=== PATIENT | female | born 1955 | race African-American/Black ===

== ENCOUNTER 2016-07-29 12:03 | Inpatient (IN) | payer MEDICAID, MEDICARE ==
[~2016-07-29] VITALS: Ht 167.6 cm; Wt 83.0 kg
[2016-07-29] VITALS (12 sets, daily range): BP systolic 147–191; BP diastolic 84–113; BMI 28.5
--- NOTE | 2016-07-29 11:40 | NUR ---
PT ARRIVED TO ROOM 2315 VIA STRETCHER ACCOMPANIED BY EMS. PT IS ALERT AND CONVERSANT, BUT CONVERSATION TENDS TO TRAIL OFF WHEN REQUIRES PT TO ANSWER LONG ANSWERS. C/O BEING COLD. HAS HAD NAUSEA UPON ARRIVAL. PT HAS ALSO HAD A BM. C/O PAIN IN [place]-AREA UPON CLEANING. HAS OPEN WOUNDS TO BUTTOCKS AND SCARRING. BRUISING AT RIGHT LOWER ARM IN AREA OF FISTULA. BRUIT AND THRILL NOTED. O2 SATS 97% ON ROOM AIR, NO DISTRESS NOTED. HAS PIV TO LEFT AC. MONITORING EQUIPMENT PLACED ON PATIENT.
[~2016-07-29 12:03] MED LIST: ACETAMINOPHEN500 M1 PO; ALEVE220 MG PO; BAYER CHEWABLE81 MG PO; BENADRYL25 MG PO; CLEOCIN HCL300 MG PO; DIFLUCAN100 MG PO; FLAGYL250 MG PO; GAS-X80 MG PO; IMODIUM2 MG PO; LANTUS SOL100 UNIT/1; LANTUS SOL100 UNIT/1 SC; LEVAQUIN250 MG PO; LOPERAMIDE PO; NYSTATIN15 GM TP; PEPCID20 MG PO; PHOSLO667 MG PO; RENA-VITE TABL0.8 MG PO; RENVELA800 MG PO; SENSIPAR30 MG; SENSIPAR30 MG PO; SENSIPAR60 MG PO; SYNTHROID75 MCG PO; TUMS500 MG PO; TYLENOL 325 MG325 MG PO; ULTRAM50 MG PO; ZOFRAN4 MG PO
--- NOTE | 2016-07-29 15:34 | NUR ---
PT PLACED IN RIGHT WRIST RESTRAINT WHILE ON DIALYSIS. SHE WILL NOT KEEP HER ARM STILL FOR ACCESS AND TREATMENT.
--- NOTE | 2016-07-29 16:46 | NUR ---
PT RESTING QUIETLY. DIALYSIS IN PROGRESS. NO DISTRESS NOTED.
--- NOTE | 2016-07-29 17:38 | NUR ---
PT HAVING SEIZURE. STILL ON DILAYSIS.
[2016-07-29 18:13] LABS: BASOPHILS 0.2 % (0.0-2.0); EOSINOPHILS 0.1 % (0-7); HEMATOCRIT 34.1 % (36.0-48.0); IMMATURE GRANULOCYTES 0.8 % (0-5); LYMPHOCYTES 27.2 % (15-50); MCH 30.4 pg (26.0-34.0); MCHC 32.3 g/dL (31.0-37.0); MCV 94.2 fL (80.0-100.0); MEAN PLATELET VOLUME 10.2 fL (7.4-10.4); NEUTROPHILS 63.7 % (40-80); PLATELET COUNT 138 10x3/uL (130-400); RBC 3.62 10x6/uL (4.00-5.40); RDW 16.1 % (11.5-14.5); WBC 11.1 10x3/uL (4.8-10.8)
[2016-07-29 18:18] LABS: ANION GAP 23.2 mmol/L (8-16); CARBON DIOXIDE 28.3 mmol/L (21.0-32.0); CREATININE - SERUM 9.5 mg/dL (0.6-1.3); POTASSIUM - SERUM 4.5 mmol/L (3.5-5.1)
--- NOTE | 2016-07-29 18:26 | NUR ---
PT HAD SEIZURE WHILE ON DIALYSIS. ATIVAN GIVEN AT 1738. PT RESPIRATIONS IRREGULAR. CODE CALLED AT 1742. SEE CODE SHEET FOR TIMELINE OF EVENTS. PT NOW VENTILATED AND SEDATED ON DIPRIVAN. DR PAN WAS NOTIFIED BY NAYELI GERMAIN THAT PT HAS CODED.
--- NOTE | 2016-07-29 18:49 | NUR ---
RECIEVED A PHONE CALL FROM JACKIE ELAINE WHO ASSISTS WITH THE CARE OF MRS CRANE AND HER . SHE WAS WITH MR CRANE AND I WAS ABLE TO SPEAK WITH HIM WELL. BOTH NUMBERS LISTED IN EMERGENCY CONTACT ARE NOT WORKING NUMBERS. THEY WERE INFORMED THAT THE PATIENT HAD A SEIZURE WHILE ON DIALYSIS AND THEN STOPPED BREATHING AND HER HEART STOPPED AND THAT CPR WAS PERFORMED AND SHE WAS PLACED ON THE VENTILATOR. I WAS GIVEN UPDATED NUMBER FOR SEEMA AND JACKIE'S PHONE NUMBER IF SEEMA CANNOT BE REACHED ON HIS. SEEMA CRANE [phone] JACKIE ELAINE [phone] SEEMA DOES WANT PT TO BE FULL CODE HAD BEEN EXPRESSED BY THE PATIENT. PASSWORD IS: SCHULER
--- NOTE | 2016-07-29 19:30 | NUR ---
Assessment complete. See flowsheet. Pt sedated to james 3 with Propofol sedation infusing @ 20mcg/kg/min (9.8cc/hr). Pt withdraws extremities to stimulation. Pupils size 3 bilaterally ERRL. 8.0FR OET tube secure 24cm @ lip secure to ventilator set AC Rate 16 TV 500 FiO2 @ 50% PEEP 5.0. Lung sounds present coarse crackles to all coffman. Pt OET inline suctioned with thin, red sputum retrieved and strong, productive cough triggered. HR SR with S1S2 auscultated. All peripheral pulses +2 with capillary refill <3 seconds. Left forearm 22g PIV site CDI saline locked. Pt left A/C 20g PIV site CDI no ss infection or infiltration with Propofol sedation infusing. Generalized edema noted to all extremities, non-pitting, non-weeping. BS + to all quadrants. Pt incontinent of small amt yellow pungent urine and liquid, brown stool. Incontinence care completed. SCDs secured to lower extremities bilaterally. Temp 99.0F orally. Pt pulled up in bed and positioned to left side with HOB @ 30 degrees. Arms and heels bridged. Bilat soft wrist restraints secure. CPOC.
--- NOTE | 2016-07-29 21:30 | NUR ---
Pt to CT for ordered CT head. Air overlay mattress placed on bed per order. Incontinence care completed. Bath with linen changes completed. CPOC.
--- NOTE | 2016-07-29 23:30 | NUR ---
Reassessment complete. See flowsheet. Propofol sedation increased to 30mcg/kg/min to obtain james 2-3 and keep patient from biting OET tube. Vent secure to OET tube with no setting changes to note. Lung sounds continue to present coarse crackles to all coffman with auscultation. HR SR with S1S2 auscultated. All peripheral pulses remain +2 with capillary refill <3 seconds. OGT placed and secured to LIWS retrieving light brown gastric content. BS +. Linens clean/dry. Pt pulled up in bed and positioned to back with HOB @ 30 degrees. Oral care completed with mouth moisturizer applied. Arms and heels bridged. Bilat soft wrist restraints secured after ROM completed to all extremities. NO other changes to note. Temp 99.3F
[2016-07-30] VITALS (24 sets, daily range): BP systolic 122–180; BP diastolic 67–109; Ht 167.6 cm; Wt 83.0 kg
--- NOTE | 2016-07-30 01:30 | NUR ---
Pt repositioned to left side with HOB @ 30 degrees. Arms and heels bridged. VSS. Oral care completed with mouth moisturizer applied.
--- NOTE | 2016-07-30 03:30 | NUR ---
Reassessment complete. See flowsheet. Pt remains sedated to james 2-3 with Propofol sedation infusing @ 30mcg/kg/min. No neuro changes to note from previous assessment. OET tube remains secure to vent. ABG resulted. Rate decreased to 12/min and FiO2 decreased to 40% per Christal RT. Lung sounds continue to present coarse crackles to all coffman. Pt OET inline suctioned with thin, bloody sputum retrieved and cough triggered. HR SR with S1S2 auscultated. All peripheral pulses +2 with capillary refill <3 seconds. PIV sites remain CDI; unchanged with no IVF changes to note. BS remains present to all quadrants. OGT secure to LIWS. Pt repositioned to back with HOB @ 30 degrees. Oral care completed with mouth moisturizer applied. Arms and heels rebridged. BIlat soft wrist restraints secure. CPOC.
--- NOTE | 2016-07-30 05:30 | NUR ---
Pt repositioned to right side with HOB @ 30 degrees. Oral care completed with mouth moisturizer applied. Bilat soft wrist restraints secure. No s/s pain or distress. VSS> CPOC.
[2016-07-30 07:35] LABS: BASOPHILS 0.1 % (0.0-2.0); EOSINOPHILS 0.1 % (0-7); HEMATOCRIT 31.8 % (36.0-48.0); HEMOGLOBIN 10.4 g/dL (12-16); IMMATURE GRANULOCYTES 0.1 % (0-5); LYMPHOCYTES 8.5 % (15-50); MCH 30.3 pg (26.0-34.0); MCHC 32.7 g/dL (31.0-37.0); MCV 92.7 fL (80.0-100.0); MEAN PLATELET VOLUME 10.3 fL (7.4-10.4); MONOCYTES 7.5 % (2-11); NEUTROPHILS 83.7 % (40-80); PLATELET COUNT 144 10x3/uL (130-400); RBC 3.43 10x6/uL (4.00-5.40); RDW 16.1 % (11.5-14.5); WBC 10.7 10x3/uL (4.8-10.8)
[2016-07-30 07:53] LABS: ANION GAP 18.3 mmol/L (8-16); BILIRUBIN - TOTAL 1.05 mg/dL (0.2-1.3); CALCIUM 8.8 mg/dL (8.5-10.1); CARBON DIOXIDE 27.6 mmol/L (21.0-32.0); MAGNESIUM - SERUM 2.3 mg/dL (1.8-2.4); PHOSPHOROUS 7.5 mg/dL (2.5-4.9); POTASSIUM - SERUM 4.9 mmol/L (3.5-5.1); PROTEIN - SERUM 7.1 g/dL (6.4-8.2)
[2016-07-30 07:59] LABS: CREATININE - SERUM 12.4 mg/dL (0.6-1.3)
--- NOTE | 2016-07-30 11:58 | NUR ---
Nutrition Note: Chart reviewed. wants TF to begin. Diprivan currently @ 14.4 ml/hr providing 380 kcal/d. Will put order in to start TF of Nepro @ 20 ml/hr. Advance 10 ml every 6-8 hours as tolerated to goal rate of 35 ml/hr (other kcal source - Diprivan). Water flushes 20 ml/hr. RD will continue to monitor pt progress.
--- NOTE | 2016-07-30 14:33 | NUR ---
RESPONSE TO PAINFUL STIMULI WITH FACIAL GRIMACING AND MOVEMENT IN ALL EXTREMITIES. DOES STIR AROUND BUT DOES NOT OBEY COMMANDS OR OPEN EYES ON REQUEST. DIPRIVAN AT 30 MCG/KG/MIN IN LEFT AC. ETT SECURE TO VENT SETTINGS DOCUMENTED. SUCTION BLOODY SPUTUM FROM ETT SMALL AMOUNT. NG TO LOW INTERMITTEN SUCTION DARK GREEN DRAINAGE. BILATRAL LUNG SOUNDS EQUAL WITH FEW CRACKLES LUNGS CLEARER AFTER SUCTIONING. ABD SOFT WITH BOWEL SOUNDS PRESENT. SCD ON LOWER LEGS. SKIN VERY DRY. MONITOR sr. DIALYSIS IN PROGRESS. FISTULA RIGHT UPPER ARM. IV LEFT FOREARM INFUSING WITH NS AT 5 ML HOUR FOR IVPB. HEAD OF BED ELEVATED. TO START TUBE FEEDING NEPRO AT 20 ML HOUR WHEN DIALYSIS COMPLETED.
--- NOTE | 2016-07-30 17:46 | NUR ---
TX COMPLETE. 1L OFF. B/P ELEVATED THROUGH OUT TX. PT HAD MOVEMENT DURING TX BUT REMAINED SEDATED.
--- NOTE | 2016-07-30 18:00 | NUR ---
DIALYSIS COMPLETED TUBE FEEDING STARTED PER ORAL NG TUBE, CHECK PLACE BY INJECTION AIR INTO TUBE AUDIBLE IN ABD. RECTAL OR VAGINAL DRAINAGE SMALL AMOUNT BROWN NOTED WITH FOUL ODOR SMALL SKIN TEAR IN COCCYX AREA. NO CHANGE IN VENT. BLOOD PRESSURE ELEVATED DURING DIALYSIS.
--- NOTE | 2016-07-30 19:30 | NUR ---
Assessment complete. See flowsheet. Pt sedated to james 2-3 upon entrance into room with Propofol sedation infusing @ 40mcg/kg/min (19.2cc/hr). Pt withdraws to painful stimulation. Pupils size 3 bilaterally ERRL. 8.0FR OET tube secure 24cm @ lip to ventilator set A/C Rate 12 TV 600 FiO2 @ 40% PEEP 5.0. Lung sounds present coarse crackles to all coffman. Pt OET inline lavaged and suctioned with thick, brown sputum retrieved and strong, productive cough triggered. Oral care completed with mouth moisturizer applied. HR SR with S1S2 auscultated. All peripheral pulses +2 with capillary refill <3 seconds. Right UA Fistula site thrill palpated/bruit auscultated. Left A/C PIV site CDI no s/s infection or infiltration with Propofol sedation infusing. Pt left forearm PIV site CDI no s/s with NS infusing @ 5cc/hr KVO Rate. Generalized edema noted to all extremities. ABdomen distended with BS present to all quadrants. OGT secure to Nepro TF infusing @ 20cc/hr. Gastric residual check yields 0cc content aspirated. SCDs secure. Pt pulled up in bed and positioned to left side with HOB @ 30 degrees. Arms and heels bridged. Linens clean/dry. Temp 97.7F temporally. Bilat soft wrist restraints resecured after ROM completed to all extremities. CPOC.
--- NOTE | 2016-07-30 19:32 | NUR ---
Daughter spoken to with update given and questions addressed.
--- NOTE | 2016-07-30 21:30 | NUR ---
Pt repositioned to right side. HOB @ 30 degrees. Oral care completed with mouth moisturizer applied. No s/s pain or distress. VSS. No other changes to note. CPOC.
--- NOTE | 2016-07-30 23:30 | NUR ---
Reassessment complete. See flowsheet. Pt remains sedated to james 2 with Propofol sedation infusing @ 40mcg/kg/min. NO neuro changes to note. OET tube remains secure to vent with NO Setting changes to note from previous assessment. Lung sounds continue to present coarse crackles to all coffman. Pt OET inline suctioned with thick, brown sputum retrieved and strong, productive cough triggered. Oral care completed with mouth moisturizer applied. HR SR. BS +. OGT remains secure to Nepro TF infusing @ 20cc/hr. Gastric residual check yields -cc content. TF rate increased to 30cc/hr. Pt repositioned to back with HOB @ 30 degrees. Arms and heels bridged. Bilat soft wrist restraints secured. CPOC.
[2016-07-31] VITALS (23 sets, daily range): BP systolic 141–167; BP diastolic 76–111
--- NOTE | 2016-07-31 01:30 | NUR ---
Chlorhexidine bed bath with gown and linen changes completed. Pt repositioned to left side with HOB @ 30 degrees. VSS. Arms and heels bridged. Baby powder to underlinens, skin folds and under BP cuff and SCDs. Bilat soft wrist restraints secured. Hair cleansed. Oral care completed.
--- NOTE | 2016-07-31 03:00 | NUR ---
FiO2 decreased to 30% per Christal RT after AM ABG results.
--- NOTE | 2016-07-31 03:30 | NUR ---
Reassessment complete. See flowsheet. Pt remains sedated to james 2 with Propofol sedation @ 40mcg/kg/min. OET tube secure to ventilator. Lung sounds continue to present coarse crackles to all coffman. HR SR. BS +. OGT secure to Nepro TF. Gastric resid check yields 0cc content aspirated. TF rate increased to goal rate of 35cc/hr. Pt repositioned to back with HOB @ 30 degrees with arms and heels bridged for AM CXR. Bilat soft wrist restraints secure. CPOC.
[2016-07-31 05:27] LABS: BASOPHILS 0.2 % (0.0-2.0); EOSINOPHILS 0.5 % (0-7); HEMATOCRIT 33.2 % (36.0-48.0); HEMOGLOBIN 10.9 g/dL (12-16); IMMATURE GRANULOCYTES 0.6 % (0-5); LYMPHOCYTES 7.3 % (15-50); MCHC 32.8 g/dL (31.0-37.0); MCV 91.5 fL (80.0-100.0); MEAN PLATELET VOLUME 10.3 fL (7.4-10.4); MONOCYTES 10.6 % (2-11); NEUTROPHILS 80.8 % (40-80); PLATELET COUNT 128 10x3/uL (130-400); RBC 3.63 10x6/uL (4.00-5.40); RDW 16.2 % (11.5-14.5)
--- NOTE | 2016-07-31 05:30 | NUR ---
Pt repositioned to right side. HOB @ 30 degrees. Oral care completed.
[2016-07-31 05:58] LABS: ALBUMIN 2.9 g/dL (3.4-5.0); ANION GAP 17.6 mmol/L (8-16); BILIRUBIN - TOTAL 1.5 mg/dL (0.2-1.3); CALCIUM 8.3 mg/dL (8.5-10.1); CARBON DIOXIDE 27.4 mmol/L (21.0-32.0); MAGNESIUM - SERUM 2.2 mg/dL (1.8-2.4); PROTEIN - SERUM 6.9 g/dL (6.4-8.2)
[2016-07-31 05:59] LABS: CREATININE - SERUM 8.6 mg/dL (0.6-1.3)
--- NOTE | 2016-07-31 19:00 | NUR ---
REPORT RECEIVED AND ASSESSMENT COMPLETED. SEE FLOWSHEET FOR DETAILS. PT IS ON SEDATION VACATION AND CPAP TRIAL. RR 24 PEEP 5.3. O2 SAT 97%. WILL CONTINUE TO MONITOR.
--- NOTE | 2016-07-31 21:00 | NUR ---
2100 MEDS GIVEN. NO OTHER CHANGES IN STATUS AT THIS TIME. WILL MONITOR.
--- NOTE | 2016-07-31 23:00 | NUR ---
REASSESSMENT COMPLETED. PT PLACED BACK ON ASSIST CONTROL BY REPIRATORY DURING THE 2200 HOUR. PROPOFOL RESTARTED. B/P STILL 140'S SYSTOLIC. VSS. WILL MONITOR
[2016-08-01] VITALS (23 sets, daily range): BP systolic 102–157; BP diastolic 47–91
--- NOTE | 2016-08-01 01:00 | NUR ---
PT SEDATED. 40 MCG PROPOFOL. VSS WILL MONITOR.
--- NOTE | 2016-08-01 03:00 | NUR ---
REASSESSMENT COMPLETED. SEE ASSESSMENT FOR FULL DETAILS. NO OTHER CHANGES TO REPORT AT THIS TIME. VSS. WILL MONITOR
[2016-08-01 04:49] LABS: HEMATOCRIT 28.4 % (36.0-48.0); HEMOGLOBIN 9.7 g/dL (12-16); LYMPHOCYTES 8.2 % (15-50); MCHC 34.2 g/dL (31.0-37.0); MCV 90.7 fL (80.0-100.0); MEAN PLATELET VOLUME 10.1 fL (7.4-10.4); NEUTROPHILS 86.5 % (40-80); PLATELET COUNT 105 10x3/uL (130-400); RBC 3.13 10x6/uL (4.00-5.40); RDW 15.9 % (11.5-14.5); WBC 8.9 10x3/uL (4.8-10.8)
--- NOTE | 2016-08-01 05:00 | NUR ---
RADIOLOGY AND LAB HAVE BEEN TO BEDSIDE. NO OTHER CHANGES IN STATUS TO REPORT. VSS.
[2016-08-01 05:22] LABS: ALBUMIN 2.6 g/dL (3.4-5.0); BILIRUBIN - TOTAL 1.39 mg/dL (0.2-1.3); CALCIUM 8.4 mg/dL (8.5-10.1); CREATININE - SERUM 10.4 mg/dL (0.6-1.3); MAGNESIUM - SERUM 2.2 mg/dL (1.8-2.4); PROTEIN - SERUM 6.5 g/dL (6.4-8.2)
--- NOTE | 2016-08-01 07:00 | NUR ---
REPORT RECEIVED, PATIENT IN SEMIFOWLERS POSITION, SEDATED, VENT IN USE. ASSESSMENT COMPLETED AT THIS TIME. NO VISUAL CUES OF DISTRESS NOTED.
--- NOTE | 2016-08-01 07:52 | NUR ---
DR FARLEY HERE. QUESTIONS ANSWERED ASKED. WILL AWAIT ORDERS.
--- NOTE | 2016-08-01 10:23 | NUR ---
COMPLETE BED BATH GIVEN WITH THE ASSISTANCE OF [facility]. PATIENT TOLERATED WELL.
--- NOTE | 2016-08-01 10:25 | NUR ---
PATIENT PATHWAYS - Patient of [facility] on //Sat @ 11:15am. Medical records forwarded to the home unit. FA from patient's unit states that this behavior (skipping HD x 10 days) is normal for this patient. On previous d/c patient went the [place], however the paperwork for [employer]-TERM C[employer] MEDICAID was never completed and returned. Per FA patient cannot care for self or make rational decisions for self. FA states patient lives home w/ (confined to a W/C, unable to care for self either.) Daughter lives 'in town' but not with the patient. FA feels Patient needs some type of intervention regarding placement @ [facility]. [facility]
--- NOTE | 2016-08-01 10:44 | NUR ---
Nutrition follow-up: Pt intubated, sedated Nepro infusing via OGT @ 35 ml/hr; 20 ml H2O flush every hour Sedated with propofol Labs reviewed Wt: 175# RDN will continue to monitor patients progress and adjust tube feeding rate as needed to meet est nutritional needs. RDN following.
--- NOTE | 2016-08-01 17:07 | NUR ---
GRANDSON IN FROM [facility]. UPDATE GIVEN. ALLOWED IN TO SEE HER FOR 10 MINUTES BEFORE HE HEADED TO [facility]. ALL QUESTIONS ANSWERED.
--- NOTE | 2016-08-01 19:30 | NUR ---
ASSESSMENT COMPLETE. S1S2. RR SHALLOW; CRACKLES BILATERALLY IN UPPER LOBES; DIMINISHED BILATERALLY IN LOWER LOBES. PT SEDATED ON VENT; RESPONDS TO PAIN; OPENS EYES. PT COUGHS WITH MOVEMENT. STAGE TWO PRESSURE ULCERS ON BUTTOCKS; BLEEDING. PERRLA. SEE FLOW SHEET FOR DETAILS.
--- NOTE | 2016-08-01 20:10 | NUR ---
PT HAD SMALL BM; CLEANED. PARTIAL LINEN CHANGE.
--- NOTE | 2016-08-01 21:29 | NUR ---
Please to reference Kacie Gomez's Patient Pathway note. Per [facility] it is the patient's pattern to miss HD. It appears the patient and her spouse are both unable to assist themselves or one another. She states patient cannot make rational decision no documentation provided at this time to support capacity. Make consider psych consult. Patient on a previous admission was discharged to [facility] per case management notes. Paperwork for Residential Medicaid was apparently given to the patient but was not completed or returned per HD Note. Question patient's reading ability & comprehension. May possibly require assistance. The family support is not known. Reportedly a daughter lives in the same town. Question of a grandson or friend of grandson visiting today at 1730. CM was not available at that time. CM will attempt to speak w/ family and/ or social media director at [facility].
--- NOTE | 2016-08-01 23:00 | NUR ---
REASSESSMENT COMPLETE. NO CHANGES FROM PREVIOUS ASSESSMENT.
[2016-08-02] VITALS (24 sets, daily range): BP systolic 113–158; BP diastolic 66–88
--- NOTE | 2016-08-02 01:15 | NUR ---
PT HAD MODERATE BM; CLEANED, LINENS CHANGED.
--- NOTE | 2016-08-02 03:30 | NUR ---
REASSESSMENT COMPLETE. NO CHANGES FROM PREVIOUS ASSESSMENT. WILL CONTINUE TO MONITOR.
--- NOTE | 2016-08-02 03:45 | NUR ---
PT HAD MODERATE BM. COMPLETE BED BATH. COMPLETE LINEN CHANGE. NEW GOWN PROVIDED. WILL CONTINUE TO MONITOR.
[2016-08-02 03:57] LABS: BASOPHILS 0.1 % (0.0-2.0); EOSINOPHILS 2.4 % (0-7); HEMATOCRIT 29.3 % (36.0-48.0); HEMOGLOBIN 9.6 g/dL (12-16); IMMATURE GRANULOCYTES 0.3 % (0-5); LYMPHOCYTES 13.7 % (15-50); MCH 29.9 pg (26.0-34.0); MCHC 32.8 g/dL (31.0-37.0); MCV 91.3 fL (80.0-100.0); MEAN PLATELET VOLUME 10.2 fL (7.4-10.4); MONOCYTES 7.7 % (2-11); NEUTROPHILS 75.8 % (40-80); RBC 3.21 10x6/uL (4.00-5.40); RDW 16.3 % (11.5-14.5); WBC 7.4 10x3/uL (4.8-10.8)
[2016-08-02 04:04] LABS: PLATELET COUNT 153 10x3/uL (130-400)
[2016-08-02 04:17] LABS: ALBUMIN 2.5 g/dL (3.4-5.0); ANION GAP 16.9 mmol/L (8-16); BILIRUBIN - TOTAL 1.2 mg/dL (0.2-1.3); CALCIUM 7.9 mg/dL (8.5-10.1); CARBON DIOXIDE 26.9 mmol/L (21.0-32.0); CREATININE - SERUM 11.6 mg/dL (0.6-1.3); MAGNESIUM - SERUM 2.2 mg/dL (1.8-2.4); PROTEIN - SERUM 7.1 g/dL (6.4-8.2)
[2016-08-02 04:20] LABS: POTASSIUM - SERUM 4.8 mmol/L (3.5-5.1)
--- NOTE | 2016-08-02 06:55 | NUR ---
REPORT RECEIVED. PATIENT IN SEMIFOWLERS POSITION WITH VENT IN PLACE. ASSESSMENT COMPLETED. SEDATION CUT IN HALF. NOW AT 20MCG. WORKING ON WEANING. SIGRID WITH RESPIRATORY AT BEDSIDE.
--- NOTE | 2016-08-02 07:35 | NUR ---
SEDATION DECREASED TO 10 MCG. PATIENT TOLERATING. B/P 122/67 (84), HR 85, RR 15, SATS 96% ON 30%.
--- NOTE | 2016-08-02 09:02 | NUR ---
CUT PATIENT BACK TO 5MCG.
--- NOTE | 2016-08-02 09:30 | NUR ---
SEDATION TURNED OFF.
--- NOTE | 2016-08-02 09:47 | NUR ---
PATIENT AWAKE. SHE IS FLOPPING IN BED AND STAMPERING HER FEET LIKE A 2 YEAR OLD. SPOKE WITH SIGRID IN RESPIRATORY AND DR GARSIA. PATIENT WILL BE LIGHTLY SEDATED UNTIL AFTER DIALYSIS IS OVER AND THEN WE WILL TRY AGAIN.
--- NOTE | 2016-08-02 13:05 | NUR ---
HAVE STARTED WEENING PATIENT OFF SEDATION AGAIN. SHE WAS DROPPED TO 15 THEN AT THE END OF CLEANING HER AND REPOSITIONING HER, SHE WAS DECREASED TO 7.5. WILL WAIT JUST A BIT LONGER AND TURN SEDATION OFF.
--- NOTE | 2016-08-02 13:21 | NUR ---
PATIENTS SEDATION TURNED TO 5MCG AND SHE IS ON CPAP THROUGH THE VENT. WILL CONTINUE TO MONITOR.
--- NOTE | 2016-08-02 13:35 | NUR ---
PATIENT POUNDING LEGS ON THE BED. NOT OPENING EYES OR FOLLOWING COMMANDS. THIS NURSE HAS TRIED TO EXPLAIN TO HER WHAT IS GOING ON AGAIN. NO ACKNOWLEDGEMENT THAT SHE UNDERSTANDS. B/P 146/82 (104), HR 86, RR 30, SATS 96% ON 30% OXYGEN.
--- NOTE | 2016-08-02 13:48 | NUR ---
SEDATION COMPLETELY TURNED OFF. WILL MONITOR.
--- NOTE | 2016-08-02 14:37 | NUR ---
PATIENT CONTINUES TO LIFT LEGS AND SLAM THEM ON THE BED. SHE IS NOT OPENING EYES, BUT WILL STOP DOING THAT WITH HER LEGS FOR A FEW MOMENTS WHEN SHE IS TOLD TO. STILL NOT OPENING HER EYES.
--- NOTE | 2016-08-02 14:43 | NUR ---
SPOKE WITH DR GARSIA AND SGIRID, UNLESS PATINET FAILS LEAK TEST, WE WILL PROCEEDE WITH EXTUBATION. WHEN SIGRID WITH RESPIRATORY IS FINISHED WITH THE PATIENT HE HAS, WE WILL PROCEDE.
--- NOTE | 2016-08-02 15:09 | NUR ---
EVEN THOUGH PATIENT IS LIFTING AND SLAMMING LEGS, AND LIFTING AND LOWERING ARMS, SHE IS NOT ABLE TO FOLLOW COMMANDS. WILL CONTINUE TO MONITOR.
--- NOTE | 2016-08-02 15:20 | NUR ---
PATIENT FAILED HER LEAK TEST. SIGRID WILL GO AND SPEAK WITH DR STALLWORTH.
--- NOTE | 2016-08-02 15:35 | NUR ---
PATIENT WAS RESEDATED AND PLACED BACK ON THE VENT SIMV SETTINGS. FEEDING WAS RESTARTED PER ORDERS. WILL MONITOR.
--- NOTE | 2016-08-02 16:47 | NUR ---
PATIENTS OG TUBE CLOGGED. UNABLE TO UNCLOG. PULLED WHAT LOOKED LIKE A 14FR SALEM SUMP AND REDROPPED 16FR SALEM SUMP. PLACEMENT VERIFIED BY AIR BOLUS AND BACK FLOW OF GASTRIC CONTENT. TUBE FEEDINGS STARTED BACK.
--- NOTE | 2016-08-02 17:57 | NUR ---
PATIENT CLEANED UP AND REPOSITIONED TO HER BACK. VITAL SIGNS ARE STABLE. PATIENT SUCTIONED. FEEDINGS RUNNING WITHOUT PROBLEM. NO VISUAL CUES OF DISTRESS NOTED.
--- NOTE | 2016-08-02 19:30 | NUR ---
ASSESSMENT COMPLETE. S1S2. PT SEDATED ON VENT. RR CRACKLES BILATERALLY IN UPPER LOBES; DIMINISHED BILATERALLY IN LOWER LOBES. 2 STAGE II PU ON BUTTOCKS/COCCYX. VSS. NSR SHOWING ON MONITOR. PERRLA 4MM; BRISK.
--- NOTE | 2016-08-02 21:30 | NUR ---
PT SEDATED ON VENT. VSS. NO DISTRESS NOTED. WILL CONTINUE TO MONITOR.
--- NOTE | 2016-08-02 22:40 | NUR ---
CALLED TO CHECK ON PT. UPDATE GIVEN.
--- NOTE | 2016-08-02 23:00 | NUR ---
REASSESSMENT COMPLETE. NO CHANGES FROM PREVIOUS ASSESSMENT. WILL CONTINUE TO MONITOR.
[2016-08-03] VITALS (21 sets, daily range): BP systolic 119–160; BP diastolic 73–99
--- NOTE | 2016-08-03 03:30 | NUR ---
REASSESSMENT COMPLETE. NO CHANGES FROM PREVIOUS ASSESSMENT.
[2016-08-03 05:04] LABS: BASOPHILS 0 % (0.0-2.0); EOSINOPHILS 0.1 % (0-7); HEMATOCRIT 31.5 % (36.0-48.0); HEMOGLOBIN 10.8 g/dL (12-16); IMMATURE GRANULOCYTES 0.1 % (0-5); LYMPHOCYTES 6.2 % (15-50); MCH 31.5 pg (26.0-34.0); MCHC 34.3 g/dL (31.0-37.0); MCV 91.8 fL (80.0-100.0); MEAN PLATELET VOLUME 10.3 fL (7.4-10.4); MONOCYTES 7.4 % (2-11); NEUTROPHILS 86.2 % (40-80); PLATELET COUNT 173 10x3/uL (130-400); RBC 3.43 10x6/uL (4.00-5.40); RDW 16.6 % (11.5-14.5); WBC 8.6 10x3/uL (4.8-10.8)
[2016-08-03 05:27] LABS: ALBUMIN 2.7 g/dL (3.4-5.0); ANION GAP 18.5 mmol/L (8-16); BILIRUBIN - TOTAL 1.4 mg/dL (0.2-1.3); CALCIUM 7.5 mg/dL (8.5-10.1); CARBON DIOXIDE 27.3 mmol/L (21.0-32.0); MAGNESIUM - SERUM 2.3 mg/dL (1.8-2.4); PHOSPHOROUS 7.1 mg/dL (2.5-4.9); POTASSIUM - SERUM 4.8 mmol/L (3.5-5.1)
[2016-08-03 05:36] LABS: CREATININE - SERUM 7.8 mg/dL (0.6-1.3); PROTEIN - SERUM 7.4 g/dL (6.4-8.2)
--- NOTE | 2016-08-03 06:29 | NUR ---
PT HAD SMALL BM. PT CLEANED AND PARTIAL LINEN CHANGE.
--- NOTE | 2016-08-03 07:30 | NUR ---
REPORT RECD PT CARE ASSUMED. PT IS SEDATED ON VENTILATOR. PT OPENS EYES TO STIMULI. S1S2 NOTED. SR PER CM. SEE SHIFT ASSESSMENT FOR FURTHER DETAILS. VSS.
[2016-08-03 08:21] LABS: HEP B CORE AB TOTAL Negative (Negative)
--- NOTE | 2016-08-03 11:45 | NUR ---
PIV SITE UNACCEPTABLE. PIV RESITED TO LEFT AC. INFUSING WELL, WITH POSITIVE BLOOD RETURN.
--- NOTE | 2016-08-03 14:50 | NUR ---
PT EXTUBATED AT THIS TIME, DOING WELL.
--- NOTE | 2016-08-03 19:30 | NUR ---
ASSESSMENT COMPLETE. S1S2. PT EXTUBATED EARLIER TODAY; RR SHALLOW; SOB. RR CRACKLES BILATERALLY IN UPPER LOBES; DIMINISHED BILATERALLY IN LOWER LOBES. PT AWAKE OPENS EYES SPONTANEOUSLY. PT DOES NOT FOLLOW COMMANDS. PT MUMBLES; INCOMPREHENSIBLE SOUNDS. PUPILS UNEQUAL IN SIZE; 2MM RIGHT/SLUGGISH; 4MM LEFT/BRISK. 2 STAGE 2 PU ON BUTTOCKS/COCCYX. ORAL CARE PROVIDED. PT HAVING DIFFICULTY SWALLOWING SECRETIONS. ON 4L VIA NC. RIGHT ARM RESERVE. LEFT FOREARM UPPER ARM PIV; PATENT.
--- NOTE | 2016-08-03 21:57 | NUR ---
PT LOOKED TOWARD NURSE WHEN ASKED. WAS ABLE TO MUMBLE ANSWERS WHEN ASKING QUESTION. DENIES PAIN. PAGED DR. VASQUEZ FOR PT HTN. SYSTOLIC ABOVE 160.
--- NOTE | 2016-08-03 23:59 | NUR ---
REASSESSMENT COMPLETE. PT ALERTNESS HAS INCREASED. LOOKS TOWARD THIS NURSE WHEN SPEAKING TO PT; ANSWERS QUESTIONS. SPEECH MUMBLED/GARBLED. DENIES PAIN.
[2016-08-04] VITALS (24 sets, daily range): BP systolic 122–175; BP diastolic 66–97
--- NOTE | 2016-08-04 03:10 | NUR ---
REASSESSMENT COMPLETE. NO CHANGES FROM PREVIOUS ASSESSMENT. WILL CONTINUE TO MONITOR.
--- NOTE | 2016-08-04 04:15 | NUR ---
BATH; LINEN CHANGE.
[2016-08-04 05:00] LABS: BASOPHILS 0.1 % (0.0-2.0); EOSINOPHILS 0 % (0-7); HEMOGLOBIN 10.4 g/dL (12-16); IMMATURE GRANULOCYTES 0.4 % (0-5); LYMPHOCYTES 8.9 % (15-50); MCH 29.9 pg (26.0-34.0); MCHC 32.5 g/dL (31.0-37.0); MEAN PLATELET VOLUME 10.5 fL (7.4-10.4); MONOCYTES 8.8 % (2-11); NEUTROPHILS 81.8 % (40-80); PLATELET COUNT 190 10x3/uL (130-400); RBC 3.48 10x6/uL (4.00-5.40); RDW 16.5 % (11.5-14.5); WBC 9.4 10x3/uL (4.8-10.8)
[2016-08-04 05:13] LABS: ALBUMIN 2.9 g/dL (3.4-5.0); BILIRUBIN - TOTAL 0.92 mg/dL (0.2-1.3); CALCIUM 9.2 mg/dL (8.5-10.1); CARBON DIOXIDE 30.3 mmol/L (21.0-32.0); CREATININE - SERUM 9.5 mg/dL (0.6-1.3); MAGNESIUM - SERUM 2.7 mg/dL (1.8-2.4); PROTEIN - SERUM 8.5 g/dL (6.4-8.2)
[2016-08-04 05:14] LABS: ANION GAP 18.7 mmol/L (8-16)
--- NOTE | 2016-08-04 05:15 | NUR ---
PT HAD SMALL BM. CLEANED; LINENS CHANGED.
--- NOTE | 2016-08-04 06:15 | NUR ---
PT SPITTING ON SELF INSTEAD OF SWALLOWING SALIVA; PT SCREAMING OUT FOR "SEEMA".
--- NOTE | 2016-08-04 06:17 | NUR ---
SPOKE WITH . UPDATE ON CURRENT PT CONDITION.
--- NOTE | 2016-08-04 07:00 | NUR ---
REPORT RECEIVED. ASSESSMENT COMPLETED. PATIENT MOVING LEGS AND ARMS, BUT NOT ANSWERING QUESTIONS.
--- NOTE | 2016-08-04 10:20 | NUR ---
QUEENIE WITH SPEECH THERAPY AT BEDSIDE DOING SWALLOW EVAL. AT THIS TIME PATIENT WILL REMAIN NPO.
--- NOTE | 2016-08-04 10:50 | NUR ---
DIALYSIS STARTED. PATIENT STILL FLAYING ARMS, DIALYSIS NURSE SITTING NEXT TO THE PATIENT AT BEDSIDE TO REMIND HER TO HOLD IT STILL.
--- NOTE | 2016-08-04 13:35 | NUR ---
SPOKE WITH DR GALVAN ABOUT PATIENTS BLOOD PRESSURES. HE STATED THAT THOSE WERE PROBABLY GOOD PRESSURES FOR THE PATIENT AND NO NEW ORDERS RECEIVED.
--- NOTE | 2016-08-04 14:01 | NUR ---
SPOKE WITH DR GALVAN ALSO ABOUT PATIENT STARTING TO C/O DISCOMFORT TO LOWER RIB CAGE BILATERALLY. IT WAS ALSO EXPLAINED THAT SHE HAS FAILED HER SWALLOW EVAL AND CANNOT TAKE ANYTHING BY MOUTH AT THIS TIME. HE STATED HE WOULD ORDER HER SOMETHING.
--- NOTE | 2016-08-04 14:09 | NUR ---
BUPRENEX GIVEN PER PRN ORDERS FOR C/O CHEST DISCOMFORT. SPOKE WITH NEETU WHO IS DO DIALYSIS AND SHE SAID THAT THE PATIENT WOULD GET SOME RELIEF FROM THE PAIN MEDICATIONS AND SHE WAS GOING TO HAVE TO DO MORE TIME ON THE DIALYSIS TO PULL OFF THE AMOUNT OF FLUID DR GALVAN JUST TOLD HER HE WANTED PULLED.
--- NOTE | 2016-08-04 15:47 | NUR ---
DIALYSIS STILL IN PROCESS. PATIENT IS RESTING COMFORTABLE AFTER PAIN MEDICATIONS. PER NEETU WITH DIALYSIS, SHE HAS BEEN SLEEPING FOR A BIT NOW. WILL CONTINUE TO MONITOR.
--- NOTE | 2016-08-04 16:27 | NUR ---
DIALYSIS COMPLETED, PULLED OFF 3,000 ML OF FLUID.
--- NOTE | 2016-08-04 23:30 | NUR ---
1929- REPORT RECVD. CARE ASSUMED. INITIAL ASSMNT COMPLETED. SEE FLOWSHEET FOR ALL FINDINGS. LETHARGIC. AROUSES TO VOICE. ORIENTED TO SELF. DENIES DISCOMFORT. FOLLOWS COMMANDS BUT SLOW TO RESPOND. RESP UNLABORED. LUNGS COARSE THRU OUT. SPO2 97% ON O2 AT 2 LPM NC. SR ON THE MONITOR. PULSES PALP X4. SCDS ON. GENERALIZED EDEMA PRESENT. ABD SOFT, BSA X4. ANURIC. BLADDER NON PALP. AIR OVERLAY IN FOR SKIN INTEGRITY. REPOSITIONED. HEELS BRIDGED. HOB UP. C/L IN REACH. CONT CURRENT POC. 2129- SPOKE WITH DAUGHTER VIA PHONE. PASSWORD VERIFIED. VSS. TURNED AND REPOSITIONED. DENIES NEEDS. HOB UP. C/L IN REACH. CONT CURRENT POC. 2329- REASSESSMENT COMPLETED. SEE FLOWSHEET FOR ALL FINDINGS. LETHARGIC. AROUSES TO VOICE. ORIENTED TO SELF. DENIES DISCOMFORT. FOLLOWS COMMANDS BUT SLOW TO RESPOND. RESP UNLABORED. LUNGS COARSE THRU OUT. SPO2 97% ON O2 AT 2 LPM NC. SR ON THE MONITOR. PULSES PALP X4. SCDS ON. GENERALIZED EDEMA PRESENT. ABD SOFT, BSA X4. ANURIC. BLADDER NON PALP. AIR OVERLAY IN FOR SKIN INTEGRITY. REPOSITIONED. HEELS BRIDGED. HOB UP. C/L IN REACH. CONT CURRENT POC.
[2016-08-05] VITALS (20 sets, daily range): BP systolic 122–168; BP diastolic 69–92
--- NOTE | 2016-08-05 01:30 | NUR ---
TURNED AND REPOSITIONED. REMAINS CONFUSED. VSS. SPO2 96% ON O2 AT 2LPM NC. HOB UP. NO DISTRESS. C/L IN REACH. CONT CURRENT POC.
--- NOTE | 2016-08-05 03:30 | NUR ---
REASSESSMENT COMPLETED. SEE FLOWSHEET FOR ALL FINDINGS. LETHARGIC. AROUSES TO VOICE. ORIENTED TO SELF. DENIES DISCOMFORT. FOLLOWS COMMANDS BUT SLOW TO RESPOND. RESP UNLABORED. LUNGS COARSE THRU OUT. SPO2 97% ON O2 AT 2 LPM NC. SR ON THE MONITOR. PULSES PALP X4. SCDS ON. GENERALIZED EDEMA PRESENT. ABD SOFT, BSA X4. ANURIC. BLADDER NON PALP. AIR OVERLAY IN FOR SKIN INTEGRITY. REPOSITIONED. HEELS BRIDGED. HOB UP. C/L IN REACH. CONT CURRENT POC.
[2016-08-05 04:54] LABS: BASOPHILS 0.4 % (0.0-2.0); EOSINOPHILS 0.9 % (0-7); HEMATOCRIT 30.8 % (36.0-48.0); HEMOGLOBIN 9.8 g/dL (12-16); IMMATURE GRANULOCYTES 0.3 % (0-5); LYMPHOCYTES 7.4 % (15-50); MCH 29.6 pg (26.0-34.0); MCHC 31.8 g/dL (31.0-37.0); MCV 93.1 fL (80.0-100.0); MEAN PLATELET VOLUME 9.8 fL (7.4-10.4); MONOCYTES 14.7 % (2-11); NEUTROPHILS 76.3 % (40-80); PLATELET COUNT 196 10x3/uL (130-400); RBC 3.31 10x6/uL (4.00-5.40); RDW 16.3 % (11.5-14.5); WBC 7.5 10x3/uL (4.8-10.8)
[2016-08-05 05:00] LABS: ANION GAP 18.6 mmol/L (8-16); CALCIUM 8.3 mg/dL (8.5-10.1); CARBON DIOXIDE 29.2 mmol/L (21.0-32.0); CREATININE - SERUM 7.8 mg/dL (0.6-1.3)
[2016-08-05 05:04] LABS: POTASSIUM - SERUM 4.8 mmol/L (3.5-5.1)
--- NOTE | 2016-08-05 05:30 | NUR ---
TURNED AND REPOSITIONED. RESTLESS..PULLING OFF O2 AND LEADS AT TIMES. REPORIENTED. VSS. HOB UP. C/L IN REACH. CONT CURRENT POC.
--- NOTE | 2016-08-05 08:11 | NUR ---
SITTING UP IN BED AWAKE WATCHING TV AT THIS TIME. NOTED PT TO BE A LITTLE LETHARGIC. PT HAS A HARD TIME HOLDING A CONVERSATION, BECOMES INCREASINGLY TIRED WHEN TRYING TO SPEAK AND CLOSES EYES. SPEECH GARBLED AND QUIET, PT ABLE TO NOD AND SHAKE HEAD FOR YES AND NO. SLOW TO RESPOND BUT DOES FOLLOW SIMPLE COMMANDS. NO ACUTE DISTRESS NOTED. WILL CONTINUE PLAN OF CARE.
--- NOTE | 2016-08-05 10:00 | NUR ---
NUTRITION MONITORING & EVAL CHART REVIEWED. SPOKE WITH SPEECH THERAPY. PT UNABLE TO TAKE PO AT THIS TIME. SPEECH THERAPY RECOMMENDING RESUME TUBE FEEDS VIA PEG OR NG TUBE. PT ON NEPRO AT 35 CC/HR PRIOR TO EXTUBATION. RD FOLLOWING
--- NOTE | 2016-08-05 10:26 | NUR ---
UP IN BED IN HIGH FOWLERS POSITION. NO ACUTE DISTRESS NOTED. PT STILL SLOW TO RESPOND. FOLLOWS SIMPLE COMMANDS. WILL CONTINUE PLAN OF CARE.
--- NOTE | 2016-08-05 12:35 | NUR ---
PT CALLED AT THIS TIME. UPDATE GIVEN. NO CHANGE AT THIS TIME. PT NOTED TO TAKE OXYGEN TUBING OFF AT TIMES AND THEN DESAT TO 89%. REORIENTATION FREQIENTLY GIVEN FOR PT TO KEEP NC IN PLACE. DR GARSIA AWARE. WILL CONTINUE TO OBSERVE.
--- NOTE | 2016-08-05 15:01 | NUR ---
FAMILY AT BEDSIDE. UPDATE GIVEN. NO ACUTE DISTRESS NOTED. WILL CONTINUE PLAN OF CARE.
--- NOTE | 2016-08-05 15:59 | NUR ---
PT ABLE TO COUGH UP SPUTUM AND USE YAUNKER TO SUCTION. SPUTUM NOTED THICK WHITE IN COLOR. WILL CONTINUE TO OBSERVE.
--- NOTE | 2016-08-05 16:46 | NUR ---
LYING IN BED RESTING AT THIS TIME. NO ACUTE DISTRESS NOTED. AWAKENS WHEN SPOKEN TO. STILL SLOW TO RESPOND AND LETHARGIC. WILL CONTINUE PLAN OF CARE.
--- NOTE | 2016-08-05 17:36 | NUR ---
NOTED ORDERS FOR PT TO HAVE NGT FOR FEEDINGS SINCE PT HAS FAILED MULTIPLE SWALLOW EVALS. 16F PLACED TO RIGHT NARE. PLACEMENT VERIFICATION VIA AUSCULATION AND RESIDUAL. NO ACUTE DISTRESS NOTED. WILL CONTINUE PLAN OF CARE.
--- NOTE | 2016-08-05 17:38 | NUR ---
NOTED ORDER FOR PT TO TRANSFER TO FLOOR. WAITING TO RECIEVE TRANSFER ROOM NUMBER. WILL CONTINUE PLAN OF CARE.
--- NOTE | 2016-08-05 18:27 | NUR ---
NOTED ORDERS FOR PT TO BE TRANSFERED. PT TO GO TO ROOM 2105. REPORT GIVEN TO GRANT. WILL TRANSFER PT VIA BED SHORTLY.
--- NOTE | 2016-08-05 18:37 | NUR ---
SPOKE WITH PT SON TD AT [phone] TO GIVE UPDATE AND THAT PT TO GO TO ROOM 7481. NO QUESTIONS NOTED.
--- NOTE | 2016-08-05 19:03 | NUR ---
PT TRANSFERRED TO 2105. NGT IN PLACE, PLACEMENT VERIFICATION VIA AUSCULATION AND RESIDUAL. NO ACUTE DISTRESS NOTED. NO FURTHER ACTIONS.
--- NOTE | 2016-08-05 21:21 | NUR ---
PT AWAKE. REACHING TOWARDS O2 CANNULA AND NGT. HANDS MOVED AWAY FROM FACE. PT BECAME AGITATED MOMENTARILY, THEN STOPPED. ATTEMPTED TO CHECK NGT RESIDUAL. NO RESIDUAL OBTAINED. XRAY FOR CONFIRMATION.
--- NOTE | 2016-08-05 21:45 | NUR ---
ASSISTED WITH PT POSITIONING FOR XRAY. PT PICKING AT NGT ADHESIVE, NGT RESECURED WITH TRANSPORE
[2016-08-06 00:54] VITALS: BP 132/71
--- NOTE | 2016-08-06 01:02 | NUR ---
ENTERED PT ROOM DURING ROUNDS. PT NGT LYING IN BED WITH PT. PROCURED NEW NGT SET AND ENTERED PT ROOM TO ATTEMPT PLACEMENT. NGT MEASURED FROM NOSE TO EAR TO XIPHOID BONE AND MARKED. ATTEMPTED TO PLACE NGT AND PT PULLED AWAY AND SAID NO. TRIED AGAIN AND PT SAID NO. REQUESTED CHARGE NURSE PRESENCE TO ASSIST WITH NGT PLACEMENT. PT SAID NO AGAIN. HAD PT VERIFY ORIENTATION. PT GAVE NAME, DATE OF , AND CURRENT LOCATION. NGT NOT PLACE DUE TO PT REFUSAL.
[2016-08-06 04:03] VITALS: BP 138/71
--- NOTE | 2016-08-06 06:13 | NUR ---
PT REFUSING TO ALLOW STAFF TO PROVIDE CARE. PT WANTS WATER. PT HAS BEEN INFORMED REPEATEDLY THAT SHE HAS FAILED SUNIL SWALLOW EVALUATION AND WILL NOT BE PROVIDED WATER. PT STATES THAT IF WE DONT BRING HER WATER THAT WE DONT NEED TO BRING HER ANYTHING.
--- NOTE | 2016-08-06 07:00 | NUR ---
RECEIVED REPORT. ASSUMED CARE OF PATIENT. CALL LIGHT WITHIN REACH. 1ST STEP OVERLAY PATENT. PATIENT ORIENTED TO NAME, PLACE AND YEAR. PATIENT REFUSING CARES / ASSESSMENT THIS AM. INFORMED PATIENT THAT WE ARE HERE TO CARE FOR HER. PATIENT VERBALIZES UNDERSTANDING AND APOLOGIZES. CONTINUES TO REFUSE NGT. PULLS OXYGEN OFF. NO DISTRESS.
[2016-08-06 07:35] VITALS: BP 129/72
--- NOTE | 2016-08-06 08:05 | NUR ---
UNABLE TO CHECK RESIDUAL PATIENT PULLED NGT OUT AND REFUSES FOR NGT TO BE REPLACED.
--- NOTE | 2016-08-06 09:25 | NUR ---
Nutrition consult: Recommend increasing Nepro to goal rate of 45 ml/hr to meet est nutritional needs at this tiem. However, pt has now pulled NGT out and is refusing to have it replaced. RDN following.
--- NOTE | 2016-08-06 11:00 | NUR ---
ORAL PROVIDED AT THIS TIME. NO DISTRESS. CALL LIGHT WITHIN REACH. PRACTITIONER AT BEDSIDE FOR ROUNDS AT THIS TIME.
[2016-08-06 11:19] VITALS: BP 143/73
--- NOTE | 2016-08-06 14:44 | NUR ---
TURNED AND REPOSITIONED. PATIENT WITH LOW GRADE TEMP. NEW ORDERS RECEIVED FOR TYLENOL SUPPOSITORY. IF TEMP REACHES 100.5 ORAL OR GREATER, DRAW BLOOD CULTURES. ORDERS NOTED.
--- NOTE | 2016-08-06 14:55 | NUR ---
TYLENOL SUPP ADMINISTERED AT THIS TIME FOR 99.4 ORAL TEMP. FAMILY AT BEDSIDE. NO DISTRESS. CALL LIGHT WITHIN REACH.
[2016-08-06 15:09] VITALS: BP 141/79
--- NOTE | 2016-08-06 16:27 | NUR ---
RECHECK ORAL TEMP, DOWN TO 98.6 AT THIS TIME. PATIENT ALSO PASSED SWALLOW EVAL AND ABLE TO HAVE MECHANICAL SOFT REGULAR DIET WITH THIN LIQUIDS. PATIENT EATING ICE CHIPS AT THIS TIME. NO DISTRESS. ORAL TEMP CHECKED PRIOR TO ICE CHIPS!
--- NOTE | 2016-08-06 17:07 | NUR ---
PATIENT CONSUMED 75% OF PM MEAL WITHOUT DIFFICULTY. FAMILY RETURNED TO BEDSIDE AT THIS TIME. NO DISTRESS.
[2016-08-06 21:17] VITALS: BP 143/84
--- NOTE | 2016-08-06 21:28 | NUR ---
PT CURRENTLY DIALYSING AT BEDSIDE
--- NOTE | 2016-08-07 02:00 | NUR ---
AWAKE, ALERT DOES HAVE PERIODS OF CONFUSION. RESP UNLAB, O2 @ 2L NC IN PLACE AT TIMES, ON FIRST STEP MATTRESS FOR C & C. HOB UP SR UP X2, C/L IN REACH. BILAT SCDS IN PLACE. MEPILEX DRSG CDI TO BUTTOCK. CONTINUE TO MONITOR.
[2016-08-07 02:01] VITALS: BP 146/85
[2016-08-07 04:25] VITALS: BP 155/77
--- NOTE | 2016-08-07 04:30 | NUR ---
INFORMED BY TOOL ANALYST THAT PT APEARED TO BE BLEADING HEAVILY FROM CHEST TUBE ON LEFT SIDE. INFORMED TOOL ANALYST THAT PT DID NOT HAVE CHEST TUBE. UPON INSPECTION PT HAD PICKED AN OPEN SORE ON HER LEFT ELBOW THAT HAD BLED AND COVERED HER 02 TUBING IN BLOOD. EXCESS BLOOD WIPED AWAY AND 2X2 SECURED OVER WOUND WITH TAPE
[2016-08-07 07:28] VITALS: BP 148/75
--- NOTE | 2016-08-07 08:00 | NUR ---
LETHARGIC. AROUSES EASILY TO VOICE. CONFUSED TO TIME, PLACE, AND SITUATION. UNSUCCESSFUL TO REORIENT. STUDENT NURSE IN ROOM. T-100.9, CBC AND BMP ORDERED PER DRTieshaREQUEST. WBC 6.9. ALL COVERS EXCEPT SHEET REMOVED. REASSESS TEMP IN 30MIN. BED LOCKED AND LOW. THREE SIDERAILS UP. BED ALARM ON. RECIEVES LOVENOX INJ. NO SCDs.
[2016-08-07 08:22] LABS: BASOPHILS 0.3 % (0.0-2.0); EOSINOPHILS 0.7 % (0-7); HEMATOCRIT 32.1 % (36.0-48.0); HEMOGLOBIN 10.6 g/dL (12-16); LYMPHOCYTES 10.7 % (15-50); MCH 30.3 pg (26.0-34.0); MCV 91.7 fL (80.0-100.0); MEAN PLATELET VOLUME 9.5 fL (7.4-10.4); MONOCYTES 15.6 % (2-11); NEUTROPHILS 71.7 % (40-80); PLATELET COUNT 242 10x3/uL (130-400); RDW 16.5 % (11.5-14.5); WBC 6.7 10x3/uL (4.8-10.8)
[2016-08-07 08:24] LABS: ANION GAP 22.9 mmol/L (8-16); CALCIUM 9.1 mg/dL (8.5-10.1); CARBON DIOXIDE 23.5 mmol/L (21.0-32.0); CREATININE - SERUM 7.4 mg/dL (0.6-1.3); POTASSIUM - SERUM 4.4 mmol/L (3.5-5.1)
--- NOTE | 2016-08-07 09:00 | NUR ---
REASSESS TEMP-98.9. POOR INTAKE FOR BREAKFAST. PULLED OUT IV LAST NIGHT. REFUSE IV RESITE. STUDENT NURSE AT BEDSIDE. DENIES PAIN OR SOB. CONTINUE PLAN OF CARE AND SAFETY PRECAUTIONS. REPOSITION IN BED ASSISTED BY STUDENT NURSE.
[2016-08-07 11:57] VITALS: BP 124/68
[2016-08-07 15:10] VITALS: BP 147/82
[2016-08-07 20:00] VITALS: BP 126/60
--- NOTE | 2016-08-07 23:17 | NUR ---
NURSE ROUNDS 19:30 - PT SITTING UP IN CHAIR, DAUGHTER AT BEDSIDE. PT DENIES ANY NEEDS. CONTINUE TO MONITOR CLOSELY.
[2016-08-08] VITALS: BP 129/64
--- NOTE | 2016-08-08 03:29 | NUR ---
NURSE ROUNDS 19:30 - PT LYING IN BED, FLAT AFFECT, SLOW TO SPEAK, SLOW TO ANSWER MY QUESTIONS, AND DEMONSTRATES MILD CONFUSION. PT KEEPS REQUESTING TO GO GET OUT OF BED TO GO TO BATHROOM, BUT PT IS UNABLE TO AMBULATE. I HAVE ENCOURAGED PT TO USE A BED STONER AND TO CALL OFTEN SHE NEEDS WITH ANY ASSISTANCE. SCD'S ON, NO SKID SOCKS ON, CONTINUE TO MONITOR CLOSELY.
[2016-08-08 04:00] VITALS: BP 130/68
[2016-08-08 05:10] LABS: BASOPHILS 0.3 % (0.0-2.0); EOSINOPHILS 1.6 % (0-7); HEMATOCRIT 33.4 % (36.0-48.0); HEMOGLOBIN 10.9 g/dL (12-16); IMMATURE GRANULOCYTES 0.7 % (0-5); LYMPHOCYTES 12.6 % (15-50); MCH 29.7 pg (26.0-34.0); MCHC 32.6 g/dL (31.0-37.0); MEAN PLATELET VOLUME 9.3 fL (7.4-10.4); MONOCYTES 15.3 % (2-11); NEUTROPHILS 69.5 % (40-80); PLATELET COUNT 238 10x3/uL (130-400); RBC 3.67 10x6/uL (4.00-5.40); RDW 16.1 % (11.5-14.5); WBC 6.7 10x3/uL (4.8-10.8)
[2016-08-08 05:56] LABS: ALBUMIN 2.4 g/dL (3.4-5.0); BILIRUBIN - TOTAL 0.9 mg/dL (0.2-1.3); CALCIUM 9.2 mg/dL (8.5-10.1); PROTEIN - SERUM 8.1 g/dL (6.4-8.2)
[2016-08-08 05:59] LABS: CREATININE - SERUM 9.7 mg/dL (0.6-1.3)
[2016-08-08 08:00] VITALS: BP 130/72
[2016-08-08 12:00] VITALS: BP 135/70
--- NOTE | 2016-08-08 12:43 | NUR ---
WHILE THIS CM WAS SPEAKING WITH PATIENT REGARDING DC PLANNING, SHE INITIALLY WAS NOT WEARING OXYGEN AND NC TUBING WAS LAYING IN BED BESIDE HER. PT WAS SPEAKING IN CHOPPY SENTENCES. SPO2 WAS ASSESSED WHILE NC WAS OFF AND RESTING RA SPO2 WAS 87%. CM ENCOURAGED AND ASSISTED PT IN GETTING NC BACK IN PLACE AND MONITORED SPO2 AND ON 2L NC SPO2 WAS 95%.
[2016-08-08 16:00] VITALS: BP 131/70
--- NOTE | 2016-08-08 18:47 | NUR ---
NO CHANGE. PHYSICAL THERAPY PLAN TO ASSIST AMBULATING TOMORROW. PREPARE SHIFT CHANGE REPORT. CONTINUE PLAN OF CARE AND SAFETY PRECAUTIONS.
--- NOTE | 2016-08-08 19:15 | NUR ---
RESTING QUIETLY NAD NOTED
--- NOTE | 2016-08-08 19:25 | NUR ---
RECEIVED REPORT, 02-3L PRN, RESERVED R.UMU, [id number], BED ALARM ON, DRESSING TO BOTTOM, CALL LIGHT IN REACH, BED IS LOW, SRX3, WILL CONTINUE TO MONITOR
[2016-08-08 22:18] VITALS: BP 133/69
[2016-08-08 23:39] LABS: CKMB 0.3 U/L (0.0-3.6); CREATINE KINASE 186 UL (21-215)
[2016-08-08 23:43] LABS: TROPONIN-I 0.109 ng/mL (0.000-0.060)
[2016-08-09 01:42] VITALS: BP 128/63
--- NOTE | 2016-08-09 03:50 | NUR ---
SLEEPING ON R. SIDE, BED ALARM IS ON, CALL LIGHT IN REACH, WILL CONTINUE TO MONITOR
[2016-08-09 04:33] LABS: BASOPHILS 0.3 % (0.0-2.0); EOSINOPHILS 2.6 % (0-7); HEMATOCRIT 32.8 % (36.0-48.0); HEMOGLOBIN 11.1 g/dL (12-16); IMMATURE GRANULOCYTES 0.8 % (0-5); MCH 30.2 pg (26.0-34.0); MCHC 33.8 g/dL (31.0-37.0); MCV 89.1 fL (80.0-100.0); MEAN PLATELET VOLUME 9.3 fL (7.4-10.4); MONOCYTES 11.6 % (2-11); NEUTROPHILS 65.7 % (40-80); PLATELET COUNT 246 10x3/uL (130-400); RBC 3.68 10x6/uL (4.00-5.40); RDW 15.8 % (11.5-14.5); WBC 7.9 10x3/uL (4.8-10.8)
[2016-08-09 05:09] LABS: ALBUMIN 2.6 g/dL (3.4-5.0); ALKALINE PHOSPHATASE 92 U/L (46-116); ALT (SGPT) 35 U/L (10-68); CALC OSMOLALITY 281 mosm/kg (275-300); CALCIUM 9.1 mg/dL (8.5-10.1); CARBON DIOXIDE 26.4 mmol/L (21.0-32.0); CHLORIDE - SERUM 91 mmol/L (98-107); CKMB 0.4 U/L (0.0-3.6); CREATINE KINASE 175 UL (21-215); CREATININE - SERUM 11.5 mg/dL (0.6-1.3); GLUCOSE 87 mg/dL (74-106); POTASSIUM - SERUM 4.7 mmol/L (3.5-5.1); PROTEIN - SERUM 7.5 g/dL (6.4-8.2); SODIUM 131 mmol/L (136-145); TROPONIN-I 0.103 ng/mL (0.000-0.060); UREA NITROGEN 69 mg/dL (7-18); eGFR NON AFRICAN AMERICAN 4 mL/min (90-120)
[2016-08-09 05:48] VITALS: BP 136/76
--- NOTE | 2016-08-09 07:24 | NUR ---
AM ROUNDING- PT LAYING IN BED ON RIGHT SIDE WITH EYES CLOSED RESTING. ON MONITOR SHOWING SR, HR 80. ON LOVENOX AND SCDS FOR DVT PREVENTION. PER REPORT PT IS CONFUSED. PER REPORT FROM ROAD GRADER NURSE KEANU PT REFUSED IV AND DOCTOR IS AWARE. ON 02 AT 3L VIA NC. RESERVE RIGHT ARM FOR AVF, PT DIALYZES ON T, TH, AND SAT. BED ALARM IS ON. PT HAS MEPILEX TO BOTTOM AREA, ROAD GRADER NURSE KEANU STATED PT HAS STAGE II PRESSURE UCLER. NO NEED AT CURRENT TIME. WILL CONTINUE TO MONITOR.
[2016-08-09 07:45] VITALS: BP 111/69
--- NOTE | 2016-08-09 08:45 | EEG ---
PATIENT:MAXINE CRANE DATE OF SERVICE: 07/29/16 MEDICAL RECORD: [id number] DATE OF : 55 LOCATION:D.210 D.M2 ADMISSION DATE: 07/29/16 REFERRING PHYSICIAN: INTERPRETING PHYSICIAN: MANOJ FARLEY MD DATE OF SERVICE: 07/31/2016 Referred by myself as an inpatient in room 2315. ELECTROENCEPHALOGRAM NUMBER: [id number] TIME OF EXAMINATION: 3:30 p.m. TECHNICAL DATA: This electroencephalographic recording consisted of approximately 20 minutes of data collection utilizing the international 10/20 system of electrode placement and both referential and non-referential montages. Sixteen channels of electrocerebral recording are accompanied by a 17th channel dedicated to the electrocardiographic rhythm and 2 channels of electromyographic recording. Recording is performed entirely in the comatose state utilizing activation by photic stimulation as well as verbal and tactile stimulation. ELECTROENCEPHALOGRAPHIC DATA: The entirety of the recorded electrocerebral activity is performed in the comatose state. Electromyographic artifact is diminished and rapid eye movements are not seen. The posterior dominant background has not developed. The study is fairly monotonous and consists of a variety of slow wave activities that are irregular in morphology, generalized and diffuse in distribution symmetrically, ranging from 1-2 Hz in the delta range, 4-5 Hz in the theta range. There is also some 15 Hz sleep spindles observed at intervals during the recording. No focal slowing is identified. No epileptiform discharges are seen. Photic stimulation induces no abnormal change in the recorded electrocerebral activity. There is no electrocerebral re-activity to verbal and tactile stimulation. INTERPRETATION: Continuous slow, generalized (coma). This electroencephalographic recording is indicative of a moderately severe diffuse encephalopathy. TRANSINT:[id number] Voice Confirmation ID: [id number] DOCUMENT ID: [id number] MANOJ FARLEY MD at 0845 CC: [id number] DICTATION DATE: 08/01/16726 FLOWER SHOP MANAGER: 08/01/16 0925 ADM IN [place] [id number] [place] [id number]
--- NOTE | 2016-08-09 09:35 | NUR ---
ON LOVENOX INJECTION FOR DVT PREVENTION.
[2016-08-09 10:24] LABS: CKMB 0.6 U/L (0.0-3.6); CREATINE KINASE 163 UL (21-215)
[2016-08-09 10:28] LABS: TROPONIN-I 0.098 ng/mL (0.000-0.060)
[2016-08-09 12:20] VITALS: BP 147/79
--- NOTE | 2016-08-09 12:54 | NUR ---
PT WAS INCONTINENT OF STOOL. CLEAN PT AND CHANGED PTS LINEN. CHANGED MEPILEX TO BUTTOCK AREA. EXCORIATION SEEN WITH SKIN TEARS. MEASUREMENTS OF TOTAL AREA ARE 12CM X 9CM. ONE SKIN TEAR HAD A DEPTH OF 0.5CM WITH BLOODY DRAINAGE. ANOTHER SKIN TEAR HAD NO DRAINAGE WITH PINK TISSUE SEEN. MEPILIX APPLIED AND PT TURNED ON LEFT SIDE. INFORMED JAYMIE WITH WOUND CARE, JAYMIE SAID PT IS ON HER LIST AND WILL ASSESS. WILL CONTINUE TO MONITOR.
--- NOTE | 2016-08-09 13:26 | NUR ---
1230- PT LAYING IN BED ON BACK WITH EYES CLOSED RESTING. DO NEED AT CURRENT TIME, DOING EKG. WILL CONTINUE TO MONITOR.
--- NOTE | 2016-08-09 13:46 | NUR ---
1310- PT WALKED 8FT WITH PHYSICAL THERAPY.
--- NOTE | 2016-08-09 14:39 | NUR ---
Nutrition follow-up: Diet: Regular PO intake ~25% of meals; Ensure ordered Labs reviewed Wt: 193# +BM Pt lethargic today; has not eaten breakfast or lunch today. Ensure ordered. Pt is not meeting est nutritional needs with current po intake. Recommend PEG tube placement and nutrition support started due to pt not meeting est nutritional needs with po intake alone. RDN following.
[2016-08-09 15:43] VITALS: BP 136/71
--- NOTE | 2016-08-09 18:09 | NUR ---
PT SITTING UP IN BED ON BACK WITH EYES OPEN RESTING. CURRENTLY RECEIVING DIALYSIS. NO NEED AT CURRENT TIME. WILL CONTINUE TO MONITOR.
--- NOTE | 2016-08-09 19:42 | NUR ---
RESUMED CARE OF PT, RECEIVING DIALYSIS IN ROOM, RESERVED R. ARM, DENIES ANY NEEDS, CALL LIGHT IN REACH, BED ALARM ON, WILL CONTINUE TO MONITOR
[2016-08-09 20:03] VITALS: BP 98/55
--- NOTE | 2016-08-09 20:06 | NUR ---
Rehab Note- Rehab Prescreen Order received. Have spoken with SRINATH Cowan concening the patient's IRF benefits. The patient is supposed to have changed over to Medicare, will verify and follow up wih the business office in the morning. Thank you for this referral! Nahomy Orr RN Clinical Liaison, [facility]
[2016-08-10 01:14] VITALS: BP 98/55
[2016-08-10 04:00] VITALS: BP 125/67
[2016-08-10 05:50] LABS: BASOPHILS 0.3 % (0.0-2.0); EOSINOPHILS 2.7 % (0-7); HEMATOCRIT 36.4 % (36.0-48.0); HEMOGLOBIN 12.2 g/dL (12-16); IMMATURE GRANULOCYTES 1.1 % (0-5); LYMPHOCYTES 15.3 % (15-50); MCH 30.1 pg (26.0-34.0); MCHC 33.5 g/dL (31.0-37.0); MCV 89.9 fL (80.0-100.0); MEAN PLATELET VOLUME 9.4 fL (7.4-10.4); MONOCYTES 10.6 % (2-11); PLATELET COUNT 261 10x3/uL (130-400); RBC 4.05 10x6/uL (4.00-5.40); RDW 15.7 % (11.5-14.5)
[2016-08-10 06:31] LABS: ALBUMIN 2.8 g/dL (3.4-5.0); ANION GAP 18.5 mmol/L (8-16); BILIRUBIN - TOTAL 0.94 mg/dL (0.2-1.3); CALCIUM 9.5 mg/dL (8.5-10.1); CARBON DIOXIDE 28.6 mmol/L (21.0-32.0); POTASSIUM - SERUM 4.1 mmol/L (3.5-5.1); PROTEIN - SERUM 8.2 g/dL (6.4-8.2)
[2016-08-10 06:36] LABS: CREATININE - SERUM 7.6 mg/dL (0.6-1.3)
--- NOTE | 2016-08-10 07:42 | NUR ---
AM ROUNDING- PT LAYING IN BED ON BACK WITH EYES OPEN RESTING. ON LOVENOX INJECTION FOR DVT PREVENTION. PER REPORT PT REFUSES IV CATHETER. DOCTORS ARE AWARE OF THIS. PT HAS A RESERVE RIGHT ARM FOR AVF, PT DIALYZES ON T, TH, AND SAT. ON ROOM AIR. PT HAS HEART MONITOR IN ROOM BUT WILL NOT KEEP IT ON. SCDS AT BEDSIDE. BED ALARM IS ON. MEPILEX ON BUTTOCK AREA THAT IS DATED 08/09/16 BY KEANU AQUATICS DIRECTOR NURSE. PT IS AWAITING POSSIBLE REHAB PLACEMENT. WILL CONTINUE TO MONITOR.
[2016-08-10 07:50] VITALS: BP 128/72
--- NOTE | 2016-08-10 10:46 | NUR ---
PHYSICAL THERAPY GOT PT OOB AND UP TO CHAIR.
[2016-08-10 11:59] VITALS: BP 132/75
--- NOTE | 2016-08-10 13:18 | NUR ---
Patient Name: MAXINE CRANE Admission Status: Elective Accout number: [id number] Admission Date: 07-29-2016 : 1955 Admission Diagnosis:HYPERKALEMIA Attending: LUZ MARIA Current LOS: 12 Anticipated DC Date: 08-10-2016 Planned Disposition: [facility] Primary Insurance: MEDICARE LATE ENTRY FOR 08/08/16 Is the patient Alert and Oriented? Yes * How many steps to enter\exit or inside your home? THREE * PCP DR LÓPEZ * Pharmacy [facility] * Preadmission Environment Home with Family * ADLs Partial Dependent * Partial ADLs (Assistance needed) Ambulation * Equipment Walker * List name and contact numbers for known caregivers / representatives who currently or will assist patient after discharge: ERIKA LEE, DAUGHTER, * Community resources currently utilized Other * Please name any agencies selected above. MEDICAID VAN TRANSPORTATION TO/FROM DIALYSIS * Additional services required to return to the preadmission environment? Yes * Can the patient safely return to the preadmission environment? No * Has this patient been hospitalized within the prior 30 days at any hospital? No Discharge Planning Comments: CM MET WITH PATIENT TO ASSESS DC PLAN/NEEDS. NO FAMILY IN ROOM AND PT ANSWERS QUESTIONS AND PARTICIPATED IN DC PLANNING. PT STATED THAT SHE HAS BEEN LIVING WITH HER DAUGHTER, ERIKA, AND THAT PRIOR TO THE HOSPITALIZATION SHE WAS MOSTLY INDEPENDENT IN HER CARE/ADL'S. STATED SHE WOULD SOMETIMES USE A WALKER AND THAT SHE DOES NOT DRIVE. SHE GETS DIALYSIS AT [facility] ON T/T/S SCHEDULE. SHE STATED THAT HER DAUGHTER'S HOME IS A SAFE PLACE AND HAS ALL UTILITIES AND EQUIPMENT NEEDED AVAILABLE TO HER. SHE INITIALLY STATED HER PLAN WAS TO DC HOME WITH HER DAUGHTER, BUT WE BEGAN DISCUSSING HER AMBULATION STATUS SHE WAS OPEN TO DISCUSS REHAB SERVICES. SHE DISCHARGED TO [facility] [place] AND STATED SHE WOULD POSSIBLE CONSIDER CONTINUED REHAB SERVICES, BUT WHEN CM PLACED CALL TO [facility] AND SPOKE TO SUMMER SHE INFORMED THAT PT HAS NOT HAD 60 WELL DAYS AND CURRENTLY HAS NO MEDICARE SNF REHAB DAYS AVAILABLE AND IF SHE ADMITTED TO THEIR FACILITY SHE WOULD HAVE AN OUT OF POCKET COST. SHE IS OPEN TO HH IF APPROPRIATE, BUT IS CONCERNED ABOUT HER ABILITY TO GET AROUND AT HOME AND TO GET BACK AND FORTH TO DIALYSIS. SRINATH SPOKE WITH DR MARIN TO DISCUSS DC PLANNING. [facility] WAS CONSULTED FOR REHAB EVALUATION. WILL AWAIT ADMISSION DETERMINATION FROM IP REHAB. PT SIGNED HH AND SNF [facility] FORMS IN THE EVENT SHE WOULD REQUIRE SNF OR HH SERVICES. CM WILL FOLLOW AND ASSIST NEEDED. Animal Anatomist: Camryn Ricks RN, CM
--- NOTE | 2016-08-10 13:27 | NUR ---
Patient Name: MAXINE CRANE Encounter No: [id number] : 1955 Primary Insurance: [place] [employer] [place] Anticipated DC Date: 08-10-2016 Planned Disposition: [facility] IP REHAB External Planned Provider: [facility] DCP follow-up note: CM RECEIVED NOTIFICATION FROM LEESA AT [facility] IP REHAB THAT PATIENT CAN BE ACCEPTED FOR REHAB SERVICES TODAY IF DISCHARGED. CM SPOKE WITH PATIENT AND SHE IS AGREEABLE TO DISCHARGE TO IP REHAB. NO FURTHER DC NEEDS WERE VOICED. Camryn Ricks, RN
[2016-08-10 16:44] VITALS: BP 113/59
[2016-08-10] MEDS ORDERED: Levaquin PO (17:00)
[2016-08-10] MEDS ORDERED: LOVENOX30 MG/0.3 SC (17:05)
[2016-08-10] MEDS ORDERED: PROCRIT/EP4000 UNITS SQ (17:05)
[2016-08-10] MEDS ORDERED: IPRAT-ALBUT 0.5-3 ML UPD (17:05)
[2016-08-10] MEDS ORDERED: NITROSTAT0.4 MG SL (17:06)
[2016-08-10] MEDS ORDERED: RENVELA2.4 GM PO (17:08)
[2016-08-10] MEDS ORDERED: FLORAJEN3 CAPS460 MG PO (17:08)
[2016-08-10] MEDS ORDERED: LEVAQUIN500 MG PO (17:09)
[2016-08-10] MEDS ORDERED: MUCINEX D1 TAB.SR . PO (17:10)
[2016-08-10] MEDS ORDERED: HEPARIN SO1000 UNIT/ IV (17:11)
[2016-08-10] MEDS ORDERED: TESSALON PERLE100 MG PO (17:12)
--- NOTE | 2016-08-10 18:04 | NUR ---
DISCHARGE PAPERS SIGNED. REPORT CALLED TO [facility]. PT WILL BE TRANSFERRED TO ROOM 1117B INPATIENT REHAB. NO FURTHER NEEDS.
--- NOTE | 2016-08-12 12:39 | CN ---
PATIENT NAME:MAXINE CRANE MEDICAL RECORD: [id number] : 55 LOCATION:D. D.2106 ADMIT DATE: 07/29/16 ACCOUNT: [id number] CONSULTING PHYSICIAN: DEEDEE KAUFMAN MD REFERRING PHYSICIAN: AMANDEEP PAN MD DATE OF CONSULTATION: 07/29/2016 CONSULT REQUESTING PHYSICIAN: Amandeep Pan MD REASON FOR CONSULTATION: Vent management status post CODE BLUE. HISTORY OF PRESENT ILLNESS: Ms. Crane is a 60-year-old -[place] female who was transferred from [facility] with a potassium of 7. She missed her dialysis for almost 10 days. While she was in dialysis today, the patient had a seizure and then coded. She was intubated. The history is mainly taken by talking to the nursing staff and reviewing the patient's note. REVIEW OF SYSTEMS: Mainly in the history of present illness. PAST MEDICAL HISTORY: 1. Diabetes mellitus. 2. Hypothyroidism. 3. Hypertension. 4. Congestive heart failure. 5. Coronary artery disease. 6. History of pneumonia. PAST SURGICAL HISTORY: 1. Hysterectomy. 2. AV fistula placement. 3. History of repair of pseudoaneurysm. 4. Tunnel exchange, April 2012. ALLERGIES: SHE IS ALLERGIC TO PENICILLIN, VANCOMYCIN AND ADHESIVE TAPES. PRESENT MEDICATIONS: On Vizury was reviewed. PERSONAL AND SOCIAL HISTORY: Not obtainable. FAMILY HISTORY: Significant for cardiovascular disease and diabetes in her parents. PHYSICAL EXAMINATION: GENERAL: Now, the patient is orally intubated and sedated. VITAL SIGNS: The blood pressure is 147/84 and pulse is 102. She is on assist control mechanical ventilation, tidal volume of 600 and oxygen 50%. HEENT: Conjunctivae pink. Sclerae is not icteric. Pupils equal, round and reactive to light. NECK: Supple. There is no JVD. CHEST: There are bilateral crackles. No wheezing. HEART: Rate and rhythm regular, normal sound, no murmur. ABDOMEN: Soft, bowel sounds present. No hepatosplenomegaly. RECTAL: Deferred. EXTREMITIES: No cyanosis, no clubbing. There is 1+ pedal edema. SKIN: Warm, normal turgor. CONSULT REPORT [id number] MAXINE CRANE CENTRAL NERVOUS SYSTEM: The patient is orally intubated, sedated and unresponsive. LABORATORY DATA: CBC: WBC 11.1, hemoglobin 11, hematocrit 34 and the platelet count is 138. Chemistry: Sodium is 141, potassium 4.5, BUN is 50 and creatinine 9.5. The potassium now is 4.4. ABG: The pH is 7.28, pCO2 is 48, pO2 is 652, bicarbonate is 22.8 and the lactic acid level is 17. CHEST RADIOGRAPH: The ET tube is in good position. There is increased interstitial marking bilaterally. IMPRESSION: 1. Acute respiratory failure secondary to #2. 2. Status post CODE BLUE. 3. Metabolic and respiratory acidosis. 4. Seizure disorder. 5. End-stage renal disease. 6. Lactic acidosis. 7. Hyperkalemia that has been corrected. 8. Hypertension. 9. Leukocytosis. RECOMMENDATIONS: 1. Continue mechanical ventilation. 2. DVT and GI stress ulcer prevention. 3. We will start her on empiric clindamycin. 4. Follow up labs and chest radiograph. Dr. Pan, once again thanks for involving me in the care of Ms. Crane. TRANSINT:[id number] Voice Confirmation ID: [id number] DOCUMENT ID: [id number] DEEDEE KAUFMAN MD at 1239 CC: AMANDEEP PAN MD [id number] DICTATION DATE: 07/29/162006 BOG WORKER: 07/30/16 0308 DIS IN 08/10/[address] [address]
--- NOTE | 2016-09-05 16:04 | DS ---
PATIENT:MAXINE CRANE :55 MEDICAL RECORD: [id number] DISCHARGE SUMMARY ADMISSION DATE: 07/29/16 DISCHARGE DATE: 08/10/16 Discharging Maxine Crane to rehabilitation. HOSPITAL COURSE: This is a nice 60-year-old female with ESRD and is going to rehabilitation for continued therapy. She is alert, has a better mental status today. No JVD or thyromegaly. Dialysis access is clean. Chest is regular rate and rhythm. S1, S2. Lungs are grossly clear to auscultation. Abdomen is nontender in all 4 quadrants. No appreciable hepatosplenomegaly. We will continue all of her current medications per the hospitalist and not continue the medications that were listed as her preadmission. Stable on discharge, 31 minutes spent on discharge, going over with case management and attempting to resolve her medications in the computer system here at [facility]. She remains critically ill. She has had off and on dementia, very concerned that she has a limited family support with her daughter and her daughter's condition in regards to her Medicare supplement. She is out of days according to the clinical case manager. We were very fortunate to have her transferred down to rehab. We will work her disposition to home or [place] [facility] after rehabilitation. Hopefully, her mental status will continue to improve, but it does wax and wane, stable on discharge. TRANSINT:[id number] Voice Confirmation ID: [id number] DOCUMENT ID: [id number] GIO MARIN MD at 1604 CC: [id number] DICTATION DATE: 08/10/16 170 FILTERING MACHINE TENDER: 08/11/16 0233 DIS IN 08/10/16 [id number] [place] [id number]
== END 2016-08-10 18:05 | DRG 640 ==
LOC: D.ICU 12:03 → D.M2 12:28
PROVIDERS: Emergency Medicine; Internal Medicine Nephrology; Internal Medicine Pulmonary Disease; ADMIT Internal Medicine Nephrology
PROC: 5A12012 Performance of Cardiac Output, Single, Manual (ICD-10-PCS; principal; 2016-07-29)
PROC: 0BH17EZ Insertion of Endotracheal Airway into Trachea, Via Natural or Artificial Opening (ICD-10-PCS; 2016-07-29)
PROC: 5A1955Z Respiratory Ventilation, Greater than 96 Consecutive Hours (ICD-10-PCS; 2016-07-29)
DX: E87.5 Hyperkalemia (principal); J96.01 Acute respiratory failure with hypoxia; N18.6 End stage renal disease; J69.0 Pneumonitis due to inhalation of food and vomit; G93.41 Metabolic encephalopathy; I46.9 Cardiac arrest, cause unspecified; I13.2 Hypertensive heart and chronic kidney disease with heart failure and with stage 5 chronic kidney disease, or end stage renal disease; I47.2 Ventricular tachycardia; G93.1 Anoxic brain damage, not elsewhere classified; J98.11 Atelectasis; J44.9 Chronic obstructive pulmonary disease, unspecified; E03.9 Hypothyroidism, unspecified; E11.22 Type 2 diabetes mellitus with diabetic chronic kidney disease; I25.10 Atherosclerotic heart disease of native coronary artery without angina pectoris; R56.9 Unspecified convulsions; Z91.15 Patient's noncompliance with renal dialysis; D64.9 Anemia, unspecified; R74.8 Abnormal levels of other serum enzymes; H50.10 Unspecified exotropia; E83.51 Hypocalcemia; R13.10 Dysphagia, unspecified; Z91.81 History of falling; I50.9 Heart failure, unspecified

== ENCOUNTER 2016-08-10 18:53 | Inpatient (IN) | payer MEDICARE ==
[~2016-08-10] VITALS: Ht 167.6 cm; Wt 74.8 kg
[~2016-08-10 18:53] MED LIST changes: +FLORAJEN3 CAPS460 MG PO; +HEPARIN SO1000 UNIT/ IV; +IPRAT-ALBUT 0.5-3 ML UPD; +LEVAQUIN500 MG PO; +LOVENOX30 MG/0.3 SC; +Levaquin PO; +MUCINEX D1 TAB.SR . PO; +NITROSTAT0.4 MG SL; +PROCRIT/EP4000 UNITS SQ; +RENVELA2.4 GM PO; +TESSALON PERLE100 MG PO
--- NOTE | 2016-08-10 19:30 | NUR ---
PT NOTED SITTING ON THE SIDE OF HER BED IN HER ROOM. ALERT AND ORIENTED X 3. ORIENTED TO ROOM AND UNIT RULES, WITH VERBAL UNDERSTANDING VOICED. VSS. DRESSING IS INTACT TO RIGHT HIP. NO DRAINAGE NOTED. PT STATES SHE HAD A GREAT SHOWER TODAY, BUT THAT THE THERAPY JUST WORE HER OUT. SR'S ARE UP X 2 IN BED. CALL LIGHT AND BEDSIDE TABLE ARE WITHIN EASY REACH.
[2016-08-10 20:00] VITALS: BP 124/66
--- NOTE | 2016-08-10 22:55 | NUR ---
PT IS RESTING QUIETLY IN BED WITH EYES CLOSED. RESPS ARE EVEN AND UNLABORED. NO ACUTE DISTRESS NOTED.
[2016-08-10 23:37] VITALS: BP 124/66; BMI 26.7
--- NOTE | 2016-08-11 00:59 | NUR ---
RESTING IN BED WITH EYES CLOSED.
--- NOTE | 2016-08-11 03:00 | NUR ---
PT ASSISTED TO USE BSC WITH MOD ASSIST FOR TRANSFERS. SBA FOR TOILETING. VOIDED WITHOUT DIFFICULTY.
--- NOTE | 2016-08-11 05:01 | NUR ---
PT IS RESTING QUIETLY IN BED WITH EYES CLOSED. NO ACUTE DISTRESS NOTED.
[2016-08-11 05:58] LABS: BASOPHILS 0.9 % (0.0-2.0); EOSINOPHILS 1.7 % (0-7); HEMATOCRIT 37.2 % (36.0-48.0); HEMOGLOBIN 12.3 g/dL (12-16); IMMATURE GRANULOCYTES 0.7 % (0-5); LYMPHOCYTES 19.2 % (15-50); MCHC 33.1 g/dL (31.0-37.0); MCV 90.7 fL (80.0-100.0); MONOCYTES 17.2 % (2-11); NEUTROPHILS 60.3 % (40-80); PLATELET COUNT 247 10x3/uL (130-400); RDW 15.6 % (11.5-14.5)
[2016-08-11 06:10] LABS: ANION GAP 17.6 mmol/L (8-16); CALCIUM 9.4 mg/dL (8.5-10.1); CARBON DIOXIDE 28.6 mmol/L (21.0-32.0); POTASSIUM - SERUM 4.2 mmol/L (3.5-5.1)
[2016-08-11 06:29] LABS: WBC 9.2 10x3/uL (4.8-10.8)
--- NOTE | 2016-08-11 07:30 | NUR ---
resting quietly in bed. call light in reach
[2016-08-11 08:11] VITALS: BP 127/74
--- NOTE | 2016-08-11 10:10 | NUR ---
UP IN CHAIR IN TREATMENT ROOM.ASSESSMENT COMPLETED.DENIES PAIN AT PRESENT TIME.WILL CONTINUE WITH PLAN OF CARE.
[2016-08-11 13:52] VITALS: Ht 167.6 cm; Wt 74.8 kg
--- NOTE | 2016-08-11 17:10 | NUR ---
SPOKE WITH TRI LANDERS. SHE WILL GET WITH DIALYSIS NURSES TO MAKE SURE THEY KNOW ABOUT PT BEING ON REHAB AND PT'S DIALYSIS SCHEDULE. SO FAR, PT HAS NOT BEEN TO DIALYSIS TODAY
--- NOTE | 2016-08-11 18:48 | NUR ---
SITTING ON SIDE OF BED. REFUSES TO LAY DOWN STATING IT MAKES HER COUGH AND COUGHING MAKES HER CHEST HURT.
[2016-08-11 19:51] VITALS: BP 135/79
--- NOTE | 2016-08-11 22:18 | NUR ---
PT. IN BED WITH HOB UP FOR COMFORT WATCHING TV. PT. DENIES ANY NEEDS AT THIS TIME AND HAS HER CALL LIGHT WITHIN REACH.
--- NOTE | 2016-08-11 22:21 | NUR ---
PT IS RESTING IN BED WITH EYES OPEN. ALERT TO SELF AND PLACE. CONFUSED TO SITUATION. MEPILEX DRESSING IS INTACT TO RIGHT BUTTOCK. RIGHT ARM FISTULA HAS GOOD BRUITT AND THRILL. SR'S ARE UP X 3 IN BED. CALL LIGHT AND BEDSIDE TABLE ARE WITHIN EASY REACH.
--- NOTE | 2016-08-12 01:00 | NUR ---
PT RESTING IN BED WITH EYES CLOSED.
--- NOTE | 2016-08-12 04:28 | NUR ---
PT RESTING IN BED WITH EYES CLOSED.
--- NOTE | 2016-08-12 06:05 | NUR ---
PT RESTING IN BED WITH EYES OPEN. FAMILY MEMBER IS AT BEDSIDE.
[2016-08-12 06:45] LABS: BASOPHILS 0.5 % (0.0-2.0); EOSINOPHILS 1.8 % (0-7); HEMOGLOBIN 12.1 g/dL (12-16); IMMATURE GRANULOCYTES 0.8 % (0-5); LYMPHOCYTES 19.6 % (15-50); MCHC 33.6 g/dL (31.0-37.0); MCV 89.3 fL (80.0-100.0); MEAN PLATELET VOLUME 9.1 fL (7.4-10.4); MONOCYTES 7.8 % (2-11); NEUTROPHILS 69.5 % (40-80); PLATELET COUNT 282 10x3/uL (130-400); RBC 4.03 10x6/uL (4.00-5.40); RDW 15.5 % (11.5-14.5); WBC 8.6 10x3/uL (4.8-10.8)
[2016-08-12 06:50] LABS: ANION GAP 19.6 mmol/L (8-16); CALCIUM 9.7 mg/dL (8.5-10.1); CARBON DIOXIDE 27.4 mmol/L (21.0-32.0); PHOSPHOROUS 7.7 mg/dL (2.5-4.9)
[2016-08-12 06:51] LABS: CREATININE - SERUM 12.8 mg/dL (0.6-1.3)
--- NOTE | 2016-08-12 07:30 | NUR ---
PATIENT RESTING QUIETLY IN BED. CALL LIGHT IN REACH.
--- NOTE | 2016-08-12 10:00 | NUR ---
PATIENT OBSERVED IN PHYSICAL THERAPY.
--- NOTE | 2016-08-12 13:52 | NUR ---
PATIENT OBSERVED IN WHEELCHAIR. CALL LIGHT WITHIN REACH.
[2016-08-12 13:55] VITALS: BP 113/50
--- NOTE | 2016-08-12 19:45 | NUR ---
PT IN BED WITH EYES OPEN WATCHING TV. COMPLAINS OF CHEST DISCOMFORT WITH PRN GIVE AT 1800. WILL CONTINUE TO OBSERVE FOR CHANGES. CALL LIGHT IN REACH.
--- NOTE | 2016-08-12 22:55 | NUR ---
PT IN BED AT THIS TIME. FREQUENTLY SITTING UP SOUNDING BED ALARM. COMPLAINS OF INTERMITTENT CHEST PAIN. PT STATES SHE HAD CPR RESENTLY. PRN MEDICATION GIVEN PER AUG. CALL LIGHT AND WATER IN REACH. WILL CONTINUE TO OBSERVE.
--- NOTE | 2016-08-13 01:05 | NUR ---
PT IN BED WITH EYES CLOSED AND CHEST RISING. RESPIRATIONS EVEN AND UNLABORED. EASILY AROUSED UPON ENTRY. NO CONCERN MADE KNOWN AT THIS TIME. WATER AND CALL LIGHT IN REACH. WILL CONTINUE TO OBSERVE.
--- NOTE | 2016-08-13 03:44 | NUR ---
PT IN BED WITH EYES CLOSED AND CHEST RISING. RESPIRATIONS EVEN AND UNLABORED. NO SIGN/SYMPTOMS OF DISTRESS NOTED. WATER AND CALL LIGHT IN REACH. WILL CONTINUE TO OBSERVE.
--- NOTE | 2016-08-13 06:44 | NUR ---
PT IN BED WITH EYES CLOSED AND CHEST RISING. RESPIRATIONS EVEN AND UNLABORED. NO CONCERNS NOTED AT THIS TIME. CALL LIGHT IN REACH.
[2016-08-13 06:51] VITALS: BP 141/72
--- NOTE | 2016-08-13 07:00 | NUR ---
Pt. was received in bed at the beginning of this shift. Pt. is alert but confused. She will be having dialysis done this morning. Vital signs: Temp. 97.4, pulse 85, resp. 20, b/p 124/92, 02Sat. 96%. Stable condition observed. Call light is in reach.
[2016-08-13 10:18] VITALS: BP 124/92
--- NOTE | 2016-08-13 12:41 | NUR ---
Mrs. Pineda had bedside hemodialysis today via her right lower arm av graft. Average blood flow was 350 mls/minute. Pt. started having a hypotensive crisis when she started reaching around 2000 mls off. She became very restless and confused and I was unable to obtain a b/p reading at this time. UF turned off and 200 mls normal saline bolus given. Pt. stabilized after the bolus. Net fluid removed was 1800 mls. Post vital signs were: B/P: 134/51, HR: 76, Temp:97.9, Resps: 18.
--- NOTE | 2016-08-13 17:51 | NUR ---
Pt. had dialysis this morning and had a hypotensive episode and had to be given 200cc's fluid back after pulling off 2000ml's of fluid. B/p came back up and pt. has been to therapy this afternoon. Pt. refused getting a shower today. Tylenol 650mg and Tesselon Pearls 100mg given at 2:40pm due to coughing and complaining of being in pain. Pt. got herself out of bed a little while ago with the bed alarm going off. Pt. remains alert but confused. No signs of discomfort or distress. Call light is in reach. Continuing to monitor.
[2016-08-13 19:35] VITALS: BP 117/62
--- NOTE | 2016-08-13 19:35 | NUR ---
PT FOUND UP IN WHEELCHAIR. PT PLACED BACK IN BED AND BED ALARM SET. PT MEPILEX TO BUTTOCK CHANGED. BUTT PASTE APPLIED. PT DENIES NEEDS AT THIS TIME. BED LOW. CL IN REACH.
--- NOTE | 2016-08-13 21:10 | NUR ---
PT HS MEDS GIVEN. PT DENIES NEEDS AT THIS TIME. BED LOW. CL IN REACH.
--- NOTE | 2016-08-14 01:18 | NUR ---
PT RESTING, EYES CLOSED. BED LOW. CLIN REACH. WCTM.
--- NOTE | 2016-08-14 03:20 | NUR ---
PT RESTING, EYES CLOSE.D BED LOW. CLIN REACH.
[2016-08-14 05:23] LABS: BASOPHILS 0.3 % (0.0-2.0); HEMATOCRIT 35.5 % (36.0-48.0); HEMOGLOBIN 11.7 g/dL (12-16); IMMATURE GRANULOCYTES 0.9 % (0-5); LYMPHOCYTES 17.9 % (15-50); MCH 29.6 pg (26.0-34.0); MCV 89.9 fL (80.0-100.0); MEAN PLATELET VOLUME 8.4 fL (7.4-10.4); MONOCYTES 8.5 % (2-11); NEUTROPHILS 71.4 % (40-80); PLATELET COUNT 235 10x3/uL (130-400); RBC 3.95 10x6/uL (4.00-5.40); RDW 15.4 % (11.5-14.5); WBC 7.7 10x3/uL (4.8-10.8)
[2016-08-14 05:41] LABS: ANION GAP 17.3 mmol/L (8-16); CALCIUM 9.1 mg/dL (8.5-10.1); CARBON DIOXIDE 27.5 mmol/L (21.0-32.0); CREATININE - SERUM 9.8 mg/dL (0.6-1.3); POTASSIUM - SERUM 3.8 mmol/L (3.5-5.1)
--- NOTE | 2016-08-14 05:50 | NUR ---
PT STATED SHE WAS HAVING CHEST PAIN AND POINTED TO UPPER ANTERIOR RIBCAGE. PT PLACED ON TELEMETRY. AM MEDS GIVEN WITHOUT DIFFICULTY. WCTM. BED LOW. CL IN REACH.
--- NOTE | 2016-08-14 08:06 | NUR ---
PATIENT AWAKE, BOOSTED UP IN BED TO EAT BREAKFAST. ALERT/ORIENT TO SELF ONLY. BED ALARM ON. CALL LIGHT WITHIN REACH. VOICES NO NEEDS AT THIS TIME.
--- NOTE | 2016-08-14 09:26 | NUR ---
PATIENT HAD SET UP HELP WITH SHOWER. ABLE TO WASH SELF. HAS LONG EXTENDED SPONGE TO WASH BACK.
--- NOTE | 2016-08-14 09:31 | NUR ---
PATIENT RESTING IN BED AFTER GETTING PRN ULTRUM. EYES CLOSED. BED ALARM REMAINS ON. CALL LIGHT WITHIN REACH
--- NOTE | 2016-08-14 10:57 | NUR ---
PATIENT HELPED UP TO TOILET. MOD ASST OF ONE FROM BED ONTO WHEELCHAIR. NEEDS HELP PULLING DOWN PANTS. NEEDS HELP WITH [facility]. NEEDS HELP PULLING PANTS BACK UP.
--- NOTE | 2016-08-14 11:38 | NUR ---
PATIENTS DAUGHTER CALLED. HAD PATIENTS PASSWORD. UPDATED ON PATIENTS CONDITICON.
--- NOTE | 2016-08-14 13:19 | NUR ---
PATIENT SITTING UP IN CHAIR. THIS NURSE IN ROOM TO HELP PATIENT BACK TO BED. PATIENT STATED SHE WAS FEELING DIZZY. PATIENT HAD AROUND 400CC OF UNDIGESTED EMISIS. THIS NURSE HELPED PATIENT CHANGE INTO CLEAN GOWN. ONCE PATIENT HELPED BACK INTO BED OUTSIDE PRODUCTION INSPECTOR CALLED. PATIENT IS RUNNING SINUS RYTHUM. V/S TAKEN T 97.7. P78, R 14, B/P 122/68. PO 97% ON RA. WILL CONTINUE TO MONITOR .
--- NOTE | 2016-08-14 13:57 | NUR ---
PATIENT RESTING IN BED. STATES SHE IS FEELING BETTER. NO C/O OF VERTIGO OR NAUSEA.
--- NOTE | 2016-08-14 15:58 | NUR ---
PATIENT CONTINUES TO REST IN BED. DENIES ANY NAUSEA/VERTIGO AT THIS TIME
--- NOTE | 2016-08-14 17:00 | NUR ---
HOB UP,NAPPING.RESPS EASY.CL OIN REACH.
[2016-08-14 19:20] VITALS: BP 116/48
--- NOTE | 2016-08-14 19:30 | NUR ---
PT IS RESTING IN BED WITH EYES OPEN. ALERT TO SELF AND PLACE. DISORIENTED X TIME AND SITUATION. PT DENIES ACUTE DISCOMFORT AT THIS TIME. VSS. RIGHT ARM FISTULA NOTED WITH GOOD BRUITT AND THRILL. OLD LEFT ARM FISTULA ALSO NOTED. PT DENIES ANY NAUSEA OR EMESIS THIS EVENING. MEPILEX DRESSING IS INTACT TO RIGHT BUTTOCK. SR'S ARE UP X 3 IN BED. CALL LIGHT AND BEDSIDE TABLE ARE WITHIN EASY REACH.
--- NOTE | 2016-08-14 21:57 | NUR ---
PT. IN BED WITH HOB UP FOR COMFORT WITH EYES CLOSED AND RESP. EVEN. CALL LIGHT WITHIN REACH.
--- NOTE | 2016-08-15 00:09 | NUR ---
PT RESTING IN BED DOING A UPDRAFT TX. NO ACUTE DISTRESS NOTED.
--- NOTE | 2016-08-15 03:02 | NUR ---
PT RESTING IN BED SPEAKING WITH FREDDY GERMAIN. NO DISTRESS NOTED.
--- NOTE | 2016-08-15 03:02 | NUR ---
PT RESTING IN BED WITH EYES CLOSED. NO DISTRES NOTED.
[2016-08-15 06:21] LABS: BASOPHILS 0.4 % (0.0-2.0); EOSINOPHILS 0.9 % (0-7); HEMATOCRIT 36.7 % (36.0-48.0); IMMATURE GRANULOCYTES 0.6 % (0-5); LYMPHOCYTES 18.4 % (15-50); MCH 29.6 pg (26.0-34.0); MCHC 32.7 g/dL (31.0-37.0); MCV 90.4 fL (80.0-100.0); MEAN PLATELET VOLUME 9.1 fL (7.4-10.4); MONOCYTES 9.8 % (2-11); NEUTROPHILS 69.9 % (40-80); RBC 4.06 10x6/uL (4.00-5.40); RDW 15.5 % (11.5-14.5); WBC 7.9 10x3/uL (4.8-10.8)
[2016-08-15 06:27] LABS: PLATELET COUNT 287 10x3/uL (130-400)
[2016-08-15 06:45] LABS: ANION GAP 19.4 mmol/L (8-16); CALCIUM 9.3 mg/dL (8.5-10.1); CARBON DIOXIDE 26.2 mmol/L (21.0-32.0); CREATININE - SERUM 11.8 mg/dL (0.6-1.3)
[2016-08-15 06:46] LABS: POTASSIUM - SERUM 4.6 mmol/L (3.5-5.1)
[2016-08-15 12:18] VITALS: BP 126/67
--- NOTE | 2016-08-15 13:38 | NUR ---
RESTING QUIETLY IN BED. HAS NOT HAD ADDITIONAL EMESIS SINCE ZOFRAN GIVEN.
--- NOTE | 2016-08-15 15:36 | NUR ---
RESTING QUIETLY IN BED. NO VOMITING AT PRESENT
--- NOTE | 2016-08-15 17:45 | NUR ---
SITTING ON SIDE OF BED EATING SUPPER. PAIN MEDS REQUESTED AND GIVEN ORDERED. SHE STILL HAS PAIN IN CHEST WHEN SHE COUGHS
[2016-08-15 19:41] VITALS: BP 141/77
--- NOTE | 2016-08-15 19:46 | NUR ---
PT. IN BED WITH HOB UP FOR COMFORT WITH EYES CLOSED AND RESP. EVEN. CALL LIGHT WITHIN REACH.
--- NOTE | 2016-08-15 20:07 | NUR ---
RESUMED CARE OF PT, PT LYING IN BED WATCHING TV, ON [id number], VITALS ARE STABLE, CALL LIGHT IN REACH, BED IS LOW, SRX2, DENIES ANY NEEDS, WILL CONTINUE TO MONTOR
--- NOTE | 2016-08-15 23:04 | NUR ---
SLEEEPING, CALL LIGHT IN REACH, BED IS LOW, SRX2, WILL CONTINUE TO MONITOR
--- NOTE | 2016-08-16 01:00 | NUR ---
RECEIVED REPORT FROM KEANU JUNIOR LPN
--- NOTE | 2016-08-16 01:14 | NUR ---
RESP TO ROOM FOR TREATMENT
--- NOTE | 2016-08-16 01:25 | NUR ---
RESP FINISHED WITH TREATMENT
--- NOTE | 2016-08-16 02:14 | NUR ---
PT AWAKE, WATCHING TV, REQUESTED OVERHEAD LIGHT OFF, SINK LIGHT ON, PT DENIES FURTHER NEEDS OR PAIN AT THIS TIME
--- NOTE | 2016-08-16 03:37 | NUR ---
BEATRIZ FROM TELEMETRY CALLED TO REPORT UNABLE TO PICK PT UP ON MONITOR, THIS RN TO ROOM, LEADS OFF, LEAD REPLACED AND MONITOR PLACED BACK ON, CALLED BEATRIZ HENDERSON REPORTS THAT SHE IS ABLE TO PICK PT UP ON MONITOR NOW
--- NOTE | 2016-08-16 04:22 | NUR ---
PT RESTING WITH EYES CLOSED, RESP QUIET, NO DISTRESS NOTED, LEFT UNDISTURBED AT THIS TIME
--- NOTE | 2016-08-16 06:21 | NUR ---
PT AWAKE, ADM 0600 MEDS, SEE EMAR, RESP TO ROOM FOR TREATMENT
--- NOTE | 2016-08-16 06:35 | NUR ---
PT UP TO BR WITH ASSISTANCE VIA WC, PT REFUSED HELP WITH [facility], MEPLILEX CHANGED, CHANGED ADULT BRIEFS, PT TO SINK TO WASH HANDS, PT UP BEDSIDE SCALE, WEIGHED 163.8, PT BACK TO BED, PT DENIES FURTHER NEEDS AT THIS TIME
--- NOTE | 2016-08-16 07:00 | NUR ---
SHIFT REPORT TO DAY SHIFT
--- NOTE | 2016-08-16 09:40 | NUR ---
SITTING IN THERAPY ROOM. REFUSED BREAKFAST BUT DRANK SOME ENSURE. HAD C/O NAUSEA THIS MORNING.
[2016-08-16 11:59] VITALS: BP 117/65
--- NOTE | 2016-08-16 12:19 | NUR ---
Nutrition Follow Up: Pt reported that her appetite has been okay. She said that she does not like some of the food on the renal diet. Pt said that she liked Nepro and would drink if ordered. RD encouraged po intake with pt. Pt is eating 40% meal avg on a Renal diet. +BM 08/14/16. Wt stable. Labs noted - BUN, Cr elevated. Meds noted including Zofran, Medrol, Methylprednisone. Pt with poor po intake. Rec continue current diet. Will continue to provide selective menus and honor food preferences within diet ordered. Will send Nepro with meals. RD following.
[2016-08-16 19:30] VITALS: BP 130/75
--- NOTE | 2016-08-16 20:00 | NUR ---
PT RESTING IN BED WITH EYES OPEN. ALERT TO SELF AND PLACE. PT IS VERY QUIET AND NOT VERY TALKATIVE, SO IT IS DIFFICULT TO DETERMINE ORIENTATION. PT VOICED COMPLAINT OF A HEADACHE WITH A PAIN LEVEL OF 6. MEDICATED PER MAR. SR'S ARE UP X 2 IN BED. CALL LIGHT AND BEDSIDE TABLE ARE WITHIN EASY REACH.
--- NOTE | 2016-08-16 20:58 | NUR ---
DIALYSIS NURSE IN ROOM TO DO TX AT THIS TIME.
--- NOTE | 2016-08-16 21:52 | NUR ---
PT IS RESTING IN BED DOING DIALYSIS. NO ACUTE DISTRESS NOTED.
--- NOTE | 2016-08-16 22:00 | NUR ---
PT. IN BED WITH HOB UP FOR COMFORT AND TALKING ON HER CELL PHONE. CALENDER MACHINE OPERATOR PRESENT AND DOING PT'S DIALYSIS. TECH. REPORTS THAT SHE WAS THE ONLY TIME SLOT THEY HAD TO DO PT'S DIALYSIS DUE TO ILLNESS AND BUSY WITH OTHER PATIENTS. PT. HAS HER CALL LIGHT WITHIN REACH.
--- NOTE | 2016-08-17 01:46 | NUR ---
PT SITTING IN A WC IN HER ROOM. STATES: " I CANT SLEEP, I JUST NEED TO SIT UP A WHILE."
--- NOTE | 2016-08-17 04:33 | NUR ---
RESTING IN BED WITH EYES CLOSED.
[2016-08-17 05:53] LABS: BASOPHILS 0.3 % (0.0-2.0); EOSINOPHILS 1.3 % (0-7); HEMATOCRIT 38.1 % (36.0-48.0); HEMOGLOBIN 12.7 g/dL (12-16); IMMATURE GRANULOCYTES 0.7 % (0-5); LYMPHOCYTES 12.4 % (15-50); MCH 30.2 pg (26.0-34.0); MCHC 33.3 g/dL (31.0-37.0); MCV 90.7 fL (80.0-100.0); MEAN PLATELET VOLUME 9.5 fL (7.4-10.4); MONOCYTES 10.1 % (2-11); NEUTROPHILS 75.2 % (40-80); PLATELET COUNT 274 10x3/uL (130-400); RDW 16.1 % (11.5-14.5)
[2016-08-17 06:04] LABS: CALCIUM 9.5 mg/dL (8.5-10.1); CARBON DIOXIDE 25.5 mmol/L (21.0-32.0); CREATININE - SERUM 11.5 mg/dL (0.6-1.3); POTASSIUM - SERUM 4.5 mmol/L (3.5-5.1)
--- NOTE | 2016-08-17 07:35 | NUR ---
RESTING QUIETLY IN BED. CALL LIGHT IN REACH
--- NOTE | 2016-08-17 10:44 | NUR ---
ATTEMPTED TO CALL PATIENT SPOUSE SEEMA AT [phone] NUMBER HAS BEEN DISCONNECTED OR HAS CHANGED NUMBER. LEFT MESSAGE ON DAUGHTER JUQAUIN LEE PHONE AT [phone] TO CALL CM BACK REGARDING DISCHARGE PLANS. WILL CONTNUE TO FOLLOW WITH PATIENT
--- NOTE | 2016-08-17 11:13 | NUR ---
SPOKE WITH PATIENT MOTHER MAREK KENNEDY AND SHE WILL GIVE DAUGHTER AND SEEMA MESSAGE TO CALL ME. MRS. KENNEDY NUMBER [phone]
--- NOTE | 2016-08-17 12:02 | NUR ---
LAYING IN BED IN ROOM. DENIES N/V AT PRESENT. APPETITE POOR.
[2016-08-17 12:05] VITALS: BP 117/65
--- NOTE | 2016-08-17 16:13 | NUR ---
RESTING QUIETLY IN BED. MEPILEX CHANGED TO BUTTOCKS. APPETITE IMPROVED FOR LUNCH.
--- NOTE | 2016-08-17 16:56 | NUR ---
CARE TEAM MEETING: TENATIVE DISCHARGE DATE IS 08/26/16. NO RESPONSE FROM SPOUSE OR DAUGHTER AT THIS TIME. WILL CONTINUE TO FOLLOW WITH PATIENT UNTIL DISCHARGED. PATIENT HAS WALKER, PCP IS DR. LÓPEZ. SHASHA GOMEZ ON MONDAY, MONDAY , MONDAY @ 11;15. PATIENT HAS BEEN AT [facility] BEFORE.
--- NOTE | 2016-08-17 18:36 | NUR ---
RESTING QUIETLY IN BED WATCHING TV. NO S/S DISTRESS. CALL LIGHT IN REACH
--- NOTE | 2016-08-17 19:30 | NUR ---
PT IS RESTING IN BED WITH EYES OPEN. PT STATED: "IM READY TO GO HOME NOW, PLEASE CALL MY ." I INFORMED HER THAT HER DC DATE IS THE , AND THAT I SPOKE WITH HER DAUGHTER, WHO SPOKE FOR HER WHOLE FAMILY, THAT THEY WERE NOT YET READY FOR HER TO COME HOME YET. PT VOICED UNDERSTANDING TO THIS, AND AGREED TO STAY. DRESSING IS INTACT TO RIGHT BUTTOCK. RIGHT ARM FISTULA HAS GOOD BRUITT AND THRILL. LEFT ARM FISTULA DOES NOT WORK. SR'S ARE UP X 3 IN BED. CALL LIGHT AND BEDSIDE TABLE ARE WITHIN EASY REACH.
--- NOTE | 2016-08-17 21:34 | NUR ---
PT IS RESTING QUIETLY IN BED WITH EYES CLOSED. RESPS AR EVEN AND UNLABORED. NO ACUTE DISTRESS NOTED.
[2016-08-17 21:41] VITALS: BP 109/58
--- NOTE | 2016-08-18 01:04 | NUR ---
RESTING QUIETLY IN BED WITH EYES CLOSED. RESPS ARE EVEN AND UNLABORED. NO ACUTE DISTRESS NOTED.
--- NOTE | 2016-08-18 02:17 | NUR ---
PT RESTING,EYES CLOSED. BED LOW. CL IN REACH.
--- NOTE | 2016-08-18 05:05 | NUR ---
RESTING IN BED WITH EYES CLOSED. NO DISTRESS NOTED.
[2016-08-18 08:03] VITALS: BP 136/78
--- NOTE | 2016-08-18 13:41 | NUR ---
RECIEVING BED SIDE DIALYSIS
--- NOTE | 2016-08-18 17:14 | NUR ---
Mrs. Pineda had bedside hemodialysis today via her right lower arm av graft from 1416 until 1639. Average blood flow was 350 mls/minute. Net fluid removed was 2122 mls. At 1639 pt. started c/o malaise and headache. She said she wanted to come off the machine and needed to have a bowel movement. Pt. was very restless and anxious. Her glucose was checked and was within normal limits. Treament was terminated per her request. Post vital signs were: B/P: 174/95, HR: 82, Temp: 97.5, Resps:20.
--- NOTE | 2016-08-18 17:50 | NUR ---
REFUSED SUPPER. RESTING QUIETLY IN BED.
--- NOTE | 2016-08-18 19:30 | NUR ---
PT IN WHEELCHAIR AT BED SIDE. ASSISTED X1 TO BED PER REQUEST. NO CONCERNS NOTED AT THIS TIME. WATER AND CALL LIGHT IN REACH.
[2016-08-18 20:45] VITALS: BP 109/51
--- NOTE | 2016-08-18 21:45 | NUR ---
PT IN BED WITH EYES OPEN TALKING ON PHONE. NO NEEDS NOTED AT THIS TIME. WATER AND CALL LIGHT IN REACH.
--- NOTE | 2016-08-18 23:52 | NUR ---
PT IN BED WITH EYES CLOSED AND CHEST RISING. RESPIRATIONS EVEN AND UNLABORED. NO SIGN/SYMPTOMS OF DISTRESS NOTED. WATER AND CALL LIGHT IN REACH.
--- NOTE | 2016-08-19 04:08 | NUR ---
PT IN BED WITH EYES CLOSED AND CHEST RISING. RESPIRATIONS EVEN AND UNLABORED. NO SIGN/SYMPTOMS OF DISTRESS NOTED. CALL LIGHT IN REACH.
--- NOTE | 2016-08-19 07:38 | NUR ---
PT RESTING IN BED WITH EYES OPEN CALL LIGHT IN REACH WILL MONITER
[2016-08-19 07:55] VITALS: BP 117/71
--- NOTE | 2016-08-19 10:44 | RHP ---
PATIENT: MAXINE CRANE MEDICAL RECORD: [id number] ACCOUNT: [id number] LOCATION:[facility]1117 : 55 ADMISSION DATE: 08/10/16 REHABILITATION HISTORY AND PHYSICAL EXAMINATION POST ADMISSION PHYSICIAN EXAMINATION Post-Admission Physical Exam and History and Physical DATE OF ADMISSION TO THE REHAB: 08/10/2016 ADMITTING DIAGNOSIS TO THE REHAB: Global encephalopathy status post cardiopulmonary arrest with successful resuscitation and renal failure. HISTORY OF PRESENT ILLNESS: The patient is admitted to inpatient rehab for global encephalopathy status post cardiopulmonary arrest with successful resuscitation and acute renal failure. She is a 60-year-old female patient with medical noncompliance in the past. She has had no hemodialysis for 10 days prior to admit to the hospital. She went to the ER in [place] because she felt better. Lab work showed her to be hyperkalemic and in acute renal failure. She was transferred to [facility] during her first hemodialysis on July 29. She suffered reported seizure and suffered cardiopulmonary arrest. Code record indicated pulses and apnea with V-tach. She was placed on mechanical ventilation. She was extubated on August 03. She was in the ICU from July 29 to August 05. She is currently on medical floor, continue to have hemodialysis and continue management of her medical care. She is receiving speech therapy for dysphagia and also PT for debility. She lives at home with her that is wheelchair bound and would like to return home after hospitalization and get back to her prior level of functioning. COMORBIDITIES: In this patient include hypothyroidism, hypertensive heart disease, chronic kidney disease, pneumonia, pleural effusion, respiratory failure with hypoxia, pulmonary edema, left lobe effusion, hypoxic encephalopathy, hypertension, diabetes, frequent falls, electrolyte abnormalities, hypocalcemia, debility, and anemia. PAST MEDICAL HISTORY: Significant for end-stage renal disease, diabetes, thyroid disease, hypertension, congestive heart failure, and pneumonia. PAST SURGICAL HISTORY: Includes hysterectomy, fistula, Hemosplit. She has had a stent placement secondary to coronary artery disease. ALLERGIES: PENICILLIN, ADHESIVE TAPE, AND VANCOMYCIN. CURRENT MEDICATIONS: She is on Levaquin for 3 more doses. She is on DuoNeb updrafts, enoxaparin 30 mg subQ daily. She is on Procrit 4000 units on Monday, and Monday. She is on Nitrostat p.r.n. chest pain. She is on Renvela 2.4 grams p.o. t.i.d. with meals, Tessalon Perles 100 mg t.i.d. p.r.n. She is on Mucinex DM 1 tab b.i.d. She is on Florajen capsule 460 mg daily, and Synthroid 75 mcg daily. HABITS: No alcohol or tobacco use. FAMILY HISTORY: Noncontributory. SOCIAL HISTORY: The patient hopes to return back home with her . HISTORY AND PHYSICAL [id number] MAXINE CRANE REVIEW OF SYSTEMS: GENERAL: Does complain of weakness and fatigue. HEENT: She denies cold, cough, or congestion. CARDIOVASCULAR: Denies chest pain. PHYSICAL EXAMINATION: VITAL SIGNS: Stable, afebrile. GENERAL: A well-developed female, in no acute distress, alert upon exam. HEENT: Normocephalic, atraumatic. Mucosa moist. NECK: Supple. No lymphadenopathy. LUNGS: Clear at this time. HEART: Regular rate and rhythm. ABDOMEN: Benign. EXTREMITIES: Does have noted fistula for hemodialysis. NEUROLOGIC: Intact. LABORATORY DATA: Her white count is 9.2, H&H of 12 and 37, and platelet count is 247. Sodium 135, potassium 4.2, BUN and creatinine of 59 and 10.0 and blood sugar is noted to be 93. ASSESSMENT: This is a 60-year-old female patient admitted to rehab with a working diagnosis of global encephalopathy status post cardiopulmonary arrest. The patient has potential to make improvement. We instituted the following multidisciplinary therapies including to, but not limited to physical, occupational, respiratory, speech, nutritional services, prosthetics and orthotics. Given her complex condition and risk for more complications, rehabilitation services cannot be provided at a low level of care such as a nursing home facility. PLAN: 1. Admit to [facility] rehab for intensive inpatient therapy to include the following disciplines: A. Physical therapy to improve gait, all transfer skills and bed mobility to a modified independent level. B. Occupational therapy to improve activities of daily living to a modified independent level. C. Case management to assist with discharge planning and placement options. D. Nutrition to assist with nutritional needs. E. Rehabilitation nursing to assist in monitoring the patient's underlying medical conditions and to assist with any type of bowel or bladder management. 2. The patient's current medication and medical care will be continued. 3. The patient will be placed on a standard fall precautions. 4. The patient's estimated length of stay is approximately 7-10 days. 5. We will closely follow her renal functions and follow with nephrology during her stay. 6. We will hopefully get her back up to her prior level of functioning, so she can go home and take care of her wheelchair bound . 7. We will go ahead and discuss this patient with care team staff meeting this week. TRANSINT:[id number] Voice Confirmation ID: [id number] DOCUMENT ID: [id number] HISTORY AND PHYSICAL [id number] MAXINE CRANE SCOTT MD at 1044 CC: [id number] DICTATION DATE: 08/11/16 0857 DENTAL PRACTICE MANAGER: 08/11/16 1045 ADM IN [place] [id number] [place] [address]
--- NOTE | 2016-08-19 12:15 | NUR ---
PT UP IN WHEELCHAIR EEATING LUNCH TOLERATING WELL WILL MONITER
--- NOTE | 2016-08-19 17:45 | NUR ---
PT RESTING IN BED WITH EYES OPEN CALL LIGHT IN REACH WILL MONITER
--- NOTE | 2016-08-19 17:52 | NUR ---
RESTING IN BED WITH CALLIGHT IN REACH.
--- NOTE | 2016-08-19 19:15 | NUR ---
PT REQUEST ASSIST TO RESTROOM. MINIMAL ASSISTANCE PROVIDED WITH TRANSFERS. PT ASKED TO PULL CALL LIGHT WHEN FINISHED USING RESTROOM AND WENT TO CHECK PT, PT WAS IN WHEELCHAIR IN ROOM. PT REMINDED THAT SHE NEEDS TO NOTIFY STAFF DURING TRANSFERS FOR SAFETY. PT ACKNOWLEDGES UNDERSTANDING. SHE STATES SHE HAD A SMALL BOWEL MOVEMENT. REMAINS IN WHEELCHAIR PER REQUEST. CALL LIGHT IN REACH.
--- NOTE | 2016-08-19 21:30 | NUR ---
PT IN WHEELCHAIR WITH NO COMPLAINTS OR NEEDS MADE KNOWN. CALL LIGHT IN REACH.
--- NOTE | 2016-08-20 00:58 | NUR ---
PT IN BED WITH EYES CLOSED AND CHEST RISING. RESPIRATIONS EVEN AND UNLABORED. NO CONCERNS NOTED AT THIS TIME. CALL LIGHT IN REACH.
[2016-08-20 01:25] VITALS: BP 125/75
--- NOTE | 2016-08-20 04:03 | NUR ---
PT IN BED WITH EYES CLOSED AND CHEST RISING. RESPIRATIONS EVEN AND UNLABORED. NO CONCERNS NOTED AT THIS TIME. CALL LIGHT IN REACH
--- NOTE | 2016-08-20 06:45 | NUR ---
PT IN BED WITH EYES CLOSED AND CHEST RISING. RESPIRATIONS EVEN AND UNLABORE. NO CONCERNS NOTED AT THIS TIME. CALL LIGHT IN REACH.
--- NOTE | 2016-08-20 09:33 | NUR ---
RESTING QUIETLY IN BED. REFUSED BREAKFAST, TOOK MEDS THIS AM. CALL LIGHT IN REACH
[2016-08-20 11:56] VITALS: BP 151/77
--- NOTE | 2016-08-20 12:13 | NUR ---
SITTING UP IN W/C EATING LUNCH IN ROOM. CALL LIGHT IN REACH
--- NOTE | 2016-08-20 15:57 | NUR ---
RESTING QUIETLY IN BED WHILE ON DIALYSIS IN HER ROOM.
--- NOTE | 2016-08-20 17:51 | NUR ---
STILL HAVING DIALYSIS AT BEDSIDE
--- NOTE | 2016-08-20 19:55 | NUR ---
PT IS RESTING IN BED WITH EYES OPEN. HOLDING THE PHONE. STATES SHE IS HOPING HER WILL CALL. VSS. PT DENIES ACUTE PAIN OR DISCOMFORT. RIGHT ARM FISTULA NOTED WITH GOOD BRUITT AND THRILL. OLD LEFT ARM FISTULA NOTED. SR'S ARE UP X 3 IN BED. CALL LIGHT AND BEDSIDE TABLE ARE WITHIN EASY REACH.
--- NOTE | 2016-08-20 21:49 | NUR ---
I HAVE RECIEVED PHONE CALLS FROM PTS DAUGHTER AND STATING SOMEONE CALLED THEM AND TOLD THEM THAT MRS QUINONEZ WAS VERY ILL AND WOULD NOT MAKE IT UNTIL MORNING. I ASSURED THEM THAT WE HAD NOT MADE THOSE CALLS, AND THAT SHE WAS DOING WELL. PT IS PROGRESSING SLOWLY, BUT IS PROGRESSING. PT IS ANXIOUS TO GO HOME. FAMILY VOICED UNDERSTANDING, AND STATE THEY WILL COME IN TO SEE HER TEOFILO.
[2016-08-20 23:31] VITALS: BP 136/54
--- NOTE | 2016-08-21 00:36 | NUR ---
MOD ASSIST WITH BED MOBILITY, PT HOLDS CHEST, ELEVATED HOB TO ASSIST TO SEMI FOLWER POSITION, PT RESPIRATIONS REGULAR AND UNLABORED, NO S/S OF ACUTE DISTRESS.
--- NOTE | 2016-08-21 03:09 | NUR ---
PT RESTING IN BED WITH EYES CLOSED.
--- NOTE | 2016-08-21 06:28 | NUR ---
PT RESTING IN BED WITH EYES OPEN. TOLERATED AM MEDS WITHOUT DIFFICULTY. NO NEEDS VOICED.
--- NOTE | 2016-08-21 07:08 | NUR ---
RESTING QUIETLY IN BED CALL LIGHT IN REACH
[2016-08-21 11:57] VITALS: BP 139/76
--- NOTE | 2016-08-21 11:57 | NUR ---
RESTING QUIETLY IN BED. NO S/S DISTRESS. CALL LIGHT IN REACH. EYES CLOSED
--- NOTE | 2016-08-21 17:37 | NUR ---
SITTING UP IN BED EATING SUPPER. HAD SHOWER TODAY AND PARTICIPATED QUITE A BIT.
--- NOTE | 2016-08-21 19:25 | NUR ---
PT. IN BED WITH HOB UP FOR COMFORT. NO VOICED COMPLAINTS AT THIS TIME. ASSESSMENT COMPLETED. MEPILEX TO COCCYX AREA C/D/I AND DATED 08/21/16. CALL LIGHT WITHIN REACH.
[2016-08-21 22:00] VITALS: BP 136/72
--- NOTE | 2016-08-22 00:15 | NUR ---
PT. IN BED WITH HOB UP FOR COMFORT WITH EYES CLOSED AND RESP. EVEN. CALL LIGHT WITHIN REACH.
--- NOTE | 2016-08-22 02:06 | NUR ---
PT. IN BED WITH HOB UP FOR COMFORT LYING ON HER BACK. EYES CLOSED AND RESP. EVEN. CALL LIGHT WITHIN REACH.
--- NOTE | 2016-08-22 04:06 | NUR ---
PT. LYING IN BED WITH HOB UP FOR COMFORT WITH EYES CLOSED AND RESP. EVEN. CALL LIGHT WITHIN REACH.
[2016-08-22 05:57] LABS: BASOPHILS 0.5 % (0.0-2.0); EOSINOPHILS 2.6 % (0-7); HEMATOCRIT 39.8 % (36.0-48.0); HEMOGLOBIN 12.9 g/dL (12-16); IMMATURE GRANULOCYTES 0.1 % (0-5); LYMPHOCYTES 18.8 % (15-50); MCH 29.7 pg (26.0-34.0); MCHC 32.4 g/dL (31.0-37.0); MCV 91.7 fL (80.0-100.0); MEAN PLATELET VOLUME 10.1 fL (7.4-10.4); MONOCYTES 8.4 % (2-11); NEUTROPHILS 69.6 % (40-80); PLATELET COUNT 221 10x3/uL (130-400); RBC 4.34 10x6/uL (4.00-5.40); RDW 16.4 % (11.5-14.5); WBC 7.7 10x3/uL (4.8-10.8)
--- NOTE | 2016-08-22 06:05 | NUR ---
PT. IN BED WITH HOB UP FOR COMFORT WITH EYES CLOSED AND RESP. EVEN. CALL LIGHT WITHIN REACH.
[2016-08-22 06:30] LABS: ANION GAP 18.8 mmol/L (8-16); CALCIUM 9.5 mg/dL (8.5-10.1); CARBON DIOXIDE 26.9 mmol/L (21.0-32.0); CREATININE - SERUM 12.1 mg/dL (0.6-1.3); POTASSIUM - SERUM 4.7 mmol/L (3.5-5.1)
--- NOTE | 2016-08-22 09:27 | NUR ---
RESTING QUIETLY IN BED
[2016-08-22 10:51] VITALS: BP 136/80
--- NOTE | 2016-08-22 13:35 | NUR ---
SITTING IN ROOM IN W/C. DENIES PAIN OR NEEDS.
--- NOTE | 2016-08-22 15:41 | NUR ---
SITTING IN ROOM WORKING WITH SPEECH THERAPY
--- NOTE | 2016-08-22 19:30 | NUR ---
PT IS SITTING IN HER WC IN HER ROOM AT THIS TIME. ALERT TO SELF AND PLACE. CONFUSED TO TIME AND SITUATION. SHE DENIES ANY PAIN OR DISCOMFORT AT THIS TIME. VSS. RIGHT ARM IS RESERVED FOR HER FISTULA. GOOD BRUITT AND THRILL NOTED. NO NEEDS VOICED. CALL LIGHT AND BEDSIDE TABLE ARE WITHIN EASY REACH.
--- NOTE | 2016-08-22 21:49 | NUR ---
PT IS RESTING IN BED TALKING ON THE TELEPHONE. NO ACUTE DISTRESS NOTED.
[2016-08-22 22:01] VITALS: BP 135/83
--- NOTE | 2016-08-23 00:07 | NUR ---
RESTING IN BED WITH EYES CLOSED.
--- NOTE | 2016-08-23 01:58 | NUR ---
PT RESTING, EYES CLOSED. BED LOW. CL IN REACH.
--- NOTE | 2016-08-23 05:17 | NUR ---
PT IS RESTING QUIETLY IN BED WITH EYES CLOSED. RESPS ARE EVEN AND UNLABORED. NO ACUTE DISTRESS NOTED.
[2016-08-23 08:05] VITALS: BP 127/91
--- NOTE | 2016-08-23 09:35 | NUR ---
SITTING IN WHEELCHAIR AND AMBULATING IN HALLWAY WITH WALKER.
--- NOTE | 2016-08-23 11:32 | NUR ---
ASSISTED BACK TO BED AND TOOK PILLS WITHOUT DIFFICULTY. C/O LT CHEST PAIN AFTER TRANSFER. NO REQUEST FOR PAIN MED.
--- NOTE | 2016-08-23 13:30 | NUR ---
RESTING IN BED WHILE RECEIVING DIALYSIS IN THE ROOM.
--- NOTE | 2016-08-23 14:09 | NUR ---
Nutrition Follow Up: Pt was asleep and receiving HD. Spoke with nursing who reported that pt's appetite has been poor. Per nursing pt started on Megace today. Pt is eating 38% meal avg on a renal diet. +BM 08/22/16. Labs and meds noted. Pt continues with poor po intake. Rec continue current diet, supplement regimen. Will continue to provide selective menus and honor food preferences. RD following.
--- NOTE | 2016-08-23 15:39 | NUR ---
MARY ALARM APPLIED TO BED. ASSISTED OFF BEDPAN PER NA AND DIALYSIS NURSE.
[2016-08-23 15:55] VITALS: BP 112/54
--- NOTE | 2016-08-23 17:14 | NUR ---
RESTING IN BED WITHOUT ANY NEEDS VOICED. CALLIGHT IN REACH.
--- NOTE | 2016-08-23 19:23 | NUR ---
PT IN BED WITH EYES OPEN. NO SIGNS OF DISTRESS NOTED. NO COMPLAINTS OF PAIN. CALL LIGHT IN REACH.
--- NOTE | 2016-08-23 22:40 | NUR ---
PT IN BED WITH EYES CLOSED. NO SIGN/SYMPTOMS OF DISTRESS NOTED. CALL LIGHT IN REACH.
--- NOTE | 2016-08-24 06:24 | NUR ---
PT IN BED WITH EYES CLOSED AND CHEST RISING. NO SIGN/SYMPTOMS OF DISTRESS NOTED. CALL LIGHT IN REACH.
--- NOTE | 2016-08-24 08:00 | NUR ---
SHIFT ASSMT COMPLETED.DENIES NEEDS.UP OOB FOR BREAKFAST.
[2016-08-24 08:43] VITALS: BP 124/68
--- NOTE | 2016-08-24 10:01 | NUR ---
[facility] - [facility] Mon/Mon/Mon @ 10:30. BMM
--- NOTE | 2016-08-24 10:07 | NUR ---
[facility] - [facility] Jeffrey/Hiram/Sat @ 10:00. BMM
--- NOTE | 2016-08-24 12:00 | NUR ---
SITTING UP EATING LUNCH.DENIES NEEDS.
--- NOTE | 2016-08-24 14:02 | NUR ---
CARE TEAM MEETING: TENATIVE DISCHARGE DATE IS 08/26/16 , PATIENT STATES SHE IS GOING HOME WITH HER DAUGHTER. WILL CONTINUE SAME HD DAYS , WILL HAVE HOME HEALTH . WILL CONTIUNE TO FOLLOW WITH PATIENT UNTIL DISCHARGED.
--- NOTE | 2016-08-24 16:00 | NUR ---
APPETITE STILL POOR,ALTHOUGH SLIGHTLY BETTER THAN YESTERDAY.RESTING QUIETLY.CL IN REACH.
[2016-08-24 19:00] VITALS: BP 140/87
--- NOTE | 2016-08-24 20:00 | NUR ---
PT IS RESTING IN BED TALKING ON THE TELEPHONE. ALERT TO SELF AND PLACE. CONFUSED TO TIME AND SITUATION. PLEASANT AND COOPERATIVE WITH STAFF. RIGHT ARM FISTULA NOTED WITH GOOD BRUITT AND THRILL. SR'S ARE UP X 3 IN BED. CALL LIGHT AND BEDSIDE TABLE ARE WITHIN EASY REACH.
--- NOTE | 2016-08-24 23:07 | NUR ---
RESTING QUIETLY IN BED WITH EYES CLOSED. RESPS ARE EVEN AND UNLABORED. NO ACUTE DISTRESS NOTED.
--- NOTE | 2016-08-25 01:19 | NUR ---
PT RESTING IN BED WITH EYES CLOSED.
--- NOTE | 2016-08-25 02:45 | NUR ---
PT RESTING QUIETLY WITH EYES CLOSED, RESPIRATIONS REGULAR AND UNLABORED, NO S/S OF ACUTE DISTRESS.
--- NOTE | 2016-08-25 05:35 | NUR ---
RESTING IN BED WITH EYES CLOSED.
--- NOTE | 2016-08-25 07:26 | NUR ---
RESTING QUIETLY IN BED CALL LIGHT IN REACH
[2016-08-25 08:23] VITALS: BP 136/76
[2016-08-25] MEDS ORDERED: MIRALAX17 GM PO (08:44)
[2016-08-25] MEDS ORDERED: PROTONIX40 MG PO (08:45)
[2016-08-25] MEDS ORDERED: ZOFRAN ODT4 MG/UDTAB PO (08:45)
--- NOTE | 2016-08-25 13:30 | NUR ---
HAVING BEDSIDE DIALYSIS
--- NOTE | 2016-08-25 15:57 | NUR ---
STILL RECEIVING BEDSIDE DIALYSIS
[2016-08-25 19:00] VITALS: BP 147/74
--- NOTE | 2016-08-25 20:30 | NUR ---
PT NOTED LAYING IN BED WITH EYES CLOSED. AWOKE EASILY TO VERBAL STIMULI. DENIES ACUTE PAIN OR DISCOMFORT. STATES: " I USUALLY ONLY HURT REAL BAD WHEN I MOVE, OR WHEN I HAVE A HEADACHE." RIGHT ARM FISTULA NOTED WITH GOOD BRUITT AND THRILL. OLD LEFT ARM FISTULA ALSO NOTED. DRESSING TO RIGHT BUTTOCK IS INTACT. SR'S ARE UP X 3 IN BED. CALL LIGHT AND BEDSIDE TABLE ARE WITHIN EASY REACH.
--- NOTE | 2016-08-25 23:26 | NUR ---
PT NOTED SITTING UP IN A CHAIR IN HER ROOM. HER PANTS ARE OFF, AND THERE IS EMESIS COVERING THE BED AND A LARGE AREA OF FLOOR BESIDE THE BED. PT STATES SHE FEELS MUCH BETTER AND DENIES HAVING ANY FURTHER NAUSEA OR NEED FOR MEDICATION. FLOOR CLEANED, AND BED LINENS CHANGED. PT ASSISTED BACK TO BED WITH MOD ASSIST DUE TO THE PAIN IN HER CHEST AREA.
--- NOTE | 2016-08-26 03:07 | NUR ---
PT RESTING IN BED WITH EYES OPEN. 2 FAMILY MEMBERS AT BEDSIDE. NO NEEDS VOICED.
--- NOTE | 2016-08-26 03:45 | NUR ---
PT RESTING IN BED WATCHING TV, DENIES NEEDS AT THIS TIME. BED LOW. CL IN REACH.
--- NOTE | 2016-08-26 05:43 | NUR ---
PT RESTING IN BED WITH EYES OPEN. NO NEEDS VOICED. 2 FAMILY MEMBERS SLEEPING IN EXTRA BED AT THIS TIME. PT DENIES ANY NAUSEA THIS AM.
[2016-08-26 07:25] LABS: BASOPHILS 0.3 % (0.0-2.0); EOSINOPHILS 2.3 % (0-7); HEMATOCRIT 35.4 % (36.0-48.0); HEMOGLOBIN 11.8 g/dL (12-16); IMMATURE GRANULOCYTES 0.1 % (0-5); LYMPHOCYTES 17.2 % (15-50); MCH 29.9 pg (26.0-34.0); MCHC 33.3 g/dL (31.0-37.0); MCV 89.8 fL (80.0-100.0); MEAN PLATELET VOLUME 10.5 fL (7.4-10.4); MONOCYTES 13.1 % (2-11); PLATELET COUNT 209 10x3/uL (130-400); RBC 3.94 10x6/uL (4.00-5.40); RDW 16.1 % (11.5-14.5)
[2016-08-26 07:48] LABS: ANION GAP 15.7 mmol/L (8-16); CALCIUM 9.8 mg/dL (8.5-10.1); CARBON DIOXIDE 28.9 mmol/L (21.0-32.0); CREATININE - SERUM 9.9 mg/dL (0.6-1.3); POTASSIUM - SERUM 4.6 mmol/L (3.5-5.1)
[2016-08-26 08:26] VITALS: BP 131/72
--- NOTE | 2016-08-26 08:43 | NUR ---
PATIENT DISCHARGING HOME WITH DAUGHTER.STRESS THE IMPORTANCE OF HD APPOINTMENTS WITH DAUGHTER AND PATIENT. [facility] WILL PROVIDE NURSING, PT, OT. INSTRUCTED DAUGHTER TO MAKE AN APPOINTMENT WITH PATIENT PCP DUE TO ALL NAMES THAT HAVE BEEN GIVEN TO ME IS NOT PATIENT PHYSICIAN. [facility] AND CHOICE OF HOME HEALTH FORM SIGNED AND FILED IN CHART. ORDERS HAVE BEEN FAXED TO HOME HEALTH
--- NOTE | 2016-08-26 11:30 | NUR ---
D/C HOME WITH ALL PERSONAL BELONGINGS. DTR TOOK PT HOME. D/C INSTRUCTIONS WENT OVER WITH PT AND DTR.
== END 2016-08-26 10:30 | disposition home health service (06) | DRG 70 ==
LOC: D.REHAB 18:53
PROVIDERS: Internal Medicine Nephrology; ADMIT Emergency Medicine
PROC: 5A1D60Z (ICD-10-PCS; principal; 2016-08-12)
DX: G93.49 Other encephalopathy (principal); J18.9 Pneumonia, unspecified organism; J96.01 Acute respiratory failure with hypoxia; I13.0 Hypertensive heart and chronic kidney disease with heart failure and stage 1 through stage 4 chronic kidney disease, or unspecified chronic kidney disease; J90 Pleural effusion, not elsewhere classified; J81.1 Chronic pulmonary edema; N17.9 Acute kidney failure, unspecified; E11.22 Type 2 diabetes mellitus with diabetic chronic kidney disease; N18.9 Chronic kidney disease, unspecified; E03.9 Hypothyroidism, unspecified; D64.9 Anemia, unspecified; E83.51 Hypocalcemia; E87.8 Other disorders of electrolyte and fluid balance, not elsewhere classified; Z86.74 Personal history of sudden cardiac arrest

== ENCOUNTER 2017-01-02 13:32 | Inpatient (IN) | payer MEDICARE ==
[~2017-01-02] VITALS: Ht 167.6 cm; Wt 80.1 kg
--- NOTE | 2017-01-02 12:50 | NUR ---
PT RECEIVED TO ROOM 2102, VIA STRETCHER. PT SOB, RESP AT 24, O2 STAYING AT 85 ON 4L ON OXIMIZER. PAGED RESPERATORY. PT ORIENTED TO ROOM AND CALL LIGHT, NAD NOTED, CALL LIGHT IN REACH, WILL ASSESS PT AND START PLAN OF CARE.
[~2017-01-02 13:32] MED LIST changes: +MIRALAX17 GM PO; +PROTONIX40 MG PO; +ZOFRAN ODT4 MG/UDTAB PO
[2017-01-02 13:54] VITALS: BP 152/86; Ht 167.6 cm; Wt 80.1 kg
[2017-01-02] MEDS ORDERED: ACETAMINOPHEN500 M1 PO (14:11)
[2017-01-02] MEDS ORDERED: PEPCID20 MG PO (14:13)
[2017-01-02] MEDS ORDERED: RENAGEL800 MG PO (14:13)
[2017-01-02] MEDS ORDERED: SENSIPAR30 MG PO (14:14)
[2017-01-02] MEDS ORDERED: GAS-X80 MG PO (14:15)
[2017-01-02] MEDS ORDERED: ULTRAM50 MG PO (14:16)
[2017-01-02] MEDS ORDERED: TUMS500 MG PO (14:18)
[2017-01-02] MEDS ORDERED: ZOFRAN4 MG PO (14:19)
--- NOTE | 2017-01-02 15:17 | NUR ---
PT TRANSFERED TO DIALYSIS AT THIS TIME, NAD NOTED.
--- NOTE | 2017-01-02 16:10 | NUR ---
PROVIDED PT WITH PRN BENADRYL R/T EXCESSIVE ITCHING DOWN IN DIALYSIS. ALSO APPLIED TELEMETRY TO PT ORDERED. PT DENIES ANY FURTHER NEEDS AT THIS TIME. WILL CTM.
--- NOTE | 2017-01-02 21:00 | NUR ---
PT AWAKE, ALERT, ASKING FOR A SANDWICH, DENIES ANY OTHER NEEDS. PT C/O PAIN IN RIB/CHEST AREA, PRN TRAMADOL WITH TYLENOL GIVEN. CONTINUE TO MONITOR CLOSELY. BED LOW, CALL LIGHT IN REACH, SIDE RAILS X 2, HOB 35 DEGREES.
[2017-01-02 21:28] VITALS: BP 131/77
[2017-01-03 00:44] VITALS: BP 123/73
--- NOTE | 2017-01-03 04:04 | NUR ---
PT AWAKE, ALERT, ORIENTED, REQUESTING BENADRYL FOR ITCHING. I DID OVERRIDE 50MG OF BENADRYL PER PT REQUEST. SHE STATES SHE TAKES THAT BEFORE DIALYSIS AND PRN. WILL TRY AND GET A PRN ORDER FOR ITCHING. CONTINUE TO MONITOR CLOSELY.
[2017-01-03 05:25] VITALS: BP 118/73
[2017-01-03 06:40] LABS: BASOPHILS 0.4 % (0-2); EOSINOPHILS 3.5 % (0-7); HEMATOCRIT 35.3 % (36.0-48.0); HEMOGLOBIN 11.4 g/dL (12-16); IMMATURE GRANULOCYTES 0.2 % (0-5); LYMPHOCYTES 21.1 % (15-50); MCH 30.1 pg (26.0-34.0); MCHC 32.3 g/dL (31.0-37.0); MCV 93.1 fL (80.0-100.0); MEAN PLATELET VOLUME 10.6 fL (7.4-10.4); MONOCYTES 9.9 % (2-11); NEUTROPHILS 64.9 % (40-80); PLATELET COUNT 188 10x3/uL (130-400); RBC 3.79 10x6/uL (4.00-5.40); WBC 5.4 10x3/uL (4.8-10.8)
[2017-01-03 06:58] LABS: ALBUMIN 2.9 g/dL (3.4-5.0); ANION GAP 17.2 mmol/L (8-16); BILIRUBIN - TOTAL 0.47 mg/dL (0.2-1.3); CARBON DIOXIDE 26.7 mmol/L (21.0-32.0); CREATININE - SERUM 11.9 mg/dL (0.6-1.3); PHOSPHOROUS 8.4 mg/dL (2.5-4.9); POTASSIUM - SERUM 4.9 mmol/L (3.5-5.1); PROTEIN - SERUM 7.8 g/dL (6.4-8.2)
[2017-01-03 08:00] VITALS: BP 147/92
--- NOTE | 2017-01-03 08:20 | NUR ---
AM ROUNDS - PT IS AWAKE AND SITTING ON THE SIDE OF BED EATTING BREAKFAST. PT TOOK HER O2 OFF. PLACED OS BACK ON AT 6L VIA OXIMIZER. BED AT LOWEST POSITION. SIDE RAILS UP X2. CALL WEBB IN USE/REACH. MONITOR SHOWING SR, HR 87. IV TO LEFT AC, SL. PT IS A RIGHT ARM RESERVE. NO NEEDS AT THIS TIME. WILL CONTINUE TO MONITOR
--- NOTE | 2017-01-03 10:19 | NUR ---
PT WENT TO DIALYSIS VIA BED.
--- NOTE | 2017-01-03 11:18 | NUR ---
MORNING MEDICATION GIVEN. PT TOLERATED WELL. WILL CONTINUE TO MONITOR
--- NOTE | 2017-01-03 15:10 | NUR ---
Patient Name: MAXINE CRANE Admission Status: Elective Accout number: [id number] Admission Date: 01-02-2017 : 1955 Admission Diagnosis: Attending: KATI Current LOS: 1 Anticipated DC Date: Planned Disposition: Long Term Facility Primary Insurance: MEDICARE A & B PLANNED EXTERNAL PROVIDER: [facility], [facility] MEDICAID BED Discharge Planning Comments: * Is the patient Alert and Oriented? Yes 0 * How many steps to enter\exit or inside your home? NONE 0 * [facility] * [facility] * Preadmission Environment [facility] 0 * Facility Name [facility] 0 * ADLs Partial Dependent 0 * Partial ADLs (Assistance needed) Ambulation Bathing Medication Management 0 * Equipment Walker 0 * Other Equipment ALL MEDICAL EQUIPMENT PROVIDED BY NURSING FACILITY 0 * List name and contact numbers for known caregivers / representatives who currently or will assist patient after discharge: SEEMA CRANE, SPOUSE, 0 * Community resources currently utilized Other 0 * Please name any agencies selected above. OUTPATIENT DIALYSIS, [facility], [place], T/T/S, 1030, [facility] 0 * Additional services required to return to the preadmission environment? No 0 * Can the patient safely return to the preadmission environment? Yes 0 * Has this patient been hospitalized within the prior 30 days at any hospital? No 0 CM MET WITH PT IN ROOM TO DISCUSS DISCHARGE PLANNING AND NEEDS. PT REPORTS LIVING AT [facility]. PT HAS WALKER THAT SHE USES AT [facility]. PT DENIES DISCHARGE NEEDS, REPORTS SHE IS RETURNING TO [facility] IN [place] AT DISCHARGE WHO WILL PICK HER UP FOR DISCHARGE HOME. CM CALLED [facility], , SPOKE TO LEFTY WHO VERIFIED PT TO BE IN [facility] AT [facility] AND THEY WILL ACCEPT PT BACK AT DISCHARGE. FOR DISCHARGE, NURSE REPORT TO BE CALLED TO [facility] IN [place], , FAX DISCHARGE INFORMATION TO [facility] AT [phone]. [facility] TO [facility]ANGE [facility] TRANSPORT. Nurses' Association Counselor: Bony Manuel
[2017-01-03 16:00] VITALS: BP 127/75
--- NOTE | 2017-01-03 18:31 | NUR ---
PT PULLED OUT HER IV. PT PULLED HER HEART MONITOR OFF AND STATES SHE DOES NOT WANT TO HAVE IT ON ANYMORE. PT HAS BEEN TAKING HER OXIMIZER OFF ALL DAY. WILL CONTINUE TO MONITOR
[2017-01-03 21:41] VITALS: BP 125/65
[2017-01-04 01:03] VITALS: BP 123/64
--- NOTE | 2017-01-04 03:09 | NUR ---
NURSE ROUNDS 01/03/17 21:00 - PT LYING IN BED ASKING FOR A TURKEY SANDWICH, DENIES ANY NEEDS. CONTINUE TO MONITOR CLOSELY. BED LOW, CALL LIGHT IN REACH, SIDE RAILS X 2, HOB FLAT.
--- NOTE | 2017-01-04 03:58 | NUR ---
PT REFUSES TO KEEP HER TELEMETRY ON AND HER OXYMIZER, STATING THAT THE EQUIPMENT BOTHERS HER. I HAVE ASKED RT TO RE-EVALUATE THE NEED FOR THE OXYMIZER SINCE PT IS RESTING COMFORTABLY, NO LABORED BREATHING, NO ACUTE DISTRESS. INITIALLY THE OXYMIZER WAS ON 9LPM BUT PTS O2 SAT ON ROOM AIR IS 96-98%. RT WILL HOLD THE OXYMIZER AND CONTINUE TO EVALUATE. CONTINUE TO MONITOR CLOSELY.
[2017-01-04 05:36] VITALS: BP 142/76
--- NOTE | 2017-01-04 05:49 | NUR ---
PT AWAKE, ALERT, MORE ORIENTED THIS MORNING. PT DENIES ANY INCREASED SOB OR DIFFICULTY BREATHING AND STATES THAT SHE IS FEELING BETTER SINCE DIALYZING. PT DENIES ANY NEEDS. CONTINUE TO MONITOR CLOSELY.
[2017-01-04 06:26] LABS: BASOPHILS 0.3 % (0-2); EOSINOPHILS 3.8 % (0-7); HEMATOCRIT 40.3 % (36.0-48.0); IMMATURE GRANULOCYTES 0.2 % (0-5); LYMPHOCYTES 24.5 % (15-50); MCH 30.4 pg (26.0-34.0); MCHC 32.3 g/dL (31.0-37.0); MCV 94.4 fL (80.0-100.0); MEAN PLATELET VOLUME 10.2 fL (7.4-10.4); MONOCYTES 12.4 % (2-11); NEUTROPHILS 58.8 % (40-80); PLATELET COUNT 185 10x3/uL (130-400); RBC 4.27 10x6/uL (4.00-5.40); RDW 14.7 % (11.5-14.5); WBC 6.1 10x3/uL (4.8-10.8)
[2017-01-04 06:52] LABS: ANION GAP 15.8 mmol/L (8-16); CALCIUM 9.4 mg/dL (8.5-10.1); CARBON DIOXIDE 31.3 mmol/L (21.0-32.0); CREATININE - SERUM 8.9 mg/dL (0.6-1.3); PHOSPHOROUS 7.9 mg/dL (2.5-4.9); POTASSIUM - SERUM 5.1 mmol/L (3.5-5.1)
[2017-01-04 08:00] VITALS: BP 146/78
--- NOTE | 2017-01-04 08:14 | NUR ---
AM ROUNDS - PT AWAKE IN BED. PT REFUSES TO HAVE HER O2 OXIMIZER ON. NO IV. YELLOW BAND ON. BED AT LOWEST POSITION. SIDE RAILS UP X2. CALL WEBB IN USE/REACH. SCDS ARE ON. NO NEEDS AT THIS TIME. WILL CONTINUE TO MONITOR
--- NOTE | 2017-01-04 09:11 | NUR ---
Patient Name: MAXINE CRANE Encounter No: [id number] : 1955 Primary Insurance: MEDICARE A & B Anticipated DC Date: 01-04-2017 Planned Disposition: Nursing Facility [facility] Cert External Planned Provider: FERNANDO HILTON, INDUCTION HEATING EQUIPMENT SETTER MEDICAID BED DCP follow-up note: CM RECEIVED DISCHARGE ORDER, SPOKE TO PT IN ROOM WHO IS IN AGREEMENT WITH DISCHARGE BACK TO [facility] TODAY. IMPORTANT MESSAGE FROM MEDICARE PROVIDED AND EXPLAINED. CM FAXED DISCHARGE INFORMATION TO [facility]IA [facility] AT [phone]. NURSE REPORT TO BE CALLED TO [facility] IN [place], , [facility] TO [facility] TRANSPORT AFTER 1330 HOURS TODAY. Senior Technologist: Bony Manuel
--- NOTE | 2017-01-04 10:03 | NUR ---
PT LEFT FLOOR VIA BED TO DIALYSIS
--- NOTE | 2017-01-04 13:55 | NUR ---
PT RETURNED FROM DIALYSIS. CALLED REPORT TO LOREE EDMONDS, AT [phone]. PT HAS NO IV TO REMOVE. NO HEART MONITOR TO REMOVE. PT IS AWAITING TRANSPORTATION TO [facility]. WILL CONTINUE TO MONITOR
--- NOTE | 2017-01-04 15:27 | NUR ---
1500 - PT LEFT FLOOR VIA WHEELCHAIR WITH SCARF AND ANNEAL OPERATOR AND STAFF FROM LONG TERM. WILL D/C
== END 2017-01-04 15:30 | DRG 640 ==
LOC: D.M2 13:32
PROVIDERS: ADMIT Internal Medicine Nephrology
PROC: 5A1D60Z (ICD-10-PCS; principal; 2017-01-02)
DX: E87.5 Hyperkalemia (principal); N18.6 End stage renal disease; I13.2 Hypertensive heart and chronic kidney disease with heart failure and with stage 5 chronic kidney disease, or end stage renal disease; E11.22 Type 2 diabetes mellitus with diabetic chronic kidney disease; I50.9 Heart failure, unspecified; Z99.2 Dependence on renal dialysis; Z91.15 Patient's noncompliance with renal dialysis; Z87.891 Personal history of nicotine dependence; D64.9 Anemia, unspecified; E03.9 Hypothyroidism, unspecified; F03.90 Unspecified dementia, unspecified severity, without behavioral disturbance, psychotic disturbance, mood disturbance, and anxiety; Z91.81 History of falling

== ENCOUNTER 2017-02-22 19:12 | Inpatient (IN) | payer MEDICARE ==
[~2017-02-22 19:12] MED LIST changes: +RENAGEL800 MG PO
--- NOTE | 2017-02-22 19:55 | NUR ---
PT REFUSED ABGS HAS FISTULAS IN BOTH ARMS AND DID NOT WANT TO BE STUCK ARTERIALLY IN EITHER SIDE. BENTON KO NOTIFIED
[2017-02-22 20:08] LABS: BASOPHILS 0.1 % (0-2); EOSINOPHILS 0.3 % (0-7); HEMATOCRIT 39.8 % (36.0-48.0); HEMOGLOBIN 13.2 g/dL (12-16); IMMATURE GRANULOCYTES 0.3 % (0-5); LYMPHOCYTES 6.9 % (15-50); MCH 30.8 pg (26.0-34.0); MCHC 33.2 g/dL (31.0-37.0); MEAN PLATELET VOLUME 9.5 fL (7.4-10.4); MONOCYTES 7.4 % (2-11); PLATELET COUNT 198 10x3/uL (130-400); RBC 4.28 10x6/uL (4.00-5.40); RDW 14.8 % (11.5-14.5)
[2017-02-22 20:25] LABS: ALBUMIN 3.2 g/dL (3.4-5.0); ANION GAP 20.9 mmol/L (8-16); BILIRUBIN - TOTAL 0.98 mg/dL (0.2-1.3); CALCIUM 8.9 mg/dL (8.5-10.1); CARBON DIOXIDE 24.4 mmol/L (21.0-32.0); CREATININE - SERUM 15.9 mg/dL (0.6-1.3); PROTEIN - SERUM 9.1 g/dL (6.4-8.2)
[2017-02-22 20:28] LABS: POTASSIUM - SERUM 7.3 mmol/L (3.5-5.1)
--- NOTE | 2017-02-22 22:14 | NUR ---
RECEIVED REPORT FROM NATHAN GERMAIN FROM ER, PT ARRIVED VIA STRECHER, IV-LFA, VITALS ARE STABLE, DIALYSIS IN ROOM UPON ARRIVAL, BED IS LOW, SRX2, CALL LIGHT IN REACH, WILL CONTINUE TO MONITOR
[2017-02-22] MEDS ORDERED: CETIRIZINE HCL5 M1 (23:47)
[2017-02-22] MEDS ORDERED: COLACE100 MG PO (23:48)
[2017-02-22] MEDS ORDERED: BENZONATATE200 MG PO (23:49)
[2017-02-22] MEDS ORDERED: TYLENOL W/CODEI1 TAB PO (23:50)
[2017-02-23 01:15] VITALS: BP 124/58
--- NOTE | 2017-02-23 01:31 | NUR ---
CALL LIGHT IN REACH, WILL CONTINUE WITH PLAN OF CARE.
[2017-02-23 05:11] VITALS: BP 129/63
[2017-02-23 07:25] LABS: BASOPHILS 0.2 % (0-2); EOSINOPHILS 2.6 % (0-7); HEMATOCRIT 33.4 % (36.0-48.0); IMMATURE GRANULOCYTES 0.2 % (0-5); MCH 30.2 pg (26.0-34.0); MCHC 32.9 g/dL (31.0-37.0); MCV 91.8 fL (80.0-100.0); MEAN PLATELET VOLUME 9.2 fL (7.4-10.4); MONOCYTES 13.6 % (2-11); NEUTROPHILS 73.4 % (40-80); PLATELET COUNT 165 10x3/uL (130-400); RBC 3.64 10x6/uL (4.00-5.40); RDW 14.8 % (11.5-14.5)
[2017-02-23 07:37] LABS: WBC 9.1 10x3/uL (4.8-10.8)
[2017-02-23 07:38] LABS: ANION GAP 16.8 mmol/L (8-16); CALCIUM 8.7 mg/dL (8.5-10.1); CARBON DIOXIDE 26.8 mmol/L (21.0-32.0); CREATININE - SERUM 16.4 mg/dL (0.6-1.3)
[2017-02-23 07:39] LABS: POTASSIUM - SERUM 6.6 mmol/L (3.5-5.1)
[2017-02-23 08:33] VITALS: BP 145/66
--- NOTE | 2017-02-23 09:30 | NUR ---
DIALYSIS CALLED. INSTRUCT PT NEEDS TO BE DONE FIRST.
--- NOTE | 2017-02-23 12:00 | NUR ---
BACK FROM HD. COULD NOT CANNULATE ACCESS. BACK TO ROOM. DR RUSSELL CONSULTED FOR ACCESS. WILL DO TRIALYSIS CATH AT BEDSIDE AT SOME POINT TODAY. CONSENTS SIGNED PER PT.
[2017-02-23 12:01] VITALS: BP 156/77
[2017-02-23 12:34] VITALS: Ht 167.6 cm
--- NOTE | 2017-02-23 15:00 | NUR ---
DR RUSSELL HERE. SEVERAL ATTEMPTS TO PLACE TRIALYSIS CATH. NO SUCCESS. PT REFUSING TO LET HIM TRY AGAIN.
--- NOTE | 2017-02-23 15:52 | NUR ---
DR MARIN NOTIFIED PT REFUSING ANY ACCESS PLACEMENT TO DIALYZE.
--- NOTE | 2017-02-23 16:00 | NUR ---
DR THACKER HERE ACCESS GRAFT. PT TO HD.
--- NOTE | 2017-02-23 19:15 | NUR ---
Received report on patient. Patient is currently off unit having dialysis.
--- NOTE | 2017-02-23 20:50 | NUR ---
Received patient back to her room on her bed, Dialysis procedure has been completed. BP 141/73. Dressing over lower right arm fistula site. Patient drowsy, slurred speech, trying to crawl over rails of bed. Called for assistance and repositioned in bed. Reoriented to place, time and situation, calmer at this time.
[2017-02-23 21:00] VITALS: BP 141/73
--- NOTE | 2017-02-23 21:43 | NUR ---
Given Ultram 50mg po PRN for complaints of back pain rated as 7/10 in severity. Visiting with her at this time.
--- NOTE | 2017-02-23 23:30 | NUR ---
Deemed to be sleeping, analgesic deemed effective. Respirations easy and regular. No signs of distress.
[2017-02-24] VITALS: BP 119/57
[2017-02-24 06:22] LABS: HEMATOCRIT 30.6 % (36.0-48.0); HEMOGLOBIN 10.3 g/dL (12-16); INR 1.07 (0.85-1.17); LYMPHOCYTES 10.2 % (15-50); MCH 30.7 pg (26.0-34.0); MCHC 33.7 g/dL (31.0-37.0); MCV 91.1 fL (80.0-100.0); NEUTROPHILS 70.6 % (40-80); PLATELET COUNT 190 10x3/uL (130-400); PROTIME 13.8 SECONDS (11.6-15.0); RBC 3.36 10x6/uL (4.00-5.40); RDW 14.5 % (11.5-14.5); WBC 6.4 10x3/uL (4.8-10.8)
--- NOTE | 2017-02-24 06:34 | NUR ---
Slept for long period, no voiced complaints, respirations unlabored. More alert this morning, awake sitting up in bed.
--- NOTE | 2017-02-24 06:34 | NUR ---
Telemetry on, rhythm SR with BBB, HR currently = 88/min.
[2017-02-24 06:40] LABS: CALCIUM 8.6 mg/dL (8.5-10.1); CARBON DIOXIDE 28.8 mmol/L (21.0-32.0); PHOSPHOROUS 6.1 mg/dL (2.5-4.9)
[2017-02-24 06:41] LABS: CREATININE - SERUM 11.3 mg/dL (0.6-1.3)
[2017-02-24 06:48] LABS: ANION GAP 15.3 mmol/L (8-16)
[2017-02-24 06:50] LABS: POTASSIUM - SERUM 4.1 mmol/L (3.5-5.1)
--- NOTE | 2017-02-24 07:58 | NUR ---
AM ROUNDS - PT IN BED AND APPEARS TO BE SLEEPING WITH EQUALA ND NON LABORED BREATHING. MONITOR SHOWING SR, HR 84. RESERVE RIGHT ARM. DIALYSIS TUES, THURS AND SAT. IV TO LEFT FA, SL. BED AT LOWEST POSITION. CALL WEBB IN REACH. SIDE RAILS UP X2. WILL CONTIUE TO MONITOR
[2017-02-24 08:00] VITALS: BP 122/79
--- NOTE | 2017-02-24 09:32 | NUR ---
Patient Name: MAXINE CRAEN Admission Status: ER Accout number: [id number] Admission Date: 02-22-2017 : 1955 Admission Diagnosis: Attending: NASREEN THACKER Current LOS: 2 Anticipated DC Date: Planned Disposition: Nursing Facility [facility] Primary Insurance: MEDICARE A & B PLANNED EXTERNAL PROVIDER: [facility], N[facility]SING HOME CARE MEDICAID BED Discharge Planning Comments: * Is the patient Alert and Oriented? Yes 0 * How many steps to enter\exit or inside your home? NONE 0 * PCP [facility] 0 * Pharmacy [facility] 0 * Preadmission Environment Debt Counselor Acute Care Facility 0 * Facility Name [facility] 0 * ADLs Partial Dependent 0 * Partial ADLs (Assistance needed) Medication Management 0 * Equipment Walker 0 * Other Equipment ALL MEDICAL EUIPMENT PROVIDED BY FACILITY 0 * List name and contact numbers for known caregivers / representatives who currently or will assist patient after discharge: STEVE ALONZOR, PHONE UNKNOWN SEEMA CRANE, SPOUSE, 0 * Community resources currently utilized Other 0 * Please name any agencies selected above. [facility] T/T/S, 1030, [facility] MEDICAID TRANSPORTATION 0 * Additional services required to return to the preadmission environment? No 0 * Can the patient safely return to the preadmission environment? Yes 0 * Has this patient been hospitalized within the prior 30 days at any hospital? No 0 CM MET WITH PT IN ROOM TO DISCUSS DISCHARGE PLANNING AND NEEDS. PT REPORTS LIVING AT [facility] IN [place], WHERE HER ALSO RESIDES. PT USES A WALKER. PT DENIES DISCHARGE NEEDS, REPORTS [facility] OR [facility] PICK HER UP AT DISCHARGE. PT STATES SHE CAME TO THE HOSPITAL TO SEE HER HE WAS SENT TO [facility] LAST WEEK AND SHE WANTED TO SEE HIM. PT EXPECTS TO GO HOME TO [facility] ANY DAY NOW. IMPORTANT MESSAGE FROM MEDICARE PROVIDED AND EXPLAINED. CM CALLED MARIS[facility], CLINICAL LIAISON FOR [facility], , WHO VERIFIED PT'S SENIOR CARE PROVIDER CARE STATUS AND ASKED FOR HOSPITAL UPDATE. CM FAXED REFERRAL TO [facility]IA [facility] AT [phone]. FOR DISCHARGE, FAX DISCHARGE INFORMATION TO [facility] AT [phone]; NURSE REPORT TO BE CALLED TO [facility] AT [phone]. [facility] TO ARRANGE VAN TRANSPORTATION. Inclusion Special Educator: Bony Manuel
--- NOTE | 2017-02-24 12:24 | OP ---
PATIENT NAME: MAXINE CRANE MEDICAL RECORD: [id number] :55 LOCATION:D. D.2109 ADMISSION DATE:02/22/17 SURGEON: CEDRIC RUSSELL MD DATE OF OPERATION: 02/23/2017 PREOPERATIVE DIAGNOSES: End-stage renal disease without access for hemodialysis. POSTOPERATIVE DIAGNOSES: End-stage renal disease without access for hemodialysis. PROCEDURE: Attempted Trialysis catheter placement. This is a patient of Dr. Condon. I am currently high school physical education teacher for him. Her upper extremity access, which has recently been revised, could not be accessed today. My plan was to place a Trialysis catheter. The risks, possible complications and alternatives to the procedure were explained to the patient. She elects to proceed. I specifically discussed to her the risk of bleeding requiring an emergency reoperation, infection, great vessel injury and pneumothorax. DESCRIPTION OF PROCEDURE: She was seen at the bedside. The entire procedure was performed in the presence of a female nurse. She was positioned in the Trendelenburg position. The right neck and right chest were sterilely prepped and draped. A local anesthetic was used to infiltrate the skin and subcutaneous tissues at the base of the right neck. Under ultrasonographic guidance, I attempted to access the right internal jugular vein, which was compressible. The patient was somewhat combative during the procedure. At one time, she coughed and moved while I was trying to access the vessel. She told me to stop the procedure, so she terminated the procedure. I offered to convey her to the operating room and perform HemoSplit under general anesthesia. She declined. She stated that she did not want to be cut on anymore and I asked her if she meant that even if it was going to cause her to and she said that she did not want to be cut on anymore. TRANSINT:[id number] Voice Confirmation ID: [id number] DOCUMENT ID: [id number] CEDRIC RUSSELL MD at 1224 CC: [id number] DICTATION DATE: 02/23/17 1524 FOOD MOBILE DRIVER: 02/23/172205 ADM IN [facility] [address] [place] [address]
--- NOTE | 2017-02-24 12:48 | NUR ---
Patient Name: MAXINE CRANE Encounter No: [id number] : 1955 Primary Insurance: MEDICARE A & B Anticipated DC Date: 02-24-2017 Planned Disposition: Nursing Facility [facility] Cert External Planned Provider: [facility], [facility] HOME CARE MEDICAID BED DCP follow-up note: CM RECEIVES DISCHARGE ORDER, SPOKE PERSONALLY AT NURSES STATION TO [facility], CLINICAL LIAISON FOR [facility],WHO VERIFIED [facility] WILL ACCEPT PT TODAY AND WILL DISHING MACHINE OPERATOR WITHIN HOUR. CM FAXED DISCHARGE INFORMATION TO [facility]IA [facility] AT [phone]. NURSE REPORT TO BE CALLED TO ANASTACIO OR KENDAL OF [facility] AT [phone]. [facility] TO ARRANGE VAN TRANSPORTATION AFTER 1PM TODAY. Aesthetician: Bony Manuel
[2017-02-24 13:33] VITALS: BP 143/82
--- NOTE | 2017-02-24 14:09 | NUR ---
D/C - REPORT AND D/C INSTRUCTIONS GIVEN TO KENDAL AT [facility]. WAITING ON TRANSPORT FROM [facility]. IV TO LEFT FA D/C, CATH TIP INTACT. 2X2 DRESSING APPLIED AND SECURED WITH TAPE. PT TOLERATED WELL. WILL CONTINUE TO MONITOR.
--- NOTE | 2017-02-24 14:31 | NUR ---
PT LEFT FLOOR WITH STAFF FROM [facility]. PT REFUSED A WHEELCHAIR. WILL D/C
== END 2017-02-24 14:35 | DRG 314 ==
LOC: D.ER 19:12 → D.M2 21:50
PROVIDERS: Emergency Medicine; Internal Medicine Nephrology; ADMIT Internal Medicine
PROC: 5A1D00Z (ICD-10-PCS; principal; 2017-02-23)
PROC: B543ZZA Ultrasonography of Right Jugular Veins, Guidance (ICD-10-PCS; 2017-02-23)
DX: T82.898A Other specified complication of vascular prosthetic devices, implants and grafts, initial encounter (principal); N18.6 End stage renal disease; I13.2 Hypertensive heart and chronic kidney disease with heart failure and with stage 5 chronic kidney disease, or end stage renal disease; Y83.8 Other surgical procedures as the cause of abnormal reaction of the patient, or of later complication, without mention of misadventure at the time of the procedure; E87.5 Hyperkalemia; E11.22 Type 2 diabetes mellitus with diabetic chronic kidney disease; I50.9 Heart failure, unspecified; Z99.2 Dependence on renal dialysis; R06.00 Dyspnea, unspecified

== ENCOUNTER 2017-04-17 00:29 | Inpatient (IN) | payer MEDICARE ==
--- NOTE | ~2017-04-17 | HEMODYNAMI ---
PATIENT:MAXINE CRANE MEDICAL RECORD: [id number] : 55 LOCATION:[facility].213 ADMISSION DATE: 04/17/17 Generatedon:04/20/201712:57 Patient name: MAXINE CRANE Patient #: [id number] SSN: : 1955 Date of study: 04/20/2017 Page: Of Hemodynamic Procedure Report Patient Data Patient Demographics Procedure consent was obtained First Name: MAXINE Gender: Female Last Name: ROYCE : 1955 [facility] Initial: Shameka Age: 61 year(s) Patient #: [id number] Race: Black Additional ID: [id number] Contact details [address]: [address] [place] [address] State: [place] City: [place] Zip code: [address] Past Medical History Allergies Allergen Reaction Date Comments Reported Other allergy 04/20/2017 Vancomycin Adhesive tape 04/20/2017 Penicillins 04/20/2017 Admission Admission Data Admission Date: 04/17/2017 Admission Time: 2:28 Room #: D.2131 Procedure Procedure Types Cath Procedure Diagnostic Procedure ASHOK Procedure Description Procedure Date Procedure Date: 04/20/2017 Procedure Start Time: 12:06 Procedure Staff Name Function Wander Bella MD Performing Physician Verona Anguiano RT Monitor Raghav Celis RN Nurse Procedure Medications Medication Administration Route Dosage 0.9% NaCl I.V. 100 ml/hr Fentanyl I.V. 25 mcg Versed I.V. 2 mg Hemodynamics Rest Heart Rate: 82 (bpm) Snapshots Pre Cath Intra NCS Post Cath Vital Signs Time Heart Resp SPO2 etCO2 NIBP (mmHg) Rhythm Pain Sedation Rate (ipm) (%) (mmHg) Status Level (bpm) 12:37:55 79 15 95 27.9 Measuring NSR 0 (11) 10(A) , No pain 12:39:17 81 19 91 35.5 Time NSR 0 (11) 10(A) Exceeded , No pain 12:41:05 84 16 97 22.6 Aborted NSR 0 (11) 10(A) , No pain 12:45:19 82 5 35.5 186/94(142) NSR 0 (11) 10(A) , No pain 12:49:43 81 20 34 178/88(130) NSR 0 (11) 10(A) , No pain 12:56:23 0 155/82(124) NSR 0 (11) 10(A) , No pain Medications Time Medication Route Dose Verified Delivered Reason Notes Effecti veness by by 12:40:55 0.9% NaCl I.V. 100ml/hr Wander Avilez Per Jena Celis RN physician MD 12:42:08 Fentanyl I.V. 25 mcg Wander Avilez for Jena Celis RN sedation MD 12:43:43 Versed I.V. 2 mg Wander Avilez for Jena Celis RN sedation MD Procedure Log Time Note 12:07:04 Verona Anguiano RT(R) sent for patient. Start room use. 12:25:05 Time tracking: Regular hours 12:25:09 Plan of Care:Hemodynamics will remain stable., Cardiac rhythm will remain stable., Comfort level will be maintained., Respiratory function will remain adequate., Patient/ family verbilizes understanding of procedure., Procedure tolerated without complication., Recovers from procedure without complications.. 12:25:16 Patient received from PCU to CCL 3 Alert and oriented. Tansferred to table in Supine position. 12:25:18 Correct patient and procedure confirmed by team. 12:25:19 Warm blankets applied, and kiara hugger turned on for patient comfort. 12:25:20 Signed procedure consent form obtained from patient. 12:25:21 ECG and BP/O2 sat monitors applied to patient. 12:25:22 Full Disclosure recording started 12:36:04 Vital chart was started 12:36:12 Rhythm: sinus rhythm 12:37:01 H&P Date Dictated: 04/17/2017 Within 30 days and on chart.. 12:37:04 Pre-procedure instructions explained to patient. 12:37:04 Pre-op teaching completed and patient verbalized understanding. 12:37:06 Family unavailable. 12:37:08 Patient NPO since Midnight. 12:37:23 Patient allergic to Other allergyVancomycin 12:37:26 Patient allergic to Adhesive tape 12:37:32 Patient allergic to Penicillins 12:37:34 Is the patient allergic to Iodine/contrast media? No. 12:37:36 Is patient on blood thinner?No 12:37:43 Patient diabetic? No. 12:38:29 Previous problem with sedation/anesthesia? No ? 12:38:30 Snore? Yes 12:38:31 Sleep apnea? No 12:38:31 Deviated septum? No 12:38:32 Opens mouth fully? Yes 12:38:33 Sticks out tongue? Yes 12:38:35 Airway obstruction? No ? 12:38:37 Dentures? No ? 12:38:42 Patient pain scale 0/10 ?. 12:39:00 IV patent on arrival in left forearm with 0.9% NaCl at [facility]. 12:39:04 Lab results completed and on chart. 12:39:06 Alarms reviewed by Mimi Leon. 12:39:07 Final Timeout: patient, procedure, and site verified with staff and physician. All members of the team are in agreement. 12:39:14 Physical assessment completed. ASA score P 2 - A patient with mild systemic disease as per Wander Bella MD. 12:39:17 Sedation plan: IV Moderate Sedation Versed, Fentanyl 12:39:29 Baseline sample Acquired. 12:39:54 Deonte Candelaria Convict Guard present for ASHOK. 12:40:55 0.9% NaCl 100ml/hr I.V. was administered by Raghav Celis RN; Per physician; 12:40:56 ASHOK started. 12:42:08 Fentanyl 25 mcg I.V. was administered by Raghav Celis RN; for sedation; 12:43:43 Versed 2 mg I.V. was administered by Raghav Celis RN; for sedation; 12:50:43 ASHOK aborted, unable to advance probe due to patient gag reflex. 12:50:50 Procedure ended.(Physican Out) 12:51:33 Post procedure rhythm: unchanged. 12:51:36 Post-procedure physical assessment completed. ASA score P 2 - A patient with mild systemic disease as per Wander Bella MD. 12:51:38 Post procedure instruction explained to patient.Patient verbalizes understanding. 12:51:39 Patient needs reinforcement of post procedure teaching. 12:51:44 Vital chart was stopped 12:51:46 See physician's report for complete and final results. 12:51:47 Report given to PCU. 12:51:51 Patient transfered to PCU with Bed. 12:51:55 End room use (Document Last) Signature Audit [place] Stage Time Signature Unsigned Intra-Procedure 04/20/2017 Verona 12:57:11 PM Counts RT(R) Signatures Monitor : Verona Signature : Counts RT Date : Time : [place] [id number] [facility] [place] [address]
[~2017-04-17 00:29] MED LIST changes: +BENZONATATE200 MG PO; +CETIRIZINE HCL5 M1; +COLACE100 MG PO; +TYLENOL W/CODEI1 TAB PO
--- NOTE | 2017-04-17 02:44 | NUR ---
RECEIVED FROM [facility], ADMITTING KED[facility] SIL[facility]RE, PT HAS IV TO Veronica MCGRATH, 02-3L, PT NOT SURE ABOUT MEDS, WILL HAVE TO FOLLOW UP IN AM, BED IS LOW, SR2, CALL LIGHT IN REACH, WILL CONTINUE PLAN OF CARE
[2017-04-17 03:08] VITALS: BP 149/72; BMI 28.3
[2017-04-17 05:21] LABS: BASOPHILS 0.4 % (0-2); EOSINOPHILS 1.2 % (0-7); HEMATOCRIT 36.8 % (36.0-48.0); HEMOGLOBIN 11.8 g/dL (12-16); IMMATURE GRANULOCYTES 0.2 % (0-5); LYMPHOCYTES 20.4 % (15-50); MCH 30.8 pg (26.0-34.0); MCHC 32.1 g/dL (31.0-37.0); MCV 96.1 fL (80.0-100.0); MONOCYTES 7.9 % (2-11); NEUTROPHILS 69.9 % (40-80); PLATELET COUNT 202 10x3/uL (130-400); RBC 3.83 10x6/uL (4.00-5.40); RDW 16.2 % (11.5-14.5); WBC 8.2 10x3/uL (4.8-10.8)
[2017-04-17 05:43] VITALS: BP 149/72
[2017-04-17 05:43] LABS: ALBUMIN 3.2 g/dL (3.4-5.0); ANION GAP 21.4 mmol/L (8-16); BILIRUBIN - TOTAL 0.31 mg/dL (0.2-1.3); CALCIUM 9.5 mg/dL (8.5-10.1); CARBON DIOXIDE 24.9 mmol/L (21.0-32.0); CREATININE - SERUM 11.7 mg/dL (0.6-1.3); POTASSIUM - SERUM 4.3 mmol/L (3.5-5.1); PROTEIN - SERUM 8.8 g/dL (6.4-8.2)
--- NOTE | 2017-04-17 07:30 | NUR ---
REPORT RECEIVED. PT RESTING QUIETLY, LUNG SOUNDS SHOWED CRACKLES/RALES BILAT LUNG CISNEROS. RR EVEN AND UNLABORED. PT DENIES NEEDS AT THIS TIME. WILL CTM.
[2017-04-17 08:00] VITALS: BP 161/86
[2017-04-17 12:00] VITALS: BP 150/71
--- NOTE | 2017-04-17 14:30 | NUR ---
SCDS PLACED ON PT. RATIONALE EXPLAINED. PT VERBALIZED UNDERSTANDING. WILL CTM.
--- NOTE | 2017-04-17 14:45 | NUR ---
PT TRANSFERRED TO DIALYSIS.
[2017-04-17 15:14] VITALS: BMI 28.2
--- NOTE | 2017-04-17 16:04 | NUR ---
DIALYSIS CALLED REGARDING PT CONDTION. PT IS NOT TOLERATING DIALYSIS WELL. CALLED KWAKU CHANG RENAL COMPREHENSIVE ADVISOR REGARDING PT CONDTION. PT ALSO REPORTED THAT SHE TAKES BENEDYRL AT TIMES PRIOR TO DIALYSIS. KWAKU GAVE TELEPHONE ORDER FOR BENEDRYL. WILL TAKE TO DIAYLSIS.
--- NOTE | 2017-04-17 18:30 | NUR ---
DIALYSIS CALLED TO BRING PAIN PILL TO PT. WILL BRING PRN HYDROCODONE TO PT.
--- NOTE | 2017-04-17 18:42 | NUR ---
WENT TO DIALYSIS TO GIVE PT PAIN PILL. DIALYSIS NURSE SAID "NO, SHE IS ABOUT TO COME BACK UP THERE." PT IS FIGHTING WITH DIAYLSIS NURSE, WILL RETURN TO FLOOR SHORTLY.
--- NOTE | 2017-04-17 20:02 | NUR ---
PT BACK FROM DIALYSIS. 3L OF O2 NC. BED LOW AND CALL LIGHT IN REACH. DIALYSIS SAID 1746ML OFF ONLY BECAUSE PT KEPT DISRUPTING ARTERIAL PRESSURE. PT DENIES ANY NEEDS AT THIS TIME. NO S/S OF DISTRESS. WILL CPOC
[2017-04-17 20:55] VITALS: BP 118/72
--- NOTE | 2017-04-17 21:30 | NUR ---
PT NEEDS A 20G FOR A CTA. PT HAS A 22G AT THE MOMENT. PT C/O 6/10 PAIN. STATES SHE JUST WANTS TO DO IT IN THE MORNING SO WE HAVE TIME TO DO THE IV ACCESS. PT DENIES ANY OTHER NEEDS. NO S/S OF DISTRESS. WILL CPOC
[2017-04-17 23:58] VITALS: BP 116/59
--- NOTE | 2017-04-18 02:57 | NUR ---
PT ASLEEP ON RIGHT SIDE. SCD'S ON BILATERALY LOWER EXTREM. PT DENIES ANY NEEDS AT THIS TIME. NO S/S OF DISTRESS. WILL CPOC
--- NOTE | 2017-04-18 05:00 | NUR ---
NEW IV IN LEFT ARM, BACK OF FOREARM. ONE ATTEMPT. S/L PT DENIES ANY NEEDS. NO S/S OF DISTRESS. WILL PCOC
[2017-04-18 05:07] VITALS: BP 101/56
[2017-04-18 08:13] VITALS: BP 131/70
[2017-04-18 11:21] LABS: INR 1.02 (0.85-1.17); PROTIME 13.3 SECONDS (11.6-15.0)
[2017-04-18 12:14] VITALS: BP 140/73
--- NOTE | 2017-04-18 16:32 | NUR ---
TAKEN TO DIALYSIS VIA BED. CONTINUE PLAN OF CARE AND SAFETY PRECAUTIONS.
--- NOTE | 2017-04-18 19:05 | NUR ---
MIRELA NOTE: PT IS ALERT, AWAKE AND ORIENTED X 3. PT IS SITTING UP IN BED AND EATING HER DINNER TRAY. PT WAS STARTED ON A HEPARIN DRIP TODAY D/T POSITIVE PULMONARY EMBOLISM FOUND ON CHEST CTA. HEP DRIP RUNNING AT 1300U/HR. ONLY PT ORDER IN THE COMPUTER, ADDED PTT ORDER TO BLOOD DRAW. PT REMAINS ON 3L OF OXYGEN VIA N/C. PT HAS HEPARIN GTT RUNNING VIA 20G LEFT FOREARM IV SITE. PT ALSO HAS A 22G LEFT HAND SALINE LOC. PT IS CHRONIC HD. HAS RIGHT AVF AND IS RIGHT ARM RESERVE. REPORT RECEIVED FROM DIALYSIS NURSE THAT PT IS HAVING LEFT ARM AND STOMACH PAIN, SO SHE IS REQUESTING PAIN MEDS. PT ALSO WITH LEFT ARM ITCHINESS. HD WAS STOPPED 24 MIN EARLY D/T PT COMPLAINTS. WILL CONT TO MONITOR.
[2017-04-18 20:47] VITALS: BP 100/73
[2017-04-19 00:52] VITALS: BP 106/61
[2017-04-19 03:55] LABS: BASOPHILS 0.3 % (0-2); EOSINOPHILS 2.8 % (0-7); HEMATOCRIT 37.1 % (36.0-48.0); HEMOGLOBIN 11.8 g/dL (12-16); IMMATURE GRANULOCYTES 0.3 % (0-5); LYMPHOCYTES 24.1 % (15-50); MCH 30.8 pg (26.0-34.0); MCHC 31.8 g/dL (31.0-37.0); MCV 96.9 fL (80.0-100.0); MEAN PLATELET VOLUME 9.8 fL (7.4-10.4); MONOCYTES 11.2 % (2-11); NEUTROPHILS 61.3 % (40-80); PLATELET COUNT 201 10x3/uL (130-400); RBC 3.83 10x6/uL (4.00-5.40); RDW 16.2 % (11.5-14.5); WBC 6.2 10x3/uL (4.8-10.8)
[2017-04-19 04:15] LABS: ANION GAP 16.5 mmol/L (8-16); CALCIUM 8.9 mg/dL (8.5-10.1); CARBON DIOXIDE 28.1 mmol/L (21.0-32.0); CREATININE - SERUM 8.3 mg/dL (0.6-1.3); POTASSIUM - SERUM 4.6 mmol/L (3.5-5.1)
[2017-04-19 04:37] VITALS: BP 99/52
[2017-04-19 08:14] VITALS: BP 112/59
[2017-04-19 12:10] VITALS: BP 129/68
--- NOTE | 2017-04-19 15:30 | NUR ---
ALERT AND ORIENTED X4. RESTING IN BED. HEPARIN DRIP INFUSING PER PROTOCOL. DENIES ANY NEEDS. O2 @ 3L. CONTINUE PLAN OF CARE AND SAFETY PRECAUTIONS.
--- NOTE | 2017-04-19 15:38 | NUR ---
Patient Name: MAXINE CRANE Encounter No: [id number] : 1955 Primary Insurance: MEDICARE A & B Anticipated DC Date: Planned Disposition: Home DISCHARGE PLANNING: * Is the patient Alert and Oriented? Yes 0 * How many steps to enter\exit or inside your home? NONE 0 * PCP DR. CABRERA IN [place] 0 * Pharmacy [facility] [place] 0 * Preadmission Environment Home Alone 0 * ADLs Partial Dependent 0 * Partial ADLs (Assistance needed) Bathing 0 * Equipment Cane 0 * Other Equipment NO PROVIDER PREFERENCE, WOULD USE ONE IN [place] 0 * List name and contact numbers for known caregivers / representatives who currently or will assist patient after discharge: AMISH BRISENO, FRIEND, SEEMA CRANE, SPOUSE, 0 * Community resources currently utilized OUTPATIENT DIALYSIS 0 * Please name any agencies selected above. OUTPATIENT DIALYSIS T/T/S, 1030AM, [facility] IN [place], AMISH TAKES HER * Additional services required to return to the preadmission environment? No 0 * Can the patient safely return to the preadmission environment? Yes 0 * Has this patient been hospitalized within the prior 30 days at any hospital? No 0 CM MET WITH PT IN ROOM TO DISCUSS DISCHARGE PLANNING AND NEEDS. PT REPORTS LIVING AT HOME ALONE IN AN APARTMENT FOR THE PAST TWO WEEKS. PT REPORTS SHE WAS LIVING AT [facility] IN RESIDENTIAL CARE UNTIL TWO WEEKS AGO AND SIGNED HERSELF OUT. PT HAS A FRIEND NAMED AMISH THAT COMES OVER AND ASSISTS PT WITH BATHING, COOKING, CLEANING AND TRANSPORTATION. PT HAS A CANE WITH NO MEDICAL EQUIPMENT PROVIDER PREFERENCE LONG THEY ARE IN [place] WHERE SHE LIVES. PT HAS NO OUTSIDE SERVICES ASSISTING IN THE HOME. CM DISCUSSED AVAILABILITY OF HOME HEALTH, REHAB SERVICES AND MEDICAL EQUIPMENT. PT GOES TO OUTPATIENT DIALYSIS T/T/S SCHEDULE AT [facility], AMISH TAKES HER. PT DENIES DISCHARGE NEEDS, REPORTS HER FRIEND AMISH WILL PICK HER UP FOR DISCHARGE HOME PT IS NO LONGER ON MEDICAID AND CANNOT GET SCAT TRANSPORTATION. PT STATES SHE IS NOT GOING TO BE LOCKED UP IN A JAIL AGAIN. PT REPORTS FILING FOR MEDICAID AND THEY ARE WAITING ON HER PRESCRIPTION CARD TO COME IN THE MAIL AND REPORTS IT IS SUPPOSED TO COVER HER PRESCRIPTION MEDICATIONS. PT REPORTS SHE WAS TAKING MOST OF HER MEDICATIONS EXCEPT TWO, THAT WERE THOUSANDS OF DOLLARS. PT ASKED CM TO CALL AMISH; CM CALLED AMISH, , WHO REPORTS BEING PT'S FRIEND FOR 35 YEARS; AMISH HAS HELPED PT FILE FOR MEDICARE AT THE SOCIAL SECURITY OFFICE WHICH INCLUDED DRUG PLAN COVERAGE AND THEY SHOULD BE GETTING THE PRESCRIPTION CARDS ANY DAY. AMISH REPORTS ASSISTING PT WITH WHATEVER SHE NEEDS AND WILL THERE TO SNOWMAKER PT WHEN DISCHARGED, JUST TO CALL HER WHEN PT IS READY TO DISCHARGE HOME. IMPORTANT MESSAGE FROM MEDICARE PROVIDED AND DISCUSSED. FOR DISCHARGE, PT PLANS TO DISCHARGE HOME ALONE WITH ASSISTANCE OF FRIEND, AMISH. CALL AMISH AT [phone], TO ARRANGE TRANSPORT HOME. Bony Manuel, CASE MANAGEMENT
[2017-04-19 15:43] VITALS: BP 122/61
[2017-04-19 19:00] VITALS: BP 139/74
--- NOTE | 2017-04-19 19:20 | NUR ---
ROUNDING NOTE: PT SLEEPING AT CHANGE OF SHIFT. AWAKENS TO SOUND OF VOICE. PT IS ALERT AND ORIENTED X3. REMAINS ON 3L OF OXYGEN VIA NASAL CANNULA. HEPARIN GTT RUNNING AT 1100U/HR. LAST PTT WAS THERAPEUTIC. NEXT BLOOD DRAW DUE AT 0400 04/20. PLAN IS FOR PT TO HAVE A ASHOK TOMORROW TO RULE OUT ENDOCARDITIS. PT IS RESERVE RIGHT ARM D/T RIGHT AVF FOR HD, WHICH IS TUES, THURS, SAT. PT WILL BE NPO AFTER MN FOR PROCEDURE. WILL CONT TO MONITOR.
[2017-04-20] VITALS: BP 122/47
[2017-04-20 04:00] VITALS: BP 117/63
[2017-04-20 05:09] LABS: BASOPHILS 0.6 % (0-2); EOSINOPHILS 3.6 % (0-7); HEMATOCRIT 36.6 % (36.0-48.0); HEMOGLOBIN 11.8 g/dL (12-16); IMMATURE GRANULOCYTES 0.2 % (0-5); LYMPHOCYTES 28.6 % (15-50); MCH 30.8 pg (26.0-34.0); MCHC 32.2 g/dL (31.0-37.0); MCV 95.6 fL (80.0-100.0); MEAN PLATELET VOLUME 10.3 fL (7.4-10.4); MONOCYTES 10.5 % (2-11); NEUTROPHILS 56.5 % (40-80); PLATELET COUNT 209 10x3/uL (130-400); RBC 3.83 10x6/uL (4.00-5.40); RDW 16.1 % (11.5-14.5); WBC 6.4 10x3/uL (4.8-10.8)
[2017-04-20 05:18] LABS: CALCIUM 8.6 mg/dL (8.5-10.1)
[2017-04-20 05:31] LABS: CARBON DIOXIDE 14.5 mmol/L (21.0-32.0); CREATININE - SERUM 10.5 mg/dL (0.6-1.3); POTASSIUM - SERUM 5.5 mmol/L (3.5-5.1)
[2017-04-20 08:00] VITALS: BP 157/83
[2017-04-20 12:00] VITALS: BP 161/85
--- NOTE | 2017-04-20 13:36 | NUR ---
Nutrition Follow Up: Pt was out of the room at the time of RD visit. Interview deferred. Pt is eating 50% meal avg on a renal ADA diet. No BM since admit. Wt gain noted - likely r/t fluid. Meds and labs reviewed. Rec continue current diet. RD following.
--- NOTE | 2017-04-20 13:43 | NUR ---
BACK FROM CATH FOR ASHOK. UNABLE TO JORGE PROCEDURE. PT SLEEPING.
--- NOTE | 2017-04-20 19:43 | NUR ---
GONE TO DIALYSIS
--- NOTE | 2017-04-20 20:01 | NUR ---
BACK FROM [facility]
[2017-04-20 21:38] VITALS: BP 97/52
[2017-04-21 01:53] VITALS: BP 104/40
--- NOTE | 2017-04-21 02:30 | NUR ---
LYING IN BED, CALL LIGHT IN REACH. WILL CONTINUE WITH PLAN OF CARE.
[2017-04-21 04:16] VITALS: BP 128/69
[2017-04-21 06:09] LABS: BASOPHILS 0.5 % (0-2); EOSINOPHILS 3.1 % (0-7); HEMATOCRIT 38.1 % (36.0-48.0); HEMOGLOBIN 11.9 g/dL (12-16); IMMATURE GRANULOCYTES 0.3 % (0-5); MCH 30.5 pg (26.0-34.0); MCHC 31.2 g/dL (31.0-37.0); MEAN PLATELET VOLUME 9.9 fL (7.4-10.4); MONOCYTES 11.6 % (2-11); NEUTROPHILS 61.5 % (40-80); PLATELET COUNT 176 10x3/uL (130-400); RDW 16.1 % (11.5-14.5); WBC 6.1 10x3/uL (4.8-10.8)
[2017-04-21 06:17] LABS: MCV 97.7 fL (80.0-100.0)
[2017-04-21 06:30] LABS: ANION GAP 17.2 mmol/L (8-16); CALCIUM 9.5 mg/dL (8.5-10.1); POTASSIUM - SERUM 5.2 mmol/L (3.5-5.1)
[2017-04-21 06:31] LABS: CREATININE - SERUM 7.1 mg/dL (0.6-1.3)
--- NOTE | 2017-04-21 07:15 | NUR ---
REPORT RECEIVED. RR EVEN AND UNLABORED, PT DENIES NEEDS AT THIS TIME. ASSESSMENT PERFORMED. PT REPORTS THAT DIALYSIS "WENT BETTER" YESTERDAY. WILL CTM.
--- NOTE | 2017-04-21 08:14 | NUR ---
HELD HEPARIN DRIP PER PROTOCOL DUE TO APTT BEING ELEVATED. WILL HOLD FOR 30 MINUTES AND DECREASE APTT BY 200 UN/HR. WILL ORDER RECHECK IN 6 HRS. WILL CTM.
[2017-04-21 08:46] VITALS: BP 139/73
[2017-04-21 09:16] LABS: HEXAGONAL PHASE PHOS 24 sec (0-11); LUPUS - INTERPRETATION Comment: (()); LUPUS - THROMBIN TIME 28.6 sec (0.0-23.0); LUPUS - dRVVT 52.1 sec (0.0-47.0); PTT-LA 84.8 sec (0.0-51.9)
--- NOTE | 2017-04-21 10:48 | NUR ---
SPOKE TO DR. MAIN REGARDING PT CONDITION. GAVE ORDER TO START COUMADIN 5MG AT 1700. TOLD ME TO NOT STOP HEPARIN. ALSO GAVE ORDER FOR 4MG ZOFRAN Q6 HRS.
[2017-04-21 11:59] VITALS: BP 139/45
--- NOTE | 2017-04-21 14:37 | NUR ---
@8540 AMISH BRISENO WAS HERE. SHE STATED THAT SHE HAD PREVIOUSLY SPOKE WITH [employer] ABOUT THE PATIENTS INSURANCE. SHE STATED THAT THEY HAVE HER NEW CARD THAT HAS A, B, AND D COVERAGE. SHE HAS REQUESTED THAT WE SEE IF SOMEONE WILL COME AND TALK WITH THE PATIENT ABOUT ALSO GETTING MEDICAID IF SHE QUALIFIES. SHE SAID THAT SHE HAS BILLS STACKING UP FROM DIALYSIS AND NEEDS SOMETHING THAT WILL HELP. SHE STATED SHE IS AVAILABLE IF THEY NEED ANY ASSISTANCE ANSWERING QUESTIONS FOR THE PATIENT AND SHE CAN BE CONTACTED AT [phone] ([employer]). THE PATIENT IS WANTING HER TO TAKE CARE OF EVERYTHING "I DON'T THINK I CAN", BUT MRS BRISENO EXPLAINED THAT SHE HAD TO GET BACK TO [place] BECAUSE SHE HAD TO WORK [employer]. I HAVE GIVEN HER MY NUMBER IF SHE WERE TO HAVE ANY QUESTIONS EXPLAINING THAT I AM USUALLY GONE BY 4 PM, BUT STATED SHE IS MORE THAN WELCOME TO LEAVE A MESSAGE AND I WOULD GET BACK WITH HER SOON POSSIBLE. @5459 BEA BALL RN CM CALLED AND SPOKE WITH ENMANUEL ABOUT COMING UP TO TALK WITH THE PATIENT ABOUT MEDICAID.
[2017-04-21 16:20] VITALS: BP 142/67
--- NOTE | 2017-04-21 18:15 | NUR ---
PT RESTING QUIELTY, RR EVEN AND UNLABORED. PT DENIES NEEDS AT THIS TIME. WILL GIVE REPORT ON PT CONDITION FOR THE DAY.
[2017-04-21 19:00] VITALS: BP 106/62
--- NOTE | 2017-04-21 19:32 | NUR ---
PT IN BED SITTING STRAIGHT UP WATCHING TV, PT ON 2L OF O2 NC. PT LEFT HAND IV IS S/L. PT DENIES ANY NEEDS AT THIS TIME. NO S/S OF DISTRESS. WILL CPOC
--- NOTE | 2017-04-21 21:32 | NUR ---
PT DENIES ANY PAIN AT THIS TIME. PT DENIES ANY NEEDS. WILL CPOC
--- NOTE | 2017-04-21 21:45 | NUR ---
PT IV IS OUT. CATH INTACT. UNKNOWN WHAT TIME IT CAME OUT. WILL START NEW IV SOON POSSIBLE AND START HEP WHEN LAB RESULTS COME BACK. PT HAS NO S/S OF DISTRESS. WILL CPOC
--- NOTE | 2017-04-21 22:40 | NUR ---
INCREASED THE HEPARIN BY 100 UNITS/HOUR. ORDERED. NOW INFUSING AT 8ML/HOUR. PT DENIES ANY NEEDS NO S/S OF DISTRESS. WILL CPOC
--- NOTE | 2017-04-21 23:18 | NUR ---
PT HAS NEW 22G IV TO LEFT FOREARM. ONE ATTEMPT. DRSG CDI. PT TOLERATED WELL.
[2017-04-22] VITALS: BP 119/74
[2017-04-22 04:00] VITALS: BP 171/57
--- NOTE | 2017-04-22 05:02 | NUR ---
PT RESTING IN BED. LAB IN ROOM TO CHECK APTT. PT DENIES ANY NEEDS. NO S/S OF DISTRESS. WILL CPOC
[2017-04-22 05:54] LABS: BASOPHILS 0.5 % (0-2); EOSINOPHILS 2.9 % (0-7); HEMATOCRIT 35.2 % (36.0-48.0); HEMOGLOBIN 11.4 g/dL (12-16); IMMATURE GRANULOCYTES 0.2 % (0-5); LYMPHOCYTES 25.9 % (15-50); MCH 30.6 pg (26.0-34.0); MCHC 32.4 g/dL (31.0-37.0); MEAN PLATELET VOLUME 10.4 fL (7.4-10.4); MONOCYTES 14.9 % (2-11); NEUTROPHILS 55.6 % (40-80); PLATELET COUNT 164 10x3/uL (130-400); RBC 3.73 10x6/uL (4.00-5.40); RDW 15.7 % (11.5-14.5); WBC 5.9 10x3/uL (4.8-10.8)
[2017-04-22 05:55] LABS: MCV 94.4 fL (80.0-100.0)
[2017-04-22 06:07] LABS: ANION GAP 16.6 mmol/L (8-16); CALCIUM 9.1 mg/dL (8.5-10.1); CARBON DIOXIDE 26.9 mmol/L (21.0-32.0); POTASSIUM - SERUM 5.5 mmol/L (3.5-5.1)
--- NOTE | 2017-04-22 06:11 | NUR ---
INCREASED HEPARIN BY 100 UNITS /HOUR ORDERED. PT NOW AT 9ML/HOUR. INFUSING TO LEFT FOREARM. PT DENIES ANY NEEDS. NO S/S OF DISTRESS. WILL CPOC
[2017-04-22 06:16] LABS: CREATININE - SERUM 9.5 mg/dL (0.6-1.3)
--- NOTE | 2017-04-22 07:50 | NUR ---
PT LAYING TO LEFT SIDE SLEEPING NO S/S DISTRESS NOTED RR EVEN AND UNLABORED. WILL CONT TO MONITOR
[2017-04-22 08:00] VITALS: BP 135/65
--- NOTE | 2017-04-22 12:08 | NUR ---
PT BACK FROM DIALYSIS. C/O STOMACH HURTING/NAUSEA. ZOFRAN GIVEN. CHANGED IV TUBING FOR HEPARIN DRIP, DATED TUBING. PT LAYING TO LEFT SIDE TRYING TO REST. REFUSES TO TAKE NOON MEDICATIONS OR EAT LUNCH AT THIS TIME. WILL CONT TO MONITOR
[2017-04-22 12:59] LABS: INR 0.96 (0.85-1.17); PROTIME 12.6 SECONDS (11.6-15.0)
[2017-04-22 13:27] LABS: APTT 181.6 SECONDS (22.8-39.4)
--- NOTE | 2017-04-22 17:35 | NUR ---
PT SITTING UP IN BED EATING DINNER. HEPARIN DRIP INFUSING TO LEFT FA @ 600 UNITS/HR NO PROBLEMS. DENIES ANY NEEDS AT THIS TIME WILL CONT TO MONITOR
--- NOTE | 2017-04-22 19:49 | NUR ---
RESUMED CARE OF PT, LYING IN BED RESPIRATIONS EVEN AND UNLABORED ON ROOM AIR. LEFT FOREARM INFUSING HEPARIN @ 6. CALL LIGHT IN REACH. WILL CONTINUE TO MONITOR. SEE NURSE ASSESSMENT.
--- NOTE | 2017-04-22 20:55 | NUR ---
PTT 46.0, ADJUSTED HEPARIN GTT FROM 600UNITS TO 700 UNITS/HR. NEW PTT ORDERED FOR 0300. WILL CONTINUE TO MONITOR.
[2017-04-22 22:24] VITALS: BP 121/100
[2017-04-22 22:31] VITALS: BP 121/100
--- NOTE | 2017-04-23 01:23 | NUR ---
LYING IN BED WITH EYES CLOSED, CALL LIGHT IN REACH. WILL CONTINUE TO MONTIOR.
[2017-04-23 01:37] VITALS: BP 127/80
[2017-04-23 04:08] LABS: BASOPHILS 0.8 % (0-2); EOSINOPHILS 3.8 % (0-7); HEMOGLOBIN 12.1 g/dL (12-16); IMMATURE GRANULOCYTES 0.1 % (0-5); LYMPHOCYTES 21.5 % (15-50); MCH 30.5 pg (26.0-34.0); MCHC 31.8 g/dL (31.0-37.0); MCV 95.7 fL (80.0-100.0); MEAN PLATELET VOLUME 10.7 fL (7.4-10.4); MONOCYTES 12.2 % (2-11); NEUTROPHILS 61.6 % (40-80); PLATELET COUNT 196 10x3/uL (130-400); RBC 3.97 10x6/uL (4.00-5.40); RDW 15.5 % (11.5-14.5); WBC 7.3 10x3/uL (4.8-10.8)
[2017-04-23 04:14] LABS: CALCIUM 9.2 mg/dL (8.5-10.1); CARBON DIOXIDE 29.2 mmol/L (21.0-32.0); CREATININE - SERUM 7.8 mg/dL (0.6-1.3)
[2017-04-23 04:16] LABS: POTASSIUM - SERUM 6.2 mmol/L (3.5-5.1)
[2017-04-23 05:50] VITALS: BP 117/64
[2017-04-23 07:11] LABS: POTASSIUM - SERUM 5.3 mmol/L (3.5-5.1)
--- NOTE | 2017-04-23 07:30 | NUR ---
ASSESSMENT COMPLETED. PT SLEEPING BUT AWAKES TO VOICE. RIGHT ARM AVF. LEFT FOREARM IV WITH HEPARIN AT 8. UP AB EDMOND. ON ROOM AIR. SR UP WITH CALL LIGHT IN REACH
--- NOTE | 2017-04-23 07:30 | NUR ---
RESTING QUIETLY EYES CLOSED RESP UNLABORED NAD NOTED
[2017-04-23 08:00] VITALS: BP 162/78
[2017-04-23 10:50] LABS: ALBUMIN 3.2 g/dL (3.4-5.0); ANION GAP 17.8 mmol/L (8-16); CALCIUM 9.1 mg/dL (8.5-10.1); CARBON DIOXIDE 28.6 mmol/L (21.0-32.0); CREATININE - SERUM 8.3 mg/dL (0.6-1.3); PHOSPHOROUS 6.8 mg/dL (2.5-4.9)
[2017-04-23 12:00] VITALS: BP 141/78
[2017-04-23 16:00] VITALS: BP 135/61
--- NOTE | 2017-04-23 19:15 | NUR ---
ROUNDING NOTE: PT IS LAYING DOWN IN BED WATCHING TV AT THE CHANGE OF SHIFT. PT IS ALERT AND ORIENTED X3. PT HAS HEPARIN GTT RUNNING AT 7 UNITS/HR WITH NEXT BLOOD DRAW DUE AT 1999. PT IS RESTING COMFORTABLY ON RA W/ NO RESP DISTRESS OR COMPLAINTS. PLAN IS TO TRANSITION TO COUMADIN AND WORK ON D/C PLANNING. PT CONTINUES ON HD T,TH,SAT W/ RIGHT ARM RESERVE FOR RIGHT ARM AVF. PT DENIES ANY NEEDS. WILL CONT TO MONITOR.
[2017-04-23 20:02] LABS: INR 1.09 (0.85-1.17)
[2017-04-23 20:04] LABS: APTT 72.6 SECONDS (22.8-39.4)
[2017-04-23 20:25] VITALS: BP 130/70
[2017-04-24 00:51] VITALS: BP 121/53
[2017-04-24 05:19] VITALS: BP 127/65
--- NOTE | 2017-04-24 05:49 | NUR ---
PT SPILLED HER COFFEE ALL OVER. ASSISTED CLEANING UP, EVS CAME TO MOP UP THE FLOOR, AND I GOT THE PT A NEW CUP OF COFFEE. PT HAS BEEN UP TO THE BEDSIDE COMMODE SEVERAL TIMES DURING SHIFT. NO COMPLIANTS. WILL CONT TO MONITOR.
[2017-04-24 07:09] LABS: APTT 72.2 SECONDS (22.8-39.4); INR 1.12 (0.85-1.17); PROTIME 14.3 SECONDS (11.6-15.0)
--- NOTE | 2017-04-24 07:53 | NUR ---
ASSESSMENT DONE. RESIDENT RESTING IN BED WITH EYES CLOSED. STATES NO NEEDS AT THIS TIME.
[2017-04-24 08:09] LABS: SPE - A/G RATIO 0.8 (0.7-1.7); SPE - ALBUMIN 3.6 g/dL (2.9-4.4); SPE - ALPHA-1 GLOBULIN 0.2 g/dL (0.0-0.4); SPE - ALPHA-2 GLOBULIN 0.9 g/dL (0.4-1.0); SPE - BETA GLOBULIN 1.2 g/dL (0.7-1.3); SPE - GAMMA GLOBULIN 2.1 g/dL (0.4-1.8); SPE - M-SPIKE Not Observed g/dL (Not Observed)
[2017-04-24 08:21] VITALS: BP 132/62
--- NOTE | 2017-04-24 10:35 | NUR ---
RESTS IN BED. IV PATENT. CALL LIGHT IN REACH. FARIDA NEEDS AT THIS TIME. WILL MONITOR.
[2017-04-24 12:26] VITALS: BP 134/55
[2017-04-24 15:58] VITALS: BP 139/71
[2017-04-24 18:09] LABS: FACTOR II DNA ANALYSIS Negative (())
--- NOTE | 2017-04-24 19:00 | NUR ---
ROUNDING NOTE: AT CHANGE OF SHIFT, PT WAS VISITING HER SPOUSE IN ROOM 2109. PT IS ALERT AND ORIENTED, UP AD EDMOND. SHE IS REQUESTING PAIN MEDS WITH THE BEDTIME MED PASS. NO OTHER NEEDS. WILL CONT TO MONITOR.
--- NOTE | 2017-04-24 19:06 | NUR ---
RESTING IN BED. NO CHANGES. NO C/O PAIN OR DISCOMFORT.
[2017-04-24 19:32] VITALS: BP 132/64
[2017-04-25] VITALS: BP 137/68
[2017-04-25 04:04] VITALS: BP 127/67
[2017-04-25 04:37] LABS: INR 1.45 (0.85-1.17); PROTIME 17.6 SECONDS (11.6-15.0)
--- NOTE | 2017-04-25 05:07 | NUR ---
PT WITH COMPLAINTS OF GENERALIZED ITCHINESS. PT DOES NOT HAVE ANY HIVES OR RASH NOTED. WILL MEDICATE WITH PRN BENADRYL PER MD ORDER. WILL CONT TO MONITOR.
--- NOTE | 2017-04-25 07:17 | NUR ---
AM ROUNDS- PT IN BED, WITH EYES CLOSED, AROUSES EASILY, BATTER MIXER AT BEDSIDE TO DO VITAL SIGNS. RESP EVEN AND UNLABORED, KYLIE IV ACCESS. BED LOW AND WHEELS LOCKED, BEDSIDE RAILS X2, CALL LIGHT IN REACH, PT DENIES ANY NEEDS AT THIS TIME. CALL LIGHT IN REACH, NAD NOTED, WILL CONTINUE TO MONITOR.
--- NOTE | 2017-04-25 08:10 | NUR ---
AM MEDS GIVEN AT THIS TIME. PT STATES " I AM TIRED, DID NOT GET ANY SLEEP LAST NIGHT." PT DENIES ANY NEEDS AT THIS TIME. CALL LIGHT IN REACH, NAD NOTED, WILL CONTINUE TO MONITOR.
[2017-04-25 08:11] VITALS: BP 139/85
--- NOTE | 2017-04-25 10:40 | NUR ---
PT TRANSFERED TO DIALYSIS VIA BED, NAD NOTED.
--- NOTE | 2017-04-25 13:44 | NUR ---
PT STILL IN DIALYSIS.
--- NOTE | 2017-04-25 13:55 | NUR ---
Nutrition Follow Up: Pt was out of the room at the time of RD visit. Interview deferred. Pt is eating 69% meal avg on a renal diet. +BM 04/23/17. Wt stable. Meds and labs reviewed. Rec continue current diet. RD following.
--- NOTE | 2017-04-25 14:36 | NUR ---
PT TRANSFERED BACK TO ROOM 2131 VIA BED, JASPREET NOTED, PT A & O X4, DENIES ANY NEEDS AT THIS TIME. CALL LIGHT IN REACH, JASPREET NOTED, WILL CONTINUE TO MONITOR.
--- NOTE | 2017-04-25 14:49 | NUR ---
ADMINISTERED COUMADIN ORDRED. PT UP TO SIDE OF BED, EATING LUNCH, DENIES ANY NEEDS AT THIS TIME. CALL LIGHT IN REACH, NAD NOTED, WILL CONTINUE TO MONITOR.
--- NOTE | 2017-04-25 17:51 | NUR ---
PT UP TO SIDE OF BED, EATING DINNER, DENIE ANY NEEDS, CALL LIGHT IN REACH, NAD NOTED, WILL CONTINUE TO MONITOR.
[2017-04-25 19:00] VITALS: BP 132/57
--- NOTE | 2017-04-25 19:20 | NUR ---
ROUNDING NOTE: PT IS LAYING DOWN AND SLEEPING AT THE CHANGE OF SHIFT. PT IS A,A,OX3. SHE IS ON RA, AND SHE NO LONGER HAS IV ACCESS. PT IS OFF HEPARIN GTT AND IS ONLY ON COUMADIN. PT WILL BE D/C'D LIKELY ONCE INR IS THERAPEUTIC >2.0. LAST INR 1.45. PT RECEIVES HD ON , , AND SAT, AND SHE DID RECEIVE HD TODAY. SHE IS RIGHT ARM RESERVE FOR RIGHT ARM AVF. HER SPOUSE IS A PATIENT IN ROOM 210. PT IS REQUESTING HER PAIN PILL, WILL GIVE PER MD ORDER. NO OTHER NEEDS, WILL CONT TO MONITOR.
[2017-04-26] VITALS: BP 103/43
[2017-04-26 04:00] VITALS: BP 112/62; BP 112/625
[2017-04-26 05:43] LABS: BASOPHILS 0.7 % (0-2); EOSINOPHILS 2.3 % (0-7); HEMATOCRIT 36.6 % (36.0-48.0); HEMOGLOBIN 11.5 g/dL (12-16); IMMATURE GRANULOCYTES 0.2 % (0-5); LYMPHOCYTES 27.3 % (15-50); MCH 30.4 pg (26.0-34.0); MCHC 31.4 g/dL (31.0-37.0); MCV 96.8 fL (80.0-100.0); MEAN PLATELET VOLUME 9.8 fL (7.4-10.4); MONOCYTES 11.8 % (2-11); NEUTROPHILS 57.7 % (40-80); PLATELET COUNT 211 10x3/uL (130-400); RBC 3.78 10x6/uL (4.00-5.40); RDW 15.5 % (11.5-14.5)
[2017-04-26 06:13] LABS: ANION GAP 15.5 mmol/L (8-16); CALCIUM 8.7 mg/dL (8.5-10.1); CARBON DIOXIDE 29.7 mmol/L (21.0-32.0); CREATININE - SERUM 9.7 mg/dL (0.6-1.3); PHOSPHOROUS 6.6 mg/dL (2.5-4.9); POTASSIUM - SERUM 5.2 mmol/L (3.5-5.1)
--- NOTE | 2017-04-26 06:19 | NUR ---
PT HAS BEEN UP AD EDMOND. SHE IS INDEPENDENT WITH HER MOBILITY WITH A STEADY GAIT. SHE IS WALKING ALL AROUND THE UNIT. SHE HAS VISITED HER SPOUSE IN ROOM 2108 TOWARDS THE BEGINING OF THE SHIFT, AND SHE SLEPT THE REST OF THE SHIFT AFTER RECEIVING HER PAIN MEDICINE.
[2017-04-26 06:23] LABS: INR 2.48 (0.85-1.17); PROTIME 26.9 SECONDS (11.6-15.0)
--- NOTE | 2017-04-26 07:26 | NUR ---
AM ROUNDS- PT IN BED, WITH EYES CLOSED, AROUSES EASILY TO VOICE. RESP EVEN, NONLABORED. NO IV ACCESS NOTED. PT DENIES ANY NEEDS AT THIS TIME. BED LOW AND WHEELS LOCKED, BEDSIDE RAILS X2, CALL LIGHT IN REACH, NAD NOTED, WILL CONTINUET O MONITOR.
[2017-04-26 07:45] VITALS: BP 119/65
--- NOTE | 2017-04-26 08:30 | NUR ---
ADMINISTERED MORNING MEDS. PT REQUESTED A PULL UP, WILL PROVIDE HER WITH ONE. PT IN BED, DENIES ANY OTHER NEEDS AT THIS TIME. CALL LIGHT IN REACH, NAD NOTED, WILL CONTINUE TO MONITOR.
--- NOTE | 2017-04-26 09:45 | NUR ---
PT STATES DYSPNEA UPON EXERTION. CURRENT SP02 90% ON RA. PLACED PT ON 2L NC. WILL ASSESS AGAIN
--- NOTE | 2017-04-26 10:36 | NUR ---
LATTER INFORMATION INCORRECT. WRONG DOCUMENTATION. CURRENT PT ON RA.
--- NOTE | 2017-04-26 12:15 | NUR ---
PT NOT IN ROOM AT THIS TIME. WILL CHECK TO SEE IF SHE IS VISITING WITH HER IN ROOM 8972.
[2017-04-26] MEDS ORDERED: BENADRYL25 MG PO (12:46)
[2017-04-26] MEDS ORDERED: COUMADIN5 MG PO (12:47)
[2017-04-26] MEDS ORDERED: IPRAT-ALBUT 0.5-3 ML UPD (12:47)
[2017-04-26] MEDS ORDERED: VELTASSA8.4 GM PO (12:47)
--- NOTE | 2017-04-26 13:03 | NUR ---
Patient Name: MAXINE CRANE Encounter No: [id number] : 1955 Primary Insurance: MEDICARE A & B Anticipated DC Date: 04-26-2017 Planned Disposition: Home DCP follow-up note: CM MET WITH PT IN HER [facility]PITAL ROOM, WHERE PT WAS SITTING ALONE WHILE HER SPOUSE WAS IN A TREATMENT. CM DISCUSSED DISCHARGE NEEDS AND PLANNING. CM DISCUSSED AVAILABILITY OF HOME HEALTH, REHAB SERVICES AND MEDICAL EQUIPMENT. PT DENIES DISCHARGE NEEDS, REPORTS AMISH, HER FRIEND, HAS HER INSURANCE CARDS AND PT NOW HAS PRESCRIPTION DRUG COVERAGE. PT WILL CALL AMISH TO ARRANGE TRANSPORT HOME AT DISCHARGE FOR TODAY. IMPORTANT MESSAGE FROM MEDICARE PROVIDED AND EXPLAINED. Bony Manuel, CASE MANAGEMENT
--- NOTE | 2017-04-26 14:22 | NUR ---
Patient Name: MAXINE CRANE Encounter No: [id number] : 1955 Primary Insurance: MEDICARE A & B Anticipated DC Date: 04-26-2017 Planned Disposition: Home DCP follow-up note: CM SPOKE TO FOOD PRODUCTION WORKER WHO REPORTS THAT ACCORDING TO RECORD, PT WILL NEED NEBULIZED MEDICATIONS WITH NO INDICATION OF HAVING NEBULIZER AT HOME. CM MET WITH PT IN ROOM, PT HAS NO DIAGNOSIS FOR INSURANCE TO PAY FOR NEBULIZER, PT REPORTS SHE WILL BY IT IF IT IS NECESSARY AND WOULD LIKE TO USE [employer]. CM SPOKE TO KEANU AT [employer], LESLIE HERNANDEZ FOR NEBULIZER IS $62. CM SPOKE TO DR. GARSIA WHO INDICATED THAT PT WILL NOT NEED NEBULIZER FOR HOME USE PT WILL NOT BE DISCHARGED ON NEBULIZED MEDICATION. CM CALLED AMISH AT [phone], TO ARRANGE TRANSPORT HOME AT PT'S REQUEST. AMISH REPORTS HAVING TO BE AT WORK AT 2PM AND CANNOT GRINDER DRESSER PT. CM NOTIFIED PT THAT SHE WILL NOT NEED THE NEBULIZER AND THAT AMISH CANNOT PICK HER UP. PT REPORTS SHE WILL CALL HER SON IN [place] TO COME AND PICK HER UP FOR DISCHARGE HOME TODAY. PT DENIES NEED OF ASSISTANCE TO CALL HER FAMILY. Bony Manuel, CASE MANAGEMENT
[2017-04-26 16:07] VITALS: BP 126/60
--- NOTE | 2017-04-26 19:45 | NUR ---
DISCHARGE PAPERWORK DONE, WAITING ON RIDE.
--- NOTE | 2017-04-26 20:38 | NUR ---
FAMILY AT BEDSIDE, WHEELED OUT TO CAR.
--- NOTE | 2017-04-27 12:12 | DS ---
PATIENT:MAXINE CRANE :55 MEDICAL RECORD: [id number] DISCHARGE SUMMARY ADMISSION DATE: 04/17/17 DISCHARGE DATE: 04/26/17 DATE OF SERVICE: 04/26/2017 REASON FOR ADMISSION: Pulmonary emboli, now on Coumadin with INR 2-3. HOSPITAL COURSE: This is a 61-year-old chronically ill end-stage renal disease patient. Presented on April 17 with too much weight gains between her treatments. We were concerned about her shortness of breath and decreased pulse ox as well and had consultation by pulmonary critical care, was diagnosed with bilateral pulmonary emboli. She was evaluated by infectious disease, did not feel that her echocardiogram was consistent with endocarditis and discontinued her antibiotics. Her INR is now 2.48. We will send her home on 5 mg Coumadin a day. PHYSICAL EXAMINATION: GENERAL: She is resting. Mental status is at baseline. VITAL SIGNS: Stable. HEENT: Clear. Clear nares. Clear throat. NECK: No JVD or thyromegaly. CARDIOVASCULAR: Chest is regular rhythm without a rub. LUNGS: Grossly clear. GASTROINTESTINAL: Abdomen is nontender. NEUROLOGIC: No change in neurological exam or mental status from baseline. LABORATORY DATA: Lab is consistent with ESRD, except her INR of 2.45. DISCHARGE INSTRUCTIONS: We will discharge her on the following medications, which are: Coumadin 5 mg a day, Veltassa 8.4 g daily, levothyroxine 75 mcg a day, cinacalcet 60 a day, simethicone 80 mg p.r.n., Pepcid 20 b.i.d., Colace 100 mg a day, Renvela 2400 with meals, albuterol updrafts p.r.n. bronchospasm and she was on hydrocodone previously 5/325 daily. She will follow up at dialysis. Activity is with her family. I believe she has been taken out of the residential again who was in good spirits today on discharge. Vital signs are stable. Greater than 30 minutes was spent with the dictation and her orders. TRANSINT:[id number] Voice Confirmation ID: [id number] DOCUMENT ID: [id number] GIO MARIN MD at 1212 CC: [id number] DICTATION DATE: 04/26/17 1256 FINGER LIFT OPERATOR: 04/26/17 7024 DIS IN 04/26/17 [facility] [address] [place] [address]
--- NOTE | 2017-04-28 16:56 | EC ---
PATIENT:MAXINE CRANE DATE OF SERVICE: 04/17/17 SEX: F MEDICAL RECORD: [id number] DATE OF : 55 LOCATION:D.M2 D.213 AGE OF PATIENT: 61 ADMISSION DATE: 04/17/17 REFERRING PHYSICIAN: INTERPRETING PHYSICIAN: YOHAN WILLINGHAM MD ECHOCARDIOGRAM REPORT ECHO CHARGES 4 ECHO COMPLETE CLINICAL DIAGNOSIS: CHF/ESRD ECHOCARDIOGRAPHIC MEASUREMENTS (adult normal given) AC root (d.<3.7cm) 2.1 cm LV Septum d (<1.2 cm> 0.90 cm Valve Excursion 0.7 cm LV Septum (systole) 1.0 cm Left Atria (s.<4.0cm> 3.8 cm LVPW d(<1.2cm) 1.1 cm RV (d.<2.3cm) 3.7 cm LVPW (sytole) 1.7 cm LV diastole(<5.6CM) 6.5 cm MV E-F(>70mm/sec) cm LV systole 4.5 cm LVOT Diameter 1.9 cm MV exc.(>10mm) 1.2 cm Est.ejection fraction (50-75%) % Pericardial Effusion N DOPPLER: LVIT cm/sec A 99.0 cm/sec E 88.0 cm/sec LA cm/sec RVSP 33 mmHg LVOT 81 cm/sec AOP1/2T m/s Asc. Ao 141 cm/sec RVOT 102 cm/sec RA cm/sec PA 117 cm/sec AV Gradient Peak 7.91 mmHg AV Mean 3.25 mmHg AV Area 1.4 cm MV Gradient Peak 6.02 mmHg MV Mean 2.40 mmHg MV Area cm COMMENTS: Steel Erector: Wilder KEATING Blade Bender Furnace Tender: 2 Dr. Kenny TAPE# PACS DATE OF SERVICE: 04/18/2017 PROCEDURE: Echocardiogram. FINDINGS: 1. Left ventricle chamber size is upper limits of normal, left ventricular systolic function is moderately reduced, overall ejection fraction 30% to 35%. 2. Left atrium is within normal limits at 3.8 cm. Right atrium and right ventricular chamber sizes are mildly dilated. 3. Valvular structures: Mitral valve has what appears to be vegetation. ECHOCARDIOGRAM REPORT [id number] MAXINE CRANE Aortic valve as well appears stated have vegetation. Both are heavily calcified, but there is a definite vegetation on the mitral valve, most likely vegetation as well on the aortic valve. 4. Doppler interrogation reveals mild aortic insufficiency, hylp-vd-[id number] mitral regurgitation, mild tricuspid regurgitation, no other valvular insufficiency or stenosis. Pulmonary systolic pressure estimated at 33 mmHg. 5. No evidence of pericardial effusion or left ventricular thrombus. OVERALL IMPRESSION: 1. Echogenic structure is noted on the mitral and aortic valve compatible with endocarditis. 2. Cardiomyopathy, ejection fraction 30% to 35%. 3. Mkde-rc-nzzztxbu mitral regurgitation, mild tricuspid regurgitation. TRANSINT:[id number] Voice Confirmation ID: [id number] DOCUMENT ID: [id number] YOHAN WILLINGHAM MD at 1656 CC: [id number] DICTATION DATE: 04/18/17 1219 SENIOR CHEMIST: 04/18/17 1234 DIS IN 04/26/17 [facility] [address] [place] [address]
--- NOTE | 2017-05-05 10:35 | CN ---
PATIENT NAME:MAXINE CRANE MEDICAL RECORD: [id number] : 55 LOCATION:. D.2131 ADMIT DATE: 04/17/17 ACCOUNT: [id number] CONSULTING PHYSICIAN: DEEDEE KAUFMAN MD REFERRING PHYSICIAN: COY WILSON MD DATE OF CONSULTATION: 04/17/2017 Pulmonary Consultation CONSULT REQUESTING PHYSICIAN: Coy Wilson MD REASON FOR CONSULTATION: Acute hypoxic respiratory failure, dyspnea. HISTORY OF PRESENT ILLNESS: Ms. Crane is a 61-year-old -Turkmen female, who has a history of end-stage renal disease and congestive heart failure. The patient is having dialysis on Monday, but she presented yesterday to [facility] for worsening shortness of breath. She was also hypoxic. The patient does having history of cardiopulmonary arrest in the past and she has mechanical ventilation. REVIEW OF SYSTEMS: Mainly in the history of present illness. PAST MEDICAL HISTORY: 1. History of a cardiopulmonary arrest and mechanical ventilation, respiratory failure in the past. 2. Diabetes mellitus. 3. Congestive heart failure. 4. Hypothyroidism. 5. Hypertension. 6. History of coronary artery disease. 7. History of pneumonia. PAST SURGICAL HISTORY: 1. Hysterectomy. 2. Status post AV fistula placement. 3. Repair of pseudoaneurysm. 4. Tunnel exchanged in April 2012. ALLERGIES: SHE IS ALLERGIC TO PENICILLIN, VANCOMYCIN, AND ADHESIVE TAPES. PRESENT MEDICATIONS: [employer] was reviewed. PERSONAL AND SOCIAL HISTORY: The patient is a nonsmoker, nondrinker. The patient says she never smoked. FAMILY HISTORY: Noncontributory. PHYSICAL EXAMINATION: GENERAL: Now, the patient is lying comfortably. She is not in acute distress. VITAL SIGNS: The blood pressure is 150/71, pulse is 81, respirations 20, temperature 98.1, and SPO2 is 100% on 3.5 liters nasal cannula. HEENT: Conjunctivae pink, sclerae nonicteric. NECK: Supple. No JVD. CHEST: There are bilateral crackles. No wheezing. HEART: Rhythm regular, normal sound, no murmur. CONSULT REPORT [id number] MAXINE CRANE ABDOMEN: Soft, bowel sounds present. No hepatosplenomegaly. RECTAL: Deferred. EXTREMITIES: No cyanosis, no clubbing. There is 1+ pedal edema. SKIN: Warm, normal turgor. CENTRAL NERVOUS SYSTEM: The patient is awake and alert. There is no obvious cranial nerve abnormality. The gait was not tested. DIAGNOSTIC DATA: There were no chest x-ray available for comparison. OTHER LABORATORY DATA: CBC: WBC 8.2, hemoglobin 11.8, hematocrit 36.8, platelet count 202. Chemistry: Sodium 138, potassium 4.3, BUN is 69, creatinine 11.7, glucose 106. IMPRESSION: 1. Dyspnea, most likely secondary to possible pulmonary edema, fluid overload secondary to congestive heart failure, end-stage renal disease. 2. Acute hypoxic respiratory failure, rule out pulmonary embolism. 3. History of congestive heart failure, most likely diastolic dysfunction. 4. End-stage renal disease. 5. Acute hypoxic respiratory failure. RECOMMENDATION: I will check the CTA of the chest. Check ABG on room air. Albuterol, ipratropium nebulizer p.r.n. Dr. Wilson thank you for involving me in the care of Ms. Crane TRANSINT:[id number] Voice Confirmation ID: [id number] DOCUMENT ID: [id number] DEEDEE KAUFMAN MD at 1035 CC: COY WILSON MD [id number] DICTATION DATE: 04/17/17 1500 BETTING CLERK: 04/17/17 1600 DIS IN 04/26/17 [place] [address]
== END 2017-04-26 20:38 | disposition home or self-care (01) | DRG 175 ==
LOC: D.M2 00:29
PROVIDERS: Family Medicine; Internal Medicine; Internal Medicine Hematology & Oncology; Internal Medicine Nephrology; Internal Medicine Pulmonary Disease; ADMIT Internal Medicine
PROC: 5A1D70Z Performance of Urinary Filtration, Intermittent, Less than 6 Hours Per Day (ICD-10-PCS; principal; 2017-04-17)
DX: I26.99 Other pulmonary embolism without acute cor pulmonale (principal); J96.01 Acute respiratory failure with hypoxia; N18.6 End stage renal disease; I50.23 Acute on chronic systolic (congestive) heart failure; I13.2 Hypertensive heart and chronic kidney disease with heart failure and with stage 5 chronic kidney disease, or end stage renal disease; I42.9 Cardiomyopathy, unspecified; E11.22 Type 2 diabetes mellitus with diabetic chronic kidney disease; Z99.2 Dependence on renal dialysis; E03.9 Hypothyroidism, unspecified; I25.10 Atherosclerotic heart disease of native coronary artery without angina pectoris; I08.1 Rheumatic disorders of both mitral and tricuspid valves; R91.1 Solitary pulmonary nodule; E87.5 Hyperkalemia; D64.9 Anemia, unspecified

== ENCOUNTER 2017-05-23 14:48 | Inpatient (IN) | payer MEDICARE ==
[~2017-05-23] VITALS: Ht 167.6 cm; Wt 78.5 kg
[~2017-05-23 14:48] MED LIST changes: +COUMADIN5 MG PO; +VELTASSA8.4 GM PO
--- NOTE | 2017-05-23 18:36 | NUR ---
1824 PATIENT ARRIVED TO UNIT VIA EMS. PATIENT ABLE TO AMBULATE FROM GERNEY TO BED. PATIENT HAS PERSONAL CANE FOR BALANCE. NO IV ACCESS. RESP EVEN AND UNLABORED. FISTULA TO RIGHT ARM ENLARGED, PAINFUL AND PATIENT STATES IT WAS BURNING. NO DISTRESS. PATIENT SITTING TO SIDE OF BED. 1829 SANDWICH PROVIED UPON REQUEST. PATIENT SITTING TO SIDE OF BED CONSUMING SANDWICH AT THIS TIME.
--- NOTE | 2017-05-23 18:46 | NUR ---
PATIENT DOES NOT HAVE CURRENT COPY OF MEDICATIONS WITH HER. MEDS REVIEWED FROM PREVIOUS MED REQ AND UPDATED TO THE BEST OF PATIENTS ABILITY. PHARMACY UPDATED.
--- NOTE | 2017-05-23 19:04 | NUR ---
RECIEVED LAYING IN BED WITH EYES OPEN. PLEASANT AND TALKATIVE. DENIES ANY NEEDS AT THIS TIME. CALL LIGHT IN REACH.
[2017-05-23 20:06] VITALS: BP 147/71
--- NOTE | 2017-05-23 22:00 | NUR ---
UNABLE TO START IV WITH 2 NURSES ATTEMPTS X2. VANCOMYCIN ORDERED AND IT IS LISTED ALLERGY. NOTIFIED SRIKANTH HAMMOND WITH NEW ORDER TO D/C VANCOMYCIN AND START ROCEPHIN 1 GRAM IJ. PT HAS ALLERGY TO PCN AND ROCEPHIN HAS A CROSS SENSITIVITY TO PCN. ALSO, ORDERS TO HOLD IV TIL TODAY AND THEY WOULD LOOK AT IT. ROCEPHIN HELD AT THIS TIME AND WILL REPORT TO ONCOMMING NURSE.
[2017-05-23 22:32] VITALS: BP 147/71; BMI 29.2
--- NOTE | 2017-05-23 23:12 | NUR ---
WRITTEN ORDERS PUT IN COMPUTER, VANCOMYCIN NOT ORDERED R/T PT HAVING AN ALLERGY LISTED.
[2017-05-24 00:13] LABS: HEMATOCRIT 39.5 % (36.0-48.0); HEMOGLOBIN 13.2 g/dL (12-16); LYMPHOCYTES 19.7 % (15-50); MCH 30.6 pg (26.0-34.0); MCHC 33.4 g/dL (31.0-37.0); MCV 91.6 fL (80.0-100.0); MEAN PLATELET VOLUME 9.4 fL (7.4-10.4); NEUTROPHILS 65.5 % (40-80); PLATELET COUNT 223 10x3/uL (130-400); RBC 4.31 10x6/uL (4.00-5.40); RDW 15.1 % (11.5-14.5); WBC 5.6 10x3/uL (4.8-10.8)
[2017-05-24 00:31] LABS: INR 2.51 (0.85-1.17); PROTIME 27.3 SECONDS (11.6-15.0)
[2017-05-24 00:32] LABS: ALBUMIN 3.4 g/dL (3.4-5.0); APTT 64.7 SECONDS (22.8-39.4); BILIRUBIN - DIRECT 0.12 mg/dL (0.00-0.30); BILIRUBIN - INDIRECT 0.28 mg/dL (0.00-1.00); BILIRUBIN - TOTAL 0.4 mg/dL (0.2-1.3)
[2017-05-24 00:45] VITALS: BP 129/77
[2017-05-24 01:28] LABS: ANION GAP 16.6 mmol/L (8-16); CARBON DIOXIDE 29.3 mmol/L (21.0-32.0); CREATININE - SERUM 8.5 mg/dL (0.6-1.3); POTASSIUM - SERUM 3.9 mmol/L (3.5-5.1)
[2017-05-24 05:11] VITALS: BP 109/55
[2017-05-24 05:24] LABS: ANION GAP 19.8 mmol/L (8-16); CALCIUM 8.2 mg/dL (8.5-10.1); CARBON DIOXIDE 27.1 mmol/L (21.0-32.0); CREATININE - SERUM 8.9 mg/dL (0.6-1.3); VANCOMYCIN - RANDOM 0.8 ug/mL (10.0-20.0)
[2017-05-24 05:26] LABS: POTASSIUM - SERUM 4.9 mmol/L (3.5-5.1)
--- NOTE | 2017-05-24 06:29 | NUR ---
RESTING IN BED WITH EYES CLSOED. WAKES EASILY WITH VERBAL STIMULI. CALL LIGHT AND OVERBED TABLE IN REACH.
--- NOTE | 2017-05-24 07:40 | NUR ---
ASSESSMENT COMPLETED. TELEMERTY SHOWS SR 72. RESERVE RIGHT ARM WITH FISTULA. FISTULA ENLARGED. 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 CALL LIGHT IN REACH WITH SR UP.
[2017-05-24 08:15] VITALS: BP 135/75
[2017-05-24 11:29] VITALS: Ht 167.6 cm; Wt 78.5 kg
[2017-05-24 12:14] VITALS: BP 134/64
--- NOTE | 2017-05-24 13:51 | NUR ---
PT UP ON SIDE OF BED. DENIES ANY NEEDS. WILL MONITOR
[2017-05-24 16:02] VITALS: BP 125/59
--- NOTE | 2017-05-24 18:23 | NUR ---
UP ON SIDE F BED. NO NEEDS VOICED. WILL MONITOR
--- NOTE | 2017-05-24 19:36 | NUR ---
PT IN BED RESTING QUEITLY WITH EYES CLOSED. BED IN LOW POSITION, CALL LIGHT WITHIN REACH. WILL CTM.
--- NOTE | 2017-05-24 21:04 | NUR ---
FSBS 145. NO INSULIN GIVEN PER SLIDING SCALE.
[2017-05-24 21:09] VITALS: BP 127/73
[2017-05-25 01:59] VITALS: BP 137/79
[2017-05-25 05:54] VITALS: BP 145/69
--- NOTE | 2017-05-25 06:08 | NUR ---
PT FSBS 91. NO INSULIN GIVEN PER SLIDING SCALE. PT RESTING QUIETLY IN BED. BREATHING EVEN AND UNLABORED. DENIES ANY PAIN OR NEEDS AT THIS TIME. BED IN LOW POSITION, CALL LIGHT WITHIN REACH.
[2017-05-25 06:17] LABS: BASOPHILS 0.3 % (0-2); EOSINOPHILS 3.2 % (0-7); HEMATOCRIT 40.3 % (36.0-48.0); HEMOGLOBIN 13.1 g/dL (12-16); IMMATURE GRANULOCYTES 0.2 % (0-5); LYMPHOCYTES 33.4 % (15-50); MCH 30.7 pg (26.0-34.0); MCHC 32.5 g/dL (31.0-37.0); MONOCYTES 12.4 % (2-11); NEUTROPHILS 50.5 % (40-80); PLATELET COUNT 231 10x3/uL (130-400); RBC 4.27 10x6/uL (4.00-5.40); RDW 15.1 % (11.5-14.5)
[2017-05-25 06:18] LABS: MCV 94.4 fL (80.0-100.0)
[2017-05-25 06:27] LABS: INR 2.28 (0.85-1.17); PROTIME 25.2 SECONDS (11.6-15.0)
[2017-05-25 06:30] LABS: ANION GAP 17.9 mmol/L (8-16); CALCIUM 8.6 mg/dL (8.5-10.1); CARBON DIOXIDE 27.9 mmol/L (21.0-32.0); PHOSPHOROUS 6.8 mg/dL (2.5-4.9); POTASSIUM - SERUM 4.8 mmol/L (3.5-5.1)
[2017-05-25 06:34] LABS: CREATININE - SERUM 11.9 mg/dL (0.6-1.3)
--- NOTE | 2017-05-25 07:30 | NUR ---
RESTING QUIETLY NAD NOTED
[2017-05-25 07:55] VITALS: BP 148/79
--- NOTE | 2017-05-25 08:12 | NUR ---
ASSESSMENT DONE. DENIES NEEDS.
[2017-05-25 12:21] VITALS: BP 121/64
[2017-05-25 15:25] VITALS: BP 117/63
--- NOTE | 2017-05-25 16:53 | NUR ---
WITHOUT CHANGES OR DISTRESS NOTED AT THIS TIME. DENIES NEEDS.
--- NOTE | 2017-05-25 20:04 | NUR ---
RESUMED CARE OF PT, LYING IN BED RESPIRATIONS EVEN AND UNLABORED ON ROOM AIR. PLAN OF CARE DISCUSSED, NPO AT MIDNIGHT. NO NEEDS AT THIS TIME, CALL LIGHT IN REACH. WILL CONTINUE TO MONITOR. SEE NURSE ASSESSMENT.
[2017-05-25 21:43] VITALS: BP 116/68
[2017-05-26 01:21] VITALS: BP 141/72
[2017-05-26 05:18] VITALS: BP 162/83
[2017-05-26 05:50] LABS: BASOPHILS 0.5 % (0-2); EOSINOPHILS 2.7 % (0-7); HEMATOCRIT 39.2 % (36.0-48.0); HEMOGLOBIN 12.7 g/dL (12-16); IMMATURE GRANULOCYTES 0.2 % (0-5); MCH 30.6 pg (26.0-34.0); MCHC 32.4 g/dL (31.0-37.0); MCV 94.5 fL (80.0-100.0); NEUTROPHILS 54.6 % (40-80); PLATELET COUNT 203 10x3/uL (130-400); RBC 4.15 10x6/uL (4.00-5.40); WBC 6.2 10x3/uL (4.8-10.8)
[2017-05-26 06:08] LABS: INR 1.85 (0.85-1.17); PROTIME 21.3 SECONDS (11.6-15.0)
[2017-05-26 06:51] LABS: ANION GAP 21.3 mmol/L (8-16); CALCIUM 8.5 mg/dL (8.5-10.1); CARBON DIOXIDE 23.4 mmol/L (21.0-32.0); CREATININE - SERUM 12.2 mg/dL (0.6-1.3); POTASSIUM - SERUM 4.7 mmol/L (3.5-5.1)
[2017-05-26 08:00] VITALS: BP 149/86
--- NOTE | 2017-05-26 10:55 | NUR ---
CALLED SURGERY AND SPOKE WITH KATHY, INFOMRED HIM THAT THERE WAS NO SIGN UP ON DOOR STATING PT WAS NPO, SO DIRECTOR OF SALES AND MARKETING WENT AHEAD AND GAVE PT HER BREAKFAST. KATHY STATED THAT HE WILL CALL AND LET ME KNOW IF SHE WILL STILL HAVE THE SURGERY TODAY.
--- NOTE | 2017-05-26 11:07 | NUR ---
RECEIVED CALL BACK FROM DR. THORNTON, EXPLAINED TO HIM THAT I WAS TOLD IN REPORT THAT PT HAD BEEN NPO SINCE MIDNIGHT, BUT APPARENTLY THERE WAS NO SIGN ON THE DOOR, SO LOCK CORNER MACHINE OPERATOR WENT AHEAD AND GAVE PT HER BREAKFAST. DR. THORNTON STATED THAT WILL NOT BE ABLE TO DO PT TODAY OR TOMORROW, SO PT CAN BE D/C IF OK WITH NEPHROLOGY AND HE WILL DO SURGERY ON PT NEXT WEEK.
[2017-05-26 12:00] VITALS: BP 153/79
--- NOTE | 2017-05-26 12:28 | NUR ---
Patient Name: MAXINE CRANE Admission Status: Elective Accout number: [id number] Admission Date: 05-23-2017 : 1955 Admission Diagnosis: Attending: FELICITY SLOAN Current LOS: 3 Anticipated DC Date: 05-26-2017 Planned Disposition: Home Primary Insurance: MEDICARE A & B Discharge Planning Comments: * Is the patient Alert and Oriented? Yes 0 * How many steps to enter\exit or inside your home? NONE 0 * PCP DR. CABRERA IN [place] 0 * Pharmacy [facility] IN [place] 0 * Preadmission Environment Home Alone 0 * ADLs Independent 0 * Equipment Cane 0 * Other Equipment EQUIPMENT COMPANY IN [place] - NO PREFERNCE 0 * List name and contact numbers for known caregivers / representatives who currently or will assist patient after discharge: AMISH BRISENO, FRIEND, SEEMA CRANE, SPOUSE, 0 * Community resources currently utilized Other 0 * Please name any agencies selected above. OUTPATIENT DIAYSIS, [facility] IN [place], T/T/S, 1030AM, [facility] TRANSPORTS PT ALSO HAS ACCESS TO MEDICAID TRANSPORTATION, $3 PER ROUND TRIP 0 * Additional services required to return to the preadmission environment? No 0 * Can the patient safely return to the preadmission environment? Yes 0 * Has this patient been hospitalized within the prior 30 days at any hospital? No 0 CM MET WITH PT IN ROOM TO DISCUSS DISCHARGE PLANNING AND NEEDS. PT REPORTS LIVING AT HOME INDEPENDENTLY AND ALONE. PT HAS CANE WITH NO MEDICAL EQUIPMENT PROVIDER PREFERENCE. PT HAS NO OUTSIDE SERVICES ASSISTING IN THE HOME OTHER THAN AMISH, WHO PT PRIVATE PAYS FOR SERVICES NEEDED. PT REPORTS MAKING TOO MUCH MONEY FOR MEDICAID HOME SERVICES. PT HAS NO IMMEDIATE PLAN TO RETURN TO SENIOR LIVING [facility]. PT REPORTS HAVING ACCESS TO MEDICAID TRANSPORTATION SERVICES IF NEEDED. CM DISCUSSED AVAILABILITY OF HOME HEALTH, REHAB SERVICES AND MEDICAL EQUIPMENT. PT DENIES DISCHARGE NEEDS, REPORTS SHE WILL CALL A FRIEND TO PICK HER UP FOR DISCHARGE HOME. IMPORTANT MESSAGE FROM MEDICARE PROVIDED AND EXPLAINED. CM LET PT BORROW A PHONE GALVANIZING POT RUNNER HER CELL PHONE BATTERY WAS LOW. BEDSIDE NURSE NOTIFIED. Molder Feeder: Bony Manuel
--- NOTE | 2017-05-26 12:50 | NUR ---
PROVIDED DISCHARGE TEACHING TO PT, PT VERBALIZED UNDERSTANDING REGARDING TEACHING. D/C LT FA IV TIP INTACT. ALSO RECHECKED BLOOD SUGAR AND NOW IT IS 101. PT WILL NOTIFY NURSE OR CISCO ADMINISTRATOR WHEN READY FOR WHEELCHAIR. PT DENIES ANY NEEDS AT THIS TIME. CALL LIGHT IN REACH, NAD NOTED, WILL CONTINUE PLAN OF CARE.
--- NOTE | 2017-05-26 12:58 | NUR ---
BLOOD SUGAR OF 40, PT FIXING TO EAT LUNCH, WILL RECHECK BLOOD SUGAR IN 30MIN. PT INFORMED PT ABOUT DISCHARGE ORDERS. PT DENIES ANY NEEDS AT THIS TIME. CALL LIGHT IN REACH, NAD NOTED, WILL CONTINUE PLAN OF CARE.
[2017-05-26 13:57] LABS: APPEARANCE CLOUDY (CLEAR); BILIRUBIN NEGATIVE (NEGATIVE); COLOR YELLOW (YELLOW); GLUCOSE 100 mg/dL (NEGATIVE); KETONE NEGATIVE (NEGATIVE); NITRITE NEGATIVE (NEGATIVE); PROTEIN 2+ mg/dL (NEGATIVE); SPECIFIC GRAVITY 1.005 (1.005-1.020); UROBILINOGEN NORMAL (NORMAL)
[2017-05-26 13:58] LABS: BACTERIA MANY /hpf (NONE SEEN); MUCUS <1+ /lpf (NONE SEEN); RED CELLS - URINE 0-5 /hpf (0-5); WHITE CELLS - URINE RARE /hpf (0-5)
--- NOTE | 2017-05-26 14:00 | NUR ---
PT INFORMED THAT HER RIDE WILL NOT BE HERE UNTIL THIS EVENING. DENIES ANY NEEDS AT THIS TIME. CALL LIGHT IN REACH, NAD NOTED, WILL CONTINUE PLAN OF CARE.
[2017-05-26 16:00] VITALS: BP 161/96
--- NOTE | 2017-05-26 16:22 | NUR ---
BLOOD SUGAR OF 92, NO COVERAGE NEEDED PER S/S. PT STATED THAT RIDE WILL BED HERE AROUND 6. PT DENIES ANY NEEDS AT THIS TIME. CALL LIGHT IN REACH, NAD NOTED.
--- NOTE | 2017-05-26 19:08 | NUR ---
RECEIVED REPORT, WILL ASSUME CARE OF PT, PT WAITING FOR RIDE TO BE DISCHARGE, CALL LIGHT IN REACH, WILL CONTINUE PLAN OF CARE
--- NOTE | 2017-05-26 21:37 | NUR ---
PT DAUGHTER ARRIVED TO PICK HER UP, PT DISCHARGED HOME, TAKEN DOWNSTAIRS VIA WHEELCHAIR
[2017-05-26 21:40] VITALS: BP 133/67
== END 2017-05-26 21:38 | disposition home or self-care (01) | DRG 314 ==
LOC: D.M2 14:48
PROVIDERS: Internal Medicine Nephrology; ADMIT Internal Medicine Nephrology
PROC: 5A1D70Z Performance of Urinary Filtration, Intermittent, Less than 6 Hours Per Day (ICD-10-PCS; principal; 2017-05-25)
DX: T82.7XXA Infection and inflammatory reaction due to other cardiac and vascular devices, implants and grafts, initial encounter (principal); N18.6 End stage renal disease; I13.2 Hypertensive heart and chronic kidney disease with heart failure and with stage 5 chronic kidney disease, or end stage renal disease; Y83.8 Other surgical procedures as the cause of abnormal reaction of the patient, or of later complication, without mention of misadventure at the time of the procedure; T82.898A Other specified complication of vascular prosthetic devices, implants and grafts, initial encounter; E11.22 Type 2 diabetes mellitus with diabetic chronic kidney disease; I50.9 Heart failure, unspecified; Z99.2 Dependence on renal dialysis; Z91.15 Patient's noncompliance with renal dialysis; E03.9 Hypothyroidism, unspecified; Z86.711 Personal history of pulmonary embolism; Z79.01 Long term (current) use of anticoagulants

== ENCOUNTER 2017-05-31 13:10 | Inpatient (IN) | payer MEDICARE ==
[~2017-05-31] VITALS: Ht 167.6 cm; Wt 78.5 kg
[2017-05-31 16:05] LABS: BASOPHILS 0.2 % (0-2); EOSINOPHILS 1.3 % (0-7); HEMOGLOBIN 12.5 g/dL (12-16); IMMATURE GRANULOCYTES 0.1 % (0-5); LYMPHOCYTES 9.9 % (15-50); MCH 30.8 pg (26.0-34.0); MCHC 32.9 g/dL (31.0-37.0); MCV 93.6 fL (80.0-100.0); MEAN PLATELET VOLUME 10.5 fL (7.4-10.4); MONOCYTES 8.6 % (2-11); NEUTROPHILS 79.9 % (40-80); PLATELET COUNT 181 10x3/uL (130-400); RBC 4.06 10x6/uL (4.00-5.40); WBC 9.2 10x3/uL (4.8-10.8)
[2017-05-31 16:34] LABS: INR 1.14 (0.85-1.17); PROTIME 14.2 SECONDS (11.6-15.0)
[2017-05-31 16:54] LABS: ALBUMIN 3.9 g/dL (3.4-5.0); ANION GAP 25.7 mmol/L (8-16); BILIRUBIN - TOTAL 0.56 mg/dL (0.2-1.3); CALCIUM 8.6 mg/dL (8.5-10.1); CARBON DIOXIDE 22.6 mmol/L (21.0-32.0); CREATININE - SERUM 19.3 mg/dL (0.6-1.3); PHOSPHOROUS 8.4 mg/dL (2.5-4.9); PROTEIN - SERUM 9.5 g/dL (6.4-8.2)
[2017-05-31 16:59] LABS: POTASSIUM - SERUM 6.3 mmol/L (3.5-5.1)
--- NOTE | 2017-05-31 17:09 | NUR ---
SPOKE WITH ARIANA IN RECOVERY INFORMED HER THAT PT HAS NO IV ACCESS, ARIANA STATED THAT ANESTHESIA WOULD START IV IN OR.
--- NOTE | 2017-05-31 17:30 | NUR ---
CALLED PHARMACY AND SPOKE WITH J CARLOS, INFORMED HIM THAT I NEED THE GENTAMICIN.
--- NOTE | 2017-05-31 19:54 | NUR ---
RESUMED CARE OF PT, LYING IN BED RESPIRATIONS EVEN AND UNLABORED ON ROOM AIR. 94 SR ON TELEMETRY. PLAN OF CARE DISCUSSED. NPO AT THIS TIME, CALL LIGHT IN REACH. SEE NURSE ASSESSMENT. WILL CONTINUE TO MONITOR.
--- NOTE | 2017-05-31 21:29 | NUR ---
SPOKE TO LEESA BARTLETT, GIVE KAEXALATE ORDERED. PRE OP MEDS GIVEN AND CHECKLIST COMPLETED.
[2017-05-31 21:32] VITALS: BP 160/80
--- NOTE | 2017-05-31 22:16 | NUR ---
GONE FOR SURGERY
--- NOTE | 2017-05-31 23:24 | NUR ---
Dialysis Coordiator: C[facility]Y [facility]. KRISTOPHER ESCOBAR.
[2017-05-31 23:44] VITALS: BP 159/85
--- NOTE | 2017-05-31 23:47 | NUR ---
BACK FROM SURGERY, VSS. DIALYSIS NURSE CALLED.
--- NOTE | 2017-06-01 02:06 | NUR ---
LEESA DENNEY BLOOD BANK BUSINESS MANAGER PAGED FOR PAIN MEDICATION, AWAITING CALL BACK.
[2017-06-01 02:21] VITALS: BP 153/86
--- NOTE | 2017-06-01 02:27 | NUR ---
BUPRENEX 0.15MG GIVEN WHILE DIALYZING. RIGHT ARM IS GROWING IN SIZE, BLACK AREA OF ANEURYSM IS GROWING IN CIRCUMFERENCE WELL. MANUAL CUFF AT BEDSIDE TO BE USED A TOURNIQUET NEEDED. WILL CONTINUE TO MONITOR.
--- NOTE | 2017-06-01 04:09 | NUR ---
DIALYSIS COMPLETED. 22 GAUGE TO LEFT AC X 6 STICKS. LEVAQUIN IVPB INFUSING. VSS AT THIS TIME, DID EXPERIENCE A DROP IN BP TOWARDS THE END OF DIALYSIS. MANUAL CUFF APPLIED TO RIGHT UPPER ARM. CALL LIGHT IN REACH. WILL CONTINUE TO MONITOR.
[2017-06-01 05:52] LABS: BASOPHILS 0.3 % (0-2); EOSINOPHILS 1.3 % (0-7); HEMATOCRIT 36.9 % (36.0-48.0); HEMOGLOBIN 12.1 g/dL (12-16); IMMATURE GRANULOCYTES 0.3 % (0-5); MCH 30.4 pg (26.0-34.0); MCHC 32.8 g/dL (31.0-37.0); MCV 92.7 fL (80.0-100.0); MONOCYTES 9.9 % (2-11); NEUTROPHILS 78.2 % (40-80); PLATELET COUNT 184 10x3/uL (130-400); RBC 3.98 10x6/uL (4.00-5.40); RDW 14.9 % (11.5-14.5); WBC 7.6 10x3/uL (4.8-10.8)
[2017-06-01 06:19] VITALS: BP 115/64
[2017-06-01 06:26] LABS: ALBUMIN 3.5 g/dL (3.4-5.0); ANION GAP 21.4 mmol/L (8-16); BILIRUBIN - TOTAL 0.7 mg/dL (0.2-1.3); CARBON DIOXIDE 22.8 mmol/L (21.0-32.0); PROTEIN - SERUM 9.3 g/dL (6.4-8.2)
--- NOTE | 2017-06-01 06:33 | NUR ---
TRANSFERRED TO 2133 FOR CLOSER MONITORING, AM MEDS PASSED. RIGHT ARM IS SLOWLY SWELLING, WITH BLACK CENTER INCREASING IN SIZE WELL. MANUAL CUFF REMAINS ON PT. CALL LIGHT IN REACH.
[2017-06-01 06:38] LABS: CREATININE - SERUM 12.5 mg/dL (0.6-1.3); POTASSIUM - SERUM 4.2 mmol/L (3.5-5.1)
--- NOTE | 2017-06-01 07:30 | NUR ---
AM ROUNDS COMPLETED. INTRODUCED MYSELF TO PT PRIMARY RN FOR TODAYS SHIFT. PT IS VERY ILL AND NOT FEELING WELL. IMMEDIATELY REQUESTED A THROW UP BAG AND VOMITTED 200ML GREENISH YELLOW EMESIS. PT CANT RECALL LAST TIME SHE ATE OR DRANK. WILL CALL PRIMARY AND REQUEST PRN ANTI-ENEMIC. PT SITTING UP IN BED WITH R.ARM STABLIZED AND TRYING TO KEEP IT STILL. PT HAS A BP CUFF IN PLACE IN CASE OF EMERGENT NEED R/T R.FA ANEURSYM AT FISTULA SITE. UNABLE TO MEASURE R/T NOT WANTING TO DISTURB SITE. WHEN SHINING LIGHT UPON IT CAN NOTE EXUDATE BENEATH BRUISED RAISED AREA. WILL CTM CLOSELY.
--- NOTE | 2017-06-01 07:51 | NUR ---
PT TOSSING AND TURNING AND VERY DIAPHORETIC AND WARM. FSBS 112. PROVIDED PT WITH PRN ZOFRAN FOR NAUSEA HOWEVER PT STILL THROWING UP. WILL CTM.
[2017-06-01 07:52] VITALS: BP 148/79
--- NOTE | 2017-06-01 08:57 | NUR ---
CHECKED PTS R.ARM AND NOTED ONE DROP OF BLOOD OOZED OUT OF SITE. CALLED AND ORDERS OBTAINED TO PLACE GUAZE OVER IT AND WRAP WITH KERLIX FAIRLY TIGHT. WRAPPED SITE AND PT STATES "IM NOT FEELING GOOD, I DONT FEEL RIGHT" BUT PT UNABLE TO COMMUNICATE EXACTLY WHAT IS WRONG. CHECKED VITALS AND BP 157/90 HR 86 PULSE OX 98% AND RR 15 NONLABORED. WILL CTM CLOSELY.
--- NOTE | 2017-06-01 10:21 | NUR ---
PT GAGGING BUT NOT THROWING UP. C/O PAIN IN THAT R.ARM PROVIDED PT WITH PRN PAIN MEDICATION. R.ARM DRSG STILL CLEAN DRY INTACT. WILL CTM.
[2017-06-01 12:30] VITALS: BP 164/92
[2017-06-01 12:34] VITALS: BMI 29.7
--- NOTE | 2017-06-01 13:46 | NUR ---
AT BEDSIDE TO ASSESS PT. UNWRAPPED R.FA SO SHE COULD SEE, SITE STILL HAS SCANT BLOOD BUT NOT ACTIVELY DRAINING. REWRAPPED SITE AND UX DESIGNER AT BEDSIDE FOR BLOOD CULTURES. WILL CPOC.
--- NOTE | 2017-06-01 14:45 | NUR ---
PT RESTING QUIETLY IN BED WITH EYES CLOSED. RR NONLABORED. R.ARM DRSG CDI. NO S/S OF DISTRESS OR ANY CURRENT NEEDS. WILL CTM.
--- NOTE | 2017-06-01 15:00 | NUR ---
WAITING ON ANBX FROM PHARMACY CALLED THEM AND THEY STATE THEY WILL BRING IT UP.
--- NOTE | 2017-06-01 15:45 | NUR ---
STILL WAITING ON ANBX FROM PHARMACY. CALLED THEM AGAIN.
[2017-06-01 16:01] VITALS: BP 173/94
--- NOTE | 2017-06-01 16:48 | NUR ---
PTS R.ARM REMAINS CLEAN AND DRY NO CHANGES. PT C/O NAUSEA AGAIN AND DENIES WANTING TO EAT OR DRINK ANYTHING. PROVIDED PT WITH PRN ZOFRAN AND INITIATED IVPB INFUSING VIA L.AC PIV. PT RESTING QUIETLY AND DENIES ANY NEEDS. WILL CTM.
--- NOTE | 2017-06-01 18:25 | NUR ---
PT RESTING QUIETLY IN BED WITH EYES CLOSED. RR NONLABORED. R.ARM REMAINS CLEAN AND DRY. ANBX FINISHED INFUSING AND NS RUNNING AT KVO. NO S/S OF DISTRESS OR ANY CURRENT NEEDS AT THIS TIME. WILL PASS ON TO NIGHTSHIFT NURSE.
--- NOTE | 2017-06-01 20:08 | NUR ---
RESUMED CARE OF PT, LYING IN BED RESPIRAITONS EVEN AND UNLABORED. LAB AT BEDSIDE TO OBTAIN BLOOD SAMPLE, PT IS HESITANT STATES WE ARE TRYING TO KILL HER. AFTER EXPLANATION OF WHY IT IS NEEDED, SHE AGREES TO HAVE BLOOD DRAWN. RIGHT FOREARM WRAPPED IN KERLEX, SLIGHTLY SOILED. WILL MONITOR. CLOSELY. CALL LIGHT IN REACH. SEE NURSE ASESSSMENT.
[2017-06-01 20:27] VITALS: BP 169/96
--- NOTE | 2017-06-01 22:13 | NUR ---
BED BATH AND LINENS CHANGED. HEMOSPLIT DRESSING CHANGED AND KERLEX DRESSING CHANGED TO RIGHT FOREARM. NO NEEDS AT THIS TIME, CALL LIGHT IN REACH. WILL CONTINUE TO MONITOR.
[2017-06-02 00:33] VITALS: BP 149/90
--- NOTE | 2017-06-02 02:05 | NUR ---
LYING IN BED WITH EYES CLOSED, CALL LIGHT IN REACH. RIGHT ARM DRESSING C/D/I, MANUAL CUFF ON. WILL CONTINUE TO MONITOR.
[2017-06-02 04:33] VITALS: BP 154/69
[2017-06-02 05:19] LABS: INR 1.26 (0.85-1.17); PROTIME 15.3 SECONDS (11.6-15.0)
[2017-06-02 05:25] LABS: BASOPHILS 0.1 % (0-2); EOSINOPHILS 2.6 % (0-7); HEMATOCRIT 37.1 % (36.0-48.0); HEMOGLOBIN 12.2 g/dL (12-16); IMMATURE GRANULOCYTES 0.1 % (0-5); LYMPHOCYTES 12.4 % (15-50); MCH 30.4 pg (26.0-34.0); MCHC 32.9 g/dL (31.0-37.0); MCV 92.5 fL (80.0-100.0); MEAN PLATELET VOLUME 10.2 fL (7.4-10.4); MONOCYTES 14.3 % (2-11); NEUTROPHILS 70.5 % (40-80); PLATELET COUNT 178 10x3/uL (130-400); RBC 4.01 10x6/uL (4.00-5.40); RDW 14.4 % (11.5-14.5); WBC 6.9 10x3/uL (4.8-10.8)
[2017-06-02 05:27] LABS: ALBUMIN 3.3 g/dL (3.4-5.0); ANION GAP 21.4 mmol/L (8-16); BILIRUBIN - TOTAL 0.54 mg/dL (0.2-1.3); CALCIUM 8.9 mg/dL (8.5-10.1); CARBON DIOXIDE 24.4 mmol/L (21.0-32.0); CREATININE - SERUM 15.4 mg/dL (0.6-1.3); POTASSIUM - SERUM 4.8 mmol/L (3.5-5.1); PROTEIN - SERUM 9.2 g/dL (6.4-8.2)
--- NOTE | 2017-06-02 06:32 | NUR ---
PRE OP MEDS GIVEN, CONSENTS SIGNED, AND CHECKLIST COMPLETED.
--- NOTE | 2017-06-02 07:36 | NUR ---
AM ROUNDS COMPLETED. PT FAMILIAR WITH ME FROM YESTERDAY. PT READY FOR SX. SURGERY TEAM HERE NOW. PT LEAVING NO FURTHER NEEDS.
--- NOTE | 2017-06-02 09:40 | NUR ---
WOUNVAC TO RIGHT ARM SET AT HIGH CONT 125
[2017-06-02 10:00] VITALS: BP 137/70
--- NOTE | 2017-06-02 10:00 | NUR ---
PT BACK FROM PROCEDURE AWAKE AND RESTING QUIETLY IN BED. VS 137/70, HR 89, PULSE OX 93% ON RA, TEMP 97.0 RR 15. PT HAS R.FA WOUND VAC IN PLACE AT 125 ORDERED BY . PT UNABLE TO MOVE THAT ARM R/T BLOCK. PT STILL C/O NAUSEA AND WILL BE PROVIDED WITH PRN ZOFRAN. PT DENIES ANY FURTHER NEEDS AT THIS TIME. WILL CTM.
--- NOTE | 2017-06-02 10:24 | NUR ---
DIALYSIS CALLED FOR PT. WILL TRANSPORT PT DOWN AND THEY WILL FINISH THE FREQUENT VITALS. JUSTICE RENAL LOCK EXPERT IN ROOM NO FURTHER NEEDS AT THIS TIME.
--- NOTE | 2017-06-02 13:24 | NUR ---
PT CALLED FROM DIALYSIS C/O HEADACHE AND REQUESTING PRN TYLENOL. PROVIDED PT WITH IT AND SHE VOICED THANKS AND IS STABLE IN DIALYSIS RECIEVING TX. NO FURTHER NEEDS AT THIS TIME. WILL CPOC.
--- NOTE | 2017-06-02 13:24 | NUR ---
Patient Name: MAXINE CRANE Admission Status: Urgent Accout number: [id number] Admission Date: 05-31-2017 : 1955 Admission Diagnosis:INFECT/INFLM REACT D/T OTH CARDI/VASC DEV/IMPLNT/GRFT, Attending: Randal Campbell Current LOS: 2 Anticipated DC Date: Planned Disposition: Nursing Home Facility Primary Insurance: MEDICARE A & B PLANNED EXTERNAL PROVIDER: TO BE DETERMINED Discharge Planning Comments: CM RECEIVED ORDER FOR PLACEMENT IN [facility] WELL WORKING ON WOUND VAC CHANGE ARRANGEMENTS AT THE [facility]. CM ATTEMPTED TO MEET WITH PT FOR INITIAL ASSESSMENT OF DISCHARGE NEEDS. PT WAS NOT IN ROOM AT APPROXIMATELY 1315 HOURS. CM TO ATTEMPT ASSESSMENT OF PT AT A LATER TIME. Sub Acute Care Nurse: Bony Manuel
--- NOTE | 2017-06-02 15:03 | NUR ---
PT BACK FROM DIALYSIS A&O SITTING UP IN BED READY TO EAT. PROVIDED PT WITH PRN ZOFRAN FOR NAUSEA. VSS AND PT DENIES ANY CURRENT PAIN OR NEEDS. CL IN REACH. WILL CPOC.
[2017-06-02 16:22] VITALS: BP 119/68
--- NOTE | 2017-06-02 19:00 | NUR ---
ROUNDING NOTE: PT UNDERWENT REPAIR OF RIGHT ARM AVF ANEURYSM TODAY AND NOW HAS A WOUND VAC PLACEMENT TO RIGHT ARM WELL. PT IS ALERT AND ORIENTED X3. PT HAS A LEFT CHEST HEMOSPLIT AND A LEFT AC SALINE LOC. ON MONITOR PT IS SR. WILL CONT TO MONITOR.
--- NOTE | 2017-06-02 19:38 | NUR ---
PT DENIES ANY CURRENT NEEDS AND IS SITTING UP IN BED TALKING ON PHONE. BEDSIDE SHIFT REPORT GIVEN AND PT DENIES ANY FURTHER NEEDS FROM ME AT THIS TIME.
[2017-06-02 20:59] VITALS: BP 99/52
[2017-06-03 01:13] VITALS: BP 127/73
[2017-06-03 04:14] LABS: BASOPHILS 0.2 % (0-2); EOSINOPHILS 2.6 % (0-7); HEMATOCRIT 35.8 % (36.0-48.0); HEMOGLOBIN 11.8 g/dL (12-16); IMMATURE GRANULOCYTES 0.2 % (0-5); LYMPHOCYTES 20.4 % (15-50); MCH 30.2 pg (26.0-34.0); MCV 91.6 fL (80.0-100.0); MONOCYTES 12.4 % (2-11); NEUTROPHILS 64.2 % (40-80); PLATELET COUNT 179 10x3/uL (130-400); RBC 3.91 10x6/uL (4.00-5.40); RDW 14.5 % (11.5-14.5); WBC 6.5 10x3/uL (4.8-10.8)
[2017-06-03 04:46] LABS: ALBUMIN 3.2 g/dL (3.4-5.0); ANION GAP 18.4 mmol/L (8-16); BILIRUBIN - TOTAL 0.4 mg/dL (0.2-1.3); CALCIUM 8.9 mg/dL (8.5-10.1); CARBON DIOXIDE 25.1 mmol/L (21.0-32.0); CREATININE - SERUM 11.6 mg/dL (0.6-1.3); POTASSIUM - SERUM 4.5 mmol/L (3.5-5.1); PROTEIN - SERUM 8.2 g/dL (6.4-8.2)
[2017-06-03 04:51] VITALS: BP 124/55
--- NOTE | 2017-06-03 07:30 | NUR ---
RECIEVED PT IN BED EYES CLOSED RESP UNLABORED WOUND VAC PATENT TO RT ARM NAD NOTED
--- NOTE | 2017-06-03 07:44 | NUR ---
PT HAS EXPERIENCED EPISODES OF HALLUCINATIONS AND CONFUSION THROUGHOUT THE NIGHT. PT HAS BEEN SEEING PEOPLE AND CHILDREN IN THE ROOM WHO ARE NOT PRESENT. PT IS TALKING ABOUT FOOD IN A REFRIDGERATOR AND TALKING ABOUT THINGS THAT DO NOT MAKE SENSE. PT ALSO TRYING TO PULL AT HER WOUND VAC AND HER HEMOSPLIT, WHICH NEEDED TO BE REDRESSED AND COVERED. PT NEEDED TO BE REORIENTED AND REDIRECTED NUMEROUS TIMES. PT IS SOMEWHAT BETTER THIS MORNING. PERHAPS AMS IS DUE TO ANESTHESIA. WILL CONT TO MONITOR.
[2017-06-03 08:46] VITALS: BP 127/77
--- NOTE | 2017-06-03 11:46 | NUR ---
REPORT CALLED FROM DIALYSIS UNABLE TO DIALIZE PT ACTIVASE INDWELLING IN HEMESPLIT PT BACK TO ROOM VSS NAD NOTED
[2017-06-03 11:50] VITALS: BP 127/69
[2017-06-03 15:46] VITALS: BP 120/70
[2017-06-03 21:24] VITALS: BP 104/72
[2017-06-04 04:00] VITALS: BP 113/65
--- NOTE | 2017-06-04 04:10 | NUR ---
PT SITTING ON SIDE OF BED AND HAS VOMITTED X 1 INTO WASTE BASKET. CARE PROVIDED. STARTED IV ABT TO PIV IN LEFT FOREARM. ADMINISTERED ZOFRAN 4MG SIVP FOR N/V. WILL MONITOR RESPONSE.
--- NOTE | 2017-06-04 05:45 | NUR ---
PT REFUSED TO ALLOW AM LAB TO BE DRAWN. SON AT BEDSIDE. STILL FEELING NAUSEATED. NO FURTHER VOMITTING.
--- NOTE | 2017-06-04 07:20 | NUR ---
RECEIVED REPORT. ASSUMED CARE OF PATIENT. PATIENT RESTING WITH EYES CLOSED, RESP EVEN AND UNLABORED. WOUND VAC PATENT TO RIGHT ARM. DENIES NEEDS. NO DISTRESS. CALL LIGHT WITHIN REACH.
--- NOTE | 2017-06-04 08:41 | NUR ---
PATIENT RESTING IN BED WITH EYES CLOSED. PATIENT EASILY AROUSED BUT REFUSING TO SIT UP AND TAKE MEDICATION AT THIS TIME. CALL LIGHT WITHIN REACH. NO DISTRESS.
[2017-06-04 09:34] VITALS: BP 133/72
--- NOTE | 2017-06-04 10:03 | NUR ---
ATTEMPTED TO ADMINISTER MEDICATION TO PATIENT AGAIN AND PATIENT REFUSED. NO DISTRESS. REPOSITIONED PATIENT IN BED. CALL LIGHT WITHIN REACH.
[2017-06-04 12:16] VITALS: BP 144/72
--- NOTE | 2017-06-04 13:57 | NUR ---
BLUE PORT ACCESSED PER . 5ML WITHDRAW TO MAKE SURE ACTIVASE WAS WITHDRAWN FROM PORT. 5MORE ML WITHDRAWN TO COMPLETE WASTE. BLOOD FOR LAB DRAWN. BLUE PORT FLUSHED WITH 10ML NORMAL SALINE. BLUE PORT HEP LOCKED WITH 2.4ML HEPARIN. STERILE CAPS APPLIED. BLOOD SENT TO LAB.
[2017-06-04 13:58] LABS: BASOPHILS 0.1 % (0-2); EOSINOPHILS 1.5 % (0-7); HEMATOCRIT 34.1 % (36.0-48.0); HEMOGLOBIN 11.3 g/dL (12-16); IMMATURE GRANULOCYTES 0.1 % (0-5); LYMPHOCYTES 11.2 % (15-50); MCH 30.1 pg (26.0-34.0); MCHC 33.1 g/dL (31.0-37.0); MCV 90.9 fL (80.0-100.0); MEAN PLATELET VOLUME 9.8 fL (7.4-10.4); MONOCYTES 6.6 % (2-11); NEUTROPHILS 80.5 % (40-80); PLATELET COUNT 170 10x3/uL (130-400); RBC 3.75 10x6/uL (4.00-5.40); RDW 14.3 % (11.5-14.5)
[2017-06-04 13:59] LABS: WBC 9.3 10x3/uL (4.8-10.8)
[2017-06-04 14:04] LABS: INR 1.14 (0.85-1.17); PROTIME 14.2 SECONDS (11.6-15.0)
[2017-06-04 14:19] LABS: ALBUMIN 3.1 g/dL (3.4-5.0); ANION GAP 19.1 mmol/L (8-16); BILIRUBIN - TOTAL 0.35 mg/dL (0.2-1.3); CALCIUM 8.2 mg/dL (8.5-10.1); CARBON DIOXIDE 25.3 mmol/L (21.0-32.0); POTASSIUM - SERUM 4.4 mmol/L (3.5-5.1); PROTEIN - SERUM 8.1 g/dL (6.4-8.2)
--- NOTE | 2017-06-04 15:20 | NUR ---
SPOKE TO JEFFREY AND RECEIVED NEW ORDERS - MAY ACCESS BLUE PORT FOR LAB DRAWS AND IV MEDICATION ADMINISTRATION. MUST WITHDRAW HEPARIN PRIOR TO USE. MUST HEP LOCK AFTER EACH USE. DO KEEP CONNECTED AT KVO RATE!
[2017-06-04 16:12] VITALS: BP 163/88
--- NOTE | 2017-06-04 17:06 | NUR ---
MEDICATED FOR PAIN AT THIS TIME. NO DISTRESS.
--- NOTE | 2017-06-04 18:39 | NUR ---
RED PORT ON HEMESPLIT IS WRAPPED AND MARKED TO INDICATE THAT ACTIVASE IS INSTILLED. PATIENT SITTING TO SIDE OF BED. CALL LIGHT WITHIN REACH. NO DISTRESS.
[2017-06-04 21:46] VITALS: BP 158/80
[2017-06-05] VITALS: BP 153/87
[2017-06-05 05:03] LABS: BASOPHILS 0.1 % (0-2); EOSINOPHILS 4.4 % (0-7); HEMATOCRIT 32.8 % (36.0-48.0); IMMATURE GRANULOCYTES 0.1 % (0-5); LYMPHOCYTES 16.9 % (15-50); MCH 30.1 pg (26.0-34.0); MCHC 33.5 g/dL (31.0-37.0); MCV 89.9 fL (80.0-100.0); MONOCYTES 12.8 % (2-11); NEUTROPHILS 65.7 % (40-80); PLATELET COUNT 186 10x3/uL (130-400); RBC 3.65 10x6/uL (4.00-5.40); RDW 14.1 % (11.5-14.5)
[2017-06-05 05:12] LABS: WBC 6.9 10x3/uL (4.8-10.8)
[2017-06-05 05:33] VITALS: BP 146/73
[2017-06-05 05:41] LABS: ANION GAP 18.7 mmol/L (8-16); BILIRUBIN - TOTAL 0.39 mg/dL (0.2-1.3); CALCIUM 8.6 mg/dL (8.5-10.1); CARBON DIOXIDE 24.6 mmol/L (21.0-32.0); CREATININE - SERUM 14.1 mg/dL (0.6-1.3); INR 1.17 (0.85-1.17); POTASSIUM - SERUM 4.3 mmol/L (3.5-5.1); PROTEIN - SERUM 8.1 g/dL (6.4-8.2); PROTIME 14.5 SECONDS (11.6-15.0)
--- NOTE | 2017-06-05 05:44 | NUR ---
PT HAD REFUSED HER HS MEDS LAST NIGHT D/T NAUSEA. MEDS WERE LEFT IN A CUP AT BEDSIDE WITH ENCOURAGEMENT TO TAKE WHEN HER STOMACH FELT BETTER AND SHE WAS GIVEN IV ZOFRAN VIA HEMOSPLIT. THE MEDS REMAINED IN THE CUP AT BEDSIDE AND PT TOLD NURSE SHE WAS GOING TO TAKE THEM SOON. THIS WENT ON ALL NIGHT. IV ZYVOX STARTED TO LEFT HEMOSPLIT AND NOTED THAT ALL MEDS WERE NOW GONE. THANKED PT FOR TAKING HER MEDS. GEOTECHNICAL FIELD TECHNICIAN FOUND ON NEXT ROUND THAT PT HAD WADDED UP ALL THE MEDS IN A [place] AND TOLD GEOTECHNICAL FIELD TECHNICIAN SHE WOULD TAKE THEM LATER. ALL MEDS THROWN AWAY AT THIS TIME. ALSO, ORDER TO HEPARINIZE THE HEMOSPLIT WRITTEN TO INSTILL 240UNITS OF HEPARIN. STANDARD INSTILLATION IS 2.400 UNITS AND THIS HAS BEEN INSTILLED NOW.
--- NOTE | 2017-06-05 07:52 | NUR ---
PT SITTING UP IN BED DENIES ANY NEEDS WILL CONT TO MONITOR
[2017-06-05 08:52] VITALS: BP 157/77
--- NOTE | 2017-06-05 09:50 | NUR ---
PT TO DIALYSIS
--- NOTE | 2017-06-05 12:36 | NUR ---
PT STILL IN DIALYSIS
--- NOTE | 2017-06-05 13:28 | NUR ---
Nutrition follow-up: Diet: REnal PO intake ~60% average of meals Pt is s/p surgery; in dialysis at this time. Wt: 178# PO intake fair at this time. RDN following.
--- NOTE | 2017-06-05 13:56 | NUR ---
PT COMPLETE, 1L OFF. PT HYPOTENSIVE DURING TX. NO OTHER COMPLAINTS.
--- NOTE | 2017-06-05 14:59 | NUR ---
Wound care/Wound vac dressing change: Right forearm wound measures 3cm x 3cm x 2cm x 1.5cm from 12-12 oclock. Wound bed is red and bleeds well. No odor. No sign of infection. Dressing change involved 1 piece of black foam. Settings: -125mmgh high continuous. Pt tolerated well.
[2017-06-05 16:27] VITALS: BP 109/53
--- NOTE | 2017-06-05 17:24 | NUR ---
Patient Name: MAXINE CRANE Encounter No: [id number] : 1955 Primary Insurance: MEDICARE A & B Anticipated DC Date: 06-07-2017 Planned Disposition: Group Home Facility External Planned Provider: [facility]; MEDICARE REHAB BED DCP follow-up note: CM RECEIVED CALL FROM [facility], [facility] [place], , WHO REPORTS THEY PLAN TO ACCEPT PT FOR SKILLED BED AT DISCHARGE. INTERMEDIATE WILL MANAGE THE WOUND VAC. CM SPOKE TO PT IN ROOM WHO IS IN AGREEMENT WITH DISCHARGE TO [facility] FOR [facility]ED C[facility], SHE DOES NOT PLAN TO BE THERE FOR GROUP HOME CARE. IMPORTANT MESSAGE FROM MEDICARE PROVIDED AND EXPLAINED, CHOICE LETTER SIGNED FOR [facility]. FOR DISCHARGE, CALL NURSE REPORT TO [facility] AT [phone]; FAX DISCHARGE INFORMATION TO [facility] AT [phone]. [facility] TO [facility]. Bony Manuel, CASE MANAGEMENT
--- NOTE | 2017-06-05 20:29 | NUR ---
HS MEDS GIVEN WITH FRESH ICE WATER. ULTRAM 1 TAB GIVEN FOR C/O PAIN.
[2017-06-05 21:22] VITALS: BP 142/70
[2017-06-06 02:14] VITALS: BP 142/68
--- NOTE | 2017-06-06 05:44 | NUR ---
HYDRO OPERATOR AT BED SIDE, BATH AND LINEN CHANGE COMPLETE.
[2017-06-06 05:45] LABS: BASOPHILS 0.1 % (0-2); EOSINOPHILS 4.5 % (0-7); HEMATOCRIT 32.6 % (36.0-48.0); HEMOGLOBIN 10.9 g/dL (12-16); IMMATURE GRANULOCYTES 0.1 % (0-5); LYMPHOCYTES 12.2 % (15-50); MCH 30.4 pg (26.0-34.0); MCHC 33.4 g/dL (31.0-37.0); MCV 90.8 fL (80.0-100.0); MEAN PLATELET VOLUME 9.3 fL (7.4-10.4); MONOCYTES 9.5 % (2-11); NEUTROPHILS 73.6 % (40-80); PLATELET COUNT 193 10x3/uL (130-400); RBC 3.59 10x6/uL (4.00-5.40); RDW 14.1 % (11.5-14.5); WBC 6.8 10x3/uL (4.8-10.8)
[2017-06-06 05:55] VITALS: BP 181/97
[2017-06-06 05:57] LABS: INR 1.18 (0.85-1.17); PROTIME 14.6 SECONDS (11.6-15.0)
[2017-06-06 06:01] LABS: ANION GAP 16.5 mmol/L (8-16); BILIRUBIN - TOTAL 0.3 mg/dL (0.2-1.3); CALCIUM 8.5 mg/dL (8.5-10.1); CARBON DIOXIDE 26.2 mmol/L (21.0-32.0); PHOSPHOROUS 5.7 mg/dL (2.5-4.9); POTASSIUM - SERUM 3.7 mmol/L (3.5-5.1); PROTEIN - SERUM 8.2 g/dL (6.4-8.2)
[2017-06-06 06:03] LABS: CREATININE - SERUM 9.4 mg/dL (0.6-1.3)
--- NOTE | 2017-06-06 07:15 | NUR ---
REPORT RECEIVED. RR EVEN AND UNLABORED. PT DENIES NEEDS AT THIS TIME. WILL CTM.
--- NOTE | 2017-06-06 08:00 | NUR ---
PT VOMITED SMALL AMT CLEAR EMISIS. GAVE ZOFRAN. HEPARIN DRAWN OUT PRIOR TO ADMINISTRATION. REHEPARINIZED AFTER ADMINISTRATION.
--- NOTE | 2017-06-06 08:50 | NUR ---
PT TRANSFERRED TO DIALYSIS X2 ASSIST.
[2017-06-06 09:48] VITALS: BP 142/72
--- NOTE | 2017-06-06 11:25 | NUR ---
PT BACK FROM DIALYSIS. RR EVEN AND UNLABORED. PT REPORTS FEELING "WORN OUT". ASSISTED PT TO BATHROOM. WILL CTM.
[2017-06-06 12:26] VITALS: BP 116/67
[2017-06-06 15:16] VITALS: BP 130/62
--- NOTE | 2017-06-06 18:22 | NUR ---
PT RESTING QUIETLY, RR EVEN AND UNLABORED. PT DENIES NEEDS AT THIS TIME. WILL GIVE SHIFT REPORT ON PT CONDTION FOR THE DAY.
--- NOTE | 2017-06-06 19:35 | NUR ---
ASSESSMENT COMPLETE, SITTING UP ON SIDE OF BED, RESPERATIONS EVEN ON RA. LEFT CHEST HEMOSPLIT DRSG C/D/I. WOUND VAC TO RIGHT FOREARM DRSG INTACT. PT DENIES PAIN OR NEEDS, BED LOW, CL IN REACH.
--- NOTE | 2017-06-06 21:46 | NUR ---
HS MED GIVEN, ULTRAM 1 TAB GIVEN FOR C/O PAIN TO RIGHT ARM, NO OTHER NEEDS VOICED AT THIS TIME, BED LOW, CL IN REACH.
[2017-06-06 21:50] VITALS: BP 176/81
[2017-06-07] VITALS (18 sets, daily range): BP systolic 127–235; BP diastolic 65–128
--- NOTE | 2017-06-07 02:45 | NUR ---
PT LYING IN BED, PULLED HER WOUND VAC TO RIGHT FOREARM OFF, DRY HEAVING, WEAK. I RAISED PTS HOB TO 35 DEGREES AND ASSISTED PT TO UPRIGHT, SITTING POSITION. PT IS MILDLY CONFUSED AT TIMES, PRN ZOFRAN GIVEN FOR DRY HEAVING. PT IS AWARE THAT SHE PULLED HER WOUND VAC OFF, HOWEVER, DOES NOT UNDERSTAND THE NEED FOR IT AT THIS TIME. TRACY RALPH REPLACED WOUND VAC WITHOUT DIFFICULTY, AND ALSO CHANGED PTS HEMOSPLIT DRESSING, IT WAS ROLLING UP AND COMING OFF. PT DEMONSTRATES LETHARGY AT THIS TIME. PT WAS ASSISTED BACK TO A RESTING POSITION, DENIES ANY NEEDS. WILL CONTINUE TO MONITOR CLOSELY. BED LOW, CALL LIGHT IN REACH, SIDE RAILS X 2, HOB 30 DEGREES.
[2017-06-07 05:38] LABS: BASOPHILS 0.2 % (0-2); EOSINOPHILS 3.8 % (0-7); HEMATOCRIT 33.7 % (36.0-48.0); HEMOGLOBIN 11.1 g/dL (12-16); IMMATURE GRANULOCYTES 0.2 % (0-5); LYMPHOCYTES 16.2 % (15-50); MCH 30.1 pg (26.0-34.0); MCHC 32.9 g/dL (31.0-37.0); MCV 91.3 fL (80.0-100.0); MEAN PLATELET VOLUME 9.2 fL (7.4-10.4); MONOCYTES 11.9 % (2-11); NEUTROPHILS 67.7 % (40-80); PLATELET COUNT 225 10x3/uL (130-400); RBC 3.69 10x6/uL (4.00-5.40); RDW 14.2 % (11.5-14.5); WBC 6.7 10x3/uL (4.8-10.8)
[2017-06-07 05:51] LABS: INR 1.19 (0.85-1.17); PROTIME 14.7 SECONDS (11.6-15.0)
[2017-06-07 06:04] LABS: ANION GAP 15.5 mmol/L (8-16); BILIRUBIN - TOTAL 0.3 mg/dL (0.2-1.3); CALCIUM 8.5 mg/dL (8.5-10.1); CARBON DIOXIDE 25.4 mmol/L (21.0-32.0); POTASSIUM - SERUM 3.9 mmol/L (3.5-5.1); PROTEIN - SERUM 8.1 g/dL (6.4-8.2)
--- NOTE | 2017-06-07 09:50 | NUR ---
RESTS IN BED WITHOUT NEEDS OR COMPLAINTS. CALL LIGHT IN REACH. WILL CONT. PLAN OF CARE.
--- NOTE | 2017-06-07 12:11 | NUR ---
Wound vac dressing change Right forearm 2cm x 3cm x 0.7cm (improved) granulation noted. No muscle/tendon/bone exposed. Drainage is small/ serosanguinous. No odor. Wound bed is red/beefy. -125mmhg high continuous Pt tolerated well.,
--- NOTE | 2017-06-07 15:52 | NUR ---
DR. THACKER NOTIFIED OF PT CODING. ORDERS RECEIVED.
--- NOTE | 2017-06-07 15:55 | NUR ---
RECEIVED PT POST CODE. INTUBATED WITH 7.5FR ETT. CXR DONE AT BEDSIDE PRIOR TO TRANPORT AND TUBE PLACEMENT COMFIRMED PER DR. BHARDWAJ. PT WAKING UP AND REACHING TOWARDS ETT. WILL PLACE BILATERAL SOFT WRIST RESTRAINTS TO KEEP PT FROM SELF EXTUBATING. UNABLE TO REORIENT AT THIS TIME. PLACED ON ICU MONITORS.
[2017-06-07 16:04] LABS: BASOPHILS 0 % (0-2); EOSINOPHILS 1.5 % (0-7); HEMATOCRIT 36.9 % (36.0-48.0); HEMOGLOBIN 12.4 g/dL (12-16); IMMATURE GRANULOCYTES 0.1 % (0-5); LYMPHOCYTES 30.2 % (15-50); MCH 30.5 pg (26.0-34.0); MCHC 33.6 g/dL (31.0-37.0); MCV 90.7 fL (80.0-100.0); MONOCYTES 8.1 % (2-11); NEUTROPHILS 60.1 % (40-80); PLATELET COUNT 212 10x3/uL (130-400); RBC 4.07 10x6/uL (4.00-5.40); WBC 7.8 10x3/uL (4.8-10.8)
--- NOTE | 2017-06-07 16:24 | NUR ---
PT'S CALLED AND WAS UPDATED ON PT'S STATUS AND DISCUSSED PLAN OF CARE AND CURRENT CONDITION. HE STATES THAT HE WILL TRY AND GET AHOLD OF HER DAUGHTER TO COME UP TO HOSPITAL AND CHECK ON HER.
--- NOTE | 2017-06-07 16:31 | NUR ---
AT 1528 THIS NURSE NOTIFIED BY STAFF PATIENT IN RESPIRATORY ARREST. CODE BLUE PAGED OVERHEAD. UPON ENTRY TO ROOM PATIENT NOTED TO BE IN BED UNCONSCIOUS AND NOT BREATHING. STAFF STATED PATIENT UNHOOKED HEMOSPLIT IN BATHROOM AND WAS BLEEDING WHEN THEY ENTERED THE ROOM. BREATHING ASSISTED WITH AMBUBAG. PULSE 72 AND SINUS RHYTHM. PATIENT NOTED TO BE CYANOTIC. CODE STAFF ENTERED ROOM AT 1531. BLOOD PRESSURE AT THIS TIME 199/115, SPO2 99%. PULSE 118 SR, SUCCS GIVEN AT 1535 AND ETT AIRWAY STARTED. ICU BED GIVEN AT 1538. PORTABLE CHEST XRAY AT 1540 AND PLACEMENT VERIFIED BY BENTON KO. AT 1542 PATIENT TRANSFERED TO ICU BED 6 AND FAMILY NOTFIED.
--- NOTE | 2017-06-07 16:44 | NUR ---
ADDENDUM TO PREVIOUS NOTE: THIS NURSE NOTIFIED BY STAFF THAT STAFF ATTEMPTED TO NOTIFY FAMILY HOWEVER, WAS UNABLE TO MAKE CONTACT WITH FAMILY.
[2017-06-07 16:54] LABS: ALBUMIN 3.3 g/dL (3.4-5.0); ANION GAP 21.4 mmol/L (8-16); BILIRUBIN - TOTAL 0.4 mg/dL (0.2-1.3); CALCIUM 8.6 mg/dL (8.5-10.1); CARBON DIOXIDE 21.5 mmol/L (21.0-32.0); CREATININE - SERUM 8.8 mg/dL (0.6-1.3); POTASSIUM - SERUM 3.9 mmol/L (3.5-5.1); TROPONIN-I 0.054 ng/mL (0.000-0.060)
--- NOTE | 2017-06-07 17:45 | NUR ---
DIPRIVAN GTT STARTED PER DR. GARSIA REQUEST. STARTED AT 20MCG/KG/MIN (10.8CC/HR) TO LEFT UPPER CHEST HEMESPLIT. BLUE PORT.
--- NOTE | 2017-06-07 17:50 | NUR ---
Patient Name: MAXINE CRANE Encounter No: [id number] : 1955 Primary Insurance: MEDICARE A & B Anticipated DC Date: 06-07-2017 Planned Disposition: [facility] Facility External Planned Provider: [facility], MEDICARE REHAB BED LATE ENTRY: DCP follow-up note: AT ABOUT 1115 HOURS, CM SPOKE TO SEEMA CRANE IN THE HALLWAY WHO REPORTS THAT HIS IS NOT GOING TO [facility], FOR CM TO SET UP HOME HEALTH WITH [facility] OUT OF SKIP, PT WILL RETURN HOME TO HER APARTMENT AND HAVE FAMILY ASSISTANCE. CM SPOKE TO PT IN ROOM WHO AGREED WITH THE PLAN. CM EXPLAINED PT HAVING COMPLEX MEDICAL NEEDS AND PT IS NOT ABLE TO CARE FOR HERSELF AT HOME AND HAS NO HELP NOW. PT DEMANDED HOME HEALTH AND TO DISCHARGE HOME TO HER APARTMENT. PT SIGNED CHOICE FOR HOME HEALTH WITH [facility]; CM PROVIDED AND DISCUSSED IMPORTANT MESSAGE FROM MEDICARE. CM CALLED AND SPOKE TO RENAL NURSE KWAKU WHO CALLED CM A SHORT TIME LATER, ADVISED THAT PT'S SPOUSE IS STILL AT [place], FAMILY WILL NOT PICK HIM UP TO TAKE HIM HOME AND PT WILL HAVE NO HELP AT HOME; MARCIE REPORTS THAT WILL DISCHARGE TO THE [facility] AND CAN LEAVE FROM THERE. CM SPOKE TO PT, EDUCATED PT ON THE [id number] OF MEDICAL FOLLOW UP AND DISCUSSED PT'S FRAGILE MEDICAL CONDITION; PT REPORTS IF SHE HAS TO GO TO THE [facility], SHE WILL NOT GO TO [facility], SHE WANTS CM TO SEND REFERRAL TO [facility] IN CASE SHE IS NOT ABLE TO GO HOME. CHOICE SIGNED. PT HAS BEEN ACCEPTED AT [facility] IN [place] FOR SKILLED CARE; PT NOW REPORTS SHE DOES NOT WANT TO GO THERE. CM TO SEND REFERRAL TO [facility] IN [place] FOR CUSTODIAL CARE. Bony Manuel, CASE MANAGEMENT
--- NOTE | 2017-06-07 19:40 | NUR ---
ASSESSMENT COMPLETE, SEE FLOWSHEET FOR ALL FINDINGS. PT REPOSITONED WITH PROMINENCES BRIDGED. ORAL CARE ADM. PARTIAL LINEN CHANGE COMPLETE. CPOC.
--- NOTE | 2017-06-07 20:12 | NUR ---
TOMAS PAGED REGARDING HIGH BP.
--- NOTE | 2017-06-07 20:20 | NUR ---
NEW ORDERS REC'D FROM TOMAS.
--- NOTE | 2017-06-07 20:59 | NUR ---
FAMILY AT BEDSIDE, UPDATE GIVEN AND ALL QUESTIONS ANSWERED.
--- NOTE | 2017-06-07 23:36 | NUR ---
REASSESSMENT COMPLETE, SEE FLOWSHEET FOR ALL FINDINGS. PT REPOSITIONED, ORAL CARE ADM. VSS.
[2017-06-08] VITALS (24 sets, daily range): BP systolic 108–195; BP diastolic 51–99
--- NOTE | 2017-06-08 00:05 | NUR ---
RECEIVED REPORT FOR PT. CHART CHECKED. WILL CONTINUE PLAN OF CARE.
--- NOTE | 2017-06-08 01:30 | NUR ---
PT SEDATED ON VENT. NO SIGNS OF DISTRESS. VSS. WILL CONTINUE TO MONITOR.
--- NOTE | 2017-06-08 03:00 | NUR ---
REASSESSMENT COMPLETE. NO ACUTE CHANGES FROM PREVIOUS ASSESSMENT. VSS. NO DISTRESS NOTED. WILL CONTINUE TO MONITOR.
[2017-06-08 04:07] LABS: BASOPHILS 0.1 % (0-2); EOSINOPHILS 3.7 % (0-7); HEMATOCRIT 32.5 % (36.0-48.0); HEMOGLOBIN 11.1 g/dL (12-16); IMMATURE GRANULOCYTES 0.1 % (0-5); LYMPHOCYTES 16.6 % (15-50); MCH 30.4 pg (26.0-34.0); MCHC 34.2 g/dL (31.0-37.0); NEUTROPHILS 68.5 % (40-80); PLATELET COUNT 210 10x3/uL (130-400); RBC 3.65 10x6/uL (4.00-5.40); RDW 14.4 % (11.5-14.5); WBC 8.2 10x3/uL (4.8-10.8)
--- NOTE | 2017-06-08 04:10 | NUR ---
COULD NOT OBTAIN DAILY WEIGHT. BED STATES ERROR; SCALE NOT OPERATIONAL.
[2017-06-08 04:21] LABS: INR 1.18 (0.85-1.17); PROTIME 14.6 SECONDS (11.6-15.0)
[2017-06-08 04:47] LABS: ALBUMIN 2.8 g/dL (3.4-5.0); ANION GAP 19.3 mmol/L (8-16); BILIRUBIN - TOTAL 0.4 mg/dL (0.2-1.3); CALCIUM 8.5 mg/dL (8.5-10.1); CARBON DIOXIDE 19.6 mmol/L (21.0-32.0); CREATININE - SERUM 9.5 mg/dL (0.6-1.3); MAGNESIUM - SERUM 1.7 mg/dL (1.8-2.4); POTASSIUM - SERUM 3.9 mmol/L (3.5-5.1); PROTEIN - SERUM 7.5 g/dL (6.4-8.2)
[2017-06-08 04:48] LABS: TROPONIN-I 0.167 ng/mL (0.000-0.060)
--- NOTE | 2017-06-08 06:00 | NUR ---
NO VISITORS DURING VISITATION.
--- NOTE | 2017-06-08 07:46 | NUR ---
Nutrition follow-up: Pt now intubated, sedated s/p code blue Labs reviewed PO intake has been very poor on acute floor; ~25% of meals Wt: 178# Recommend TF of Nepro start @ 20 ml/hr with advance to goal rate of 50 ml/hr. RDN following.
--- NOTE | 2017-06-08 10:02 | NUR ---
0800 AM ASSESMENT IS COMPPLETE SEE FLOW SHEET FOR FINDINGS.. PT IS SUPINE IN ICU BED ORALLY INTUBATED AND SEDATED AT THIS TIME.. HEMASPLIT IV IN USE AND THERE IS A WOUND VAC ON THE RIGHT FOREARM FISTULA AREA,, THERE IS A FISTULA ON THE LEFT NO PULSE OR THRILL ... DIPRIVAN IS INFUSING INTO THE HEMASPLIT.. 0900 MED GIVEN FAMILY CALLED UDPATE GIVEN..CT HERE TO TRANSPORT PT FOR STUDY UNABLE TO DO AT THIS TYIME.. NEEDING A HIGH FLOW IV CATH.. EULOGIO CALLLED FOR POSSIBLE PLACEMENT 919 EULOGIO HERE UNABLE TO PLACE CATH DUE TO PT BEING RENAL 924 DR GARSIA IN TO SEE PT.. DIALYSIS HERE FOR DIALYSIS UNABLE TO DO AT THIS TIME DIPRIVAN IS INFUSING INTO THE HEMASPLIT PORT AND PT IS ON VENT.. 929 DR GARSIA INFORMED OF NEED FOR CVL.. ORDERED BY HIM AND DR THORNTON CALLED AND CONSULTED FOR THIS .. 944 DR THORNTON STATES THAT HE CANNOT DO UNTIL NOONISH TODAY.. CT INFORMED.. NO OTHER CHANGES IN PT
--- NOTE | 2017-06-08 14:21 | NUR ---
1030 ATTEMPT TO CALL PT AND MOTHER FOR PERMIT FOR CVL.. BOTH PHONE NUMBERS HAVE BEEN DCd UNABLE TO REACH AT THIS TIME.. 1200 FAMILY NOT IN TO SEE PT AT THIS VISITATION.. 1320 DR THORNTON IN TO SEE PT.. INFORMED UNABLE TO REACH FAMILY FOR CONSENT TO LINE PLACEMENT.. DR SIGNED CONSENT FORM AND LINE PLACED IN PT RIGHT GROIN AREA AT THIS TIME.. 1400 CT CALLED AND INFORMED THAT PT IS NOW REAADY FOR PROCEDURE IN THE CT.. SEDATION VACATION DONE AND PT IS WIDE AWAKE .. DOES NOT FOLLOW COMMANDS BUT MOVES ALL EXTREMITIES AND RESPIRATIONS UP TO 40 SEDATION RESTARTED AND PT SETTLED ..
--- NOTE | 2017-06-08 16:59 | NUR ---
1400 FAMILY CALLED FOR UPDATE AND NUMBER RECIEVED FOR PT POA.. 1410 POA CALLED AND UPDATE GIVEN CONSENT RECIEVED FOR CVL PLACEMENT.. 1500 PT IS WITHOUT CHNAGES.. 1600 I AND O DONE 1700 DIALYSIS IN ROOM SETTING PT UP FOR DIALYSIS
--- NOTE | 2017-06-08 17:53 | NUR ---
[address] VIA BED ON PORTABLE VENT [address] .. REPOSITIONED IN BED AND IV FLUID IS MOVED FROM HEMASPLIT LINE TO CVL.. DIALYSIS STAFF IN UNIT AND PREPPING PT FOR DIALYSIS.. 1745 DIALYSIS STARTED..
--- NOTE | 2017-06-08 19:25 | NUR ---
REC'D TO CARE, SEE SECOND FLOOR OPERATOR. PT ON MECH VENT VIA OETT, SEE FLOWSHEET. PT CURRENTLY ON DIALYSIS VIA L HEMISPLIT, DSG C/D/I. HD NURSE AT . PT SEDATED WITH DIPRIVAN GTT - WILL TITRATE PER ORDERS. IVFS INFUSING TO R FEMORAL CVL, DSG C/D/I - SEE FLOWSHEET. R ARM WITH FISTULA NOTED, WOUND VAC IN PLACE. ALARMS ON.
--- NOTE | 2017-06-08 20:40 | NUR ---
DIALYSIS COMPLETE. NO VISITORS
--- NOTE | 2017-06-08 23:25 | NUR ---
REASSESSMENT PER FLOWSHEET, NO ACUTE CHANGES.
[2017-06-09] VITALS (24 sets, daily range): BP systolic 97–160; BP diastolic 59–94
--- NOTE | 2017-06-09 01:00 | NUR ---
VSS. NO SIGN OF DISTRESS.
--- NOTE | 2017-06-09 03:22 | NUR ---
REASSESSMENT PER FLOWSHEET, NO ACUTE CHANGES. NO SIGN OF DISTRESS. VSS.
[2017-06-09 04:39] LABS: BASOPHILS 0.1 % (0-2); EOSINOPHILS 4.8 % (0-7); HEMATOCRIT 32.2 % (36.0-48.0); HEMOGLOBIN 10.8 g/dL (12-16); IMMATURE GRANULOCYTES 0.4 % (0-5); MCH 30.3 pg (26.0-34.0); MCHC 33.5 g/dL (31.0-37.0); MCV 90.4 fL (80.0-100.0); MEAN PLATELET VOLUME 9.3 fL (7.4-10.4); MONOCYTES 11.1 % (2-11); NEUTROPHILS 73.6 % (40-80); PLATELET COUNT 191 10x3/uL (130-400); RBC 3.56 10x6/uL (4.00-5.40); RDW 14.8 % (11.5-14.5)
[2017-06-09 04:52] LABS: ALBUMIN 2.8 g/dL (3.4-5.0); BILIRUBIN - TOTAL 0.36 mg/dL (0.2-1.3); PHOSPHOROUS 4.7 mg/dL (2.5-4.9); POTASSIUM - SERUM 3.9 mmol/L (3.5-5.1); PROTEIN - SERUM 7.7 g/dL (6.4-8.2)
[2017-06-09 04:58] LABS: INR 1.31 (0.85-1.17); PROTIME 15.8 SECONDS (11.6-15.0)
[2017-06-09 05:06] LABS: CARBON DIOXIDE 26.9 mmol/L (21.0-32.0)
--- NOTE | 2017-06-09 11:50 | NUR ---
CPAP TRIAL PER R.T. SEDATION VACTION.
--- NOTE | 2017-06-09 12:40 | NUR ---
CPAP TRIAL PER R.T. SEDATION RESTARTED.
--- NOTE | 2017-06-09 15:55 | NUR ---
HD NURSE AT BEDSIDE STARTING TREATMENT.
--- NOTE | 2017-06-09 19:10 | NUR ---
REPORT RECEIVED, SHIFT ASSESSMENT COMPLETE. DIALYSIS NURSE JUST FINISHED DIALYSIS. TOLERTAED WELL, REPORTED HAVING SOME HYPOTENSION DURING TREATMENT. VSS NOW. PATIENT SEDATED ON VENT. REPOSISTIONING COMPLETE, ORAL CARE GIVEN.
--- NOTE | 2017-06-09 21:10 | NUR ---
NIGHT MEDS GIVEN VIA OGT-CLAMPED AT THIS TIME.
--- NOTE | 2017-06-09 23:10 | NUR ---
REASSESSMENT COMPLETE, SEE FLOWSHEET. VSS.
--- NOTE | 2017-06-09 23:30 | NUR ---
JAVA DEVELOPER ARCHITECT NOTIFIED OF NEW ORDERS NEEDING PULLED.
[2017-06-10] VITALS (24 sets, daily range): BP systolic 95–168; BP diastolic 43–109
--- NOTE | 2017-06-10 01:00 | NUR ---
RESTING WELL ON VENT. TURNED AND ORAL CARE PROVIDED.
--- NOTE | 2017-06-10 03:10 | NUR ---
REASSESSMENT COMPLETE, NO CHANGE.
[2017-06-10 04:36] LABS: BASOPHILS 0.1 % (0-2); HEMATOCRIT 31.8 % (36.0-48.0); HEMOGLOBIN 10.5 g/dL (12-16); IMMATURE GRANULOCYTES 0.2 % (0-5); LYMPHOCYTES 8.4 % (15-50); MCH 30.2 pg (26.0-34.0); MCV 91.4 fL (80.0-100.0); MEAN PLATELET VOLUME 8.9 fL (7.4-10.4); MONOCYTES 15.4 % (2-11); NEUTROPHILS 72.9 % (40-80); PLATELET COUNT 170 10x3/uL (130-400); RBC 3.48 10x6/uL (4.00-5.40); RDW 15.1 % (11.5-14.5); WBC 8.3 10x3/uL (4.8-10.8)
[2017-06-10 04:54] LABS: ALBUMIN 2.8 g/dL (3.4-5.0); ANION GAP 15.1 mmol/L (8-16); BILIRUBIN - TOTAL 0.41 mg/dL (0.2-1.3); CALCIUM 8.1 mg/dL (8.5-10.1); CARBON DIOXIDE 27.5 mmol/L (21.0-32.0); POTASSIUM - SERUM 3.6 mmol/L (3.5-5.1); PROTEIN - SERUM 7.6 g/dL (6.4-8.2)
[2017-06-10 04:57] LABS: CREATININE - SERUM 4.4 mg/dL (0.6-1.3)
--- NOTE | 2017-06-10 09:30 | NUR ---
PROPOFOL DECREASED FOR SBT.
--- NOTE | 2017-06-10 10:45 | NUR ---
PLACED BACK ON SEDATION DUE TO FAILING SBT.
--- NOTE | 2017-06-10 11:20 | NUR ---
HD NURSE AT BEDSIDE PREPARING FOR HD TREATMENT.
[2017-06-11] VITALS (24 sets, daily range): BP systolic 98–163; BP diastolic 35–78
[2017-06-11 05:09] LABS: BASOPHILS 0.1 % (0-2); EOSINOPHILS 0.2 % (0-7); HEMATOCRIT 31.4 % (36.0-48.0); HEMOGLOBIN 10.4 g/dL (12-16); IMMATURE GRANULOCYTES 0.4 % (0-5); LYMPHOCYTES 7.1 % (15-50); MCH 30.4 pg (26.0-34.0); MCHC 33.1 g/dL (31.0-37.0); MCV 91.8 fL (80.0-100.0); MEAN PLATELET VOLUME 8.8 fL (7.4-10.4); MONOCYTES 7.6 % (2-11); NEUTROPHILS 84.6 % (40-80); PLATELET COUNT 178 10x3/uL (130-400); RBC 3.42 10x6/uL (4.00-5.40); RDW 15.5 % (11.5-14.5)
[2017-06-11 05:24] LABS: ALBUMIN 2.7 g/dL (3.4-5.0); ANION GAP 16.4 mmol/L (8-16); BILIRUBIN - TOTAL 0.42 mg/dL (0.2-1.3); CALCIUM 8.3 mg/dL (8.5-10.1); CARBON DIOXIDE 26.7 mmol/L (21.0-32.0); CREATININE - SERUM 3.9 mg/dL (0.6-1.3); POTASSIUM - SERUM 4.1 mmol/L (3.5-5.1); PROTEIN - SERUM 7.9 g/dL (6.4-8.2)
--- NOTE | 2017-06-11 09:39 | NUR ---
TUBE FEEDING OFF FOR SBT.
--- NOTE | 2017-06-11 10:27 | NUR ---
SEDATION TITRATED UP FOR COMFORT.
--- NOTE | 2017-06-11 19:00 | NUR ---
REPORT RECEIVED AND ASSESSMENT COMPLETED. SEE FLOWSHEET FOR FULL DETAILS. PT FAILED CUFF LEAK TEST DURING SBT. NOW ON STEROIDS. WILL CONTINUE TO MONITOR
--- NOTE | 2017-06-11 21:00 | NUR ---
2100 MEDS GIVEN. ORAL CARE PROVIDED AND PT REPOSITIONED. WILL CONTINUE TO MONITOR
--- NOTE | 2017-06-11 23:00 | NUR ---
REASSESSMENT COMPLETED. SEE FLOWSHEET FOR FULL DETAILS. PT REPOSITIONED FOR COMFORT. PARTIAL LINEN CHANGE PROVIDED AT THIS TIME. PT RESPONDING TO COMMANDS AT THIS TIME. WILL MONITOR
[2017-06-12] VITALS (24 sets, daily range): BP systolic 94–143; BP diastolic 51–759; Ht 167.6 cm; Wt 78.5 kg
--- NOTE | 2017-06-12 01:00 | NUR ---
PT REPOSITIONED. REPIRATORY IN ROOM. ORAL CARE PERFORMED BY RT. NO OTHER CHANGES AT THIS TIME. WILL CONTINUE TO MONITOR
--- NOTE | 2017-06-12 03:00 | NUR ---
REASSESSMENT COMPLETED. SEE FLOWSHEET FOR FULL DETAILS
[2017-06-12 04:24] LABS: BASOPHILS 0.1 % (0-2); EOSINOPHILS 0.5 % (0-7); HEMATOCRIT 30.4 % (36.0-48.0); IMMATURE GRANULOCYTES 0.8 % (0-5); LYMPHOCYTES 7.3 % (15-50); MCH 30.2 pg (26.0-34.0); MCHC 32.9 g/dL (31.0-37.0); MCV 91.8 fL (80.0-100.0); MEAN PLATELET VOLUME 8.6 fL (7.4-10.4); MONOCYTES 8.4 % (2-11); NEUTROPHILS 82.9 % (40-80); PLATELET COUNT 189 10x3/uL (130-400); RBC 3.31 10x6/uL (4.00-5.40)
[2017-06-12 04:26] LABS: WBC 11.7 10x3/uL (4.8-10.8)
[2017-06-12 04:35] LABS: INR 3.27 (0.85-1.17); PROTIME 32.5 SECONDS (11.6-15.0)
[2017-06-12 04:57] LABS: ANION GAP 17.7 mmol/L (8-16); CALCIUM 7.9 mg/dL (8.5-10.1); CARBON DIOXIDE 27.9 mmol/L (21.0-32.0); MAGNESIUM - SERUM 2.4 mg/dL (1.8-2.4); PHOSPHOROUS 4.7 mg/dL (2.5-4.9); POTASSIUM - SERUM 4.6 mmol/L (3.5-5.1); THYROID STIMULATING HORMONE 9.92 uIU/mL (0.36-3.74)
--- NOTE | 2017-06-12 05:00 | NUR ---
BED BATH AND LINEN CHANGE PERFORMED. PT REPOSITIONED FOR COMFORT. WILL CONTINUE TO MONITOR
[2017-06-12 05:03] LABS: CREATININE - SERUM 6.3 mg/dL (0.6-1.3)
--- NOTE | 2017-06-12 10:46 | NUR ---
Nutrition follow-up: Pt remains intubated, sedated; weaning started Labs reviewed OGT in place with Pulmocare infusing @ 20 ml/hr Wt: 177# RDN will monitor patients labs closely; if K, PO4 start to elevate will need to change TF formula to Nepro with increase to goal rate of 40 ml/hr. RDN following.
--- NOTE | 2017-06-12 12:10 | NUR ---
0800 AM ASSESMENT IS COMPLETE SEE FLOW SHEET FOR FINDINGS.. PT IS SEDATED AND ORALLY INTUBATED ON VENT ... CVL IN RIGHT GROIN AREA.. LEFT HEMASPLIT DIALYSIS CATH 0900 MEDS GVIEN.. 1000 WITHOUT VISITORS AT THIS LAST VISITATTION 1100 PARTIAL BATH AND COMPLETE LINEN CHANGE DONE PT INCONTINENET OF OAKES COLORED SOFT STOOL 1200 WITHOUT VISITORS AT THIS TIME..
--- NOTE | 2017-06-12 13:26 | NUR ---
WOUND VAC DRESSING CHANGE WOUND TYPE: SURGICAL WOUND LOCATION: RIGHT FOREARM MEASUREMENT DATE: 06/12/17 2.5CM X 3CM X 0.4CM (IMPROVED) FULL THICKNESS? YES MUSCLE, TENDON OR BONE EXPOSED? NO UNDERMINING? NO TUNNELING/SINUS? NO APPEARANCE OF WOUND BED : PINK/GRANULATION NOTED EXUDATE (AMOUNT, COLOR, ODOR): SMALL SANGUINOUS/NO ODOR FOAM TYPE: BLACK # OF PIECES USED: 2 PIECES (1-TO WOUND BED + 1-FOR TRAC PAD) EDUCATION: N/A PT INTUBATED/SEDATED -125MMHG MOD CONTINUOUS
--- NOTE | 2017-06-12 15:06 | NUR ---
1300 WITHOUT VISITORS AT THIS TIME.. 1400 INCONTINENT OF STOOL BATH WITH PARTIAL LINEN AND GOWN CHANGE DONE 1500 WITHOUT CHANGES..
--- NOTE | 2017-06-12 17:23 | NUR ---
1600 VISITORS IN TO SEE PT.. VISITOR STATED SHE WAS PT DAUGHT AND SHE WANTED TO KNOW WHAT WAS GOING ON WITH HER MOTHER.. SHE DID NOT HAVE THE PTS PASSWORD... EXPLAINED TO HER THAT PT HAS A POA AND SHE WOULD NEED TO CONTACT HER FOR INFORMATION.. I DID ALLOW VISITOR STATING TO BE DAUGHTER IN ROOM TO SEE PT.. AFTER SEVERAL MINUTES I NOTICED THAT SHE WAS PILFERING THROUGH THE PTS PERSONAL RUBA BSAG AST THE BEDSIDE.. I DID STOP HER AT THIS TIME AND SHE APPEARED TO REPLACE ALL BELONGINGS BACK IN THE BAG AND PUT BAG BACK ON BEDSIDE TABLE... VISITORS LEFT SHORTLY THEREAFTER.. 1700 I AND O DONE..
--- NOTE | 2017-06-12 19:00 | NUR ---
REPORT RECEIVED AND ASSESSMENT COMPLETED. SEE FLOWSHEET FOR FULL DETAILS.
--- NOTE | 2017-06-12 21:00 | NUR ---
2100 MEDS GIVEN. PHONE CALL RECEIVED FROM PERSON WHO STATED THEY WERE THE PTS . THEY DID NOT KNOW PASSWORD AND STATED THEY DID NOT SET ONE UP. DID NOT RELEASE ANY PT INFORMATION, AND CALLER STATED WE "WILL BE HEARING FROM HIS PRIMER INSERTING MACHINE OPERATOR TOMORROW"
--- NOTE | 2017-06-12 23:00 | NUR ---
REASSESSMENT COMPLETED. PT REPOSITIONED, ORAL CARE PROVIDED. WILL MONITOR
[2017-06-13] VITALS (22 sets, daily range): BP systolic 116–152; BP diastolic 62–83
--- NOTE | 2017-06-13 01:00 | NUR ---
RT IN ROOM ORAL CARE COMPLETED. NO CHANGES IN STATUS. VSS. WILL MONITOR
--- NOTE | 2017-06-13 03:00 | NUR ---
REASSESSMENT COMPLETED. SEE FLOWSHEET FOR FULL DETAILS
--- NOTE | 2017-06-13 05:00 | NUR ---
PT HAD BM. FULL BED BATH AND LINEN CHANGE COMPLETED. NO OTHER CHANGES IN STATUS AT THIS TIME. WILL CONTINUE TO MONITOR
[2017-06-13 06:11] LABS: BASOPHILS 0.1 % (0-2); EOSINOPHILS 0.6 % (0-7); HEMATOCRIT 28.4 % (36.0-48.0); HEMOGLOBIN 9.4 g/dL (12-16); IMMATURE GRANULOCYTES 1.4 % (0-5); MCH 30.2 pg (26.0-34.0); MCHC 33.1 g/dL (31.0-37.0); MCV 91.3 fL (80.0-100.0); MEAN PLATELET VOLUME 9.1 fL (7.4-10.4); MONOCYTES 11.9 % (2-11); PLATELET COUNT 208 10x3/uL (130-400); RBC 3.11 10x6/uL (4.00-5.40); RDW 16.1 % (11.5-14.5); WBC 11.1 10x3/uL (4.8-10.8)
[2017-06-13 06:20] LABS: INR 2.38 (0.85-1.17); PROTIME 25.4 SECONDS (11.6-15.0)
[2017-06-13 06:26] LABS: ALBUMIN 2.7 g/dL (3.4-5.0); ANION GAP 19.8 mmol/L (8-16); BILIRUBIN - TOTAL 0.4 mg/dL (0.2-1.3); CALCIUM 7.8 mg/dL (8.5-10.1); CARBON DIOXIDE 25.2 mmol/L (21.0-32.0); CREATININE - SERUM 8.7 mg/dL (0.6-1.3); PROTEIN - SERUM 7.6 g/dL (6.4-8.2)
--- NOTE | 2017-06-13 07:15 | NUR ---
REC'D REPORT, RESUMED CARE, ETT TO VENTILATION AND SECURED, 30% FIO2 IN USE, ORAL CARE AND SUCTION COMPLETED, LT SC HEMESPLIT IN PLACE WITH CDI DRESSING, OGT WITH TF PULMOCARE AT 20 CC/HR, RIGHT ARM WITH WOUND VAC IN USE, NO LEAK DETECTED, RIGHT GROIN WITH TL CVL DRESSING CDI, B/L WRIST RESTRAINTS IN USE, PT IN DROPLET ISOLATION, ASSESSMENT COMPLETE PER FLOWSHEET, VSS, REPOSITIONED TO LEFT SIDE WITH PILLOW PROPPED TO BACK AND HEELS FLOATED
--- NOTE | 2017-06-13 08:30 | NUR ---
AM MEDS GIVEN WITHOUT DIFFICULTY
--- NOTE | 2017-06-13 09:50 | NUR ---
HD BEAGN, VSS, CHANGED BACK TO ASSIST CONTROL ON VENT, SEDATION UP TO 40 MCG
--- NOTE | 2017-06-13 11:00 | NUR ---
ASSESSMENT COMPLETE, CONTINUES ON HD, VSS, NO ACUTE CHANGE FROM PREVIOUS
--- NOTE | 2017-06-13 12:12 | NUR ---
INCONTINENT OF LARGE DIARRHEA STOOL, SKINCARE AND LINEN CHANGE COMPLETED, REPOSITIONED TO BACK, CONTINUES ON HD, VSS, WILL CONTINUE WITH POC
--- NOTE | 2017-06-13 12:15 | NUR ---
INCONTINENT OF DIARRHEA STOOL, VSS, CONTINUES ON HD, SKINCARE AND LINEN CHANGE COMPLETED, VSS
--- NOTE | 2017-06-13 15:00 | NUR ---
NO ACUTE CHANGE FROM PREVIOUS ASSESSMENT, VSS, ORAL CARE AND SUCTION COMPLETED
--- NOTE | 2017-06-13 19:00 | NUR ---
REPORT RECEIVED AND ASSESSMENT COMPLETED SEE FLOWSHEET FOR FULL DETAILS. VSS. PT IS STILL INTUBATED AT THIS TIME. HAS HAD SOME BLEEDING FROM RIGHT ARM DURING DAY SHIFT. WILL MONITOR ARM CLOSELY. VSS. WILL MONITORR
--- NOTE | 2017-06-13 21:00 | NUR ---
2100 MEDS GIVEN. PT REPOSITIONED AND ORAL CARE PROVIDED. WILL MONITOR
--- NOTE | 2017-06-13 23:39 | NUR ---
REASSESSMENT COMPLETED. SEE FLOWSHEET FOR FULL DETAILS. VSS. WILL CONTINUE TO MONITOR
[2017-06-14] VITALS (24 sets, daily range): BP systolic 84–152; BP diastolic 42–83
--- NOTE | 2017-06-14 00:56 | NUR ---
PT HAD LIQUID BM AT THIS TIME. COMPLETE BEDBATH AND LINEN CHANGE PROVIDED, WELL ORAL CARE, AND REPOSITIONING. WILL CONTINUE TO MONITOR
--- NOTE | 2017-06-14 03:00 | NUR ---
reassessment completed. see flowsheet for full details. radiology in room. no other changes in status at this time. vss. will continue to monitor
--- NOTE | 2017-06-14 04:51 | NUR ---
I&O COLLECTED AND LABS DRAWN. WILL CONTINUE TO MONITOR
[2017-06-14 05:00] LABS: BASOPHILS 0.2 % (0-2); EOSINOPHILS 1.1 % (0-7); HEMATOCRIT 29.2 % (36.0-48.0); HEMOGLOBIN 9.7 g/dL (12-16); IMMATURE GRANULOCYTES 1.2 % (0-5); LYMPHOCYTES 9.7 % (15-50); MCH 30.4 pg (26.0-34.0); MCHC 33.2 g/dL (31.0-37.0); MCV 91.5 fL (80.0-100.0); MEAN PLATELET VOLUME 9.4 fL (7.4-10.4); MONOCYTES 13.5 % (2-11); NEUTROPHILS 74.3 % (40-80); PLATELET COUNT 217 10x3/uL (130-400); RBC 3.19 10x6/uL (4.00-5.40); RDW 16.3 % (11.5-14.5); WBC 9.9 10x3/uL (4.8-10.8)
--- NOTE | 2017-06-14 05:11 | NUR ---
SOME TUBE FEEDING NOTED IN MOUTH. SUCTIONED MOUTH, AND STOPPED TUBE FEED AT THIS TIME. INLINE SUCTION REVEALED NO EVIDENCE OF ASPIRATION. PT HAD LOW GASTRIC RESIDUAL ON CHECK.
[2017-06-14 05:15] LABS: ANION GAP 14.9 mmol/L (8-16); CALCIUM 8.1 mg/dL (8.5-10.1); CARBON DIOXIDE 28.6 mmol/L (21.0-32.0); CREATININE - SERUM 6.6 mg/dL (0.6-1.3); POTASSIUM - SERUM 4.5 mmol/L (3.5-5.1)
[2017-06-14 05:54] LABS: INR 1.99 (0.85-1.17)
[2017-06-14] MEDS ORDERED: COUMADIN5 MG (09:33)
--- NOTE | 2017-06-14 10:14 | NUR ---
Nutrition follow-up: Pulmocare continues @ 20 ml/hr Labs reviewed Pt remains intubated, sedated at this time. Recommend advancing TF to goal rate of 50 ml/hr RDN following.
--- NOTE | 2017-06-14 12:15 | NUR ---
RESPRIATORY IN ROOM TO CHANGE VENT SETTINGS TO CPAP PER DR. EUGENE. SEDATION DECREASED TO HALF 20MCG/KG/MIN. PATIENT IS ABLE TO FOLLOW COMMANDS AND SQUEEZES HANDS.
--- NOTE | 2017-06-14 13:58 | NUR ---
WOUND VAC DRESSING CHANGE WOUND TYPE: surgical WOUND LOCATION: right forearm MEASUREMENT DATE: 06/14/17 2cm x 3cm x 0.3cm (improved) FULL THICKNESS? yes MUSCLE, TENDON OR BONE EXPOSED? no UNDERMINING? no TUNNELING/SINUS? no APPEARANCE OF WOUND BED : pink EXUDATE (AMOUNT, COLOR, ODOR): small serosanguinous no odor FOAM TYPE: black # OF PIECES USED: 1 to wound bed + 1 for TRAC pad EDUCATION: n/a pt sedated -125mmgh mod continuous
--- NOTE | 2017-06-14 14:15 | NUR ---
SEDATION IS TURNED OFF AT THIS TIME PER DR. EUGENE. RESPIRATORY STATES PATIENT FAILED LEAK TEST, PATIENT IS TO BE EXTUBATED PER DR. EUGENE.
--- NOTE | 2017-06-14 19:00 | NUR ---
Recevied patient resting in bed on BiPAP with eyes closed, assessment completed per flowsheet. Patient nods appropriately to questions and follows commands, no verbal reaponse. Eyes PERRLA @ 4mm with brisk response, sclera is slightly reddened. S1/S2 noted NSR with 1st degree block on telemetry and HR 72, rythmic and regular. Breathing is slightly shallow and labored on 30% BiPAP with O2 sat 97%, lung sounds clear bilateral upper and mid with diminished lower. Abdomen is round and soft with bowel sounds active x4, non-tender. Patient ESRD and anuric, no UOP. Passive ROM all extremities with all pulses palpable, weakness noted all extremities with cap refill < 3 sec. R arm incision to wound vac with dressing CDI. Repositioned for comfort with oral care declined. No further needs at this time, all VSS and will continue to monitor.
--- NOTE | 2017-06-14 19:25 | NUR ---
PATIENT CHANGED AND PERIAREA CLEANED FROM INCONTINENT BM LIQUID GREEN. LINENS CHANGED PARTIALLY.
--- NOTE | 2017-06-14 21:00 | NUR ---
No visitors at this time, repostioned for comfort. Patient resting in bed on BiPAP with no S/S of distress, will continue to monitor.
--- NOTE | 2017-06-14 23:00 | NUR ---
Reassessment completed per flowsheet, patient resting in bed with eyes closed on BiPAP. S1/S2 noted NSR with 1st degree block and HR 75, rythmic and regular. Breathing is slightly labored and dyspneic on BiPAP 30% with O2 sat 98%, lung sounds clear bilateral upper and mid with diminished lower. All pulses palpable with cap refill < 3 sec, skin warm/dry. Repostioned for comfort, no further needs at this time. All VSS and will continue to monitor.
[2017-06-15] VITALS (25 sets, daily range): BP systolic 98–138; BP diastolic 46–93
--- NOTE | 2017-06-15 01:00 | NUR ---
Patient sleeping in bed on BiPAP @ 30%, no S/S of distress. Repositioned for comfort, no further needs at this time. All VSS and will continue to monitor.
--- NOTE | 2017-06-15 03:00 | NUR ---
Reassessment completed per flowsheet, patient sleeping in bed on BiPAP. S1/S2 noted NSR with 1st degree block on telemetry and HR 75, rythmic and regular. Breathing is slightly shallow and labored on 30% BiPAP and O2 sat 98%, lung sounds clear bilateral upper and mid with diminished lower. R arm incision to wound vac, dressing CDI. All pulses palpable with cap refill < 3 sec, skin warm/dry. Repositioned for comfort, no further needs at this time. All VSS and will continue to monitor.
[2017-06-15 03:51] LABS: BASOPHILS 0.1 % (0-2); EOSINOPHILS 3.2 % (0-7); HEMATOCRIT 29.9 % (36.0-48.0); HEMOGLOBIN 9.8 g/dL (12-16); IMMATURE GRANULOCYTES 1.2 % (0-5); LYMPHOCYTES 11.4 % (15-50); MCH 30.3 pg (26.0-34.0); MCHC 32.8 g/dL (31.0-37.0); MCV 92.6 fL (80.0-100.0); MEAN PLATELET VOLUME 8.6 fL (7.4-10.4); MONOCYTES 15.1 % (2-11); PLATELET COUNT 193 10x3/uL (130-400); RBC 3.23 10x6/uL (4.00-5.40); RDW 16.4 % (11.5-14.5)
[2017-06-15 04:02] LABS: PROTIME 22.1 SECONDS (11.6-15.0)
[2017-06-15 04:04] LABS: ANION GAP 17.3 mmol/L (8-16); CALCIUM 8.3 mg/dL (8.5-10.1); CARBON DIOXIDE 26.8 mmol/L (21.0-32.0); POTASSIUM - SERUM 4.1 mmol/L (3.5-5.1)
--- NOTE | 2017-06-15 10:12 | NUR ---
Nutrition follow-up: Pt just extubated 06/14/17 NPO at this time; TF stopped Labs reviewed Wt: 177# Recommend starting full liquid diet and advance as tolerated to renal RDN following.
--- NOTE | 2017-06-15 10:21 | NUR ---
MORNING MEDS GIVEN. PT ABLE TO SWALLOW PO MEDS WITHOUT COMPLICAIONS.
--- NOTE | 2017-06-15 10:24 | NUR ---
SPOKE WITH PATIENT'S DAUGHTER AND GAVE UPDATE.
--- NOTE | 2017-06-15 14:00 | NUR ---
CLEAR LIQUID DIET TRAY DELIVED TO PATIENT. PT NEED TOTAL ASSISTANCE WITH FEEDING. SHE ATE JELLO AND DRANK APPLE JUICE. SHE SWALLOWED WELL. NO SIGNS OF ASPIRATION NOTED.
--- NOTE | 2017-06-15 15:30 | NUR ---
COMPLETE BATH GIVEN TODAY. PT HAS HAD 2 BMS SMALL, BROWN LIQUID. CVL DRESSING ON GROIN SITE CHANGED. DRESSING ON HEME SPLIT CHANGED. COMPLETE LINEN CHANGE PROVIDE. CLEAN GOWN PROVIDED. PT RESTING COMFORTABLY.
--- NOTE | 2017-06-15 19:10 | NUR ---
Received patient resting in bed with eyes closed, assessment completed per flowsheet. Patient AO x2 with slight disorientation to time/situation. Eyes PERRLA @ 4mm with brisk response. S1/S2 noted NSR on telemetry with HR 85, rythmic and regular. Breathing is shallow and unlabored on 3L via NC with O2 sat 97%, lung sounds clear bilateral upper and mid with diminished lower. Abdomen is distended and soft, bowel sounds hypoactive x4. Patient anuric, no output. Full ROM all extremities with all pulses palpable, cap refill < 3 sec with weakness noted all. R groin CVL dressing CDI, patent with no bleeding/drainage noted. R arm incision with wound vac, no bleeding drainage noted. Patient denies pain or other needs at this time, all VSS and will continue to monitor.
--- NOTE | 2017-06-15 21:00 | NUR ---
No visitors at this time, Dialysis ongoing. Patient denies pain or other needs at this time, all VSS and will continue to monitor.
--- NOTE | 2017-06-15 23:10 | NUR ---
Reassessment completed per flowsheet, patient resting in bed with eyes closed. Patient AO x2, disoriented to time/situation. S1/S2 noted NSR on telemetry with HR 80, rythmic and regular. Breathing is shallow and unlabored on 3L via NC with O2 sat 97%, lung sounds clear bilateral upper and mid with diminished lower. All pulses palpable with cap refill < 3 sec, skin warm/dry with weakness noted all. L upper chest hemesplit dressing CDI post dialysis, no bleeding/drainage noted. Patient denies pain or other needs at this time, all VSS and will continue to monitor.
[2017-06-16] VITALS (13 sets, daily range): BP systolic 88–125; BP diastolic 51–70
--- NOTE | 2017-06-16 01:00 | NUR ---
Patient resting in bed with eyes closed, repositioned for comfort. No further needs and will continue to monitor.
--- NOTE | 2017-06-16 03:10 | NUR ---
Reassessment completed per flowsheet, patient resting in bed with eyes closed. Patient AO x2, some disorientation to time/situation. S1/S2 noted NSR on telemetry with HR 91, rythmic and regular. Breathing is shallow on 3L via NC with O2 sat 98%, lung sounds clear bilateral upper and mid with diminished lower. R arm incision to wound vac, dressing CDI. All pulses palpable with cap refill < 3 sec, skin warm/dry with weakness noted all. Denies pain or other needs at this time, all VSS and will continue to monitor.
--- NOTE | 2017-06-16 05:00 | NUR ---
AM labs collected without difficulty, patient resting in bed with eyes open. Repositioned for comfort, denies pain or other needs at this time. All VSS and will continue to monitor.
[2017-06-16 05:02] LABS: BASOPHILS 0.2 % (0-2); HEMOGLOBIN 10.2 g/dL (12-16); IMMATURE GRANULOCYTES 1.1 % (0-5); MCH 30.4 pg (26.0-34.0); MCHC 32.9 g/dL (31.0-37.0); MCV 92.5 fL (80.0-100.0); MONOCYTES 11.8 % (2-11); NEUTROPHILS 69.9 % (40-80); PLATELET COUNT 230 10x3/uL (130-400); RBC 3.35 10x6/uL (4.00-5.40); RDW 16.2 % (11.5-14.5); WBC 8.5 10x3/uL (4.8-10.8)
[2017-06-16 05:42] LABS: INR 1.98 (0.85-1.17); PROTIME 21.9 SECONDS (11.6-15.0)
[2017-06-16 06:22] LABS: ANION GAP 16.2 mmol/L (8-16); CALCIUM 8.5 mg/dL (8.5-10.1); CARBON DIOXIDE 27.3 mmol/L (21.0-32.0); CREATININE - SERUM 7.7 mg/dL (0.6-1.3); POTASSIUM - SERUM 3.5 mmol/L (3.5-5.1)
--- NOTE | 2017-06-16 07:15 | NUR ---
PT DIFFICULT TO AROUSE, VSS, DENIES PAIN, WOUND VAC TO R FA CDI, R GROIN CVL CDI WITH NS INFUSING, ON DROPLET ISOLATION, L CHEST HEMOSPLIT CDI, SEE SHIFT ASSESSMENT
--- NOTE | 2017-06-16 09:00 | NUR ---
BM X1, LINEN CHANGE AND BED BATH DONE, ABLE TO VOICE NEEDS, WILL CONITNUE TO MONITOR
--- NOTE | 2017-06-16 09:44 | NUR ---
Nutrition follow-up: Diet has advanced to renal regular solids and thin liquids PO intake ~30% of meals at this time Labs reviewed RDN will order Nepro with meals. RDN following.
--- NOTE | 2017-06-16 11:10 | NUR ---
PT ABLE TO TURN SELF WITH SOME ASSISTANCE NEEDED, VSS, DENIES PAIN, CALL LIGHT AND FLUIDS WITHIN REACH
--- NOTE | 2017-06-16 11:12 | OP ---
PATIENT NAME: MAXINE CRANE MEDICAL RECORD: [id number] :55 LOCATION:[facility] [id number] ADMISSION DATE:05/31/17 SURGEON: STEPHANY THORNTON MD DATE OF OPERATION: 05/31/2017 REFERRING PHYSICIAN: Devon Romero MD PREOPERATIVE DIAGNOSES: End-stage renal disease, dependence on hemodialysis; expanding infected pseudoaneurysm, right forearm; and hyperkalemia. OPERATION PERFORMED: Insertion of a tunneled HemoSplit hemodialysis catheter via the left internal jugular vein with intraoperative fluoroscopy and all done with ultrasound guidance. SURGEON: Stephany Thornton MD ANESTHESIA: Local 1% lidocaine with epinephrine and monitoring per DIRECTOR OF CHILD WELFARE SERVICES. The patient not sufficiently n.p.o. and no sedation or other anesthetic was administered. PREOP NOTE: Ms. Crane is a 61-year-old -[place] female with an enlarging and infected pseudoaneurysm in her right forearm. She needs to dialyze before having surgery to resect it. She is brought to the operating room to insert a HemoSplit. Under local anesthesia and monitored by DIRECTOR OF CHILD WELFARE SERVICES, the patient was prepped and draped in sterile manner. The right internal jugular was visualized with ultrasound and noted to be occluded. The left internal jugular was large and compressible. I infiltrated the skin and subcutaneous tissues over it and made a small incision with a #11 blade. Then, using a needle and syringe, under ultrasound guidance, I cannulated the left internal jugular vein and then inserted the guidewire. Under the fluoroscopy, I was able to insert the guidewire into the right atrium. Dilators were passed. A peel-away dilator sheath was passed. I chose a 27-cm long HemoSplit. It was inserted through a remote exit site on the left chest infraclavicular area. It was pulled through a subcutaneous tunnel and then inserted through the peelaway sheath in the left internal jugular vein. It's tips were positioned appropriately in the right atrium and the peelaway sheath removed. Both lumens were aspirated and free return of blood confirmed. They were then flushed with saline and then heparin locked, clamped, and capped. The wounds were irrigated with Ancef and gentamicin solution. The incision was closed with interrupted inverted 3-0 Vicryl and Dermabond glue and sterile dressing was applied. The patient was then returned to her room in stable condition and able to have dialysis. TRANSINT:[id number] Voice Confirmation ID: [id number] DOCUMENT ID: [id number] STEPHANY THORNTON MD at 1112 CC: FELICITY ROMERO MD [id number] DICTATION DATE: 06/13/17 1222 CITRIX ADMINISTRATOR: 06/13/17 1252 ADM IN [facility] [address] [id number]
--- NOTE | 2017-06-16 11:12 | OP ---
PATIENT NAME: MAXINE CRANE MEDICAL RECORD: [id number] :55 LOCATION:[facility] [id number] ADMISSION DATE:05/31/17 SURGEON: STEPHANY THORNTON MD DATE OF OPERATION: 06/02/2017 REFERRING PHYSICIAN: Devon Romreo MD OPERATIONS PERFORMED: Ligation and partial excision of infected graft from the right forearm with evacuation of thrombus from infected pseudoaneurysm and application of a wound VAC negative pressure dressing. SURGEON: Stephany Thornton MD ANESTHESIA: General per PLATFORM OPERATIONS DIRECTOR. PREOPERATIVE NOTE: Ms. Crane is a 61-year-old -Dutch female with end-stage renal disease, on chronic hemodialysis, who has been dialyzing for some time now with a right forearm PTFE loop AV graft. She has developed a pseudoaneurysm originating from the venous limb, which has recently expanded dramatically and continues to expand. The overlying skin is becoming red shiny and developing necrosis. She is on antibiotics. We assume this pseudoaneurysm is infected though she has not acted septic. She is brought to the operating room at this time to resect the lesion. Under anesthesia, in supine position, the patient was prepped and draped in sterile manner. I made a transverse antecubital incision and exposed the PTFE graft and ligated and divided the venous and arterial limbs just distal to the anastomosis. I then excised a circular area of overlying skin over the pseudoaneurysm. The skin was necrotic or ischemic. The underlying thrombus was swabbed for culture. It was not grossly infected. I evacuated the thrombus and identified the PTFE graft and the enormous defect in it, which had led to this large pseudoaneurysm. I excised then as much of the graft through this wound as I could. The wound was then irrigated with antibiotic solution of Ancef and gentamicin and then a negative wound pressure dressing with black foam was applied. The patient was awakened and taken to the recovery room. Blood loss during the procedure was actually fairly minimal, no more than 50 cc. None was replaced. All sponges, instruments, and needles were accounted for and no drain was used. I did submit some of the resected pseudoaneurysm to pathology. I did not mention above but the initial portion of the operation was done under a pneumatic tourniquet on the upper arm to prevent bleeding. TRANSINT:[id number] Voice Confirmation ID: [id number] DOCUMENT ID: [id number] STEPHANY THORNTON MD at 1112 CC: FELICITY ROMERO MD [id number] DICTATION DATE: 06/13/171216 ROTARY SHEAR WORKER HELPER: 06/13/17 1241 ADM IN [place] [id number] [place] [id number]
--- NOTE | 2017-06-16 12:37 | NUR ---
Dialysis Coordinator: [facility]: Patient has been accepted to [facility] on a //Mon @ 12:30p.m. schedule. He can start on June 20 @ 11:15a.m. for paperwork. Welcome Letter forwarded to CM for patient. KRISTOPHER ESCOBAR.
--- NOTE | 2017-06-16 14:38 | NUR ---
New vac dressing in place. No change in measurements.
--- NOTE | 2017-06-16 14:39 | NUR ---
PT FED SELF LUNCH, TOLERATED WELL, REPORT CALLED TO CAMILO, WILL TRANSFER TO [id number]
--- NOTE | 2017-06-16 15:49 | NUR ---
PT ARRIVED TO UNIT AND ROOM FROM ICU. VSS. PT IS A&O AND DENIES ANY PAIN OR NEEDS JUST STATES "I WANT MY " PTS RESIDES AT THE [facility] WILL TRY TO CALL HIM FOR HER. PT HAS A WOUND VAC TO R.FA WITH DRSG CDI NO ISSUES NOTED, PT HAS A R.GROIN CVL WITH BIOPATCH INTACT, DRSG ADHERED TO SKIN AND SWAB CAPS IN USE, WILL NOTIFY DOCTOR TO SEE ABOUT REMOVAL OR NEED AND TRY TO GET A PIV THAT LOCATION PUTS HER AT HIGHER RISK FOR INFECTION. PT HAS A L.CHEST HEMESPLIT WITH BIOPATCH INTACT AND DRSG ADHERED TO SKIN. NO FURTHER NEEDS AT THIS TIME. WILL CTM.
--- NOTE | 2017-06-16 20:23 | NUR ---
PT IN BED RESTING QUIETLY. RCVING BREATHING TX. DENIES ANY NEEDS AT THIS TIME. WILL CTM.
--- NOTE | 2017-06-16 22:00 | NUR ---
PT ATTEMPTED TO GET OUT OF BED AND HAD WIGGLED HERSELF TO A SIDEWAYS POSITION WITH LEGS HANGING OFF. MOVED PT TO CHAIR TO CLEAN UP BED AND SHE WAS VERY UNSTEADY ON HER FEET. REQUIRED 3 PERSON ASSIST. PUT PT BACK IN BED AND TALKED WITH HER ABOUT NOT GETTING OUT OF BED ALONE. WILL CTM.
[2017-06-17 00:52] VITALS: BP 143/74
[2017-06-17 05:21] VITALS: BP 91/55
[2017-06-17 05:27] LABS: BASOPHILS 0.2 % (0-2); EOSINOPHILS 3.7 % (0-7); HEMATOCRIT 29.6 % (36.0-48.0); HEMOGLOBIN 9.5 g/dL (12-16); IMMATURE GRANULOCYTES 0.4 % (0-5); LYMPHOCYTES 13.1 % (15-50); MCH 29.6 pg (26.0-34.0); MCHC 32.1 g/dL (31.0-37.0); MCV 92.2 fL (80.0-100.0); MEAN PLATELET VOLUME 9.2 fL (7.4-10.4); MONOCYTES 13.4 % (2-11); NEUTROPHILS 69.2 % (40-80); PLATELET COUNT 227 10x3/uL (130-400); RBC 3.21 10x6/uL (4.00-5.40); RDW 16.2 % (11.5-14.5); WBC 9.2 10x3/uL (4.8-10.8)
[2017-06-17 05:39] LABS: ANION GAP 16.9 mmol/L (8-16); CALCIUM 8.6 mg/dL (8.5-10.1); CARBON DIOXIDE 27.5 mmol/L (21.0-32.0); CREATININE - SERUM 10.6 mg/dL (0.6-1.3); POTASSIUM - SERUM 3.4 mmol/L (3.5-5.1)
[2017-06-17 05:53] LABS: INR 2.01 (0.85-1.17); PROTIME 22.2 SECONDS (11.6-15.0)
--- NOTE | 2017-06-17 07:15 | NUR ---
RECEIVED REPORT. ASSUMED CARE OF PATIENT. RESTING IN BED WITH EYES CLOSED. EASILY AROUSED. WOUND VAC PATENT TO RIGHT ARM. IV FLUIDS INFUSING AT KVO. PATIENT ON DROPLET ISOLATION FOR ECOLI IN SPUTUM. DENIES NEEDS. NO DISTRESS.
[2017-06-17 08:00] VITALS: BP 129/50
--- NOTE | 2017-06-17 09:45 | NUR ---
PATIENT PULLED UP IN BED AND REPOSITIONED FOR COMFORT. NO DISTRESS. DENIES NEEDS AT THIS TIME. CALL LIGHT WITHIN REACH.
[2017-06-17 12:00] VITALS: BP 151/61
--- NOTE | 2017-06-17 12:08 | NUR ---
SPOKE TO PATIENTS DAUGHTER WITH HER PERMISSION. PATIENTS DAUGHTER STATES THAT PATIENT IS TRYING TO GET HER TO COME UP THERE BECAUSE SHE IS BEING RELEASED. VERIFIED FOR DAUGHTER THAT THERE ARE NO DISCHARGE ORDERS AT THIS TIME. PATIENTS DAUGHTER WANTS TO KNOW IF PATIENTS IS CALLING AND TALKING TO HER AND THIS TAPE WEAVER HAS NO INFORMATION ABOUT THAT. THANKED THIS TAPE WEAVER FOR SPEAKING TO HER.
--- NOTE | 2017-06-17 12:25 | NUR ---
AT BEDSIDE REMOVING WOUND VAC DRESSING TO RIGHT FOREARM, AT BEDSIDE. EXAMINED WOUND BED AND THINKS AREA NEEDS MORE DEBRIDEMENT AND WILL CONTACT . RECEIVED VERBAL ORDERS TO NOT REAPPLY WOUND VAC AT THIS TIME. AREA CLEANSED, PRESSURE DRESSING APPLIED. WAITING FOR NEW ORDERS.
--- NOTE | 2017-06-17 13:12 | NUR ---
UNABLE TO KEEP WOUND TO RIGHT FOREARM FROM LEAKING DESPITE PRESSURE DRESSING APPLIED. SPOKE WITH TRI LANDERS AND THE BEST OPTION UNTIL WE HEAR FROM IS TO REAPPLY WOUND VAC TO RIGHT ARM. WOUND VAC APPLIED TO RIGHT ARM. TOLERATED DRESSING CHANGE WELL. NO DISTRESS.
--- NOTE | 2017-06-17 14:45 | NUR ---
WOUND VAC LEAKING AGAIN, LARGE AMOUNTS OF BLOOD UNDER DRESSING. WOUND VAC DRESSING REMOVED AND LARGE PRESSURE DRESSING APPLIED AT THIS TIME.
--- NOTE | 2017-06-17 14:55 | NUR ---
SUPERVISOR PRINT LINE NOTIFIED OF PROBLEM WITH WOUND VAC AND THAT PRESSURE DRESSING APPLIED.
--- NOTE | 2017-06-17 15:05 | NUR ---
SPOKE WITH ABOUT WOUND VAC REMOVAL AND PRESSURE DRESSING APPLIED, RECEIVED NEW ORDERS TO CONTINUE PRESSURE DRESSING, 2 UNITS FRESH FROZEN PLASMA AND 20MCG DDAVP. ORDERS PLACED INTO COMPUTER.
--- NOTE | 2017-06-17 15:55 | NUR ---
STILL AWAITING MEFOXIN FROM PHARMACY.
--- NOTE | 2017-06-17 16:34 | NUR ---
STILL AWAITING FOR MEFOXIN FROM PHARMACY. NOTIFIED HORTICULTURAL FARM MANAGER NATHAN THAT WE ARE STILL WAITING ON THIS MEDICATION.
--- NOTE | 2017-06-17 17:05 | NUR ---
PRESSURE DRESSING INTACT. NO OOZING OR LEAKING REQUIRING DRESSING TO BE CHANGED. DESMOPRESSIN ADMINISTERED AND PATIENT TOLERATED WELL. NO DISTRESS. CALL LIGHT WITHIN REACH.
--- NOTE | 2017-06-17 18:09 | NUR ---
STILL WAITING FOR LAB TO BRING TUBES FOR 1630 BLOOD DRAW AND STILL WAITING FOR PLASMA. NO BLEEDING FROM RIGHT ARM PRESSURE DRESSING. RESTING WITH EYES CLOSED. NO DISTRESS. CALL LIGHT WITHIN REACH.
[2017-06-17 18:33] LABS: BASOPHILS 0.2 % (0-2); EOSINOPHILS 0.9 % (0-7); HEMATOCRIT 28.7 % (36.0-48.0); HEMOGLOBIN 9.5 g/dL (12-16); IMMATURE GRANULOCYTES 0.4 % (0-5); LYMPHOCYTES 10.4 % (15-50); MCH 30.4 pg (26.0-34.0); MCHC 33.1 g/dL (31.0-37.0); MEAN PLATELET VOLUME 9.2 fL (7.4-10.4); MONOCYTES 7.9 % (2-11); NEUTROPHILS 80.2 % (40-80); PLATELET COUNT 233 10x3/uL (130-400); RBC 3.12 10x6/uL (4.00-5.40); RDW 16.3 % (11.5-14.5); WBC 9.2 10x3/uL (4.8-10.8)
[2017-06-17 20:00] VITALS: BP 114/47
--- NOTE | 2017-06-17 20:11 | NUR ---
SHASHA CURRENTLY IN ROOM DOING HEMODIALYSIS. PT ON DROPLET ISOLATION. MONITOR AND CPOC.
[2017-06-18] VITALS: BP 109/54
[2017-06-18 06:21] LABS: BASOPHILS 0.4 % (0-2); EOSINOPHILS 3.7 % (0-7); HEMATOCRIT 24.6 % (36.0-48.0); HEMOGLOBIN 8.1 g/dL (12-16); IMMATURE GRANULOCYTES 0.4 % (0-5); LYMPHOCYTES 11.9 % (15-50); MCH 30.2 pg (26.0-34.0); MCHC 32.9 g/dL (31.0-37.0); MCV 91.8 fL (80.0-100.0); MONOCYTES 13.8 % (2-11); NEUTROPHILS 69.8 % (40-80); PLATELET COUNT 205 10x3/uL (130-400); RBC 2.68 10x6/uL (4.00-5.40); RDW 16.3 % (11.5-14.5); WBC 7.6 10x3/uL (4.8-10.8)
[2017-06-18 06:31] LABS: PROTIME 18.5 SECONDS (11.6-15.0)
[2017-06-18 06:32] LABS: INR 1.59 (0.85-1.17)
--- NOTE | 2017-06-18 07:00 | NUR ---
RECEIVED REPORT. ASSUMED CARE OF PATIENT. CALL LIGHT WITHIN REACH. EYES OPEN, RESTING IN BED WITH NO COMPLAINTS THIS AM. PRESSURE DRESSING TO RIGHT FOREARM REMAINS INTACT. NO BLEEDING. NO DISTRESS. DENIES PAIN THIS AM.
[2017-06-18 07:10] LABS: ANION GAP 15.8 mmol/L (8-16); CARBON DIOXIDE 26.2 mmol/L (21.0-32.0); CREATININE - SERUM 7.3 mg/dL (0.6-1.3)
[2017-06-18 08:00] VITALS: BP 148/62
--- NOTE | 2017-06-18 10:52 | NUR ---
RESTING IN BED WITH EYES CLOSED. EASILY AROUSED. K+ SUPPLEMENT ADMINISTERED AT THIS TIME ORDERED. PRESSURE DRESSING REMAINS INTACT. NO BLEEDING. CALL LIGHT WITHIN REACH. NO DISTRESS. DENIES NEEDS.
[2017-06-18 12:00] VITALS: BP 152/55
--- NOTE | 2017-06-18 12:15 | NUR ---
REPOSITIONED PATIENT. MEAL TRAY SET UP. PATIENT REQUESTING TO CALL HER DAUGHTER BUT DOES NOT KNOW THE NUMBER. PATIENT DAUGHTER NUMBER IS NOT LISTED ON HER CHART PATIENT DAUGHTER IS NOT NEXT OF KIN.
--- NOTE | 2017-06-18 12:55 | NUR ---
TELEPHONE NUMBER LISTED ON PATIENT CHART FOR MAREK KENNEDY IS NOT A WORKING NUMBER.
--- NOTE | 2017-06-18 14:03 | NUR ---
ABLE TO FIND PATIENTS CELLPHONE AND PROGRAM PROJECT ANALYST. PHONE CHARGING IN PATIENT ROOM AND PHONE WITHIN REACH. CALL LIGHT WITHIN REACH. NO DISTRESS.
--- NOTE | 2017-06-18 15:07 | NUR ---
RESTING IN BED. NO DISTRESS. WANTS TO KNOW WHEN SHE CAN GO HOME. THIS NURSE INFORMED HER THAT IT WILL NOT BE TODAY. PATIENT CONTENT AT THIS TIME. CELL PHONE IN HAND.
--- NOTE | 2017-06-18 15:14 | NUR ---
PATIENTS SPOUSE SEEMA EAGLE CALLED TO CHECK ON PATIENT. BRIEF UPDATE GIVEN AND TRANSFERRED CALL TO PATIENT ROOM.
[2017-06-18 16:00] VITALS: BP 148/69
--- NOTE | 2017-06-18 17:59 | NUR ---
PATIENT IS TOO WEAK TO ASSIST OOB TO BEDSIDE COMMODE. TRIED TO ASSIST PATIENT TO BEDPAN. PATIENT REFUSED BEDPAN. EDUCATION PROVIDED TO PATIENT THAT GETTING HER OOB WHEN SHE IS WEAK PUTS HER AND STAFF AT RISK FOR INJUYR. PATIENT CONTINUE TO REFUSE BEDPAN AND STATES SHE WILL WAIT. ENCOURAGED PATIENT TO LET NURSE AND CITY LIBRARY DIRECTOR PLACE HER ON BEDPAN AND PATIENT CONTINUE TO REFUSE.
[2017-06-18 20:00] VITALS: BP 137/62
--- NOTE | 2017-06-18 20:03 | NUR ---
RESUMED CARE OF PT, LYING IN BED RESPIRATIONS EVEN AND UNLABORED ON ROOM AIR. TALKING ON PHONE AT THIS TIME, NO NEEDS VOICED WILL CONTINUE TO MONITOR. CALL LIGHT IN REACH. RIGHT FOREARM DRESSING C/D/I. SEE NURSE ASSESSMENT.
[2017-06-19] VITALS: BP 139/58
--- NOTE | 2017-06-19 01:48 | NUR ---
LYING IN BED WITH EYES CLOSED, CALL LIGHT IN REACH. WILL CONTINUE TO MONTIOR.
--- NOTE | 2017-06-19 06:31 | NUR ---
AM MEDS PASSED, NO CHANGES FROM PREVIOUS ASSESSMENT.
[2017-06-19 06:42] VITALS: BP 148/65
[2017-06-19 07:58] VITALS: BP 155/66
--- NOTE | 2017-06-19 10:00 | NUR ---
DIRECTOR OF STRATEGY & MOBILE CALLED THIS RN TO PT'S ROOM, DIRECTOR OF STRATEGY & MOBILE STATED THAT PT WAS IN THE BATHROOM AND THERE WAS BLOOD EVERY WHERE. WENT TO PT'S ROOM, PT SITTING IN THE BATHROOM CAMODE, BLOOD GOING DOWN HER LEG. ASSESSED PT AT THIS TIME AND NOTICED THAT PT HAD PULLED OUT HER CVL LINE. PT STATED " IT GOT STUCK ON THE BED AND CAME OUT." APPLIED PRESSURE TO SITE AND COVERD WITH 4X4 AND TAPE. TOLD PT THAT SHE NEEDS TO CALL FOR ASSISSTANCE WHEN SHE WANTS TO GET UP, BECAUSE SHE IS STILL VERY WEAK. PT VERBALIZED UNDERSTANDING REGARDING TEACHING. LINEN CHANGED PER DIRECTOR OF STRATEGY & MOBILE, HELPED DIRECTOR OF STRATEGY & MOBILE GET PT BACK TO BED, CALL LIGHT IN REACH, NAD NOTED, WILL CONTINUE TO MONITOR.
--- NOTE | 2017-06-19 11:49 | NUR ---
RECEIVED CALL BACK FROM MARCIE CHANG RENAL GEOMAGNETICIAN, INFORMED HER THAT PT HAS PULLED OUT CVL LINE, AND BOTH ARMS ARE BEING RESERVED. INFORMED MARCIE Jade THAT PT GETS SOLU-MEDROL AND PROTONIX IV. MARCIE STATED THAT SHE WOULD HAVE DR. GARSIA CHANGE SOLU-MEDROL TO PO AND RENAL WILL CHANGE PROTONIX TO PO.
[2017-06-19 12:22] VITALS: BP 147/61
--- NOTE | 2017-06-19 15:00 | NUR ---
HELPED PT TO BATHROOM AND BACK TO BED, PT DENIES ANY OTHER NEEDS AT THIS TIME. CALL LIGHT IN REACH, NAD NOTED, WILL CONTINUE TO MONITOR.
[2017-06-19 16:35] VITALS: BP 151/66
--- NOTE | 2017-06-19 21:04 | NUR ---
PT IS ALERT, UP TO RESTROOM AND BACK TO BED WITH 2 ASSIST. RESPIRATIONS EVEN AND UNLABORED. CALL LIGHT IN REACH, WILL CONTINUE PLAN OF CARE.
[2017-06-19 22:39] VITALS: BP 152/76
--- NOTE | 2017-06-20 03:16 | NUR ---
PT IS LAYING IN BED WITH EYES CLOSED, RESPIRATIONS EVEN AND UNLABORED. CALL LIGHT IN REACH, WILL CONTINUE WITH PLAN OF CARE.
[2017-06-20 06:16] VITALS: BP 151/50
--- NOTE | 2017-06-20 07:11 | NUR ---
PT IN BED, WITH EYES CLOSED, RESP EVEN AND UNLABORED, PT AROUSES EASILY TO VOICE. CALL LIGHT IN REACH, NAD NOTED, WILL CONTINUE PLAN OF CARE.
[2017-06-20 07:54] VITALS: BP 148/59
--- NOTE | 2017-06-20 07:56 | NUR ---
AM MEDS GIVEN PT IN BED, DENIES ANY NEEDS AT THIS TIME. CALL LIGHT IN REACH, NAD NOTED, WILL CONTINUE TO MONITOR.
--- NOTE | 2017-06-20 10:59 | NUR ---
SON CALLED ASKING FOR TARUN. CHECKED WITH PT TO MAKE SURE I COULD PROVIDED HIM WITH INFORMATION. PT STATED THAT IT WAS OK TO GIVE HIM INFORMATION REGARDING HER PLAN OF CARE. UPDATED PTS SON REGARDING PT PLAN OF CARE.
--- NOTE | 2017-06-20 11:43 | NUR ---
HELPED PT TO BATHROOM AND BACK TO BED, PT WANTS TO GET BED BATH WILL HAVE SPEECH AND HEARING DIRECTOR PROVIDE PT WITH SUPPLIES NEEDED. CALL LIGHT IN REACH, NAD NOTED, WILL CONTINUE PLAN OF CARE.
[2017-06-20 12:15] VITALS: BP 138/61
--- NOTE | 2017-06-20 13:18 | NUR ---
LAB TRIED TO DRAW BLOOD FROM PT BUT PT WAS FIGHTING HER THE WHOLE TIME. SO BLOOD DRAW WAS UNSUCCESSFUL. WILL HAVE LAB GET BLOOD WHEN PT GOES TO DIALYSIS.
--- NOTE | 2017-06-20 14:09 | NUR ---
Nutrition follow-up: Diet: Regular PO intake ~75% of last 3 meals; appetite is improving Labs reviewed Wt: 172# PO intake fair to good at this time. RDN following.
[2017-06-20 15:30] VITALS: BP 143/65
--- NOTE | 2017-06-20 16:02 | NUR ---
ADMINISTERED 500MG OF TYLENOL FOR PAIN LEVEL OF 3/10. PT IN BED, WATCHING TV, DENIES ANY OTHER NEEDS AT THIS TIME, CALL LIGHT IN REACH, NAD NOTED, WILL CONTINUE TO MONITOR.
--- NOTE | 2017-06-20 17:09 | NUR ---
DIALYSIS NURSE AT BEDSIDE TO DO DIALYSIS. PT DENIES ANY NEEDS AT THIS TIME. CALL LIGHT IN REACH, NAD NOTED.
[2017-06-20 17:57] LABS: BASOPHILS 0.5 % (0-2); HEMOGLOBIN 8.1 g/dL (12-16); IMMATURE GRANULOCYTES 0.2 % (0-5); LYMPHOCYTES 11.7 % (15-50); MCHC 32.4 g/dL (31.0-37.0); MCV 92.6 fL (80.0-100.0); MEAN PLATELET VOLUME 8.8 fL (7.4-10.4); MONOCYTES 4.3 % (2-11); NEUTROPHILS 79.3 % (40-80); PLATELET COUNT 220 10x3/uL (130-400); RDW 16.6 % (11.5-14.5); WBC 4.2 10x3/uL (4.8-10.8)
[2017-06-20 18:07] LABS: INR 1.5 (0.85-1.17); PROTIME 17.7 SECONDS (11.6-15.0)
[2017-06-20 18:28] LABS: ALBUMIN 2.5 g/dL (3.4-5.0); BILIRUBIN - DIRECT 0.13 mg/dL (0.00-0.30); BILIRUBIN - INDIRECT 0.18 mg/dL (0.00-1.00); BILIRUBIN - TOTAL 0.31 mg/dL (0.2-1.3); CALCIUM 8.4 mg/dL (8.5-10.1); CARBON DIOXIDE 31.3 mmol/L (21.0-32.0); CREATININE - SERUM 10.7 mg/dL (0.6-1.3); POTASSIUM - SERUM 3.3 mmol/L (3.5-5.1); PROTEIN - SERUM 7.6 g/dL (6.4-8.2)
[2017-06-20 21:12] VITALS: BP 101/47
[2017-06-21 00:48] VITALS: BP 125/56
--- NOTE | 2017-06-21 00:58 | NUR ---
PT IN BED RESTING QUIETLY. BREATHING EVEN AND UNLABORED. WILL CTM.
[2017-06-21 05:33] VITALS: BP 140/55
[2017-06-21 05:47] LABS: BASOPHILS 0.2 % (0-2); EOSINOPHILS 3.7 % (0-7); HEMATOCRIT 26.6 % (36.0-48.0); HEMOGLOBIN 8.8 g/dL (12-16); IMMATURE GRANULOCYTES 0.3 % (0-5); LYMPHOCYTES 10.9 % (15-50); MCH 30.6 pg (26.0-34.0); MCHC 33.1 g/dL (31.0-37.0); MCV 92.4 fL (80.0-100.0); MEAN PLATELET VOLUME 9.6 fL (7.4-10.4); MONOCYTES 11.6 % (2-11); NEUTROPHILS 73.3 % (40-80); RBC 2.88 10x6/uL (4.00-5.40); RDW 16.6 % (11.5-14.5)
[2017-06-21 05:51] LABS: PLATELET COUNT 290 10x3/uL (130-400); WBC 5.9 10x3/uL (4.8-10.8)
[2017-06-21 05:55] LABS: INR 1.4 (0.85-1.17); PROTIME 16.7 SECONDS (11.6-15.0)
[2017-06-21 06:01] LABS: ANION GAP 12.8 mmol/L (8-16); CALCIUM 9.1 mg/dL (8.5-10.1); CARBON DIOXIDE 27.7 mmol/L (21.0-32.0); CREATININE - SERUM 6.8 mg/dL (0.6-1.3); PHOSPHOROUS 3.8 mg/dL (2.5-4.9); POTASSIUM - SERUM 3.5 mmol/L (3.5-5.1)
[2017-06-21 07:46] VITALS: BP 128/56
--- NOTE | 2017-06-21 07:54 | NUR ---
AM ROUNDING- RECEIVED REPORT FROM CLINICAL CARE MANAGER NURSE BEA. PT IS CURRENTLY LAYING IN BED ON BACK WITH EYES CLOSED RESTING. IN DROPLET ISO FOR ECOLI IN SPUTUM PER REPORT. ON ROOM AIR. NO MONITOR. LEFT CHEST HEMOSPLIT SEEN. NO NEED AT THIS CURRENT TIME. WILL CONTINUE TO MONITOR AND CONTINUE WITH PLAN OF CARE.
--- NOTE | 2017-06-21 10:16 | NUR ---
Patient Name: MAXINE CRANE Encounter No: [id number] : 1955 Primary Insurance: MEDICARE A & B Anticipated DC Date: 06-07-2017 Planned Disposition: Shelter Facility External Planned Provider: [facility], MEDICARE REHAB BED DCP follow-up note: SRINATH CALLED [facility] IN [place], , SPOKE TO AMIRA WHO REPORTS SHE KNOWS PT WHO HAS BEEN AT THE FACILITY IN THE PAST AND WILL CONSIDER FOR SKILLED REHAB IF PT HAS ANY REMAINING MEDICARE DAYS. CM FAXED REFERRAL TO [facility] AT [phone]. CM CALLED AND SPOKE TO MARISOL OF [facility], , NOTIFIED OF POSSIBLE DISCHARGE IN NEXT TWO DAYS, [facility] STILL PLANS TO ACCEPT PT AT DISCHARGE; CM FAXED UPDATE TO [facility] AT [phone]. PT HAS BEEN ACCEPTED AT [facility] FOR SKILLED CARE; SRINATH WAITING ADMISSION DETERMINATION FROM [facility]. Bony Manuel, CASE MANAGEMENT
--- NOTE | 2017-06-21 10:52 | NUR ---
PT LYING IN BED SLEEPING, PT EASILY ARROUSED. PT STATES NO COMPLAINTS OR CONCERNS AT THIS TIME. BED IN LOW POST. BED RAILS UP TIMES 2. CALL LIGHT WITH IN REACH. WILL CONT TO [facility].
--- NOTE | 2017-06-21 11:25 | NUR ---
I HELP PT UP TO ASSIST TO BATHROOM. PT HAS BOWEL MOVEMENT. ASSIST PT BACK TO BED. PT STATES NO COMPLAINTS OR CONCERNS. BED LOW. CALL LIGHT WITHIN REACH. WILL CONT TO MONITOR PATIENT.
[2017-06-21 12:51] VITALS: BP 160/70
--- NOTE | 2017-06-21 13:48 | NUR ---
PT IS CURRENTLY SITTING UP IN BED WITH EYES CLOSED RESTING. NO NEED AT THIS CURRENT TIME. WILL CONTINUE TO MONITOR.
--- NOTE | 2017-06-21 15:39 | NUR ---
Patient Name: MAXINE CRANE Encounter No: [id number] : 1955 Primary Insurance: MEDICARE A & B Anticipated DC Date: 06-21-2017 Planned Disposition: [facility] Facility External Planned Provider: [facility], MEDICARE REHAB BED DCP follow-up note: CM RECEIVED CALL FROM [facility], , SPOKE TO SUMMER WHO REPORTS THEY CAN ACCEPT PT FOR REHAB. CM SPOKE TO BEDSIDE NURSE WHO ADVISED PT CAN SIT UP IN WHEELCHAIR FOR DURATION OF TRIP TO [place] AT DISCHARGE. CM SPOKE TO PT WHO IS IN AGREEEMENT WITH DISCHARGE TO REHAB AT [facility]. PT CALLED HER SPOUSE VIA CELL PHONE AND NOTIFIED HIM OF ACCEPTANCE. CM NOTIFIED SUMMER OF [facility], WHO WILL ARRANGE VAN TRANSPORTATION FOR TOMORROW. CM CALLED AND SPOKE TO MARISOL [facility], , NOTIFIED OF [facility]. PT HAS BEEN ACCEPTED AT [facility] FOR SKILLED CARE; FAX DISCHARGE INFORMATION TO [facility] AT [phone], NURSE REPORT TO BE CALLED TO [facility] AT [phone]. [facility] TO ARRANGE VAN TRANSPORT AT DISCHARGE. Bony Manuel, CASE MANAGEMENT
[2017-06-21 15:48] VITALS: BP 138/50
--- NOTE | 2017-06-21 17:08 | NUR ---
PT IS CURRENTLY SITTING UP ON SIDE OF BED WITH EYES OPEN EATING DINNER. NO NEED AT THIS CURRENT TIME. WILL CONTINUE TO MONITOR.
[2017-06-21 21:02] VITALS: BP 119/49
--- NOTE | 2017-06-22 02:37 | NUR ---
PT IS ALERT AND LAYING IN BED, RESPIRATIONS EVEN AND UNLABORED. DENIES PAIN OR NEEDS AT THIS TIME. CALL LIGHT IN REACH, WILL CONTINUE TO MONITOR.
[2017-06-22 06:15] LABS: INR 1.38 (0.85-1.17); PROTIME 16.5 SECONDS (11.6-15.0)
[2017-06-22 06:21] LABS: ANION GAP 17.1 mmol/L (8-16); CALCIUM 8.8 mg/dL (8.5-10.1); CARBON DIOXIDE 27.6 mmol/L (21.0-32.0); CREATININE - SERUM 9.6 mg/dL (0.6-1.3); PHOSPHOROUS 5.8 mg/dL (2.5-4.9); POTASSIUM - SERUM 3.7 mmol/L (3.5-5.1)
[2017-06-22 06:30] LABS: BASOPHILS 0.4 % (0-2); EOSINOPHILS 3.6 % (0-7); HEMATOCRIT 27.8 % (36.0-48.0); HEMOGLOBIN 8.9 g/dL (12-16); IMMATURE GRANULOCYTES 0.2 % (0-5); LYMPHOCYTES 22.3 % (15-50); MCH 30.2 pg (26.0-34.0); MCV 94.2 fL (80.0-100.0); MEAN PLATELET VOLUME 9.4 fL (7.4-10.4); MONOCYTES 16.3 % (2-11); NEUTROPHILS 57.2 % (40-80); PLATELET COUNT 296 10x3/uL (130-400); RBC 2.95 10x6/uL (4.00-5.40); RDW 16.5 % (11.5-14.5); WBC 4.5 10x3/uL (4.8-10.8)
--- NOTE | 2017-06-22 07:28 | NUR ---
AM ROUNDING- RECEIVED REPORT FROM [employer] NURSE BEA. PT IS CURRENTLY LAYING IN BED ON BACK WITH EYES OPEN RESTING. PT IS ASKING WHEN SHE WILL GET TO GO HOME. ON ROOM AIR. NO MONITOR. LEFT CHEST HEMOSPLIT SEEN FOR DIALYSIS. PT IS BILATERAL RESERVE ARMS FOR AVF AND OLD AVF. IN DROPLET ISOLATION FOR E.COLI IN URINE PER REPORT. WILL CONTINUE TO MONITOR AND CONTINUE WITH PLAN OF CARE.
[2017-06-22 08:14] VITALS: BP 136/54
--- NOTE | 2017-06-22 10:57 | NUR ---
DIALYSIS NURSE IN ROOM NOW GIVING PT DIALYSIS. WILL CONTINUE TO MONITOR.
[2017-06-22] MEDS ORDERED: COUMADIN7.5 MG NG (11:46)
[2017-06-22] MEDS ORDERED: ARICEPT5 MG PO (11:46)
[2017-06-22] MEDS ORDERED: LOVENOX40 MG/0.4 SC (11:46)
[2017-06-22] MEDS ORDERED: LEVOXYL100 MCG PO (11:47)
[2017-06-22] MEDS ORDERED: CELEXA20 MG PO (11:47)
[2017-06-22 12:09] VITALS: BP 142/65
--- NOTE | 2017-06-22 14:11 | NUR ---
Patient Name: MAXINE CRANE Encounter No: [id number] : 1955 Primary Insurance: MEDICARE A & B Anticipated DC Date: 06-22-2017 Planned Disposition: Snf Facility External Planned Provider: [facility], MEDICARE REHAB BED DCP follow-up note: CM RECEIVED DISCHARGE ORDER, SPOKE TO PT IN ROOM WHO IS IN AGREEMENT WITH DISCHARGE TO REHAB AT [facility] TODAY. PT WILL NOTIFY HER SPOUSE OF DISCHARGE PLAN. IMPORTANT MESSAGE FROM MEDICARE PROVIDED AND EXPLAINED. CM SPOKE TO DR. MARIN AND DIALYSIS NURSE. CM CALLED [facility] TO ARRANGE TRANSPORTATION, SPOKE TO AMIRA WHO ASKED CM TO SEE IF AMBULANCE WILL BE COVERED BY MEDICARE. CM REVIEWED CHART, SPOKE TO SUKHDEV AT [facility], AMBULANCE WILL NOT BE COVERED BY MEDICARE FOR TRANSPORT TO THE NURSING FACILITY. SRINATH CALLED AND NOTIFIED AMIRA WHO REPORTS THEY HAVE VAN TRANSPORT TO [facility] AT 2:30PM TODAY. BEDSIDE NURSE NOTIFIED. CM FAXED DISCHARGE INFORMATION TO [facility] AT [phone], NURSE REPORT TO BE CALLED TO [facility] AT [phone]. [facility] TO ARRANGE VAN TRANSPORT FOR 1430 TODAY. Bony Manuel, CASE MANAGEMENT
--- NOTE | 2017-06-22 14:36 | NUR ---
D/C INSTRUCTIONS EXPLAINED TO PT. D/C PAPERWORK SIGNED BY PT. CIARA WITH DIALYSIS IN ROOM NOW FINISHING UP. CIARA IS PLACING NEW DRESSING OVER PTS HEMOSPLIT CATHETER. TERRY YBARRA GATHERED PTS BELONGINGS. TERRY YBARRA WILL GET PT DRESSED ONCE CIARA IS FINISHED. [facility] STAFF IS HERE WAITING ON PT.
--- NOTE | 2017-06-22 15:02 | NUR ---
ARUNA DE JESUS EMPLOYEE AND VOLUNTEER ARE ASSISTING PT INTO WHEELCHAIR. PT D/C VIA WHEELCHAIR WITH ARUNA DE JESUS EMPLOYEE.
--- NOTE | 2017-06-22 15:13 | NUR ---
PT TX STOPPED APPROX. 14 MINUTES BEFORE FINISH HER B/P DROPPED SIGNIFICANTLY AND BACK STARTED TO CRAMP. HAD DROPPED UF GOAL TWICE FROM 3L DOWN TO 2L AND GAVE 200CC NS BOLUS. HER DIASTOLIC B/P DOWN TO 31. WAS ABLE TO GET 2L FLUID OFF. PT BEING D/C'D TO [facility] [place] FOR REHAB.
--- NOTE | 2017-06-22 15:14 | NUR ---
ARUNA HAMMOND EMPLOYEE IS BACK ON UNIT STATING HER BOSS IS STATING THEY ARE NOW NOT ACCEPTING PT DUE TO PT WANTING TO GO TO [place]. [employer]AR SPECIMEN BOSS IS AWARE AND STATED PRIOR ON SHIFT THAT PT AND PTS RECENTLY AGREED THAT PT WOULD BE TRANSFERED TO [facility]. NOW PT IS WANTING TO GO TO [place]. [facility] TRANSPORTER STATES HER BOSS TOLD HER TO BRING PT BACK TO UNIT. [employer] BOSS STATES TO BRING HER BACK THEN.
--- NOTE | 2017-06-22 15:27 | NUR ---
BEAR, HORTICULTURAL FARM MANAGER STATES TO PT AND RESPIRATORY SERVICES MANAGER THAT SHE WILL HAVE TO GO TO ER AND BE RE-ADMITTED TO GO TO [facility]. REPORT WAS NOT CALLED TO [facility] YET DUE TO PT JUST BEING D/C VIA WHEELCHAIR. BEAR HORTICULTURAL FARM MANAGER STATES TO NOT CALL REPORT TO [facility] DUE TO PT NOT GOING.
--- NOTE | 2017-06-22 16:09 | NUR ---
ER CM: SRINATH contacted Joleen, with [facility] in [place] @[phone], verified that patient has been accepted to their facility. Per Joleen, it will be approximately 1 1/2 hours until their van arrives for transportation. This information given to patient. Patient's spouse Timmy is also living in the same facility. Yumi De RN, CM
--- NOTE | 2017-06-22 16:22 | NUR ---
Patient Name: MAXINE CRANE Encounter No: [id number] : 1955 Primary Insurance: MEDICARE A & B Anticipated DC Date: 06-22-2017 Planned Disposition: [facility] Facility External Planned Provider: [facility], MEDICARE REHAB BED DCP follow-up note: CM RECEIVED MESSAGE FROM FLOOR NURSE THAT PT REFUSED TO GO TO [facility] AFTER LEAVING THE HOSPITAL AND THAT PT IS BEING BROUGHT BACK TO THE HOSPITAL, PT DOWNSTAIRS AND IS GOING TO THE EMERGENCY ROOM. CM MET WITH PT AT FRONT ENTRANCE OF HOSPITAL, PT NOW STATES SHE WANTS TO GO TO [facility] WHERE "SEEMA IS AT." CHOICE SIGNED. [facility] SUPERVISOR FIREWORKS ASSEMBLY TAKING PT TO THE EMERGENCY ROOM TO WAIT ADMISSION DETERMINATION FROM [facility]. SRINATH SPOKE TO MARISOL, CLINICAL LIAISON [facility] AND ALSO SPOKE TO AMISH BRITO [facility] WHO WILL ACCEPT PT. CM RECEIVED CALL FROM [facility] WHO INFORMED CM THAT SHE IS FAXING REFERRAL AND DISCHARGE INFORMATION TO [facility]. CM SPOKE TO AMISH BRITO [facility] WHO WILL ARRANGE VAN CRUISE GUIDE FOR PT IN ER. NURSE REPORT TO BE CALLED TO [facility], . BEDSIDE NURSE NOTIFIED. [facility] VAN TO CRUISE GUIDE PT IN ER. CM NOTIFIED NISSAN SALES CONSULTANT SRINATH VALIENTE WHO WAS NOTIFIED EARLIER BY AMISH BRITO [facility]. Bony Manuel, CASE MANAGEMENT
--- NOTE | 2017-06-22 16:37 | NUR ---
BEAR FACING CUTTING MACHINE OPERATOR CAME TO INFORM ME TO CALL REPORT TO [facility]. PT HAS BEEN D/C AND WENT TO ER. THIS NURSE CALLED [facility] AND GAVE REPORT TO LOREE BERNARDO.
--- NOTE | 2017-06-22 19:13 | NUR ---
ER CM: @1800 [facility] van arrived and will transport patient to their facility as previously arranged. Yumi De RN CM
--- NOTE | 2017-06-23 10:46 | DS ---
PATIENT:MAXINE CRANE :[birth year] MEDICAL RECORD: [id number] DISCHARGE SUMMARY ADMISSION DATE: 05/31/17 DISCHARGE DATE: 06/22/17 It has been more than 30 minutes preparing her discharge. DISCHARGE MEDICATION: We are going to discharge her on Aricept 5 mg a day, Lovenox 40 a day for the next 3 days as we have been increasing her Coumadin to 7.5 mg a day due to the subtherapeutic INR, Celexa 10 mg at night, Synthroid has been increased to 100 mcg from 75, Tylenol 500 mg p.r.n., Pepcid 20 mg b.i.d., Renvela 2400 mg t.i.d. with meals, cinacalcet 30 mg daily, simethicone 80 mg p.r.n., tramadol 50 mg q.8 hours p.r.n. pain, Colace 100 mg daily, Benadryl 25 q.4 hours p.r.n. She will follow up at the dialysis center and her new shelter. She has been ready for discharge for a number of days and we will have to discharge her with a subtherapeutic INR. She had her fistula abscess I&D'd. She is now off of antibiotics. We will have to continue to monitor her dialysis access and will have her dialysis center send her back to Dr. Rios for evaluation. Her mental status is at baseline. She does have underlying dementia. Vital signs are stable, afebrile. She is on her dialysis schedule Monday, and Monday. She responds well to me, is pleasant and smiling, but does demand to go home. I do not have her Timmy here or her family in regards to her INR being subtherapeutic and have made amends with Lovenox. Chest is regular rate and rhythm. S1, S2, without a rub. Lungs are grossly clear to auscultation bilaterally. No drainage from her access. Trace lower extremity edema. They will need to monitor her at the shelter as she got up and disconnected her dialysis catheter and had bleeding and did not alert the nurse while she was here in the hospital. This is a significant issue as she will need to be monitored and if she was thinking correctly she would know not to do this. She is stable on discharge at this time, we will continue with her renal diet. Meds as listed. TRANSINT:[id number] Voice Confirmation ID: [id number] DOCUMENT ID: [id number] GIO MARIN MD at 1046 CC: [id number] DICTATION DATE: 06/22/17 1150 FLOOR DIRECTOR: 06/22/17 1303 DIS IN 06/22/17 [place] [id number] [place] [id number]
--- NOTE | 2017-07-14 15:11 | OP ---
PATIENT NAME: MAXINE CRANE MEDICAL RECORD: [id number] :55 LOCATION:D.M2 D.0 ADMISSION DATE:05/31/17 SURGEON: STEPHANY THORNTON MD DATE OF OPERATION: 06/02/2017 REFERRING PHYSICIAN: Devon Romero MD PREOPERATIVE DIAGNOSIS: Infected expanding pseudoaneurysm of AV graft, right forearm. ADDITIONAL DIAGNOSES: End-stage renal disease, on chronic hemodialysis; hypertension; diabetes; noncompliance with renal dialysis; hyperkalemia; mechanical complication of AV shunt; and infected prosthetic vascular graft. OPERATIONS PERFORMED: Ligation and excision of infected graft, right forearm; and application of VAC dressing. SURGEON: Stephany Thornton MD ANESTHESIA: General. PREOPERATIVE NOTE: Ms. Crane has been dialyzing now with her tunneled dialysis catheter, which I placed recently. She is returned to the operating room now to address the infected enlarging aneurysm on her right forearm. Under anesthesia, the patient was prepped and draped in a sterile manner. A tourniquet was applied to the arm and inflated above the level of the systolic blood pressure. I made a longitudinal incision then over the pseudoaneurysm and excised the aneurysm entirely along with the arterial limb of the graft. The graft was ligated with heavy Vicryl sutures and Hemoclips. The wound was cultured and irrigated with saline, and the tourniquet deflated. Additional hemostasis was obtained with electrocautery and the wound was then dressed with a closed suction wound dressing with one piece of black foam. She was awakened and taken to the recovery room in stable condition. Blood loss during the procedure was insignificant, none replaced. All sponges, instruments, and needles were accounted for. No drain was used other than the vacuum dressing. Submitted for pathologic study were infected pseudoaneurysm and cultures. TRANSINT:[id number] Voice Confirmation ID: [id number] DOCUMENT ID: [id number] STEPHANY THORNTON MD at 1511 CC: FELICITY ROMERO MD [id number] DICTATION DATE: 07/11/17 1201 PERIPHERAL EDP EQUIPMENT OPERATOR: 07/11/17 1241 DIS IN 06/22/17 [place] [address]
--- NOTE | 2017-07-14 15:11 | OP ---
PATIENT NAME: MAXINE CRANE MEDICAL RECORD: [id number] :55 LOCATION:D.M2 D.0 ADMISSION DATE:05/31/17 SURGEON: STEPHANY THORNTON MD DATE OF OPERATION: 05/31/2017 REFERRING PHYSICIAN: Dr. Devon Romero. PREOPERATIVE DIAGNOSIS: End-stage renal disease, hypertension, diabetes, noncompliance with renal dialysis, acute hyperkalemia, mechanical complication of AV shunt, and infected prosthetic vascular graft. POSTOPERATIVE DIAGNOSES: End-stage renal disease, hypertension, diabetes, noncompliance with renal dialysis, acute hyperkalemia, mechanical complication of AV shunt, and infected prosthetic vascular graft. SURGEON: Stephany Thornton MD ANESTHESIA: Local MAC per LIBRARY TECHNOLOGY INSTRUCTOR. OPERATION PERFORMED: Ultrasound-guided insertion of left internal jugular tunneled central dialysis catheter. PREOPERATIVE NOTE: Ms. Crane is a severely ill 61-year-old female with end-stage renal disease, who has an infected enlarging pulsatile pseudoaneurysm of a PTFE graft in her right arm. She is hyperkalemic and needs to dialyze and is not thought that she can have general anesthetic. She is brought to the OR at this time just to do a tunneled catheter under local MAC. The patient was sedated and placed on the operating table, ultrasound examination with the Elonics duplex device demonstrated the right internal jugular vein to be occluded, most likely secondary to numerous previous catheter accesses. The left internal jugular was patent, fully compressible, and of normal caliber. She was prepped and draped in a sterile manner. An incision made at the base of the neck on the left. Then, with continuous ultrasound guidance, a needle and guidewire were inserted directly into the internal jugular vein and under fluoroscopy, the guidewire advanced into the right atrium. Dilators passed over the wire and lastly, a peel-away introducer sheath and then a 27 cm long HemoSplit tunneled dialysis catheter was brought in through a separate stab incision in subcutaneous tunnel and introduced through the peel-away sheath. The sheath removed. The catheter tips positioned appropriately in the right atrium. Lumens were accessed and aspirated, easy return of blood confirmed. The catheter was then flushed with saline and then heparin locked. The catheter was sutured to the skin near the entry site with 2-0 Prolene. The cervical incision closed with interrupted inverted 3-0 Vicryl and Dermabond glue. That site was then dressed with Maxorb AG and Tegaderm with Cavilon skin prep and a standard chlorhexidine containing biodisc was applied at the catheter exit site and a standard CVL dressing applied over that. She was then taken to recovery in stable condition. She will go on to dialysis shortly. She will be returned to the operating room in a day or two to work on the right arm. TRANSINT:[id number] Voice Confirmation ID: [id number] DOCUMENT ID: [id number] OPERATIVE REPORT [id number] MAXINE CRANE, STEPHANY KO at 1511 CC: FELICITY ROMERO MD [id number] DICTATION DATE: 07/11/17 1211 TAX SERVICES MANAGER: 07/11/17 1234 DIS IN 06/22/17 [facility] [address] [place] [address]
== END 2017-06-22 15:29 | DRG 252 ==
LOC: D.M2 13:10 → D.ICU 15:15 → D.M2 06-01 06:21 → D.ICU 06-07 15:52 → D.M2 06-16 15:31
PROVIDERS: Internal Medicine; Internal Medicine Nephrology; Internal Medicine Pulmonary Disease; Surgery; ADMIT Internal Medicine Nephrology
PROC: B5181ZA Fluoroscopy of Superior Vena Cava using Low Osmolar Contrast, Guidance (ICD-10-PCS; 2017-05-31)
PROC: B548ZZA Ultrasonography of Superior Vena Cava, Guidance (ICD-10-PCS; 2017-05-31)
PROC: 02HV33Z Insertion of Infusion Device into Superior Vena Cava, Percutaneous Approach (ICD-10-PCS; principal; 2017-05-31 22:00)
PROC: 05LY0ZZ Occlusion of Upper Vein, Open Approach (ICD-10-PCS; 2017-06-02)
PROC: 05BB0ZZ Excision of Right Basilic Vein, Open Approach (ICD-10-PCS; 2017-06-02)
PROC: 05B90ZZ Excision of Right Brachial Vein, Open Approach (ICD-10-PCS; 2017-06-02)
PROC: 0X9D0ZZ Drainage of Right Lower Arm, Open Approach (ICD-10-PCS; 2017-06-02)
PROC: 3E03317 Introduction of Other Thrombolytic into Peripheral Vein, Percutaneous Approach (ICD-10-PCS; 2017-06-03)
PROC: 0BH17EZ Insertion of Endotracheal Airway into Trachea, Via Natural or Artificial Opening (ICD-10-PCS; 2017-06-07)
PROC: 5A1955Z Respiratory Ventilation, Greater than 96 Consecutive Hours (ICD-10-PCS; 2017-06-07)
DX: T82.7XXA Infection and inflammatory reaction due to other cardiac and vascular devices, implants and grafts, initial encounter (principal); N18.6 End stage renal disease; J96.00 Acute respiratory failure, unspecified whether with hypoxia or hypercapnia; J69.0 Pneumonitis due to inhalation of food and vomit; J15.5 Pneumonia due to Escherichia coli; I26.99 Other pulmonary embolism without acute cor pulmonale; I13.2 Hypertensive heart and chronic kidney disease with heart failure and with stage 5 chronic kidney disease, or end stage renal disease; J98.11 Atelectasis; I50.20 Unspecified systolic (congestive) heart failure; Y83.8 Other surgical procedures as the cause of abnormal reaction of the patient, or of later complication, without mention of misadventure at the time of the procedure; E11.22 Type 2 diabetes mellitus with diabetic chronic kidney disease; E03.9 Hypothyroidism, unspecified; Z79.01 Long term (current) use of anticoagulants; I08.1 Rheumatic disorders of both mitral and tricuspid valves; F03.90 Unspecified dementia, unspecified severity, without behavioral disturbance, psychotic disturbance, mood disturbance, and anxiety; Z86.711 Personal history of pulmonary embolism; E87.5 Hyperkalemia; Z91.15 Patient's noncompliance with renal dialysis

== ENCOUNTER 2017-08-14 19:50 | Inpatient (IN) | payer MEDICARE ==
[~2017-08-14] VITALS: Ht 167.6 cm; Wt 107.9 kg
--- NOTE | ~2017-08-14 | OP ---
PATIENT NAME: MAXINE CRANE MEDICAL RECORD: [id number] :55 LOCATION:D. D.2128 ADMISSION DATE:08/15/17 SURGEON: STEPHANY THORNTON MD DATE OF OPERATION: 08/16/2017 PREOPERATIVE DIAGNOSES: End-stage renal disease and dependence on hemodialysis and loss of dialysis access due to displacement of HemoSplit catheter from her groin. POSTOPERATIVE DIAGNOSES: End-stage renal disease and dependence on hemodialysis and loss of dialysis access due to displacement of HemoSplit catheter from her groin. OPERATION PERFORMED: Insertion of a left internal jugular 23 cm HemoSplit tunneled dialysis catheter with ultrasound guidance and fluoroscopy. SURGEON: Stephany Thornton MD ANESTHESIA: General with LMA per Dr. Herrera. PREOPERATIVE NOTE: Ms. Crane is an unfortunate -Ugandan 61-year-old female with end-stage renal disease, who has had difficulties with access, recently having had a right forearm loop become infected and required excision. She has been dialyzing most recently with a femoral tunnel dialysis catheter, which came out at home and she suffered a significant blood loss before arriving in the hospital. She has no means of dialyzing now and so was brought to the operating room to place another dialysis catheter. Hopefully, she will have an internal jugular vein available. DESCRIPTION OF PROCEDURE: With the patient under anesthesia because she was not able to cooperate with the procedure done under local with sedation, the patient was prepped and draped in a sterile manner. The right internal jugular vein was found to be thrombosed. The left internal jugular vein on ultrasound was patent, although it did contain a marble sized thrombus, which is fixed to the wall of the vein. A incision was placed at the base of the neck over the left internal jugular vein and through that a needle and guidewire with ultrasound guidance was advanced and under fluoroscopy, the wire advanced into the right atrium and dilators were passed. I chose a 23 cm HemoSplit. I made an entry stab incision for beneath the clavicle and pulled the catheter from that site up into the cervical wound where it was then inserted through the peel-away sheath as the peel-away sheath was removed all under continuous fluoroscopy. The catheter was successfully positioned deeply into the right atrium. Both lumens were then accessed and aspirated. Free return of blood was demonstrated. The catheter lumens were then flushed with saline and then Hep-locked, clamped, and capped. The catheter was sutured to the skin near the entry site with 2-0 Prolene and the cervical incision closed with interrupted inverted 3-0 Vicryl and Dermabond glue and dressed with Maxorb Ag, Tegaderm, and Cavilon skin prep. A standard central venous dressing was applied over the catheter at the exit site. The patient was then awakened and taken to the recovery room. Blood loss during this operation was about 10 cc and was unreplaced. All sponges, instruments, and needles were accounted for. No drain was used and no surgical specimen was submitted for histopathology. OPERATIVE REPORT [id number] MAXINE CRANE TRANSINT:[id number] Voice Confirmation ID: [id number] DOCUMENT ID: [id number] STEPHANY THORNTON MD at 1126 CC: NASREEN THACKER MD [id number] DICTATION DATE: 08/25/17 1352 POWERBUILDER: 08/25/17 1450 DIS IN 08/23/17 [facility] [address] [place] [address]
--- NOTE | ~2017-08-14 | OP ---
PATIENT NAME: MAXINE CRANE MEDICAL RECORD: [id number] :55 LOCATION:D. D.2128 ADMISSION DATE:08/15/17 SURGEON: STEPHANY THORNTON MD DATE OF OPERATION: 08/19/2017 PREOPERATIVE DIAGNOSIS: End-stage renal disease and dependence on hemodialysis and lack of a long-term access. POSTOPERATIVE DIAGNOSIS: End-stage renal disease and dependence on hemodialysis and lack of a long-term access REFERRING PHYSICIAN: Amandeep Pan MD OPERATION PERFORMED: Implantation of a Propaten PTFE 6-mm diameter right upper arm loop axillary AV graft. ADDITIONAL POSTOPERATIVE DIAGNOSIS: Residual infected vascular graft in the right forearm and additional operation performed and excision of infected graft from right forearm. SURGEON: Stephany Thornton MD ANESTHESIA: General with LMA per MERCURY CRACKING TESTER. PREOPERATIVE NOTE: Ms. Crane is a 61-year-old -Lebanese female who has been on dialysis for a long time. She has dialyzed for a long time with a right forearm PTFE loop which developed an infected pseudoaneurysm and recently required a resection which was subsequently treated with long-term antibiotics and wound VAC with a closure of the wound. She was admitted to the hospital on this occasion after her femoral tunnel catheter came out and she suffered a significant hemorrhage. She was taken to the operating room on the and I placed a left internal jugular tunneled dialysis catheter. She has had dialysis since and now while she is here in the hospital, I am going to try to provide long-term dialysis access. DESCRIPTION OF PROCEDURE: Under anesthesia in supine position, the patient's right arm was prepped and draped in sterile manner. I made a transverse axillary incision and exposed the axillary artery and vein and prepared both for anastomosis. I chose a 6-mm straight Propaten PTFE graft, one end was beveled and the artery occluded and opened for about 8 mm. The artery was flushed proximally and distally with heparinized saline and the new graft anastomosed end of graft to side of artery with running 6-0 Prolene. When completed, the suture line was treated with BioGlue and the graft and artery again flushed with heparinized saline. A counterincision was made distally on the medial aspect of the arm above the elbow and the graft was pulled through a tunnel from the axillary incision to the distal incision and then back again up to the proximal incision where it was then shortened and beveled and anastomosed to the axillary vein, end of graft to side of vein with running 6-0 Prolene after local dilute heparin flush, that anastomosis also was treated with BioGlue and when the occluding clamps and loops were released, excellent flow was established in the new AV graft. The wounds were infiltrated and irrigated with 0.25% Marcaine and antibiotic solution of Ancef and gentamicin. They were then closed with interrupted inverted 3-0 Vicryl and running intracuticular 4-0 Monocryl and Dermabond glue. They were dressed with Maxorb Ag, Tegaderm, and Cavilon skin prep. OPERATIVE REPORT [id number] ROYCEMAXINE Myles I noted that there was fluctuance palpable or residual AV graft in the right forearm which I had not appreciated preoperatively, fearing that this represented abscess along retained portions of the AV graft, I made an incision and indeed a large amount of pus without any odor was encountered. This was swabbed for aerobic and anaerobic culture and sensitivity and Gram stain. The Gram stain revealed numerous Gram-positive cocci, an extensive decision was necessary to free basically the venous limb of her loop graft, some skin for the forearm was excised, which left a defect about 3 x 4 inches. Hemostasis was obtained with electrocautery and suture ligatures. I still did not resect the PTFE from the arterial and venous anastomoses, but these seemed to be quite well clear of the area of active infection. The wound was extensively irrigated with Ancef and gentamicin solution, it was infiltrated with some Marcaine and partially closed with a couple of 3-0 Vicryl sutures after which a wet to dry Dakin solution dressing was applied and the patient awakened from her anesthetic and taken to the recovery room. PLAN: The patient will need prolonged antibiotic coverage once again and will need to have a VAC dressing applied by wound care nurse on Monday. She will be discharged to her residential with a wound VAC and will need arrangements made for that before she can go home also. We will need to wait at least 2 weeks before restart trying to use her new AV graft, probably longer, try to make sure that the infection in her right arm was cleared out before we start using the new graft. I would like to see her back in my office in about 2 weeks. TRANSINT:[id number] Voice Confirmation ID: [id number] DOCUMENT ID: [id number] STEPHANY THORNTON MD at 1126 CC: AMANDEEP PAN [id number] DICTATION DATE: 08/25/17 1400 POWER PLANT ASSISTANT: 08/25/17 1507 DIS IN 08/23/17 [place] [id number] [place] [address]
[2017-08-14 19:00] VITALS: BP 160/75
[~2017-08-14 19:50] MED LIST changes: +ARICEPT5 MG PO; +CELEXA20 MG PO; +COUMADIN7.5 MG NG; +LEVOXYL100 MCG PO; +LOVENOX40 MG/0.4 SC
[2017-08-15 00:11] LABS: BASOPHILS 0.3 % (0-2); EOSINOPHILS 2.4 % (0-7); HEMATOCRIT 36.7 % (36.0-48.0); HEMOGLOBIN 11.7 g/dL (12-16); IMMATURE GRANULOCYTES 0.3 % (0-5); LYMPHOCYTES 22.6 % (15-50); MCH 29.4 pg (26.0-34.0); MCHC 31.9 g/dL (31.0-37.0); MCV 92.2 fL (80.0-100.0); MEAN PLATELET VOLUME 9.5 fL (7.4-10.4); MONOCYTES 7.5 % (2-11); NEUTROPHILS 66.9 % (40-80); PLATELET COUNT 243 10x3/uL (130-400); RBC 3.98 10x6/uL (4.00-5.40); WBC 7.2 10x3/uL (4.8-10.8)
[2017-08-15 00:21] LABS: ANION GAP 13.6 mmol/L (8-16); CALCIUM 8.3 mg/dL (8.5-10.1); CARBON DIOXIDE 27.5 mmol/L (21.0-32.0); CREATININE - SERUM 10.8 mg/dL (0.6-1.3); POTASSIUM - SERUM 4.1 mmol/L (3.5-5.1)
[2017-08-15 00:35] LABS: APTT 106.1 SECONDS (22.8-39.4)
[2017-08-15 00:38] LABS: INR 6.65 (0.85-1.17); PROTIME 56.9 SECONDS (11.6-15.0)
[2017-08-15 04:00] VITALS: BP 128/61
[2017-08-15 08:02] VITALS: BP 148/68
[2017-08-15 11:10] VITALS: BP 172/90
[2017-08-15 11:12] VITALS: BMI 28.9
[2017-08-15 13:58] VITALS: Ht 167.6 cm; Wt 107.9 kg
[2017-08-15 15:38] VITALS: BP 159/82
[2017-08-15 21:47] VITALS: BP 149/73
[2017-08-16 01:54] VITALS: BP 136/57
[2017-08-16 05:53] VITALS: BP 148/77
[2017-08-16 08:11] VITALS: BP 132/61
[2017-08-16 10:53] LABS: INR 4.07 (0.85-1.17); PROTIME 38.6 SECONDS (11.6-15.0)
[2017-08-16 11:44] VITALS: BP 136/60
[2017-08-16 15:24] VITALS: BP 128/63
[2017-08-16 19:00] VITALS: BP 163/85
[2017-08-17 04:52] VITALS: BP 148/57
[2017-08-17 08:19] VITALS: BP 172/86
[2017-08-17 11:32] VITALS: BP 170/83
[2017-08-17 15:13] LABS: INR 3.71 (0.85-1.17)
[2017-08-17 15:44] VITALS: BP 164/76
[2017-08-17 20:53] VITALS: BP 138/71
[2017-08-18 02:35] VITALS: BP 148/72
[2017-08-18 05:38] LABS: INR 1.7 (0.85-1.17); PROTIME 19.4 SECONDS (11.6-15.0)
[2017-08-18 06:08] VITALS: BP 148/85
[2017-08-18 07:51] VITALS: BP 130/73
[2017-08-18 15:30] VITALS: BP 126/75
[2017-08-18 19:00] VITALS: BP 139/81
[2017-08-19 04:00] VITALS: BP 171/101
[2017-08-19 07:16] LABS: BASOPHILS 0.3 % (0-2); EOSINOPHILS 2.8 % (0-7); HEMATOCRIT 35.8 % (36.0-48.0); HEMOGLOBIN 11.4 g/dL (12-16); IMMATURE GRANULOCYTES 0.3 % (0-5); LYMPHOCYTES 16.7 % (15-50); MCHC 31.8 g/dL (31.0-37.0); MCV 91.1 fL (80.0-100.0); MEAN PLATELET VOLUME 10.1 fL (7.4-10.4); MONOCYTES 8.2 % (2-11); NEUTROPHILS 71.7 % (40-80); PLATELET COUNT 195 10x3/uL (130-400); RBC 3.93 10x6/uL (4.00-5.40); RDW 15.6 % (11.5-14.5); WBC 7.9 10x3/uL (4.8-10.8)
[2017-08-19 07:33] LABS: ANION GAP 15.9 mmol/L (8-16); CALCIUM 8.3 mg/dL (8.5-10.1); CARBON DIOXIDE 27.1 mmol/L (21.0-32.0); CREATININE - SERUM 13.2 mg/dL (0.6-1.3)
[2017-08-19 09:50] VITALS: BP 175/89
[2017-08-19 12:15] VITALS: BP 167/92
[2017-08-19 20:40] VITALS: BP 158/74
[2017-08-20 00:15] VITALS: BP 124/61
[2017-08-20 05:09] VITALS: BP 138/70
[2017-08-20 07:41] VITALS: BP 135/62
[2017-08-20 10:03] LABS: BASOPHILS 0.3 % (0-2); EOSINOPHILS 2.1 % (0-7); HEMATOCRIT 36.7 % (36.0-48.0); HEMOGLOBIN 11.7 g/dL (12-16); IMMATURE GRANULOCYTES 0.3 % (0-5); LYMPHOCYTES 11.4 % (15-50); MCH 29.5 pg (26.0-34.0); MCHC 31.9 g/dL (31.0-37.0); MCV 92.4 fL (80.0-100.0); NEUTROPHILS 75.9 % (40-80); PLATELET COUNT 191 10x3/uL (130-400); RBC 3.97 10x6/uL (4.00-5.40); RDW 15.5 % (11.5-14.5); WBC 7.6 10x3/uL (4.8-10.8)
[2017-08-20 10:23] LABS: ANION GAP 18.5 mmol/L (8-16); CALCIUM 8.2 mg/dL (8.5-10.1); CARBON DIOXIDE 24.5 mmol/L (21.0-32.0); CREATININE - SERUM 15.5 mg/dL (0.6-1.3)
[2017-08-20 11:37] VITALS: BP 162/75
[2017-08-20 15:49] VITALS: BP 161/68
[2017-08-20 20:58] VITALS: BP 145/84
[2017-08-21 01:12] VITALS: BP 154/73
[2017-08-21 05:58] VITALS: BP 147/67
[2017-08-21 06:46] LABS: BASOPHILS 0.2 % (0-2); EOSINOPHILS 1.4 % (0-7); HEMATOCRIT 30.8 % (36.0-48.0); HEMOGLOBIN 9.9 g/dL (12-16); IMMATURE GRANULOCYTES 0.2 % (0-5); LYMPHOCYTES 12.5 % (15-50); MCH 29.1 pg (26.0-34.0); MCHC 32.1 g/dL (31.0-37.0); MCV 90.6 fL (80.0-100.0); MEAN PLATELET VOLUME 9.9 fL (7.4-10.4); MONOCYTES 11.6 % (2-11); NEUTROPHILS 74.1 % (40-80); PLATELET COUNT 176 10x3/uL (130-400); RDW 15.5 % (11.5-14.5); WBC 8.4 10x3/uL (4.8-10.8)
[2017-08-21 06:52] LABS: CALCIUM 7.9 mg/dL (8.5-10.1); CARBON DIOXIDE 22.8 mmol/L (21.0-32.0); CREATININE - SERUM 16.3 mg/dL (0.6-1.3)
[2017-08-21 06:57] LABS: POTASSIUM - SERUM 5.8 mmol/L (3.5-5.1)
[2017-08-21 08:01] VITALS: BP 143/71
[2017-08-21 11:27] VITALS: BP 140/58
[2017-08-21 19:00] VITALS: BP 125/59
[2017-08-22] VITALS: BP 119/59
[2017-08-22 04:00] VITALS: BP 114/47
[2017-08-22 07:39] LABS: HEMATOCRIT 33.7 % (36.0-48.0); HEMOGLOBIN 11.1 g/dL (12-16); LYMPHOCYTES 18.1 % (15-50); MCH 29.5 pg (26.0-34.0); MCHC 32.9 g/dL (31.0-37.0); MCV 89.6 fL (80.0-100.0); MEAN PLATELET VOLUME 10.1 fL (7.4-10.4); NEUTROPHILS 66.8 % (40-80); PLATELET COUNT 181 10x3/uL (130-400); RBC 3.76 10x6/uL (4.00-5.40); WBC 6.5 10x3/uL (4.8-10.8)
[2017-08-22 07:49] LABS: ANION GAP 14.7 mmol/L (8-16); CALCIUM 8.5 mg/dL (8.5-10.1); CARBON DIOXIDE 28.3 mmol/L (21.0-32.0); CREATININE - SERUM 11.6 mg/dL (0.6-1.3)
[2017-08-22 09:25] VITALS: BP 134/61
[2017-08-22 11:46] VITALS: BP 126/59
[2017-08-22 16:11] VITALS: BP 97/44
[2017-08-22 20:00] VITALS: BP 136/70
[2017-08-23] VITALS: BP 140/77
[2017-08-23 04:00] VITALS: BP 142/73
[2017-08-23 06:38] LABS: BASOPHILS 0.5 % (0-2); EOSINOPHILS 4.9 % (0-7); HEMOGLOBIN 11.7 g/dL (12-16); IMMATURE GRANULOCYTES 0.1 % (0-5); LYMPHOCYTES 22.9 % (15-50); MCH 29.2 pg (26.0-34.0); MCHC 31.6 g/dL (31.0-37.0); MEAN PLATELET VOLUME 10.5 fL (7.4-10.4); MONOCYTES 13.8 % (2-11); NEUTROPHILS 57.8 % (40-80); RBC 4.01 10x6/uL (4.00-5.40); RDW 15.3 % (11.5-14.5); WBC 7.4 10x3/uL (4.8-10.8)
[2017-08-23 06:42] LABS: MCV 92.3 fL (80.0-100.0); PLATELET COUNT 221 10x3/uL (130-400)
[2017-08-23 06:55] LABS: ANION GAP 15.2 mmol/L (8-16); CALCIUM 9.2 mg/dL (8.5-10.1); CARBON DIOXIDE 30.7 mmol/L (21.0-32.0); CREATININE - SERUM 9.7 mg/dL (0.6-1.3); POTASSIUM - SERUM 3.9 mmol/L (3.5-5.1)
[2017-08-23 08:46] VITALS: BP 123/75
[2017-08-23] MEDS ORDERED: DOXYCYCLINE HY100 M2 PO (09:24)
[2017-08-23 12:23] VITALS: BP 138/80
[2017-08-23 16:00] VITALS: BP 132/79
== END 2017-08-23 19:27 | DRG 252 ==
LOC: OBSVTIME → D.M2 19:50 → OBSVTIME 19:50 → UNDOADMOB 19:50 → D.OPS 19:50 → D.M2 19:50 → EDSTATUS 08-16 17:00 → D.M2 08-23 19:27
PROVIDERS: Internal Medicine Nephrology; Surgery
PROC: B5141ZA Fluoroscopy of Left Jugular Veins using Low Osmolar Contrast, Guidance (ICD-10-PCS; 2017-08-16)
PROC: B544ZZA Ultrasonography of Left Jugular Veins, Guidance (ICD-10-PCS; 2017-08-16)
PROC: 5A1D70Z Performance of Urinary Filtration, Intermittent, Less than 6 Hours Per Day (ICD-10-PCS; 2017-08-16)
PROC: 05HN33Z Insertion of Infusion Device into Left Internal Jugular Vein, Percutaneous Approach (ICD-10-PCS; principal; 2017-08-16 17:00)
PROC: 03150ZD Bypass Right Axillary Artery to Upper Arm Vein, Open Approach (ICD-10-PCS; 2017-08-19)
PROC: 03PY0JZ Removal of Synthetic Substitute from Upper Artery, Open Approach (ICD-10-PCS; 2017-08-19)
DX: T82.7XXA Infection and inflammatory reaction due to other cardiac and vascular devices, implants and grafts, initial encounter (principal); N18.6 End stage renal disease; T82.49XA Other complication of vascular dialysis catheter, initial encounter; I13.2 Hypertensive heart and chronic kidney disease with heart failure and with stage 5 chronic kidney disease, or end stage renal disease; I82.C11 Acute embolism and thrombosis of right internal jugular vein; E11.22 Type 2 diabetes mellitus with diabetic chronic kidney disease; I50.9 Heart failure, unspecified; Z99.2 Dependence on renal dialysis; R53.1 Weakness; F03.90 Unspecified dementia, unspecified severity, without behavioral disturbance, psychotic disturbance, mood disturbance, and anxiety; R51 Headache